=== PATIENT | male | born 1960 | race Caucasian/White ===

== ENCOUNTER 2017-09-07 11:33 | Inpatient (IN) | payer SELFPAY ==
[~2017-09-07] VITALS: Ht 167.6 cm; Wt 66.5 kg
[2017-09-07] VITALS (20 sets, daily range): BP systolic 81–110; BP diastolic 41–69
[~2017-09-07 11:33] MED LIST: ACET-1748 PO; ALB17R; AZI250 PO; AZIT500T47 PO; HUM7030I SC; HUM7030I SQ; HUM75/25I SC; HUMALOG SC; IBUP800T37 PO; INSU100C10 SQ; INSU100C12 SQ; INSU100C14 SQ; INSU100I36 SQ; LANI; LANI SQ; LANI SUBQ; LOR5/325 PO; METF-409 PO; OXYC-869 PO; PAN40 PO; PER PO; Pantoprazole Sod PO; RAMI10CA72 PO; ROS10 PO; ZOLP12.545 PO
[2017-09-07] MEDS ORDERED: LANI SUBQ (11:40)
--- NOTE | 2017-09-07 11:44 | ER Report ---
History and Physical Time Seen By MD: 11:44 Hx. of Stated Complaint: PT C/O COUGH AND SOB. SICK FOR TWO DAYS. HPI/ROS CHIEF COMPLAINT: Cough, shortness of breath, vomiting HISTORY OF PRESENT ILLNESS: 56-year-old male patient presents to the emergency room with complaint of cough, shortness of breath and vomiting. Patient states that this is been going on since yesterday afternoon. He states that since this started is not been able to eat or drink as any time that he tried to drink he vomits. He states that he's not had any fevers but is concerned that he may have the flu. Patient states he has a cough that is very persistent. He states he does have some shortness of breath. He has not taken any medication for this. He denies having any fevers or chills. REVIEW OF SYSTEMS: Respiratory: As noted above Cardiovascular: No chest pain, no palpitations. Gastrointestinal: As noted above Musculoskeletal: No back pain. Allergies: Coded Allergies: No Known Drug Allergies (Verified , 09/07/17) Home Meds Reported Medications Insulin Glargine (LANTUS) 100 Unit/Ml Soln, 20 UNIT SUBQ QAM, ML 09/07/17 Discontinued Reported Medications Insulin Aspart (NOVOLOG) 100 Unit/1 Ml Cartridge, 100 UNIT SQ SS 04/28/16 Discontinued Scripts Insulin Glargine (LANTUS) 100 Unit/Ml Soln, 15 UNIT SUBQ BID, #1 BOX Prov:HENRY BURNETTE MD 07/28/15 Past Medical/Surgical History Patient has a past medical history of migraines, left shoulder fracture, type 1 diabetes. Patient has a surgical history of inguinal hernia repair, appendectomy. Reviewed Nurses Notes: Yes Hx Smoking: Yes Smoking Status: Light Tobacco Smoker Hx Substance Use Disorder: No Hx Alcohol Use: Yes Constitutional Vital Sign - Last 24 Hours 09/07/17 09/07/17 09/07/17 11:37 11:52 12:01 Temp 97.9 Pulse 102 104 104 Resp 20 26 25 B/P (MAP) 95/65 Pulse Ox 99 O2 Delivery Room Air Intake and Output 09/07/17 09/07/17 09/08/17 15:00 23:00 07:00 Intake Total 1000 ml Balance 1000 ml Physical Exam General Appearance: The patient is alert, has no immediate need for airway protection and no current signs of toxicity. ENT: Tympanic membranes are pearly-michele, auditory canals are patent, mucous membranes are moist. Respiratory: Chest is non tender, lungs are clear to auscultation. Cardiac: regular rate and rhythm Gastrointestinal: Abdomen is soft and non tender, no masses, bowel sounds normal. Musculoskeletal: Neck: Neck is supple and non tender. Extremities have full range of motion and are non tender. Skin: No rashes or lesions. DIFFERENTIAL DIAGNOSIS: After history and physical exam differential diagnosis was considered for influenza, DKA, pneumonia, upper respiratory infection, gastroenteritis. Medical Decision Making Data Points Result Diagram: 09/07/17 1210 09/07/17 1412 Laboratory Hematology Test 09/07/17 11:57 09/07/17 12:10 09/07/17 13:23 09/07/17 13:38 Influenza Virus Type A (PCR) Negative (NEGATIVE) Influenza Virus Type B (PCR) Negative (NEGATIVE) Red Blood Count 4.10 M/uL (4.00-5.60) Mean Corpuscular Volume 106.4 fL (80.0-96.0) Mean Corpuscular Hemoglobin 32.6 pg (26.0-33.0) Mean Corpuscular Hemoglobin Concent 30.7 g/dL (32.0-36.0) Red Cell Distribution Width 15.7 % (11.5-14.5) Mean Platelet Volume 7.8 fL (7.2-11.1) Neutrophils (%) (Auto) 88.5 % (39.4-72.5) Lymphocytes (%) (Auto) 4.6 % (17.6-49.6) Monocytes (%) (Auto) 5.9 % (4.1-12.4) Eosinophils (%) (Auto) 0.0 % (0.4-6.7) Basophils (%) (Auto) 1.0 % (0.3-1.4) Nucleated RBC Relative Count (auto) 0.0 /100WBC Neutrophils # (Auto) 20.0 K/uL (2.0-7.4) Lymphocytes # (Auto) 1.1 K/uL (1.3-3.6) Monocytes # (Auto) 1.3 K/uL (0.3-1.0) Eosinophils # (Auto) 0.0 K/uL (0.0-0.5) Basophils # (Auto) 0.2 K/uL (0.0-0.1) Nucleated RBC Absolute Count (auto) 0.00 K/uL Sodium Level 135 mmol/L (137-145) Potassium Level 5.7 mmol/L (3.5-5.0) Chloride Level 92 mmol/L (98-107) Carbon Dioxide Level < 5 mmol/L (22-30) Blood Urea Nitrogen 39 mg/dl (9-21) Creatinine 1.70 mg/dl (0.66-1.25) Glomerular Filtration Rate Calc 41.8 Osmolality 355 mOSM/K (275-295) Calcium Level 8.8 mg/dl (8.4-10.2) Total Bilirubin 0.7 mg/dl (0.2-1.3) Aspartate Amino Transf (AST/SGOT) 23 U/L (0-35) Alanine Aminotransferase (ALT/SGPT) 34 U/L (0-56) Alkaline Phosphatase 117 U/L (0-126) Troponin I 0.017 ng/ml B-Type Natriuretic Peptide 461 pg/ml (0-100) Total Protein 7.2 gm/dl (6.3-8.2) Albumin 4.6 g/dl (3.5-5.0) Acetone, Qualitative Large Urine Color Straw Urine Clarity Clear Urine pH 5.0 pH (4.8-9.5) Urine Specific [place] 1.020 Urine Protein Negative mg/dL (NEGATIVE) Urine Glucose (UA) 500 mg/dL (NEGATIVE) Urine Ketones 80 mg/dL (NEGATIVE) Urine Blood Moderate (NEGATIVE) Urine Nitrite Negative (NEGATIVE) Urine Bilirubin Negative (NEGATIVE) Urine Urobilinogen Negative mg/dL (0.2-1.9) Urine Leukocyte Esterase Negative (NEGATIVE) Urine RBC None /HPF (0-2/HPF) Urine WBC <1 /HPF (0-5/HPF) Urine Squamous Epithelial Cells Few /LPF (</=FEW) Urine Bacteria Negative /HPF (NONE-FEW) Urine Hyaline Casts Few /LPF (NONE-FEW) Urine Mucus None /HPF (NONE-FEW) Whole Blood Glucose > 600 mg/DL (75-110) Chemistry Test 09/07/17 11:57 09/07/17 12:10 09/07/17 13:23 09/07/17 13:38 Influenza Virus Type A (PCR) Negative (NEGATIVE) Influenza Virus Type B (PCR) Negative (NEGATIVE) White Blood Count 22.7 k/uL (4.5-11.0) Red Blood Count 4.10 M/uL (4.00-5.60) Hemoglobin 13.4 g/dL (14.0-18.0) Hematocrit 43.7 % (42.0-52.0) Mean Corpuscular Volume 106.4 fL (80.0-96.0) Mean Corpuscular Hemoglobin 32.6 pg (26.0-33.0) Mean Corpuscular Hemoglobin Concent 30.7 g/dL (32.0-36.0) Red Cell Distribution Width 15.7 % (11.5-14.5) Platelet Count 265 K/uL (150-450) Mean Platelet Volume 7.8 fL (7.2-11.1) Neutrophils (%) (Auto) 88.5 % (39.4-72.5) Lymphocytes (%) (Auto) 4.6 % (17.6-49.6) Monocytes (%) (Auto) 5.9 % (4.1-12.4) Eosinophils (%) (Auto) 0.0 % (0.4-6.7) Basophils (%) (Auto) 1.0 % (0.3-1.4) Nucleated RBC Relative Count (auto) 0.0 /100WBC Neutrophils # (Auto) 20.0 K/uL (2.0-7.4) Lymphocytes # (Auto) 1.1 K/uL (1.3-3.6) Monocytes # (Auto) 1.3 K/uL (0.3-1.0) Eosinophils # (Auto) 0.0 K/uL (0.0-0.5) Basophils # (Auto) 0.2 K/uL (0.0-0.1) Nucleated RBC Absolute Count (auto) 0.00 K/uL Glomerular Filtration Rate Calc 41.8 Osmolality 355 mOSM/K (275-295) Calcium Level 8.8 mg/dl (8.4-10.2) Total Bilirubin 0.7 mg/dl (0.2-1.3) Aspartate Amino Transf (AST/SGOT) 23 U/L (0-35) Alanine Aminotransferase (ALT/SGPT) 34 U/L (0-56) Alkaline Phosphatase 117 U/L (0-126) Troponin I 0.017 ng/ml B-Type Natriuretic Peptide 461 pg/ml (0-100) Total Protein 7.2 gm/dl (6.3-8.2) Albumin 4.6 g/dl (3.5-5.0) Acetone, Qualitative Large Urine Color Straw Urine Clarity Clear Urine pH 5.0 pH (4.8-9.5) Urine Specific [place] 1.020 Urine Protein Negative mg/dL (NEGATIVE) Urine Glucose (UA) 500 mg/dL (NEGATIVE) Urine Ketones 80 mg/dL (NEGATIVE) Urine Blood Moderate (NEGATIVE) Urine Nitrite Negative (NEGATIVE) Urine Bilirubin Negative (NEGATIVE) Urine Urobilinogen Negative mg/dL (0.2-1.9) Urine Leukocyte Esterase Negative (NEGATIVE) Urine RBC None /HPF (0-2/HPF) Urine WBC <1 /HPF (0-5/HPF) Urine Squamous Epithelial Cells Few /LPF (</=FEW) Urine Bacteria Negative /HPF (NONE-FEW) Urine Hyaline Casts Few /LPF (NONE-FEW) Urine Mucus None /HPF (NONE-FEW) Whole Blood Glucose > 600 mg/DL (75-110) Toxicology Test 09/07/17 12:10 Acetone, Qualitative Large Urinalysis Test 09/07/17 13:23 Urine Color Straw Urine Clarity Clear Urine pH 5.0 pH (4.8-9.5) Urine Specific [place] 1.020 Urine Protein Negative mg/dL (NEGATIVE) Urine Glucose (UA) 500 mg/dL (NEGATIVE) Urine Ketones 80 mg/dL (NEGATIVE) Urine Blood Moderate (NEGATIVE) Urine Nitrite Negative (NEGATIVE) Urine Bilirubin Negative (NEGATIVE) Urine Urobilinogen Negative mg/dL (0.2-1.9) Urine Leukocyte Esterase Negative (NEGATIVE) Urine RBC None /HPF (0-2/HPF) Urine WBC <1 /HPF (0-5/HPF) Urine Squamous Epithelial Cells Few /LPF (</=FEW) Urine Bacteria Negative /HPF (NONE-FEW) Urine Hyaline Casts Few /LPF (NONE-FEW) Urine Mucus None /HPF (NONE-FEW) EKG/Imaging Imaging Examination: CHEST PA AND LAT Comparison: None. History: Respiratory distress for 2 days. Findings: Cardiac and hilar contour size is within normal limits. No consolidation, nodule, or peribronchial inflammation. No pneumothorax, edema, or effusion. No acute osseous abnormality. IMPRESSION: No evidence of acute cardiopulmonary disease. Report Dictated By: Mane Garcia MD at 09/07/2017 1:08 PM Report E-Signed By: Mane Garcia MD at 09/07/2017 1:09 PM ED Course/Re-evaluation ED Course Patient was admitted to in exam room, history and physical were obtained. Differential diagnoses were considered. On examination patient is tachypneic, lungs are clear, heart rate is elevated. A CBC, CMP, influenza screen, chest x- ray were done. After I had seen that the patient had a history of type 1 diabetes and also more elevated acetone ordered. Patient had a blood sugar of 600, his white count was 22,000 with a left shift, potassium was 5.7. I did get his acetone level back which was large. Chest x-ray was normal and influenza screen was negative. Patient received a liter of normal saline, left side his blood sugar patient also received 10 units of regular insulin IV. We are checking his blood sugar that did bring it down to 500. A ABG was done at that time which showed he had a pH of 7.04. I discussed the case with Dr. Henry Burnette, hospitalist, who agreed to accept the patient for admission. Patient was admitted to the ICU. I discussed the findings and plan with patient who verbalized understanding and agreement with plan. Decision to Disposition Date: Sep 07, 2017 Decision to Disposition Time: 13:54 Depart Departure Latest Vital Signs Vital Signs Date Time Temp Pulse Resp B/P (MAP) Pulse Ox O2 Delivery O2 Flow Rate FiO2 09/07/17 12:01 104 25 09/07/17 11:37 97.9 95/65 99 Room Air Impression: Primary Impression: Diabetic ketoacidosis Condition: Condition Unchanged Referrals: ASTRID MEZA PA-C (PCP) Problem Qualifiers Primary Impression: Diabetic ketoacidosis Diabetes mellitus type: type 1 Diabetes mellitus complication detail: without coma Qualified Codes: E10.10 - Type 1 diabetes mellitus with ketoacidosis without coma ELVIRA RAM Sep 07, 2017 11:44
[2017-09-07] MEDS ORDERED: NS(*) 0.9% 1000 ML BAG 1,000 ML IV ONE ×2 (11:48→13:15)
[2017-09-07] MEDS ORDERED: ALBUTEROL/IPRATROPIUM 3 ML NEB NEB ONE (11:50)
[2017-09-07 12:23] LABS: PLATELET COUNT, AUTOMATED 265 K/uL (150-450)
[2017-09-07] MEDS ORDERED: INSU HUM REG 100 U/ML(ER ONLY) 10 ML VIAL IV ONE (12:55)
--- NOTE | 2017-09-07 13:14 | RADIOLOGY IMAGING REPORT ---
FACILITY: [facility] - [place] PATIENT NAME: Boy Carter : 1960 MR: [id number] V: [id number] EXAM DATE: ORDERING PHYSICIAN: ELVIRA RAM TECHNOLOGIST: Location: [facility] [place] Patient: Boy Carter : 1960 Visit/Account:[id number] Date of Sevice: 09/07/2017 Examination: CHEST PA AND LAT Comparison: None. History: Respiratory distress for 2 days. Findings: Cardiac and hilar contour size is within normal limits. No consolidation, nodule, or peribr onchial inflammation. No pneumothorax, edema, or effusion. No acute osseous abnormality. IMPRESSION: No evidence of acute cardiopulmonary disease. Report Dictated By: Mane Garcia MD at 09/07/2017 1:08 PM Report E-Signed By: Mane Garcia MD at 09/07/2017 1:09 PM [id number]
[2017-09-07] MEDS ORDERED: KCL/NS* 20 MEQ/1000 ML PREMIX 1,000 ML IV PRN (14:35)
[2017-09-07] MEDS ORDERED: DIAZEPAM 10 MG TAB PO PRN ×2 (14:45)
[2017-09-07] MEDS ORDERED: KCL 2 MEQ/ML 20 MEQ/10 ML VIAL 20 MEQ in NS(*) 0.9% 1000 ML BAG 1,000 ML IV SCH ×3 (14:50→16:00)
[2017-09-07] MEDS ORDERED: INSULIN HUM REG 100 UN/ML 3 ML 100 UNIT in NS(*) 0.9% 100 ML BAG 99 ML IV SCH (15:15)
[2017-09-07] MEDS: THIAMINE HCL 200 MG/2 ML INJ IVP SCH (15:34)
[2017-09-07] MEDS ORDERED: PANTOPRAZOLE SOD 40 MG IV VIAL IVP SCH (16:00)
[2017-09-07] MEDS ORDERED: FOLIC ACID 50 MG/10 ML 1ML INJ IV ONE (16:00)
--- NOTE | 2017-09-07 17:23 | History & Physical ---
History of Present Illness Chief Complaint Nausea, vomiting, breathing hard since last night. History of Present Illness The patient is a 56 year old male with PMH of type I DM who presents with nausea and vomiting starting last evening. He denies diarrhea. The patient states he was trying to drink water and Powerade but could not keep anything down. After he vomited several times, he noticed that he had some coffee ground appearing emesis. He denies BRB. He denies history of PUD. He denies fever or chills. He has had a nonproductive cough for the past few days. No dysuria. The patient has been hospitalized about once yearly over the past 9-10 years with DKA. The patient also has a history of alcohol use/abuse. He states he has not had a drink for about 3 days and is tremulous today. History Problems: (1) History of closed head injury Status: Resolved (2) Alcohol abuse, daily use Status: Chronic (3) History of depression Status: Chronic (4) Type 1 diabetes mellitus Status: Chronic Home Meds Reported Medications Insulin Glargine (LANTUS) 100 Unit/Ml Soln, 20 UNIT SUBQ BID, ML 09/07/17 Discontinued Reported Medications Insulin Aspart (NOVOLOG) 100 Unit/1 Ml Cartridge, 100 UNIT SQ SS 04/28/16 Discontinued Scripts Insulin Glargine (LANTUS) 100 Unit/Ml Soln, 15 UNIT SUBQ BID, #1 BOX Prov:HENRY PALACIOS MD 07/28/15 Allergies: Coded Allergies: No Known Drug Allergies (Verified , 09/07/17) Patient History: Blood clots MOTHER Cardiac pacemaker MOTHER FH: gastric ulcer MOTHER FH: heart attack FATHER MOTHER FH: hypertension FATHER FH: stroke MOTHER Other Social/Family Hx The patient is . Hx Smoking: Yes (chewing tobacco) Smoking Status: Light Tobacco Smoker Caffeine Intake: Coffee Caffeine/Cups Per Day: 5 Hx Alcohol Use: Yes Alcohol Used: Beer, Liquor Hx Substance Use Disorder: No History of IV Drug Use: No Review of Systems Constitutional: No Fever, No Chills Neurological: Weakness Eyes: No Vision Change ENT: No Hearing Loss Cardiovascular: No Chest Pain Respiratory: Cough, Other (Breathing heavily.) Gastrointestinal: Nausea, Vomiting, No Diarrhea Genitourinary: No Dysuria Psychiatric: Depression (Hx of depression.) Exam Vital Signs Vital Signs Date Time Temp Pulse Resp B/P (MAP) Pulse Ox O2 Delivery O2 Flow Rate FiO2 09/07/17 18:30 97 24 81/41 (54) 99 Room Air 09/07/17 17:52 98.6 General Appearance: Alert, Awake, Other ([place]ul respirations.) Neuro: No Gross deficits Eyes: PERRLA Neck: No Masses Cardiovascular: Other (Tachy, regular.) Respiratory: Clear to Auscultation GI: Abd Soft and Non-Tender Extremities: Warm, Perfused, Other (No edema.) Integumentary: Skin Intact without Lesion / Mass Psych: Appropriate Mood & Affect Medical Decision Making Data Points Result Diagram: 09/07/17 1210 09/07/17 1708 Item Value Date Time Blood Gas Puncture Site Right radial 07/28/15 1730 Blood Gas Patient Temperature Unknown DEGREES 07/28/15 1730 Arterial Blood pH 7.12 *L 07/28/15 1730 Arterial Blood Partial Pressure CO2 12 mmHg *L 07/28/15 1730 Arterial Blood Partial Pressure O2 91 mmHg H 07/28/15 1730 Arterial Blood HCO3 4 mmol/L *L 07/28/15 1730 Arterial Blood Oxygen Saturation 94 % 07/28/15 1730 Arterial Blood Base Excess -26.0 mmol/L 07/28/15 1730 Jeffery Test Acceptable 07/28/15 1730 Oxygen Liters/Minute Room air 07/28/15 1730 Lactic Acid Level 3.3 mmol/L H 07/28/15 1637 Calcium Level 9.8 mg/dl 07/28/15 1637 Total Bilirubin 1.2 mg/dl 07/28/15 1637 Aspartate Amino Transf (AST/SGOT) 43 U/L H 07/28/15 1637 Alanine Aminotransferase (ALT/SGPT) 43 U/L 07/28/15 1637 Alkaline Phosphatase 123 U/L 07/28/15 1637 Total Protein 8.8 gm/dl H 07/28/15 1637 Albumin 5.5 g/dl H 07/28/15 1637 Lipase 63 U/L 07/28/15 1637 Acetone, Qualitative Moderate 07/28/15 1637 Random Glucose 659 mg/dl *H 09/07/17 1210 Sodium Level 135 mmol/L L 09/07/17 1210 Potassium Level 5.7 mmol/L H 09/07/17 1210 Chloride Level 92 mmol/L L 09/07/17 1210 Carbon Dioxide Level < 5 mmol/L *L 09/07/17 1210 Blood Urea Nitrogen 39 mg/dl H 09/07/17 1210 Creatinine 1.70 mg/dl H 09/07/17 1210 Glomerular Filtration Rate Calc 41.8 09/07/17 1210 Total Bilirubin 0.7 mg/dl 09/07/17 1210 Aspartate Amino Transf (AST/SGOT) 23 U/L 09/07/17 1210 Alanine Aminotransferase (ALT/SGPT) 34 U/L 09/07/17 1210 Alkaline Phosphatase 117 U/L 09/07/17 1210 Troponin I 0.017 ng/ml 09/07/17 1210 B-Type Natriuretic Peptide 461 pg/ml H 09/07/17 1210 Total Protein 7.2 gm/dl 09/07/17 1210 Albumin 4.6 g/dl 09/07/17 1210 Blood Gas Puncture Site Right radial 09/07/17 1425 Blood Gas Patient Temperature 97.8 DEGREES 09/07/17 1425 Arterial Blood pH 7.09 *L 09/07/17 1425 Arterial Blood Partial Pressure CO2 < 25 mmHg L 09/07/17 1425 Arterial Blood Partial Pressure O2 88 mmHg H 09/07/17 1425 Arterial Blood HCO3 4 mmol/L *L 09/07/17 1425 Arterial Blood Oxygen Saturation 93 % 09/07/17 1425 Arterial Blood Base Excess -26.0 mmol/L 09/07/17 1425 Jeffery Test Acceptable 09/07/17 1425 Oxygen Liters/Minute Roomair 09/07/17 1425 Acetone, Qualitative Large 09/07/17 1210 Urine Color Straw 09/07/17 1323 Urine Clarity Clear 09/07/17 1323 Urine pH 5.0 pH 09/07/17 1323 Urine Specific [place] 1.020 09/07/17 1323 Urine Protein Negative mg/dL 09/07/17 1323 Urine Glucose (UA) 500 mg/dL 09/07/17 1323 Urine Ketones 80 mg/dL H 09/07/17 1323 Urine Blood Moderate 09/07/17 1323 Urine Nitrite Negative 09/07/17 1323 Urine Bilirubin Negative 09/07/17 1323 Urine Urobilinogen Negative mg/dL 09/07/17 1323 Urine Leukocyte Esterase Negative 09/07/17 1323 Urine RBC None /HPF 09/07/17 1323 Urine WBC <1 /HPF 09/07/17 1323 Urine Squamous Epithelial Cells Few /LPF 09/07/17 1323 Urine Bacteria Negative /HPF 09/07/17 1323 Urine Hyaline Casts Few /LPF 09/07/17 1323 Urine Mucus None /HPF 09/07/17 1323 Influenza Virus Type A (PCR) Negative 09/07/17 1157 Influenza Virus Type B (PCR) Negative 09/07/17 1157 EKG / Imaging Monitor Interpretation: Sinus Tachycardia Imaging FACILITY: [facility] - [place] PATIENT NAME: Boy Carter : 1960 MR: [id number] V: [id number] EXAM DATE: ORDERING PHYSICIAN: ELVIRA RAM TECHNOLOGIST: Location: [facility] - [place] Patient: Boy Carter : 1960 Visit/Account:[id number] Date of Sevice: 09/07/2017 Examination: CHEST PA AND LAT Comparison: None. History: Respiratory distress for 2 days. Findings: Cardiac and hilar contour size is within normal limits. No consolidation, nodule, or peribronchial inflammation. No pneumothorax, edema, or effusion. No acute osseous abnormality. IMPRESSION: No evidence of acute cardiopulmonary disease. Report Dictated By: Mane Garcia MD at 09/07/2017 1:08 PM Report E-Signed By: Mane Garcia MD at 09/07/2017 1:09 PM [id number] Pre-Admit Course ED Medications NS, Duoneb, Regular insulin. Medical Record Review: Yes Assessment and Plan Problems: (1) Diabetic ketoacidosis Onset Date: ~ 01/2014 Status: Acute Assessment & Plan: Will admit to ICU and hydrate aggressively with NS with 20meq KCl. Will place on insulin gtt at 0.1u/kg/hr. Monitor hourly glucoses. When glucose falls below 250, switch fluids to D51/2NS with 20meq of KCl at 200cc/hr. Monitor BMPs q 6 hours. Continue fluids and insulin gtt until acidosis improves significantly. (2) Type 1 diabetes mellitus Status: Chronic Assessment & Plan: On Lantus 20u bid at home. Will treat as above and switch back to home meds when his DKA resolves. (3) Dehydration Status: Acute Assessment & Plan: Aggressively hydrate as above. (4) Acute kidney failure Status: Acute Assessment & Plan: Due to above. Hydrate and recheck labs. BMP ordered q6hrs. (5) Alcohol use Status: Chronic Assessment & Plan: Will place on CIWA protocol. Time Spent on Plan of Care: < 30 min Copies to: EDDIE MATHEWS MD Venous Thromboembolism VTE Risk Physician Assess for VTE Risk: Yes Patient's VTE Risk: Low VTE Diagnostic Test 2 Days Prior to Admit: No Antithrombotics Is Pt On Any Antithrombotics?: Yes Exam Sepsis Risk: Severe Sepsis Risk Problem Qualifiers (1) Diabetic ketoacidosis: Diabetes mellitus type: type 1 Diabetes mellitus complication detail: without coma Qualified Codes: E10.10 - Type 1 diabetes mellitus with ketoacidosis without coma HENRY PALACIOS MD Sep 07, 2017 17:23
[2017-09-07] MEDS: KCL/D1/2NS 20 MEQ 1000 ML 1,000 ML IV PRN (19:57)
[2017-09-08] VITALS (25 sets, daily range): BP systolic 86–117; BP diastolic 46–81; Ht 167.6 cm; Wt 66.5 kg
[2017-09-08] MEDS: KCL/D1/2NS 20 MEQ 1000 ML 1,000 ML IV PRN ×2 (01:02→05:51)
[2017-09-08] MEDS ORDERED: ALBUTEROL/IPRATROPIUM 3 ML NEB NEB SCH (06:00)
[2017-09-08] MEDS ORDERED: ENOXAPARIN 30 MG/0.3 ML SYR SC SCH (09:00)
[2017-09-08] MEDS ORDERED: FOLIC ACID 50 MG/10 ML 1ML INJ IV SCH (09:00)
[2017-09-08] MEDS ORDERED: INSULIN GLARGINE 100 U/ML 3 ML PEN SUBQ SCH (09:30)
[2017-09-08] MEDS: THIAMINE HCL 200 MG/2 ML INJ IVP SCH (09:33)
[2017-09-08] MEDS ORDERED: INSULIN HUM REG 100 UN/ML 3 ML 100 UNIT in NS(*) 0.9% 100 ML BAG 99 ML IV SCH (10:00)
--- NOTE | 2017-09-08 10:49 | Hospitalist Progress Note ---
Subjective Progress Notes Subjective This patient was admitted for DKA. He had no acute events overnight. Patient Complains of: Cardiovascular: No: Chest Pain Respiratory: No: Shortness of Breath Physical Exam Vital Signs Date Time Temp Pulse Resp B/P (MAP) Pulse Ox O2 Delivery O2 Flow Rate FiO2 09/08/17 10:05 78 09/08/17 10:00 21 109/69 (82) 93 09/08/17 08:00 98.6 Room Air Neuro: No Gross deficits Eyes: PERRLA Cardiovascular: Regular Rate and Rhythm Respiratory: Clear to Auscultation Extremities: No Edema Integumentary: No Cyanosis Result Diagram: 09/07/17 1210 09/08/17 0552 Monitor Interpretation: Sinus Tachycardia Assessment and Plan Problems: (1) Diabetic ketoacidosis Onset Date: ~ 01/2014 Status: Acute Assessment & Plan: He did present with hyperglycemia and acidosis. He was treated with IV fluids and an IV insulin infusion. He was converted back to SQ insulin overnight. His sugars are improved this morning and his acidosis is resolved. We will advance his diet and plan for discharge if he remains stable. (2) Type 1 diabetes mellitus Status: Chronic Assessment & Plan: His is on Lantus chronically. (3) Dehydration Status: Acute Assessment & Plan: Resolved with IV fluids. (4) Acute kidney failure Status: Acute Assessment & Plan: Resolved with IV fluids. (5) Alcohol use Status: Chronic Assessment & Plan: He has been on CIWA protocol, but he has not required dosing. Exam Sepsis Risk: No Definite Risk Problem Qualifiers (1) Diabetic ketoacidosis: Diabetes mellitus type: type 1 Diabetes mellitus complication detail: without coma Qualified Codes: E10.10 - Type 1 diabetes mellitus with ketoacidosis without coma ELIZABETH GTZ DO Sep 08, 2017 10:49
--- NOTE | 2017-09-08 15:26 | Hospitalist Depart ---
Discharge Summary Reason for Hosp/Final Diag: (1) Diabetic ketoacidosis Onset Date: ~ 01/2014 Status: Acute Hospital Course & Plan: He did present with hyperglycemia and acidosis. He was treated with IV fluids and an IV insulin infusion. He was converted back to SQ insulin overnight. His sugars have since been stable. (2) Type 1 diabetes mellitus Status: Chronic Hospital Course & Plan: His is on Lantus chronically. (3) Dehydration Status: Acute Hospital Course & Plan: Resolved with IV fluids. (4) Acute kidney failure Status: Acute Hospital Course & Plan: Resolved with IV fluids. (5) Alcohol use Status: Chronic Hospital Course & Plan: He has been on CIWA protocol, but he has not required dosing. Departure Latest Vital Signs Laboratory Tests Test 09/07/17 15:38 09/07/17 16:52 09/07/17 17:08 09/07/17 17:51 Whole Blood Glucose 448 mg/DL 317 mg/DL 313 mg/DL Sodium Level 138 mmol/L Potassium Level 4.5 mmol/L Chloride Level 103 mmol/L Carbon Dioxide Level 8 mmol/L Blood Urea Nitrogen 40 mg/dl Creatinine 1.30 mg/dl Glomerular Filtration Rate Calc 56.9 Random Glucose 285 mg/dl Calcium Level 8.1 mg/dl Test 09/07/17 18:53 09/07/17 19:54 09/07/17 20:51 09/07/17 22:03 Whole Blood Glucose 214 mg/DL 156 mg/DL 151 mg/DL 171 mg/DL Test 09/07/17 23:03 09/07/17 23:52 09/08/17 01:01 09/08/17 03:04 Sodium Level 136 mmol/L Potassium Level 5.1 mmol/L Chloride Level 106 mmol/L Carbon Dioxide Level 19 mmol/L Blood Urea Nitrogen 36 mg/dl Creatinine 1.00 mg/dl Glomerular Filtration Rate Calc > 60.0 Random Glucose 186 mg/dl Calcium Level 8.2 mg/dl Whole Blood Glucose 190 mg/DL 203 mg/DL 207 mg/DL Test 09/08/17 04:12 09/08/17 05:48 09/08/17 05:52 09/08/17 07:03 Whole Blood Glucose 194 mg/DL 164 mg/DL 216 mg/DL Sodium Level 135 mmol/L Potassium Level 4.2 mmol/L Chloride Level 106 mmol/L Carbon Dioxide Level 21 mmol/L Blood Urea Nitrogen 28 mg/dl Creatinine 0.80 mg/dl Glomerular Filtration Rate Calc > 60.0 Random Glucose 171 mg/dl Hemoglobin A1c 9.8 % Calcium Level 8.5 mg/dl Test 09/08/17 08:37 09/08/17 11:30 Whole Blood Glucose 184 mg/DL 180 mg/DL Current Medications Medications (Trade) Dose Ordered Sig/Franck Route PRN Reason Start Time Stop Time Status Last Admin Dose Admin Sodium Chloride 1,000 ml @ 0 mls/hr Q0M ONCE IV 09/07/17 11:48 09/07/17 11:50 DC 09/07/17 12:10 Albuterol/ Ipratropium (Duoneb Soln(*) 3 ml Neb (Or Equiv)) 3 ml ONCE ONCE NEB 09/07/17 11:50 09/07/17 11:51 DC 09/07/17 11:59 Insulin Human Regular (HumuLIN-R(*) 100 UN/ML 10 ML VIAL (ER ONLY)) 10 unit ONCE ONCE IV 09/07/17 12:55 09/07/17 12:56 DC 09/07/17 13:05 Sodium Chloride 1,000 ml @ 0 mls/hr Q0M ONCE IV 09/07/17 13:15 09/07/17 13:16 DC 09/07/17 13:15 Potassium Chloride/Sodium Chloride 1,000 ml @ 250 mls/hr Q4H PRN IV prn 09/07/17 14:35 10/07/17 14:34 UNV Insulin Human Regular 100 unit/ Sodium Chloride 100 ml @ 6.66 mls/hr Q15H1M IV 09/07/17 15:15 09/07/17 15:15 DC Diazepam (Valium(*) 10 Mg Tab (Or Equiv)) 10 mg Q1H PRN PO FOLLOW CIWA PROTOCOL 09/07/17 14:45 09/21/17 14:44 Diazepam (Valium(*) 10 Mg Tab (Or Equiv)) 20 mg Q1H PRN PO FOLLOW CIWA PROTOCOL 09/07/17 14:45 09/21/17 14:44 Thiamine HCl (Thiamine HCl(*) 200 Mg/2 ml Inj) 100 mg QDAY IVP 09/07/17 14:45 09/10/17 14:44 09/08/17 09:33 Folic Acid (Folic Acid (*) 50 Mg/10 ml 1ml Inj) 1 mg ONCE ONCE IV 09/07/17 16:00 09/07/17 16:01 DC 09/07/17 15:34 Potassium Chloride 20 meq/ Sodium Chloride 1,020 ml @ 250 mls/hr Q4H5M IV 09/07/17 14:50 09/07/17 14:56 DC Potassium Chloride 20 meq/ Sodium Chloride 1,010 ml @ 250 mls/hr Q4H5M IV 09/07/17 15:00 09/07/17 15:00 DC Potassium Chloride 20 meq/ Sodium Chloride 1,010 ml @ 250 mls/hr Q4H3M IV 09/07/17 16:00 09/07/17 20:28 DC 09/07/17 15:11 Insulin Human Regular 100 unit/ Sodium Chloride 100 ml @ 6.66 mls/hr Q15H1M IV 09/07/17 15:15 09/07/17 17:29 DC 09/07/17 15:12 Pantoprazole Sodium (Protonix 40 Mg Iv Vial (*) (Or Equiv)) 40 mg Q24H@1600 IVP 09/07/17 16:00 10/07/17 15:59 09/07/17 15:34 Insulin Human Regular 100 unit/ Sodium Chloride 100 ml @ 5 mls/hr Q20H IV 09/08/17 10:00 09/08/17 10:00 DC Folic Acid (Folic Acid (*) 50 Mg/10 ml 1ml Inj) 1 mg DAILY IV 09/08/17 09:00 10/08/17 08:59 09/08/17 09:32 Potassium Chloride/Dextrose/ Sod Cl 1,000 ml @ 200 mls/hr Q5H3M PRN IV dka 09/07/17 19:00 09/08/17 07:46 DC 09/08/17 05:51 Enoxaparin Sodium (Lovenox 30 Mg/ 0.3 ml Syr (Or Equiv)) 30 mg QDAY SC 09/08/17 09:00 10/08/17 08:59 09/08/17 09:32 Albuterol/ Ipratropium (Duoneb Soln(*) 3 ml Neb (Or Equiv)) 3 ml TIDR NEB 09/08/17 06:00 09/08/17 11:14 DC 09/08/17 05:24 Insulin Glargine (Lantus 100 Unit/ ml Pen) 20 unit BID SUBQ 09/08/17 09:30 10/08/17 09:29 09/08/17 09:37 Weight (Pounds): 146 Weight (Ounces): 10.0 Result Diagram: 09/07/17 1210 09/08/17 0552 Condition: Improved Discharge: Home, Self Care Discharge Instructions Home Meds Reported Medications Insulin Glargine (LANTUS) 100 Unit/Ml Soln, 20 UNIT SUBQ BID, ML 09/07/17 Discontinued Reported Medications Insulin Aspart (NOVOLOG) 100 Unit/1 Ml Cartridge, 100 UNIT SQ SS 04/28/16 Discontinued Scripts Insulin Glargine (LANTUS) 100 Unit/Ml Soln, 15 UNIT SUBQ BID, #1 BOX Prov:HENRY PALACIOS MD 07/28/15 Diet: Diabetic Activity: As Tolerated Copies to: BRAD MACK APRN [employer] Venous Thromboembolism Antithrombotics Is Pt On Any Antithrombotics?: Yes Problem Qualifiers (1) Diabetic ketoacidosis: Diabetes mellitus type: type 1 Diabetes mellitus complication detail: without coma Qualified Codes: E10.10 - Type 1 diabetes mellitus with ketoacidosis without coma ELIZABETH GTZ DO Sep 08, 2017 15:26
== END 2017-09-08 16:10 | disposition home or self-care (01) | DRG 638 ==
LOC: ER 11:47 → ICU 13:48
PROVIDERS: ADMIT Internal Medicine; ATTEND Internal Medicine
DX: E10.10 Type 1 diabetes mellitus with ketoacidosis without coma (principal); N17.9 Acute kidney failure, unspecified; E86.0 Dehydration; F10.10 Alcohol abuse, uncomplicated; F32.9 Major depressive disorder, single episode, unspecified; F17.220 Nicotine dependence, chewing tobacco, uncomplicated; Z79.4 Long term (current) use of insulin
CPT/HCPCS: 36415; 36416; 36600; 71046; 81001; 82009; 82040; 82247; 82310; 82374; 82435; 82565; 82803; 82947; 82948; 83036; 83735; 83880; 83930; 84075; 84100; 84132; 84155; 84295; 84450; 84460; 84484; 84520; 85025; 87502; 94640; 96361; 96374; 99285; C9113; J1650; J1815; J3411; J3480; J7030; J7050

== ENCOUNTER 2017-09-14 11:23 | Inpatient (IN) | payer SELFPAY ==
[2017-09-08 09:03] VITALS: Ht 167.6 cm; Wt 75.3 kg
[2017-09-14] VITALS (28 sets, daily range): BP systolic 78–114; BP diastolic 46–67
[~2017-09-14] VITALS: Ht 167.6 cm; Wt 75.3 kg
[~2017-09-14 11:23] MED LIST changes: -INSU100I30 SUBQ; -INSU100V24 SQ; -MULT400T5 PO; -POTA-23 PO; -POTA-28 PO; -TOLN30CR TP; -VITA-175 PO
[2017-09-14] MEDS ORDERED: LORazepam 2 MG/ML VIAL IVP ONE ×2 (11:30→11:50)
--- NOTE | 2017-09-14 11:38 | ER Report ---
History and Physical Time Seen By MD: 11:23 (ANTONIO ERICKSON) HPI/ROS CHIEF COMPLAINT: Altered LOC HISTORY OF PRESENT ILLNESS: This is a 56-year-old male who comes into the emergency department via EMS for altered LOC. According to EMS the family called EMS for patient be transported to emergency department as he had an altered LOC. Patient was sitting in the middle of the living room with his back against a table and wasn't really responding. EMS arrived and checked his blood sugar was up around 160. Patient was also just discharged from the hospital for alcohol detox as well as DKA. En route EMS states that the patient was somewhat combative and not answering questions, and not acting appropriate. In the exam room I am able to elicit a response with a sternal rub patient's eyes are now open he is trying to get off the end of the bed but unwilling to talk or tell me if he is having any pain. REVIEW OF SYSTEMS: Constitutional: Unable to obtain. Eyes: Unable to obtain. ENT: Unable to obtain. Cardiovascular: Unable to obtain. Respiratory: Able to obtain. Gastrointestinal: Unable to obtain. Genitourinary: Unable to obtain. Musculoskeletal: Unable to obtain. Skin: Unable to obtain. Neurological: Unable to obtain. (ANTONIO ERICKSON) Allergies: Coded Allergies: No Known Drug Allergies (Verified , 09/07/17) Home Meds Reported Medications Insulin Glargine (LANTUS) 100 Unit/Ml Soln, 20 UNIT SUBQ BID, ML 09/07/17 Discontinued Reported Medications Insulin Aspart (NOVOLOG) 100 Unit/1 Ml Cartridge, 100 UNIT SQ SS 04/28/16 Discontinued Scripts Insulin Glargine (LANTUS) 100 Unit/Ml Soln, 15 UNIT SUBQ BID, #1 BOX Prov:HENRY PALACIOS MD 07/28/15 Past Medical/Surgical History has a past medical and surgical history of migraines, left shoulder fracture, wears glasses, type I diabetic, inguinal hernia repair, alcohol abuse. (ANTONIO ERICKSON) Reviewed Nurses Notes: Yes (ANTONIO ERICKSON) Hx Smoking: Yes (chewing tobacco) Smoking Status: Light Tobacco Smoker Hx Substance Use Disorder: No Hx Alcohol Use: Yes (ANTONIO ERICKSONBC) Constitutional Vital Sign - Last 24 Hours 09/14/17 09/14/17 09/14/17 09/14/17 11:26 11:27 11:28 11:30 Temp 101.2 Pulse 120 109 Resp 22 B/P (MAP) 183/96 141/90 (107) 183/96 (125) Pulse Ox 93 94 O2 Delivery Room Air 09/14/17 09/14/17 09/14/17 09/14/17 11:38 11:43 11:45 11:48 Pulse 92 100 87 Resp 11 B/P (MAP) 135/80 (98) Pulse Ox 94 96 100 09/14/17 09/14/17 09/14/17 09/14/17 11:53 11:58 12:00 12:03 Pulse 89 97 93 B/P (MAP) 138/108 (118) Pulse Ox 100 100 99 09/14/17 09/14/17 09/14/17 09/14/17 12:08 12:16 12:18 12:20 Pulse 92 90 Resp 15 B/P (MAP) 106/77 (87) 134/72 (92) Pulse Ox 98 99 09/14/17 09/14/17 09/14/17 09/14/17 12:23 12:28 12:30 12:33 Pulse 97 96 106 Resp 13 115 B/P (MAP) 165/86 (112) Pulse Ox 100 100 99 09/14/17 09/14/17 09/14/17 09/14/17 12:38 12:40 12:41 13:17 Pulse 96 99 Resp 73 101 B/P (MAP) 125/84 (98) Pulse Ox 93 100 FiO2 30.0 (LIZABETH COSME MD) Physical Exam General Appearance: The patient will open eyes to sternal rub and withdrawal. No immediate need for airway protection and no signs of toxicity, feels warm to touch. Eyes: Pupils equal, round and reactive, no pallor or injection. Patient is not following commands unable to fully assess EOMs. ENT, Mouth: Mucous membranes are dry. No blood or debris noted in the mouth. Respiratory: There are no retractions, lungs are clear to auscultation. No abnormal chest rise and fall, no bruising. Cardiovascular: Regular rate and rhythm, no murmurs, clicks or rubs. Gastrointestinal: Abdomen is soft and non tender, no masses, bowel sounds normal. Genitourinary: Incontinent of urine. Neurological: Unable to fully assess neuro status. However patient is moving all extremities, trying to scoot off the end of the gurney. Skin: Very warm and dry, no obvious rashes. Musculoskeletal: Neck is supple non tender. No tracheal deviation or deformities. Extremities are nontender, nonswollen and have full range of motion. DIFFERENTIAL DIAGNOSIS: After history and physical exam differential diagnosis was considered for altered mental status including but not limited to hypoglycemia, infectious process, electrolyte abnormality, head injury and intoxicants. (ANTONIO ERICKSON [facility]-) Medical Decision Making Data Points Result Diagram: 09/14/17 1118 09/14/17 1118 Laboratory Hematology Test 09/14/17 00:00 09/14/17 11:18 09/14/17 12:02 09/14/17 12:13 Influenza Virus Type A (PCR) Negative (NEGATIVE) Influenza Virus Type B (PCR) Negative (NEGATIVE) Red Blood Count 4.03 M/uL (4.00-5.60) Mean Corpuscular Volume 94.9 fL (80.0-96.0) Mean Corpuscular Hemoglobin 32.5 pg (26.0-33.0) Mean Corpuscular Hemoglobin Concent 34.2 g/dL (32.0-36.0) Red Cell Distribution Width 13.4 % (11.5-14.5) Mean Platelet Volume 7.8 fL (7.2-11.1) Neutrophils (%) (Auto) 87.0 % (39.4-72.5) Lymphocytes (%) (Auto) 5.9 % (17.6-49.6) Monocytes (%) (Auto) 6.7 % (4.1-12.4) Eosinophils (%) (Auto) 0.0 % (0.4-6.7) Basophils (%) (Auto) 0.4 % (0.3-1.4) Nucleated RBC Relative Count (auto) 0.0 /100WBC Neutrophils # (Auto) 10.4 K/uL (2.0-7.4) Lymphocytes # (Auto) 0.7 K/uL (1.3-3.6) Monocytes # (Auto) 0.8 K/uL (0.3-1.0) Eosinophils # (Auto) 0.0 K/uL (0.0-0.5) Basophils # (Auto) 0.1 K/uL (0.0-0.1) Nucleated RBC Absolute Count (auto) 0.00 K/uL Peripheral Blood Smear No Y/N Sodium Level 135 mmol/L (137-145) Potassium Level 3.6 mmol/L (3.5-5.0) Chloride Level 98 mmol/L (98-107) Carbon Dioxide Level 27 mmol/L (22-30) Blood Urea Nitrogen 8 mg/dl (9-21) Creatinine 0.60 mg/dl (0.66-1.25) Glomerular Filtration Rate Calc > 60.0 Random Glucose 166 mg/dl (75-110) Lactate 2.7 mmol/L (0.7-2.1) Calcium Level 9.0 mg/dl (8.4-10.2) Magnesium Level 1.8 mg/dl (1.7-2.2) Total Bilirubin 0.6 mg/dl (0.2-1.3) Aspartate Amino Transf (AST/SGOT) 23 U/L (0-35) Alanine Aminotransferase (ALT/SGPT) 31 U/L (0-56) Alkaline Phosphatase 110 U/L (0-126) Total Creatine Kinase 143 U/L (55-170) Troponin I < 0.012 ng/ml Total Protein 6.0 gm/dl (6.3-8.2) Albumin 3.3 g/dl (3.5-5.0) Lipase 47 U/L (23-300) Salicylates Level < 10 mg/L Salicylate Last Dose Date unk Acetaminophen Level < 10 ug/ml Serum Alcohol < 10 mg/dl Acetone, Qualitative Negative Urine Color Yellow Urine Clarity Slightly-cloudy Urine pH 5.0 pH (4.8-9.5) Urine Specific [place] 1.027 Urine Protein Negative mg/dL (NEGATIVE) Urine Glucose (UA) 500 mg/dL (NEGATIVE) Urine Ketones Negative mg/dL (NEGATIVE) Urine Blood Negative (NEGATIVE) Urine Nitrite Negative (NEGATIVE) Urine Bilirubin Negative (NEGATIVE) Urine Urobilinogen Negative mg/dL (0.2-1.9) Urine Leukocyte Esterase Negative (NEGATIVE) Urine RBC <1 /HPF (0-2/HPF) Urine WBC 2 /HPF (0-5/HPF) Urine Squamous Epithelial Cells None /LPF (NONE-FEW) Urine Bacteria Negative /HPF (NONE-FEW) Urine Mucus Few /HPF (NONE-FEW) Urine Opiates Screen Negative Urine Barbiturates Screen Negative Ur Tricyclic Antidepressants Screen Negative Urine Phencyclidine Screen Negative Urine Amphetamines Screen Negative Urine Benzodiazepines Screen Negative Urine Cocaine Screen Negative Urine Cannabinoids Screen Positive Ammonia < 9 UMOL/L (9-33) Test 09/14/17 13:20 09/14/17 13:57 09/14/17 13:59 Blood Gas Puncture Site Right brachial Blood Gas Patient Temperature 37.2 DEGREES Arterial Blood pH 7.35 (7.35-7.45) Arterial Blood Partial Pressure CO2 43 mmHg (32-37) Arterial Blood Partial Pressure O2 80 mmHg (60-80) Arterial Blood HCO3 24 mmol/L (20-26) Arterial Blood Oxygen Saturation 95 % (92-100) Arterial Blood Base Excess -2.0 mmol/L Jeffery Test Nt avail Carboxyhemoglobin 3.1 % (< 5.0) Oxygen Liters/Minute Vent CSF Glucose 68 mg/dl CSF Total Protein 25 mg/dl (15-50) Chemistry Test 09/14/17 00:00 09/14/17 11:18 09/14/17 12:02 09/14/17 12:13 Influenza Virus Type A (PCR) Negative (NEGATIVE) Influenza Virus Type B (PCR) Negative (NEGATIVE) White Blood Count 12.0 k/uL (4.5-11.0) Red Blood Count 4.03 M/uL (4.00-5.60) Hemoglobin 13.1 g/dL (14.0-18.0) Hematocrit 38.3 % (42.0-52.0) Mean Corpuscular Volume 94.9 fL (80.0-96.0) Mean Corpuscular Hemoglobin 32.5 pg (26.0-33.0) Mean Corpuscular Hemoglobin Concent 34.2 g/dL (32.0-36.0) Red Cell Distribution Width 13.4 % (11.5-14.5) Platelet Count 326 K/uL (150-450) Mean Platelet Volume 7.8 fL (7.2-11.1) Neutrophils (%) (Auto) 87.0 % (39.4-72.5) Lymphocytes (%) (Auto) 5.9 % (17.6-49.6) Monocytes (%) (Auto) 6.7 % (4.1-12.4) Eosinophils (%) (Auto) 0.0 % (0.4-6.7) Basophils (%) (Auto) 0.4 % (0.3-1.4) Nucleated RBC Relative Count (auto) 0.0 /100WBC Neutrophils # (Auto) 10.4 K/uL (2.0-7.4) Lymphocytes # (Auto) 0.7 K/uL (1.3-3.6) Monocytes # (Auto) 0.8 K/uL (0.3-1.0) Eosinophils # (Auto) 0.0 K/uL (0.0-0.5) Basophils # (Auto) 0.1 K/uL (0.0-0.1) Nucleated RBC Absolute Count (auto) 0.00 K/uL Peripheral Blood Smear No Y/N Glomerular Filtration Rate Calc > 60.0 Lactate 2.7 mmol/L (0.7-2.1) Calcium Level 9.0 mg/dl (8.4-10.2) Magnesium Level 1.8 mg/dl (1.7-2.2) Total Bilirubin 0.6 mg/dl (0.2-1.3) Aspartate Amino Transf (AST/SGOT) 23 U/L (0-35) Alanine Aminotransferase (ALT/SGPT) 31 U/L (0-56) Alkaline Phosphatase 110 U/L (0-126) Total Creatine Kinase 143 U/L (55-170) Troponin I < 0.012 ng/ml Total Protein 6.0 gm/dl (6.3-8.2) Albumin 3.3 g/dl (3.5-5.0) Lipase 47 U/L (23-300) Salicylates Level < 10 mg/L Salicylate Last Dose Date unk Acetaminophen Level < 10 ug/ml Serum Alcohol < 10 mg/dl Acetone, Qualitative Negative Urine Color Yellow Urine Clarity Slightly-cloudy Urine pH 5.0 pH (4.8-9.5) Urine Specific [place] 1.027 Urine Protein Negative mg/dL (NEGATIVE) Urine Glucose (UA) 500 mg/dL (NEGATIVE) Urine Ketones Negative mg/dL (NEGATIVE) Urine Blood Negative (NEGATIVE) Urine Nitrite Negative (NEGATIVE) Urine Bilirubin Negative (NEGATIVE) Urine Urobilinogen Negative mg/dL (0.2-1.9) Urine Leukocyte Esterase Negative (NEGATIVE) Urine RBC <1 /HPF (0-2/HPF) Urine WBC 2 /HPF (0-5/HPF) Urine Squamous Epithelial Cells None /LPF (NONE-FEW) Urine Bacteria Negative /HPF (NONE-FEW) Urine Mucus Few /HPF (NONE-FEW) Urine Opiates Screen Negative Urine Barbiturates Screen Negative Ur Tricyclic Antidepressants Screen Negative Urine Phencyclidine Screen Negative Urine Amphetamines Screen Negative Urine Benzodiazepines Screen Negative Urine Cocaine Screen Negative Urine Cannabinoids Screen Positive Ammonia < 9 UMOL/L (9-33) Test 09/14/17 13:20 09/14/17 13:57 09/14/17 13:59 Blood Gas Puncture Site Right brachial Blood Gas Patient Temperature 37.2 DEGREES Arterial Blood pH 7.35 (7.35-7.45) Arterial Blood Partial Pressure CO2 43 mmHg (32-37) Arterial Blood Partial Pressure O2 80 mmHg (60-80) Arterial Blood HCO3 24 mmol/L (20-26) Arterial Blood Oxygen Saturation 95 % (92-100) Arterial Blood Base Excess -2.0 mmol/L Jeffery Test Nt avail Carboxyhemoglobin 3.1 % (< 5.0) Oxygen Liters/Minute Vent CSF Glucose 68 mg/dl CSF Total Protein 25 mg/dl (15-50) Toxicology Test 09/14/17 11:18 09/14/17 12:02 Salicylates Level < 10 mg/L Salicylate Last Dose Date unk Acetaminophen Level < 10 ug/ml Serum Alcohol < 10 mg/dl Acetone, Qualitative Negative Urine Opiates Screen Negative Urine Barbiturates Screen Negative Ur Tricyclic Antidepressants Screen Negative Urine Phencyclidine Screen Negative Urine Amphetamines Screen Negative Urine Benzodiazepines Screen Negative Urine Cocaine Screen Negative Urine Cannabinoids Screen Positive Urinalysis Test 09/14/17 12:02 Urine Color Yellow Urine Clarity Slightly-cloudy Urine pH 5.0 pH (4.8-9.5) Urine Specific [place] 1.027 Urine Protein Negative mg/dL (NEGATIVE) Urine Glucose (UA) 500 mg/dL (NEGATIVE) Urine Ketones Negative mg/dL (NEGATIVE) Urine Blood Negative (NEGATIVE) Urine Nitrite Negative (NEGATIVE) Urine Bilirubin Negative (NEGATIVE) Urine Urobilinogen Negative mg/dL (0.2-1.9) Urine Leukocyte Esterase Negative (NEGATIVE) Urine RBC <1 /HPF (0-2/HPF) Urine WBC 2 /HPF (0-5/HPF) Urine Squamous Epithelial Cells None /LPF (NONE-FEW) Urine Bacteria Negative /HPF (NONE-FEW) Urine Mucus Few /HPF (NONE-FEW) (LIZABETH COSME MD) Microbiology Microbiology Date/Time Source Procedure Growth Status 09/14/17 13:59 Cerebrospinal Fluid Gram Stain - Final Resulted 09/14/17 13:59 Cerebrospinal Fluid CSF Culture Pending Resulted (LIZABETH COSME MD) EKG/Imaging EKG Interpretation 12 lead EKG: Time of EKG 1129. Rhythm: Sinus rhythm, ventricular rate 93 bpm. [place]: normal QRS: normal ST segments: No ST depression or elevation noted. Significant amount of artifacts but no obvious signs of ischemia. No previous EKG to compare to. Imaging Location: [facility] - [place] Patient: Boy Carter : 1960 Visit/Account:[id number] Date of Sevice: 09/14/2017 EXAMINATION: CT Head without intravenous contrast HISTORY: Altered level of consciousness. TECHNIQUE: Axial images were obtained from the skull base to the vertex without intravenous contrast. Sagittal and coronal reformatted images are also submitted. One of the following dose optimization techniques was utilized in the performance of this exam: Automated exposure control; adjustment of the mA and/ or kV according to the patient's size; or use of an iterative reconstruction technique. Specific details can be referenced in the facility's radiology CT exam operational policy. COMPARISON: Noncontrast head CT dated 04/28/2016. FINDINGS: Brain volume: Mild generalized volume loss. Ventricles: Negative. Acute ischemic changes: None. Hemorrhage: None. Masses / edema: None. Chiu-white: Negative. White matter: Negative. Vessels: Negative. Extra-axial: Negative. Calvarium / skull base: Negative. Visualized sinuses / orbits: Moderate mucosal thickening and fluid in the paranasal sinuses, nonspecific in the setting of intubation. Leftward nasal septal deviation. IMPRESSION: No acute intracranial abnormality. Report Dictated By: Antonio Willis MD at 09/14/2017 1:29 PM Report E-Signed By: Antonio Willis MD at 09/14/2017 1:33 PM WSN:[id number] Location: [facility] [place] Patient: Boy Carter : 1960 Visit/Account:[id number] Date of Sevice: 09/14/2017 CHEST SINGLE AP Indication: Altered level of consciousness.. Comparison: 09/07/2017. Findings: Endotracheal tube is in place in good position. Cardiomediastinal silhouette and pulmonary vessels within normal limits. There is no focal infiltrate or lobar consolidation. No pneumothorax or pleural effusion. No nodule. Upper abdomen is unremarkable. No acute bony abnormality. IMPRESSION: 1. Endotracheal tubes in place in good position. No pneumothorax. No focal infiltrate. Report Dictated By: Chidi Sorto at 09/14/2017 1:32 PM Report E-Signed By: Chidi Sorto at 09/14/2017 1:33 PM WSN:[id number] Location: [facility] [place] Patient: Boy Carter : 1960 Visit/Account:[id number] Date of Sevice: 09/14/2017 FOOT 3 VIEW LEFT Indication: Left foot discoloration. Comparison: None Available Findings: 3 views of left foot. Demineralized bones. No evidence of acute fracture, dislocation, or radiopaque foreign body. No soft tissue swelling or osseous erosion. Normal alignment. No significant degenerative changes. IMPRESSION: 1. Demineralized bones. 2. Otherwise negative left foot radiographs. Report Dictated By: Antonio Willis MD at 09/14/2017 1:33 PM Report E-Signed By: Antonio Willis MD at 09/14/2017 1:36 PM (ANTONIO ERICKSON [employer]UCER-BC) ED Course/Re-evaluation Clinical Indication for ER IV: Hydration, IV Access ED Course Patient was admitted to room via EMS. Differential diagnoses were considered. She had physical were obtained to the best of my ability. Patient arrives appearing somnolent but did respond to painful stimuli with sternal rub. Patient did sit up opening eyes and did try to scoot out of the gurney. CBC, CMP , lipase, amylase, troponin, ammonia and CPK were obtained. Patient still not responding appropriately becoming more somnolent. Patient's temperature by Hill catheter is 30 8.5C. Patient feels hot to touch. Given the fact that the patient has been not responding appropriately with a negative alcohol and unremarkable labs with the exception of a mild elevation in his white count of 12.0. We elected to go ahead and intubate the patient to protect his airway and get him over to CT as quickly as possible. 7.5 ET tube passed with + colometric CO2, 23 at the teeth, See Dr. Pederson's note for intubation. Upon intubation the tidal volume was set at 500, FiO2 is 100%, respirations 16, PEEP 5. Patient was given a total of 200mg ketamine, 100mg succinylcholine, 40mg IVP rocuronium x2. 30mg rocuronium x1, started on a propofol drip as well as a rocuronium drip at 10mcg/kg/min. patient's urine was negative. His urine tox screen only showing marijuana. Patient's vital signs and pressures have maintained. Patient's temperatures come down now he is a 36.9C. Banana bag x1. 1 L normal saline bolus. Patient's chest x-ray showing good placement of the ET tube however we did advance it by 2 separate liters. An LP was performed which was atraumatic specimens were collected and sent to lab, no acute findings in the CSF. Patient was given 2 g Rocephin IV, 1.25 g of vancomycin IV. There was also a possible source of infection and the patient's left foot the x-ray didn' t show any obvious infectious process. Negative head CT. The patient was admitted to Dr. Grace for altered level of consciousness and fever of unknown origin, the patient was transferred to the ICU. Dr. Rice and I did speak with the patient's [id number] she did tell us that the patient had been using his outdoor heater inside his house and she was concerned that maybe he had some carbon monoxide poisoning. 09/14/2017 2:17:[address] Grace regarding the patient's case is going to come down and evaluate patient for possible admission. 09/14/2017 2:18:05 pm Procedure: Lumbar puncture. Indication: Altered LOC and fever Patient unable to consent, did discuss with family, they are aware of the risks including infection, bleeding, and neurologic damage, a lumbar puncture was performed after the patient was prepped and draped in the usual fashion. The back was anesthetized with 1% lidocaine. Approximately 4 cc of clear fluid was obtained. Opening pressure was not obtained. There were no complications. The procedure was performed by myself, with Skyla Solis. 09/14/2017 3:08:[address] Jackson has accepted the patient into his services and will be admitted to the ICU for altered LOC and fever of unknown origin. Decision to Disposition Date: Sep 14, 2017 Decision to Disposition Time: 15:00 (ANTONIO ERICKSON [employer]UCER-BC) ED Course 09/14/2017 11:55:17 am Patient with altered mental status fever of 101.2 blood sugar of 166 and negative alcohol screen. CT scan of the head is pending. Concern at this time is possible infectious cause for altered mental status including sepsis, meningitis. Plan will be a CT followed by lumbar puncture will start the patient on empiric antibiotics. Patient will require admission 09/14/2017 12:30:31 pm Procedure: Rapid sequence intubation. Indication for the procedure was airway protection. The patient was preoxygenated with 100% oxygen by face mask. The patient was given the following IV medications: 100mg ketaminefentanyl, lidocaine, 100mg succinylcholine . The patient was orally endotracheally intubated under direct visualization with a 7.5 ETT. Tracheal intubation was confirmed with misting on the tube; breath sounds were auscultated equally bilaterally; appropriate color change with [place] CO2 detector. Chest X-ray shows ETT in good position. The procedure was performed by myself. 09/14/2017 2:55:56 pm lumbar puncture was performed by Antonio Awad under my direct supervision. Please see procedure note. (LIZABETH COSME MD) Depart Departure Latest Vital Signs Vital Signs Date Time Temp Pulse Resp B/P (MAP) Pulse Ox O2 Delivery O2 Flow Rate FiO2 09/14/17 13:17 30.0 09/14/17 12:41 99 101 100 09/14/17 12:40 125/84 (98) 09/14/17 11:26 101.2 Room Air (LIZABETH COSME MD) Impression: Primary Impression: Altered mental status Additional Impression: Fever Condition: Critical Disposition: Admitted from ER Referrals: EDDIE MATHEWS MD (PCP) Problem Qualifiers Primary Impression: Altered mental status Altered mental status type: unspecified Qualified Codes: R41.82 - Altered mental status, unspecified Additional Impression: Fever Fever type: unspecified Qualified Codes: R50.9 - Fever, unspecified ANTONIO ERICKSON M[employer]ODUCER- Sep 14, 2017 11:38 LIZABETH COSME MD Sep 14, 2017 11:56
[2017-09-14] MEDS ORDERED: THIAMINE HCL(*) 200 MG/2 ML IN 100 MG, FOLIC ACID(*) 50 MG/10 ML INJ 1 MG, MULTIVITAMIN... IV ONE (11:40)
[2017-09-14 11:42] LABS: PLATELET COUNT, AUTOMATED 326 K/uL (150-450)
[2017-09-14] MEDS ORDERED: NS(*) 0.9% 1000 ML BAG 1,000 ML IV ONE (11:55)
[2017-09-14] MEDS ORDERED: cefTRIAXone 2 GM VIAL IVP ONE ×2 (12:00→13:20)
[2017-09-14] MEDS ORDERED: ALBUTEROL/IPRATROPIUM 3 ML NEB NEB ONE (12:05)
[2017-09-14] MEDS ORDERED: KETAMINE HCL 500 MG/5 ML VIAL IVP ONE (12:10)
[2017-09-14] MEDS ORDERED: SUCCINYLCHOL CHL 200MG/10ML VL IVP ONE (12:10)
[2017-09-14] MEDS ORDERED: ROCURONIUM BR(*)10 MG/ML 10 ML 500 MG in NS(*) 0.9% 500 ML BAG 450 ML IVPB ONE (12:30)
[2017-09-14] MEDS ORDERED: PROPOFOL(*)1000 MG/100 ML VIAL 100 ML IV PRN (12:30)
[2017-09-14] MEDS ORDERED: NS(*) 0.9% 100 ML BAG 100 ML ONE (12:32)
[2017-09-14] MEDS ORDERED: ROCURONIUM BROM 10 MG/ML 10 ML ONE (12:35)
[2017-09-14] MEDS: PROPOFOL(*)1000 MG/100 ML VIAL 100 ML IV PRN ×2 (12:37→19:02)
[2017-09-14] MEDS ORDERED: ROCURONIUM BROM 10 MG/ML 5 ML IVP ONE (12:40)
[2017-09-14] MEDS ORDERED: VANCOMYCIN(*) 1 GM VIAL 1 GM, VANCOMYCIN (*) 0.5 GM VIAL 0.25 GM in NS(*) 0.9% 250 ML B... IVPB ONE (13:20)
--- NOTE | 2017-09-14 13:36 | RADIOLOGY IMAGING REPORT ---
FACILITY: [facility] PATIENT NAME: Boy Carter : 1960 MR: [id number] V: [id number] EXAM DATE: ORDERING PHYSICIAN: ANTONIO ERICKSON TECHNOLOGIST: Location: [facility] - [place] Patient: Boy Carter : 1960 Visit/Account:[id number] Date of Sevice: 09/14/2017 EXAMINATION: CT Head without intravenous contrast HISTORY: Altered level of consciousness. TECHNIQUE: Axial images were obtained from the skull base to the vertex without intravenous contrast . Sagittal and coronal reformatted images are also submitted. One of the following dose optimization techniques was utilized in the performance of this exam: Autom ated exposure control; adjustment of the mA and/or kV according to the patient's size; or use of an i terative reconstruction technique. Specific details can be referenced in the facility's radiology C T exam operational policy. COMPARISON: Noncontrast head CT dated 04/28/2016. FINDINGS: Brain volume: Mild generalized volume loss. Ventricles: Negative. Acute ischemic changes: None. Hemorrhage: None. Masses / edema: None. Chiu-white: Negative. White matter: Negative. Vessels: Negative. Extra-axial: Negative. Calvarium / skull base: Negative. Visualized sinuses / orbits: Moderate mucosal thickening and fluid in the paranasal sinuses, nonspec ific in the setting of intubation. Leftward nasal septal deviation. IMPRESSION: No acute intracranial abnormality. Report Dictated By: Antonio Willis MD at 09/14/2017 1:29 PM Report E-Signed By: Antonio Willis MD at 09/14/2017 1:33 PM WSN:[id number]
--- NOTE | 2017-09-14 13:37 | RADIOLOGY IMAGING REPORT ---
FACILITY: [facility] - [place] PATIENT NAME: Boy Carter : 1960 MR: [id number] V: [id number] EXAM DATE: ORDERING PHYSICIAN: PRASANNA ERICKSON TECHNOLOGIST: Location: [facility] - [place] Patient: Boy Carter : 1960 Visit/Account:[id number] Date of Sevice: 09/14/2017 CHEST SINGLE AP Indication: Altered level of consciousness.. Comparison: 09/07/2017. Findings: Endotracheal tube is in place in good position. Cardiomediastinal silhouette and pulmonary vessels wi thin normal limits. There is no focal infiltrate or lobar consolidation. No pneumothorax or pleural effusion. No nodule. Upper abdomen is unremarkable. No acute bony abnormality. IMPRESSION: 1. Endotracheal tubes in place in good position. No pneumothorax. No focal infiltrate. Report Dictated By: Chidi Sorto at 09/14/2017 1:32 PM Report E-Signed By: Chidi Sorto at 09/14/2017 1:33 PM WSN:[id number]
--- NOTE | 2017-09-14 13:39 | RADIOLOGY IMAGING REPORT ---
FACILITY: [facility] - [place] PATIENT NAME: Boy Carter : 1960 MR: [id number] V: [id number] EXAM DATE: ORDERING PHYSICIAN: LIZABETH COSME TECHNOLOGIST: Location: [facility] - [place] Patient: Boy Carter : 1960 Visit/Account:[id number] Date of Sevice: 09/14/2017 FOOT 3 VIEW LEFT Indication: Left foot discoloration. Comparison: None Available Findings: 3 views of left foot. Demineralized bones. No evidence of acute fracture, dislocation, or radiopaque foreign body. No soft tissue swelling or os seous erosion. Normal alignment. No significant degenerative changes. IMPRESSION: 1. Demineralized bones. 2. Otherwise negative left foot radiographs. Report Dictated By: Antonio Willis MD at 09/14/2017 1:33 PM Report E-Signed By: Antonio Willis MD at 09/14/2017 1:36 PM WSN:[id number]
--- NOTE | 2017-09-14 15:40 | EKG ---
FACILITY: [facility] - [place] PATIENT NAME: ALLY NOONAN : [id number] MR: [id number] V: [id number] EXAM DATE: ORDERING PHYSICIAN: PRASANNA ERICKSON TECHNOLOGIST: Test Reason : Blood Pressure : / mmHG Vent. Rate : 093 BPM Atrial Rate : 093 BPM P-R Int : 142 ms QRS Dur : 080 ms QT Int : 340 ms P-R-T Axes : 044 069 055 degrees QTc Int : 423 ms Poor data quality, interpretation may be adversely affected Sinus rhythm Diffuse T flattening No previous to compare Confirmed by RACHEL HERRERA ([id number]) on 09/14/2017 3:52:23 PM Referred By: Confirmed By:RACHEL HERRERA
[2017-09-14] MEDS ORDERED: INSULIN HUM LISPRO 100 UN/ML 3 ML VIAL SUBQ PRN (15:45)
--- NOTE | 2017-09-14 16:23 | History & Physical ---
History of Present Illness History of Present Illness 56yo male with a h/o T1DM and alcohol abuse who was brought to the ER for altered mental status. He was discharged from the hospital for DKA 6 days ago. He has done fairly well and reportedly hasn't been drinking alcohol, per the family. The family saw him last night at 7:30pm and he was doing well. They called this morning at 9:00am and he didn't answer. They finally went to his house and found him sitting on the floor up against a space heater (that wasn't on). He had the same clothes from the night before (which is not normal for him ) and the room had the appearance as if furniture was moved or he had fallen. The patient had his eyes closed, but was moving his arms. His head was down. EMS was called. In the ER, the patient had a GCS<8, so was intubated. He was given ceftriaxone 2g, vancomycin 1.25g, 1.25 liters of NS and .75 liters of a banana bag. History Problems: (1) Type 1 diabetes mellitus Status: Chronic (2) History of depression Status: Chronic (3) Alcohol abuse, daily use Status: Chronic (4) History of vasectomy Status: Resolved (5) Hx of hernia repair Status: Resolved (6) History of closed head injury Status: Resolved Home Meds Reported Medications Insulin Glargine (LANTUS) 100 Unit/Ml Soln, 20 UNIT SUBQ BID, ML 09/07/17 Discontinued Reported Medications Insulin Aspart (NOVOLOG) 100 Unit/1 Ml Cartridge, 100 UNIT SQ SS 04/28/16 Discontinued Scripts Insulin Glargine (LANTUS) 100 Unit/Ml Soln, 15 UNIT SUBQ BID, #1 BOX Prov:HENRY PALACIOS MD 07/28/15 Allergies: Coded Allergies: No Known Drug Allergies (Verified , 09/07/17) Patient History: Blood clots MOTHER Cardiac pacemaker MOTHER FH: gastric ulcer MOTHER FH: heart attack FATHER MOTHER FH: hypertension FATHER FH: stroke MOTHER Other Social/Family Hx Lives alone. . Chews tobacco and is a light smoker. Hx Smoking: Yes (chewing tobacco) Smoking Status: Light Tobacco Smoker Caffeine Intake: Coffee Caffeine/Cups Per Day: 5 Hx Alcohol Use: Yes Hx Substance Use Disorder: No Review of Systems Other Could not obtain because of the AMS Exam Vital Signs Vital Signs Date Time Temp Pulse Resp B/P (MAP) Pulse Ox O2 Delivery O2 Flow Rate FiO2 09/14/17 15:57 25.0 09/14/17 14:44 136/76 (96) 09/14/17 14:31 102 100 09/14/17 12:46 12 09/14/17 11:26 101.2 Room Air General Appearance: Other (Sedated and intubated, face is erythematous except around eyes and scalp, neck has erythema but follows the line of the color of a shirt) Neuro: Other (WEN. Not following commands) Eyes: Other (Pupils 2mm, equal, not reactive) ENT: Moist Mucous Membranes Cardiovascular: Regular Rate and Rhythm Respiratory: Clear to Auscultation GI: Abd Soft and Non-Tender Extremities: No Edema Integumentary: No Jaundice, No Cyanosis Medical Decision Making Data Points Result Diagram: 09/14/17 1118 09/14/17 1118 Item Value Date Time White Blood Count 12.0 k/uL H 09/14/17 1118 Neutrophils (%) (Auto) 87.0 % H 09/14/17 1118 Arterial Blood pH 7.35 09/14/17 1320 Arterial Blood Partial Pressure CO2 43 mmHg H 09/14/17 1320 Arterial Blood Partial Pressure O2 80 mmHg 09/14/17 1320 Arterial Blood HCO3 24 mmol/L 09/14/17 1320 Arterial Blood Oxygen Saturation 95 % 09/14/17 1320 Ammonia < 9 UMOL/L L 09/14/17 1213 Magnesium Level 1.8 mg/dl 09/14/17 1118 Total Bilirubin 0.6 mg/dl 09/14/17 1118 Aspartate Amino Transf (AST/SGOT) 23 U/L 09/14/17 1118 Alanine Aminotransferase (ALT/SGPT) 31 U/L 09/14/17 1118 Alkaline Phosphatase 110 U/L 09/14/17 1118 Total Creatine Kinase 143 U/L 09/14/17 1118 Troponin I < 0.012 ng/ml 09/14/17 1118 Lactate 2.7 mmol/L H 09/14/17 1118 Random Glucose 166 mg/dl H 09/14/17 1118 Urine RBC <1 /HPF 09/14/17 1202 Urine WBC 2 /HPF 09/14/17 1202 Urine Leukocyte Esterase Negative 09/14/17 1202 Urine Urobilinogen Negative mg/dL 09/14/17 1202 Urine Bilirubin Negative 09/14/17 1202 Urine Nitrite Negative 09/14/17 1202 Urine Squamous Epithelial Cells None /LPF 09/14/17 1202 Urine Bacteria Negative /HPF 09/14/17 1202 Urine Glucose (UA) 500 mg/dL 09/14/17 1202 Urine Specific [place] 1.027 09/14/17 1202 Haemophilus influenzae B Antigen Negative 09/14/17 1357 Neisseria meningitidis A/Y Antigen Negative 09/14/17 1357 Neisseria meningitidis C/W135 Ag Negative 09/14/17 1357 N. meningitidis B/E.coli K1 Ag Negative 09/14/17 1357 Group B Streptococcus Antigen Negative 09/14/17 1357 Streptococcus pneumoniae Antigen Negative 09/14/17 1357 Influenza Virus Type B (PCR) Negative 09/14/17 0000 Influenza Virus Type A (PCR) Negative 09/14/17 0000 CSF WBC 1 /mm3 09/14/17 1359 CSF RBC 0 /mm3 09/14/17 1359 CSF Glucose 68 mg/dl 09/14/17 1359 CSF Total Protein 25 mg/dl 09/14/17 1359 EKG / Imaging EKG Interpretation Vent. Rate : 075 BPM Atrial Rate : 075 BPM P-R Int : 186 ms QRS Dur : 136 ms QT Int : 428 ms P-R-T Axes : 070 -86 068 degrees QTc Int : 477 ms Ventricular pacemaker Abnormal ECG When compared with ECG of 10-SEP-2017 16:01, No significant change was found Confirmed by ANA MARIA PALACIOS ([id number]) on 09/11/2017 6:18:02 AM Imaging Foot Xray - 1. Demineralized bones. 2. Otherwise negative left foot radiographs. CXR - 1. Endotracheal tubes in place in good position. No pneumothorax. No focal infiltrate. Head CT - No acute intracranial abnormality. Assessment and Plan Problems: (1) Altered mental status Status: Acute Assessment & Plan: He presented with a GCS of <8. He was last seen last night at about 7:30pm. He was still wearing clothes from the night before. He was febrile in the ER to 101.2 and was intubated for airway protection. Workup so far has been negative, but a mildly elevated lactate and WBC. He has received a dose of Ceftriaxone and Vancomycin (not a loading dose). CSF analysis and antigen study are not c/w a bacterial meningitis. Will switch to Primaxin and Vancomycin (will give an extra 500mg and then 1.25g q12h starting 12 hours after extra dose) to empirically cover sepsis. Will give acyclovir IV and check an HSV by PCR of the CSF. Recheck lactate. Serum Osm pending. Lovenox for DVT prophylaxis and Protonix for stress ulcer prophylaxis. Continue ventilator support for AMS. Propofol for sedation. Wean sedation in the morning. (2) Type 1 diabetes mellitus Status: Chronic Assessment & Plan: Continue Lantus, but half the dose. SSI to cover q4 hours glucose. (3) Alcohol abuse, daily use Status: Chronic Assessment & Plan: Reportedly has not drunk since his last admission. Will follow for signs of withdrawal. Venous Thromboembolism Antithrombotics Is Pt On Any Antithrombotics?: No Exam Sepsis Risk: No Definite Risk RACHEL HERRERA MD Sep 14, 2017 16:23
[2017-09-14] MEDS: NS(*) 0.9% 1000 ML BAG 1,000 ML IV PRN ×2 (16:27→17:23)
[2017-09-14] MEDS ORDERED: DEXTROSE 50% 50 ML SYR IVP ONE ×4 (16:40→20:50)
[2017-09-14] MEDS: ACYCLOVIR IVPB SCH (17:20)
[2017-09-14] MEDS: NS 0.9% IVPB SCH (17:20)
[2017-09-14] MEDS ORDERED: VANCOMYCIN (*) 0.5 GM VIAL 0.5 GM in NS(*) 0.9% 100 ML BAG 100 ML IVPB ONE (18:00)
[2017-09-14] MEDS: D5NS(*) 1000 ML BAG 1,000 ML IV PRN (19:22)
[2017-09-14] MEDS: IMIPENEM/CILASTA(*) 500MG VIAL 500 MG in NS(*) 0.9% 100 ML BAG 100 ML IVPB SCH (19:23)
[2017-09-14] MEDS ORDERED: IV BOLUS 500 ML IVSOL IV ONE (20:25)
[2017-09-14] MEDS: ORAL SUCTION/CHLORHX/SWAB KIT MT SCH (20:37)
[2017-09-14] MEDS ORDERED: INSULIN GLARGINE 100 U/ML 3 ML PEN SUBQ SCH (21:00)
--- NOTE | 2017-09-14 23:12 | Procedure Note ---
Central Line Procedure Note Consent Signed: Yes Central Line Lumen: Triple Central Line Procedure: Chlorhexidine Prep, Sterile Drapes Applied, Sterile Dressing Applied Central Line Position: R Internal Jugular Anesthesia Used: 1% Lidocaine CC's of Anesthesia: 3 Complications: None Central Line Post Position: Sutured, Confirmed Blood Return, Position Confirmed w/CXR Comment The right IJ was identified with the portable US before the procedure by anatomical location and compressibility. The US was used during the procedure for needle guidance. The vein was cannulated with one stick. The Seldinger technique was used to place the triple lumen catheter. RACHEL HERRERA MD Sep 14, 2017 23:12
[2017-09-15] VITALS (66 sets, daily range): BP systolic 85–144; BP diastolic 50–96
--- NOTE | 2017-09-15 00:09 | RADIOLOGY IMAGING REPORT ---
FACILITY: [facility] - [place] PATIENT NAME: Boy Carter : 1960 MR: [id number] V: [id number] EXAM DATE: ORDERING PHYSICIAN: RACHEL HERRERA TECHNOLOGIST: Location: [facility] Patient: Boy Carter : 1960 Visit/Account:[id number] Date of Sevice: 09/14/2017 CHEST SINGLE AP 09/14/2017 22:54 hours. HISTORY: Central line placement. COMPARISON: 09/14/2017 at 12:14 PM and studies dating to 11/20/2006. TECHNIQUE: Portable AP view of the chest. FINDINGS: Tubes/lines/hardware: Endotracheal tube terminates 7 cm above the deanne. Right IJ catheter terminate s at the mid superior vena cava. There are external chest leads. Pulmonary: Lungs are clear. There is no pneumothorax or pleural effusion. Cardiomediastinal: Cardiac and mediastinal silhouettes are within normal limits. Bones/soft tissues: No acute osseous abnormality. The visible abdomen is normal. IMPRESSION: 1. Tubes and lines as above. No pneumothorax. 2. No acute cardiopulmonary process. Report Dictated By: Evelia Mora at 09/15/2017 12:03 AM Report E-Signed By: Evelia Mora at 09/15/2017 12:05 AM WSN:[id number]
[2017-09-15] MEDS: ACYCLOVIR IVPB SCH ×3 (01:15→17:22)
[2017-09-15] MEDS: NS 0.9% IVPB SCH ×3 (01:15→17:22)
[2017-09-15] MEDS: PROPOFOL(*)1000 MG/100 ML VIAL 100 ML IV PRN ×2 (01:17→05:59)
[2017-09-15] MEDS: IMIPENEM/CILASTA(*) 500MG VIAL 500 MG in NS(*) 0.9% 100 ML BAG 100 ML IVPB SCH ×4 (03:25→20:35)
[2017-09-15] MEDS: D5NS(*) 1000 ML BAG 1,000 ML IV PRN (03:28)
[2017-09-15 05:17] LABS: PLATELET COUNT, AUTOMATED 210 K/uL (150-450)
[2017-09-15 05:23] LABS: INR 1.06
[2017-09-15] MEDS: VANCOMYCIN(*) 1 GM VIAL 1 GM, VANCOMYCIN (*) 0.5 GM VIAL 0.25 GM in NS(*) 0.9% 250 ML B... IVPB SCH ×2 (05:26→19:02)
--- NOTE | 2017-09-15 06:26 | RADIOLOGY IMAGING REPORT ---
FACILITY: [facility] - [place] PATIENT NAME: Boy Carter : 1960 MR: [id number] V: [id number] EXAM DATE: ORDERING PHYSICIAN: RACHEL HERRERA TECHNOLOGIST: Location: [facility] Patient: Boy Carter : 1960 Visit/Account:[id number] Date of Sevice: 09/15/2017 Portable chest: Indication: Respiratory insufficiency. Technique: A single frontal film was obtained. Comparison: 09/14/2017 Lines and tubes: Remain in satisfactory position. Skeletal and soft tissue structures: Intact and unchanged. Heart and mediastinum: Stable. Lung green: No focal opacities or consolidation. Pleural spaces: No evidence of pneumothorax or significant effusion. Impression: No acute interval change. Report Dictated By: Adam Ford MD at 09/15/2017 6:21 AM Report E-Signed By: Adam Ford MD at 09/15/2017 6:23 AM WSN:[id number]
[2017-09-15] MEDS ORDERED: INSULIN HUM LISPRO 100 UN/ML 3 ML VIAL SUBQ PRN (07:45)
[2017-09-15] MEDS ORDERED: KCL (*) 20 MEQ/100 ML PREMIX 100 ML IV ONE ×2 (07:45→11:00)
--- NOTE | 2017-09-15 07:59 | Hospitalist Progress Note ---
Subjective Progress Notes Subjective Sedated on ventilator. No significant fever. Glucoses were moderately low, but somewhat resistant to D50. Now on D5 infusion. Physical Exam Vital Signs Date Time Temp Pulse Resp B/P (MAP) Pulse Ox O2 Delivery O2 Flow Rate FiO2 09/15/17 07:21 71 14 09/15/17 07:21 93 Mechanical Ventilator 25.0 09/15/17 06:15 109/64 (79) 09/15/17 06:00 97.6 General Appearance: Other (sedated on ventilator) Neuro: Other (he withdraws to tickling feet) Cardiovascular: Regular Rate and Rhythm Respiratory: Clear to Auscultation GI: Other (soft/BS present) Extremities: Warm, Perfused Integumentary: Other (one small "ringworm" appearing lesion right forearm) Result Diagram: 09/15/17 0500 09/15/17 0500 Item Value Date Time Albumin 1.9 g/dl L 09/15/17 0500 Total Protein 4.0 gm/dl L 09/15/17 0500 Alkaline Phosphatase 70 U/L 09/15/17 0500 Alanine Aminotransferase (ALT/SGPT) 30 U/L 09/15/17 0500 Aspartate Amino Transf (AST/SGOT) 15 U/L 09/15/17 0500 Total Bilirubin 0.2 mg/dl 09/15/17 0500 Calcium Level 7.4 mg/dl L 09/15/17 0500 Whole Blood Glucose 176 mg/DL H 09/15/17 0324 Whole Blood Glucose 158 mg/DL H 09/15/17 0111 Whole Blood Glucose 124 mg/DL H 09/14/17 2317 Whole Blood Glucose 127 mg/DL H 09/14/17 2209 Whole Blood Glucose 63 mg/DL L 09/14/17 2057 Whole Blood Glucose 71 mg/DL L 09/14/17 2007 Whole Blood Glucose 67 mg/DL L 09/14/17 1856 Lactate 2.2 mmol/L H 09/14/17 1905 Lactate 1.2 mmol/L 09/14/17 2132 Whole Blood Glucose 68 mg/DL L 09/14/17 1749 Osmolality 284 mOSM/K 09/14/17 1610 Lactate 2.2 mmol/L H 09/14/17 1600 Ammonia < 9 UMOL/L L 09/14/17 1213 Magnesium Level 1.8 mg/dl 09/14/17 1118 Total Creatine Kinase 143 U/L 09/14/17 1118 Assessment and Plan Problems: (1) Altered mental status Status: Acute Assessment & Plan: He presented with a GCS of <8. He was last seen the previous night before admission at about 7:30pm. He was still wearing clothes from the night before. He was febrile in the ER to 101.2F and was intubated for airway protection. Workup so far has been negative, but a mildly elevated lactate and WBC (now normalized). CSF analysis and antigen study are negative a bacterial meningitis. He is currently on Primaxin and Vancomycin to empirically cover for the possibility of sepsis. He is also on acyclovir IV - HSV by PCR of the CSF is still pending. Serum osmolality is in normal range. He did have some relatively resistant hypoglycemia through the night. I would suspect he may have had some prolonged hypoglycemia as the etiology for his acute mental status changes. Currently on ventilator support with propofol for sedation. Will wean sedation this morning and try to extubate later today. (2) Type 1 diabetes mellitus Status: Chronic Assessment & Plan: I suspect fairly significant hypoglycemia may have been the cause for his acute mental status changes. Will hold Lantus. Continue IV D5W. Check glucoses every 2 hours. Will use only SSI to cover for now. Will need to find his daily requirement once the acute episode has resolved. (3) Alcohol abuse, daily use Status: Chronic Assessment & Plan: Reportedly has not had any alcohol since his last admission (one week ago). Will follow closely. Exam Sepsis Risk: No Definite Risk Problem Qualifiers (1) Altered mental status: Altered mental status type: unspecified Qualified Codes: R41.82 - Altered mental status, unspecified ANA MARIA PALACIOS MD Sep 15, 2017 07:59
[2017-09-15] MEDS ORDERED: NS(*) 0.9% 500 ML BAG 500 ML IV PRN (08:00)
[2017-09-15] MEDS: ORAL SUCTION/CHLORHX/SWAB KIT MT SCH (09:00)
[2017-09-15] MEDS: PANTOPRAZOLE SOD 40 MG IV VIAL IVP SCH (09:30)
[2017-09-15] MEDS: ENOXAPARIN 40 MG/0.4ML SYR SC SCH (09:33)
--- NOTE | 2017-09-15 11:06 | Antimicrobial Stewardship ---
Antimicrobial Stewardship MD Service: Hospitalist Indications: Other Antimicrobial Used 09/14/17- Started on broad spectrum anti-microbials - Vancomycin, Primaxin, and Acyclovir Duration of Therapy: No source of infection, broad spectrum until cultures return Start Date: Sep 14, 2017 Height (Calculated Centimeters: 167.196292 Weight (Calculated Kilograms): 74.446 Creatinine Cl 09/14/17: CrCl ~92 ml/min Culture Results: Yes (LP gram stain (-) culture pending, Blood Cx, Urine Cx pending, UA - unremarkable, Influenza (-)) Comments Continue treatment with broad spectrum anti-microbials until infection is ruled out/cultures resulted. Acyclovir 700 mg IV Q8H Primaxin 500mg IV Q6H Vancomycin 1.25g IV Q12H -- trough 09/16 @0500 Recommend de-escalation if no source of infection identified and patient rapidly improves. Lupe Reyes, PharmD, BCOP LUPE REYES Sep 15, 2017 11:06
--- NOTE | 2017-09-15 11:53 | Medical Nutrition Therapy ---
Nutrition Anthropometrics Height (Inches): 66.00 Height (Calculated Centimeters: 167.596567 Weight (Pounds): 164 Weight (Calculated Kilograms): 74.446 BMI Calculated: 23.56 Stanton Nutrition Score: Probably Inadequate Stanton Nutrition Risk Score: 13 Dietary Referral Nutrition Risk Factors: Nutrition Risk Comment: PT IS DIABETIC Physical Findings Physical Appearance: Overweight BMI 25-29 Skin Appearance Skin Appearance: Edema Edema Location Modifier: Edema Location: Type of Edema: Degree of Edema: Gastrointestinal Symptoms GI Symtoms: Tube Present: Bowel Sounds: Recent Bowel Pattern: Stool Characteristics: Nutritional Diagnosis Nutritional Risk Acuity 3: Nausea, Alcohol abuse Past Medical History: HX of Alcohol abuse (4-5 beers/day), T1DM, Depression, chew Tobacco Nutritional Acuity: 2-Moderate Nutrition Diagnosis: Excessive Alcohol Intake Nutrition Etiology: Alcohol Addiction Nutrition Problem/Etiology/Sym: Excessive alcohol intake related to alcohol addiction as evidenced by pt and family report of alcohol abuse. Energy Requirement: 1432 (Miff.St.Joer AF:1.3) Protein Requirement: 53 (0.8g/kg) Fluid Requirement: 1860 (25mL/kg) Diet Type: NPO (Nothing by Mouth) Nutrition Monitoring & Eval RD Patient Assessment Time: [address] Assessment Type: RD Assessment Patient Nutrition Acuity: 1-High Follow Up Date: Sep 16, 2017 Nutritional Comment: 09/15) Pt. admitted for altered mental status, has been sedated and placed on a vent. Hx: T1DM, alcohol abuse, depression. Was discharged 09/08/2017 after being admitted for DKA. Labs: 09/15) Na 136, K+ 3.0, BUN 4, Cre 0.5, WBG 214, Random Glu 192, Ca 7.4, Alb 1.9. plans to wean sedation and remove vent in the morning. Will continue to monitor blood sugars, labs, weight DELILAH BANERJEE Sep 15, 2017 09:17
[2017-09-15] MEDS: CLOTRIMAZOLE 1% CR 30 GM TUBE TP SCH ×2 (13:26→20:36)
[2017-09-15] MEDS: INSULIN HUM LISPRO 100 UN/ML 3 ML VIAL SUBQ PRN ×2 (15:17→22:38)
[2017-09-16] VITALS (23 sets, daily range): BP systolic 113–152; BP diastolic 53–87
[2017-09-16] MEDS: NS 0.9% IVPB SCH ×3 (00:31→16:30)
[2017-09-16] MEDS: ACYCLOVIR IVPB SCH ×3 (00:31→16:30)
[2017-09-16] MEDS: D5NS(*) 1000 ML BAG 1,000 ML IV PRN ×2 (01:01→22:48)
[2017-09-16] MEDS: IMIPENEM/CILASTA(*) 500MG VIAL 500 MG in NS(*) 0.9% 100 ML BAG 100 ML IVPB SCH ×4 (02:44→20:02)
[2017-09-16] MEDS: INSULIN HUM LISPRO 100 UN/ML 3 ML VIAL SUBQ PRN ×3 (02:49→20:10)
[2017-09-16 05:11] LABS: PLATELET COUNT, AUTOMATED 268 K/uL (150-450)
[2017-09-16] MEDS: VANCOMYCIN(*) 1 GM VIAL 1 GM, VANCOMYCIN (*) 0.5 GM VIAL 0.25 GM in NS(*) 0.9% 250 ML B... IVPB SCH ×2 (06:00→17:40)
[2017-09-16] MEDS ORDERED: POTASSIUM CHL 10 MEQ TABCR PO ONE (08:05)
[2017-09-16] MEDS: CLOTRIMAZOLE 1% CR 30 GM TUBE TP SCH ×2 (08:36→20:11)
[2017-09-16] MEDS: PANTOPRAZOLE SOD 40 MG IV VIAL IVP SCH (08:36)
[2017-09-16] MEDS: ENOXAPARIN 40 MG/0.4ML SYR SC SCH (08:37)
[2017-09-16] MEDS ORDERED: INSULIN GLARGINE 100 U/ML 3 ML PEN SUBQ SCH (09:00)
[2017-09-16] MEDS ORDERED: INS GLAR 100 UN/ML (ER ONLY) 100 UNIT/ML SUBQ SCH (09:00)
--- NOTE | 2017-09-16 11:53 | Medical Nutrition Therapy ---
Nutrition Anthropometrics Height (Inches): 66.00 Height (Calculated Centimeters: 167.987276 Weight (Pounds): 163 Weight (Calculated Kilograms): 73.936 BMI Calculated: 23.56 Stanton Nutrition Score: Probably Inadequate Stanton Nutrition Risk Score: 13 Dietary Referral Nutrition Risk Factors: Nutrition Risk Comment: PT IS DIABETIC Physical Findings Physical Appearance: Overweight BMI 25-29 Skin Appearance Skin Appearance: Edema Edema Location Modifier: Both Edema Location: Foot Type of Edema: Degree of Edema: 1+ Gastrointestinal Symptoms GI Symtoms: Appetite Changes Tube Present: Bowel Sounds: Recent Bowel Pattern: Stool Characteristics: Nutritional Diagnosis Nutritional Risk Acuity 3: Nausea, Alcohol abuse Past Medical History: HX of Alcohol abuse (4-5 beers/day), T1DM, Depression, chew Tobacco Nutritional Acuity: 2-Moderate Nutrition Diagnosis: Excessive Alcohol Intake Nutrition Etiology: Alcohol Addiction Nutrition Problem/Etiology/Sym: Excessive alcohol intake related to alcohol addiction as evidenced by pt and family report of alcohol abuse. Energy Requirement: 1432 (Miff.St.Jo AF:1.3) Protein Requirement: 53 (0.8g/kg) Fluid Requirement: 1860 (25mL/kg) Diet Type: NPO (Nothing by Mouth) Nutrition Monitoring & Eval RD Patient Assessment Time: [address] Assessment Type: RD Assessment Patient Nutrition Acuity: 1-High Follow Up Date: Sep 17, 2017 Nutritional Comment: 09/15) Pt. admitted for altered mental status, has been sedated and placed on a vent. Hx: T1DM, alcohol abuse, depression. Was discharged 09/08/2017 after being admitted for DKA. Labs: 09/15) Na 136, K+ 3.0, BUN 4, Cre 0.5, WBG 214, Random Glu 192, Ca 7.4, Alb 1.9. plans to wean sedation and remove vent in the morning. Will continue to monitor blood sugars, labs, weight 09/16) Pt remains on vent. Rec nutrition support if not removed in 24 hours. Labs: 09/16) K 3.2, Chloride 109, Co2 20, BUN 6, Cre 0.6, Glu 230, Random Glu 150, Alb 2.0 Will reassess 09/17/2015 continue to monitor BS, weight, labs, vent status DELILAH BANERJEE Sep 16, 2017 11:20
--- NOTE | 2017-09-16 12:10 | Hospitalist Progress Note ---
Subjective Progress Notes Subjective Staff report that he is confused, but no problems o/n. Physical Exam Vital Signs Date Time Temp Pulse Resp B/P (MAP) Pulse Ox O2 Delivery O2 Flow Rate FiO2 09/16/17 10:53 73 09/16/17 10:50 95 Room Air 09/16/17 09:00 21 117/62 (80) 09/16/17 02:00 98.6 09/15/17 14:45 25.0 Intake and Output 09/17/17 07:00 Intake Total 364 ml Output Total 120 ml Balance 244 ml Intake Oral 0 ml IV Total 364 ml Output Urine Total 120 ml General Appearance: Alert, Awake, No Acute Distress Neuro: Other (confused to place and date. Not agitated. CN 2-12 intact. Equal manager local/dorsiflexion and platar flexion strength. Follows commands) Cardiovascular: Regular Rate and Rhythm Respiratory: Clear to Auscultation Result Diagram: 09/16/17 0450 09/16/17 0450 Assessment and Plan Problems: (1) Altered mental status Status: Acute Assessment & Plan: He presented with a GCS of <8. He was last seen the previous night before admission at about 7:30pm. He was still wearing clothes from the night before. He was febrile in the ER to 101.2F and was intubated for airway protection. He was extubated on 09/15. Workup so far has been negative, but a mildly elevated lactate and WBC (now normalized). CSF analysis and antigen study are negative a bacterial meningitis. He is currently on Primaxin and Vancomycin to empirically cover for the possibility of sepsis. He is also on acyclovir IV - HSV by PCR of the CSF is still pending. Blood cultures without growth. Serum osmolality is in normal range. He is alert and awake, but doesn't know where he is or the date. He did have some relatively resistant hypoglycemia after admission to the ICU, so likely he had a hypoglycemia at home contributing to the confusion or was the sole cause. MRI of the brain today. (2) Type 1 diabetes mellitus Status: Chronic Assessment & Plan: Likely, fairly significant hypoglycemia may have been the cause for his acute mental status changes. He was given 2 amps of D50 and was started on a D5NS drip after getting to the ICU. Lantus was held but now glucose increasing. Will restart Lantus at 10 units a day and follow with SSI. (3) Alcohol abuse, daily use Status: Chronic Assessment & Plan: Reportedly has not had any alcohol since his last admission (one week ago). Will follow closely. Exam Sepsis Risk: No Definite Risk Problem Qualifiers (1) Altered mental status: Altered mental status type: unspecified Qualified Codes: R41.82 - Altered mental status, unspecified RACHEL HERRERA MD Sep 16, 2017 12:10
--- NOTE | 2017-09-16 12:39 | RADIOLOGY IMAGING REPORT ---
FACILITY: [facility] PATIENT NAME: Boy Carter : 1960 MR: [id number] V: [id number] EXAM DATE: ORDERING PHYSICIAN: RACHEL HERRERA TECHNOLOGIST: [facility] Patient: Boy Carter : 1960 Visit/Account:[id number] Date of Sevice: 09/16/2017 BRAIN W/O CONTRAST Comparisons: Head CT scan without contrast dated September 14, 2017 Additional pertinent history: Altered mental status TECHNIQUE: Multiplanar, multisequence brain MRI was performed without gadolinium contrast. FINDINGS: Sagittal midline structures and craniocervical junction: Negative. Midline shift: None. Ventricles: Negative. Brain parenchyma: Diffusion weighted imaging: Negative. Gradient sequence: Negative. T2 weighted FLAIR images: Negative. Extra-axial spaces: Mild cerebral atrophy. Dural venous sinuses and major arterial flow voids: Negative. Mastoid air cells and paranasal sinuses: Severe lobular mucosal thickening involving both maxillary s inuses as well as the ethmoid air cells and frontal sinuses. Patchy increased T2 signal involving th e mastoid air cells bilaterally. Surrounding soft tissues and orbits: Negative. Impression: 1. Mild age-related changes as described above. 2. No evidence of acute intracranial pathology. 3. Underlying paranasal sinus disease and mastoid air cell disease. Report Dictated By: Mio Carrera MD at 09/16/2017 12:31 PM Report E-Signed By: Mio Carrera MD at 09/16/2017 12:35 PM WSN:[id number]
[2017-09-17] VITALS (16 sets, daily range): BP systolic 117–152; BP diastolic 65–99
[2017-09-17] MEDS: INSULIN HUM LISPRO 100 UN/ML 3 ML VIAL SUBQ PRN ×4 (00:16→21:04)
[2017-09-17] MEDS: NS 0.9% IVPB SCH (00:16)
[2017-09-17] MEDS: ACYCLOVIR IVPB SCH (00:16)
[2017-09-17] MEDS: IMIPENEM/CILASTA(*) 500MG VIAL 500 MG in NS(*) 0.9% 100 ML BAG 100 ML IVPB SCH (01:23)
[2017-09-17 05:22] LABS: PLATELET COUNT, AUTOMATED 303 K/uL (150-450)
--- NOTE | 2017-09-17 05:43 | RADIOLOGY IMAGING REPORT ---
FACILITY: [facility] [place] PATIENT NAME: Boy Carter : 1960 MR: [id number] V: [id number] EXAM DATE: ORDERING PHYSICIAN: RACHEL HERRERA TECHNOLOGIST: Location: [facility] Patient: Boy Carter : 1960 Visit/Account:[id number] Date of Sevice: 09/17/2017 CHEST SINGLE AP 09/17/2017 07:00 hours. HISTORY: Possible aspiration. COMPARISON: 09/15/2017 and studies dating to 11/20/2006. TECHNIQUE: Portable AP view of the chest. FINDINGS: Tubes/lines/hardware: Patient has been extubated. Right IJ catheter terminates at the mid superior ve na cava. There are external chest leads. Pulmonary: Lungs are clear. There is no pneumothorax or pleural effusion. Cardiomediastinal: Cardiac and mediastinal silhouettes are within normal limits. Bones/soft tissues: No acute osseous abnormality. The visible abdomen is normal. IMPRESSION: 1. No acute cardiopulmonary process. 2. Patient has been extubated. Report Dictated By: Evelia Mora at 09/17/2017 5:38 AM Report E-Signed By: Evelia Mora at 09/17/2017 5:40 AM WSN:[id number]
[2017-09-17] MEDS: VANCOMYCIN(*) 1 GM VIAL 1 GM, VANCOMYCIN (*) 0.5 GM VIAL 0.25 GM in NS(*) 0.9% 250 ML B... IVPB SCH (05:45)
[2017-09-17] MEDS: KCL (*) 20 MEQ/100 ML PREMIX 100 ML IV SCH ×2 (08:34→11:15)
[2017-09-17] MEDS: ENOXAPARIN 40 MG/0.4ML SYR SC SCH (08:35)
[2017-09-17] MEDS: CLOTRIMAZOLE 1% CR 30 GM TUBE TP SCH ×2 (08:35→21:02)
[2017-09-17] MEDS: PANTOPRAZOLE SOD 40 MG IV VIAL IVP SCH (08:35)
[2017-09-17] MEDS: NS(*) 0.9% 1000 ML BAG 1,000 ML IV PRN (11:07)
[2017-09-17] MEDS: INSULIN GLARGINE 100 U/ML 3 ML PEN SUBQ SCH (12:21)
--- NOTE | 2017-09-17 12:22 | Hospitalist Progress Note ---
Subjective Progress Notes Subjective This patient was admitted for altered mental status. He had no acute events overnight. Patient Complains of: Neurological: Confusion Cardiovascular: No: Chest Pain Respiratory: No: Shortness of Breath Physical Exam Vital Signs Date Time Temp Pulse Resp B/P (MAP) Pulse Ox O2 Delivery O2 Flow Rate FiO2 09/17/17 11:12 81 09/17/17 11:00 99.0 10 117/99 (105) 96 Room Air 09/17/17 08:00 1.0 09/15/17 14:45 25.0 Intake and Output 09/18/17 07:00 Intake Total 371 ml Output Total 360 ml Balance 11 ml IV Total 371 ml Output Urine Total 360 ml Neuro: No Gross deficits Eyes: PERRLA Cardiovascular: Regular Rate and Rhythm Respiratory: Clear to Auscultation Extremities: No Edema Integumentary: No Cyanosis Result Diagram: 09/17/17 0505 09/17/17 0505 Item Value Date Time Herpes Simplex Virus DNA (PCR) Not detected 09/14/17 1357 Item Value Date Time Haemophilus influenzae B Antigen Negative 09/14/17 1357 Neisseria meningitidis A/Y Antigen Negative 09/14/17 1357 Neisseria meningitidis C/W135 Ag Negative 09/14/17 1357 N. meningitidis B/E.coli K1 Ag Negative 09/14/17 1357 Group B Streptococcus Antigen Negative 09/14/17 1357 Streptococcus pneumoniae Antigen Negative 09/14/17 1357 Item Value Date Time Gram Stain - Final Complete 09/14/17 1359 Cerebrospinal Fluid Blood Culture - Preliminary Resulted 09/14/17 1229 Blood NO GROWTH AFTER 3 DAYS, REINCUBATED Blood Culture - Preliminary Resulted 09/14/17 1213 Blood NO GROWTH AFTER 3 DAYS, REINCUBATED Urine Culture - Final Complete 09/14/17 1202 Hill Catheter Urine NO GROWTH AFTER 2 DAYS Imaging Chest x-ray reviewed. Assessment and Plan Problems: (1) Altered mental status Status: Acute Assessment & Plan: He presented to the emergency room with altered mental status and was intubated for airway protection. A CT scan of the head and MRI of the brain were both negative for acute pathology. It is now believed that his altered mentation was secondary to hypoglycemia. His mentation is improving , but he still appears slightly confused. (2) Acute respiratory failure Assessment & Plan: He was intubated in the emergency department. He did have a severe respiratory acidosis, but this improved on mechanical ventilation. He was successfully extubated on 09/15/17. He is now maintaining on room air. (3) Sepsis Assessment & Plan: He did present with a fever and elevated WBC. He has undergone a lumbar puncture and means cultures. To this point all of his testing has been negative. We did have him on empiric treatment with Primaxin, vancomycin, and acyclovir. These have been stopped today. (4) UTI (urinary tract infection) Assessment & Plan: A urinalysis from today has shown large blood and WBC. We have added a culture to this. We will place him on ceftriaxone until the results are available. (5) Type 1 diabetes mellitus Status: Chronic Assessment & Plan: He is on chronic treatment with Lantus. We are currently treating him with sliding scale level #1 and his Lantus was on hold secondary to hypoglycemia. The Lantus has been restarted. (6) Alcohol abuse, daily use Status: Chronic Assessment & Plan: He does have a history of alcoholism, but denies drinking since his last admission. We have started him on thiamine. He has not required treatment per CIWA. Exam Sepsis Risk: No Definite Risk Problem Qualifiers (1) Altered mental status: Altered mental status type: unspecified Qualified Codes: R41.82 - Altered mental status, unspecified ELIZABETH GTZ DO Sep 17, 2017 12:22
[2017-09-17] MEDS: cefTRIAXone 2 GM VIAL IVP SCH (12:32)
[2017-09-17] MEDS: THIAMINE HCL 100 MG TAB PO SCH (12:42)
--- NOTE | 2017-09-17 13:07 | SWALLOW EVALUATION ---
SPEECH THERAPY ASSESSMENT Physician: Ehsan Grace MD Clinician: Rachel Jacobo MS, [facility] MANAGER, DARIANA Guerra Type of Assessment: Dysphagia Evaluation Patient: Boy Carter : 1960, 56yrs Evaluation Date: 09-17-2017 BACKGROUND The patient is a 56 year old male who was admitted to the emergency department on 09-14-2017 for an altered level of consciousness. The patient was previously seen at [facility] for alcohol detox and was discharged 6 days prior. His medical hx is consistent with diabetic ketoacidosis, type I diabetes mellitus acute kidney failure, alcohol abuse, and depression. The patient reported that he is from [place] and that one of his two children and his brother live here in town. A ST evaluation was ordered to assess the pts swallow function after extubation on 09-15-2017. The nursing staff also reported coughing episodes with liquids. PREVIOUS LEVEL OF FUNCTION: Primary Medical Diagnosis: Pneumonia Prior Hospitalization: See chart for details. Prior Level of Function: See chart for details. Medical Complications/Past Medical History: See chart for details Pain Scale (0-10): Pt reported pain with swallow but did not report a scale number. LOC / Participation: alert and cooperative Follows instructions: yes Orientation: oriented to person, place, and time (month and year). The pt did not remember what day it was or how long he has been in the hospital. He explained that he was currently hospitalized d/t low blood sugar. Functional Communication Deficits impact swallow function/safety, or response to therapy: Yes VOICE Vocal Deficits: No DYSPHAGIA Dysphagia Risk Evaluation Protocol DREP: Water Swallow Test: Pass Puree Swallow Test: Pass, Solids Swallow Test: Pass. Tolerated solids that were wet. The pt reported that he has dry mouth. Dyshpagia Severity Rating Scale: Level 2: Mild dysphagiaoropharyngeal dysphagia present, which can be managed by specific swallow suggestions. Slight modification in consistency of diet may be indicated. LEISA NOMS Swallow Scale Score Based on DREP Results: Level 5: Swallowing is safe with minimal diet restriction and/or occasionally requires minimal cueing to use compensatory strategies. The individual may occasionally self-cue. All nutrition and hydration needs are met by mouth at mealtime. Sialorrhea: No Xerostomia: Yes Supplemental Oxygen Use: No Oxygen Saturation: 90-95%. Remains Stable w/ 5,10, 15ml thin liquids. Remains stable with puree and regular food trials Respiratory Rate: Remains stable throughout food/liquid trials. COPD Dx: No Oral Structure and Function: Mild lingual weakness and slowed function. May impair swallow ability. Pain with Swallow: Yes Oral Stage Oral Stage Dysphagia: Mild. Mild lingual weakness and slowed function. May impair swallow ability. Self Feeds: Yes Compensatory Maneuvers Used: None Assistance Required: None Comment: Trace amounts of residue on the tongue post swallow. Pharyngeal Stage Pharyngeal Stage Dysphagia: S/s of penetration and/or aspiration noted in 2/11 trials of water (5,10,15, 30ml) and trials of dry solid food. Compensatory Maneuvers Used: None Assistance Required: None Indication of acute aspiration witnessed or reported by patient, family or staff : Yes, staff also reported coughing episodes with liquids. Aspiration Risk: Increased secondary to slowed lingual function and mild weakness, reports pain with swallow likely related to recent intubation. Esophageal Stage Esophageal Stage Dysphagia Indicated: No. Compensatory Maneuvers Used: None Assistance Required: None Comment: Pt has no hx of GERD and no s/s were noted or reported by pt. ST ASSESSMENT SUMMARY DYSPHAGIA Pt passed swallow assessment for regular foods if moist. Pt passed trial for nectar liquids. Indication of mild pharyngeal dysphagia with thin liquids and regular consistency/dry foods Recommend wet Dysphagia 3 diet and H2O only (regular/thin) Dysphagia Severity Rating Scale: Level 2: Mild dysphagiaoropharyngeal dysphagia present, which can be managed by specific swallow suggestions. Slight modification in consistency of diet may be indicated. Aspiration Risk: Elevated Speech Therapy Need ST will continue to assess for diet upgrade. RECOMMENDATIONS 1. Diet Modification: Food: Dysphagia 3, moistened. Liquids: , H2O only ( regular/thin). Will reassess in approx. 48 hours. 2. Compensatory Techniques: oral hygiene before and after meals. Encourage small bites/sips 3 Pills: with puree PLAN OF CARE Short Term Goals 1. Patient will trial thin liquids during therapeutic setting without signs of aspiration 100% trials 2. The patient will consume regular foods with no s/s aspiration. Offline Cutter Goals 1. The patient will consume regular food and liquid diet without s/s of dysphagia. Patient Goals: Return to prior level of independence with [facility] Prognosis: Good. No history of chronic dysphagia Thank you for this referral. Rachel Jacobo M.S., [facility] MANAGER Speech Therapist GENARO
--- NOTE | 2017-09-17 13:07 | Medical Nutrition Therapy ---
Nutrition Anthropometrics Height (Inches): 66.00 Height (Calculated Centimeters: 167.662204 Weight (Pounds): 173 Weight (Calculated Kilograms): 78.698 BMI Calculated: 23.56 Stanton Nutrition Score: Probably Inadequate Stanton Nutrition Risk Score: 15 Dietary Referral Nutrition Risk Factors: Nutrition Risk Comment: PT IS DIABETIC Physical Findings Physical Appearance: Overweight BMI 25-29 Skin Appearance Skin Appearance: Edema Edema Location Modifier: Both Edema Location: Foot Type of Edema: Degree of Edema: 1+ Gastrointestinal Symptoms GI Symtoms: Appetite Changes Tube Present: Bowel Sounds: Recent Bowel Pattern: Stool Characteristics: Nutritional Diagnosis Nutritional Risk Acuity 2: Dysphagia Nutritional Risk Acuity 3: Nausea, Alcohol abuse Past Medical History: HX of Alcohol abuse (4-5 beers/day), T1DM, Depression, chew Tobacco Nutritional Acuity: 2-Moderate Nutrition Diagnosis: Excessive Alcohol Intake Nutrition Etiology: Alcohol Addiction Nutrition Problem/Etiology/Sym: Excessive alcohol intake related to alcohol addiction as evidenced by pt and family report of alcohol abuse. Energy Requirement: 1432 (Miff.St.Joer AF:1.3) Protein Requirement: 53 (0.8g/kg) Fluid Requirement: 1860 (25mL/kg) Diet Type: Diabetic, Dysphagia Stage 3 (Wet dysphagia) Diet Comment To RSA: Pt should receive diabetic, wet dysphagia 3 diet with water only. Nutrition Monitoring & Eval Nutrition Goals: Eat 50-100% Meal RD Patient Assessment Time: [address] Assessment Type: RD Re-Assessment Patient Nutrition Acuity: 2-Moderate Follow Up Date: Sep 18, 2017 Nutritional Comment: 09/15) Pt. admitted for altered mental status, has been sedated and placed on a vent. Hx: T1DM, alcohol abuse, depression. Was discharged 09/08/2017 after being admitted for DKA. Labs: 09/15) Na 136, K+ 3.0, BUN 4, Cre 0.5, WBG 214, Random Glu 192, Ca 7.4, Alb 1.9. MD plans to wean sedation and remove vent in the morning. Will continue to monitor blood sugars, labs, weight 09/16) Pt remains on vent. Rec nutrition support if not removed in 24 hours. Labs: 09/16) K 3.2, Chloride 109, Co2 20, BUN 6, Cre 0.6, Glu 230, Random Glu 150, Alb 2.0 Will reassess 09/17/2015 continue to monitor BS, weight, labs, vent status 09/17) Pt was extubated 09/16/2017. Diet will be changed to wet dysphagia 3 with water only per SPECIAL EDUCATION PROFESSIONAL report. Labs: 09/17) K 3.2, BUN 5, Cre 0.5, Glu 121, Alb 2.0. Pt. should receive Dysphagia 3, Diabetic Diet. Will continue to monitor labs weight, po intake DELILAH BANERJEE Sep 17, 2017 10:21
[2017-09-18 03:09] VITALS: BP 132/81
[2017-09-18 07:10] LABS: PLATELET COUNT, AUTOMATED 313 K/uL (150-450)
[2017-09-18 07:16] VITALS: BP 144/71
[2017-09-18] MEDS: NS(*) 0.9% 1000 ML BAG 1,000 ML IV PRN (07:20)
[2017-09-18] MEDS: THIAMINE HCL 100 MG TAB PO SCH (08:18)
[2017-09-18] MEDS: PANTOPRAZOLE SOD 40 MG IV VIAL IVP SCH (08:18)
[2017-09-18] MEDS: CLOTRIMAZOLE 1% CR 30 GM TUBE TP SCH ×2 (08:18→20:49)
[2017-09-18] MEDS: ENOXAPARIN 40 MG/0.4ML SYR SC SCH (08:18)
[2017-09-18] MEDS: INSULIN GLARGINE 100 U/ML 3 ML PEN SUBQ SCH (08:18)
[2017-09-18] MEDS ORDERED: fentaNYL 25 MCG TDSY TOP SCH (09:00)
[2017-09-18] MEDS: POTASSIUM CHL 10 MEQ TABCR PO SCH ×2 (09:56→17:07)
[2017-09-18 11:12] VITALS: BP 150/85
--- NOTE | 2017-09-18 11:14 | Hospitalist Progress Note ---
Subjective Progress Notes Subjective Patient has no complaints today. Eating, drinking and voiding without difficulty. Patient Complains of: Cardiovascular: No: Chest Pain Respiratory: No: Shortness of Breath Physical Exam Vital Signs Date Time Temp Pulse Resp B/P (MAP) Pulse Ox O2 Delivery O2 Flow Rate FiO2 09/18/17 07:16 98.4 65 16 144/71 (95) 94 Room Air 09/17/17 08:00 1.0 09/15/17 14:45 25.0 Intake and Output 09/19/17 07:00 Intake Total 415 ml Balance 415 ml Intake Oral 320 ml IV Total 95 ml General Appearance: Alert, Awake, No Acute Distress, Afebrile Cardiovascular: Regular Rate and Rhythm Respiratory: No Respiratory Distress, Clear to Auscultation GI: Soft and Non-Tender Psych: Alert & Oriented X3, Appropriate Mood & Affect Result Diagram: 09/18/1736 09/18/17635 Assessment and Plan Problems: (1) Altered mental status Status: Acute Assessment & Plan: He presented to the emergency room with altered mental status and was intubated for airway protection. A CT scan of the head and MRI of the brain were both negative for acute pathology. It is now believed that his altered mentation was secondary to hypoglycemia. His mentation is improving , and is near his baseline. (2) Acute respiratory failure Assessment & Plan: He was intubated in the emergency department. He did have a severe respiratory acidosis, but this improved on mechanical ventilation. He was successfully extubated on 09/15/17. He is now maintaining on room air. (3) Sepsis Assessment & Plan: He did present with a fever and elevated WBC. He has undergone a lumbar puncture and means cultures. To this point all of his testing has been negative. We did have him on empiric treatment with Primaxin, vancomycin, and acyclovir. These have been stopped yesterday. (4) UTI (urinary tract infection) Assessment & Plan: A urinalysis shows possible catheter associated UTI. He was placed on ceftriaxone until the culture results are available. (5) Type 1 diabetes mellitus Status: Chronic Assessment & Plan: He is on chronic treatment with Lantus. We are currently treating him with sliding scale level #1 and his Lantus was on hold secondary to hypoglycemia. The Lantus was restarted at a lower dose of 10 units daily. (6) Alcohol abuse, daily use Status: Chronic Assessment & Plan: He does have a history of alcoholism, but denies drinking since his last admission. We have started him on thiamine. He has not required treatment per CIWA. Exam Sepsis Risk: No Definite Risk Problem Qualifiers (1) Altered mental status: Altered mental status type: unspecified Qualified Codes: R41.82 - Altered mental status, unspecified ANA MARIA PALACIOS MD Sep 18, 2017 11:14
[2017-09-18] MEDS: INSULIN HUM LISPRO 100 UN/ML 3 ML VIAL SUBQ PRN ×3 (12:00→20:53)
[2017-09-18] MEDS: cefTRIAXone 2 GM VIAL IVP SCH (13:31)
--- NOTE | 2017-09-18 14:04 | Medical Nutrition Therapy ---
Nutrition Anthropometrics Height (Inches): 66.00 Height (Calculated Centimeters: 167.268974 Weight (Pounds): 176 Weight (Calculated Kilograms): 79.832 BMI Calculated: 23.56 Stanton Nutrition Score: Adequate Stanton Nutrition Risk Score: 17 Dietary Referral Nutrition Risk Factors: Nutrition Risk Comment: PT IS DIABETIC Physical Findings Physical Appearance: Overweight BMI 25-29 Skin Appearance Skin Appearance: Edema Edema Location Modifier: Both Edema Location: Foot Type of Edema: Degree of Edema: 1+ Gastrointestinal Symptoms GI Symtoms: Appetite Changes Tube Present: Bowel Sounds: Recent Bowel Pattern: Stool Characteristics: Nutritional Diagnosis Nutritional Risk Acuity 2: Dysphagia Nutritional Risk Acuity 3: Alcohol abuse Nutritional Risk Acuity 4: Good Appetite, Stable Weight Past Medical History: HX of Alcohol abuse (4-5 beers/day), T1DM, Depression, chew Tobacco Nutritional Acuity: 2-Moderate Nutrition Diagnosis: Excessive Alcohol Intake Nutrition Etiology: Alcohol Addiction Nutrition Problem/Etiology/Sym: Excessive alcohol intake related to alcohol addiction as evidenced by pt and family report of alcohol abuse. Energy Requirement: 1432 (Miff.St.Joer AF:1.3) Protein Requirement: 53 (0.8g/kg) Fluid Requirement: 1860 (25mL/kg) Diet Type: Diabetic, Dysphagia Stage 3 (Wet dysphagia) Diet Comment To RSA: Pt should receive diabetic, wet dysphagia 3 diet with water only. Nutrition Monitoring & Eval Nutrition Goals: Eat 50-100% Meal RD Patient Assessment Time: [address] Assessment Type: RD Re-Assessment Patient Nutrition Acuity: 2-Moderate Follow Up Date: Sep 19, 2017 Nutritional Comment: 09/15) Pt. admitted for altered mental status, has been sedated and placed on a vent. Hx: T1DM, alcohol abuse, depression. Was discharged 09/08/2017 after being admitted for DKA. Labs: 09/15) Na 136, K+ 3.0, BUN 4, Cre 0.5, WBG 214, Random Glu 192, Ca 7.4, Alb 1.9. MD plans to wean sedation and remove vent in the morning. Will continue to monitor blood sugars, labs, weight 09/16) Pt remains on vent. Rec nutrition support if not removed in 24 hours. Labs: 09/16) K 3.2, Chloride 109, Co2 20, BUN 6, Cre 0.6, Glu 230, Random Glu 150, Alb 2.0 Will reassess 09/17/2015 continue to monitor BS, weight, labs, vent status 09/17) Pt was extubated 09/16/2017. Diet will be changed to wet dysphagia 3 with water only per HOUSE DESIGNER report. Labs: 09/17) K 3.2, BUN 5, Cre 0.5, Glu 121, Alb 2.0. Pt. should receive Dysphagia 3, Diabetic Diet. Will continue to monitor labs weight, po intake 09/18) Pt has moved from ICU to med floor. Weight has remained stable. Labs: 09/18) Na 135, BUn 5, Cre 0.6. BS 96, 95. Po intake is 83% x 3 meals. Will continue to monitor labs, po intake, weight. DELILAH BANERJEE Sep 18, 2017 11:36
[2017-09-18 15:16] VITALS: BP 131/74
[2017-09-18 20:45] VITALS: BP 132/81
[2017-09-19 05:45] VITALS: BP 141/81
[2017-09-19 06:06] LABS: PLATELET COUNT, AUTOMATED 300 K/uL (150-450)
[2017-09-19] MEDS ORDERED: INSU100I30 SUBQ (07:34)
--- NOTE | 2017-09-19 07:52 | Hospitalist Depart ---
Discharge Summary Reason for Hosp/Final Diag: (1) Altered mental status Status: Acute Hospital Course & Plan: He presented to the emergency room with altered mental status and was intubated for airway protection. CT scan of the head and MRI of the brain were both negative for acute pathology. It is now believed that his altered mentation was secondary to hypoglycemia. His mentation is improved and is now at his baseline. (2) Type 1 diabetes mellitus Status: Chronic Hospital Course & Plan: He had been on chronic treatment with Lantus 20 units BID, but appears to have had rather severe hypoglycemia with the resultant mental status changes. The Lantus was initially held and then restarted at a lower dose of 10 units daily. His glucoses were adequately controlled on the lower dose. He will follow up closely with the [facility]. (3) Acute respiratory failure Hospital Course & Plan: He was intubated in the emergency department. He did have a severe respiratory acidosis, but this improved on mechanical ventilation. He was successfully extubated on 09/15/17. He is now doing well with no respiratory problems or complaints. His room air oxygen saturations are in normal range. (4) Sepsis Hospital Course & Plan: He did present with a fever and elevated WBC. He had extensive evaluation including a lumbar puncture and means-cultures. All of his testing has been negative and it is felt he did not have acute infectious process, but rather severe hypoglycemia. We did have him on empiric treatment with Primaxin, vancomycin, and acyclovir. These have all been stopped. He has not had any recurrent problems. (5) UTI (urinary tract infection) Hospital Course & Plan: A urinalysis showed possible catheter associated UTI. He was placed on ceftriaxone empirically. He did have a repeat UA after the Hill cath was removed and his urine was essentially clear. The antibiotics were discontinued. (6) Alcohol abuse, daily use Status: Chronic Hospital Course & Plan: He does have a history of alcoholism, but denies drinking since his last admission. He has not required treatment per [facility]. Departure Weight (Pounds): 166 Weight (Ounces): 8.0 Result Diagram: 09/19/17 0539 09/19/17 0539 Item Value Date Time White Blood Count 12.0 k/uL H 09/14/17 1118 Hemoglobin 13.1 g/dL L 09/14/17 1118 Hematocrit 38.3 % L 09/14/17 1118 Platelet Count 326 K/uL 09/14/17 1118 Lipase 47 U/L 09/14/17 1118 Albumin 3.3 g/dl L 09/14/17 1118 Total Protein 6.0 gm/dl L 09/14/17 1118 Troponin I < 0.012 ng/ml 09/14/17 1118 Alkaline Phosphatase 110 U/L 09/14/17 1118 Alanine Aminotransferase (ALT/SGPT) 31 U/L 09/14/17 1118 Aspartate Amino Transf (AST/SGOT) 23 U/L 09/14/17 1118 Total Bilirubin 0.6 mg/dl 09/14/17 1118 Calcium Level 9.0 mg/dl 09/14/17 1118 Lactate 2.7 mmol/L H 09/14/17 1118 Random Glucose 166 mg/dl H 09/14/17 1118 Glomerular Filtration Rate Calc > 60.0 09/14/17 1118 Creatinine 0.60 mg/dl L 09/14/17 1118 Blood Urea Nitrogen 8 mg/dl L 09/14/17 1118 Carbon Dioxide Level 27 mmol/L 09/14/17 1118 Chloride Level 98 mmol/L 09/14/17 1118 Potassium Level 3.6 mmol/L 09/14/17 1118 Sodium Level 135 mmol/L L 09/14/17 1118 Magnesium Level 1.8 mg/dl 09/14/17 1118 Total Creatine Kinase 143 U/L 09/14/17 1118 Thyroid Stimulating Hormone (TSH) 0.87 uIU/ml 09/14/17 1118 Lactate 2.2 mmol/L H 09/14/17 1600 Osmolality 284 mOSM/K 09/14/17 1610 Whole Blood Glucose 73 mg/DL L 09/14/17 1639 Whole Blood Glucose 68 mg/DL L 09/14/17 1749 Whole Blood Glucose 67 mg/DL L 09/14/17 1856 Lactate 2.2 mmol/L H 09/14/17 1905 Whole Blood Glucose 71 mg/DL L 09/14/172006 Whole Blood Glucose 63 mg/DL L 09/14/17 205 Lactate 1.2 mmol/L 09/14/17 2132 Whole Blood Glucose 127 mg/DL H 09/14/17 2209 Whole Blood Glucose 124 mg/DL H 09/14/17 2317 Sodium Level 136 mmol/L L 09/15/17 0500 Potassium Level 3.0 mmol/L L 09/15/17 0500 Chloride Level 109 mmol/L H 09/15/17 0500 Carbon Dioxide Level 21 mmol/L L 09/15/17 0500 Blood Urea Nitrogen 4 mg/dl L 09/15/17 0500 Creatinine 0.50 mg/dl L 09/15/17 0500 Glomerular Filtration Rate Calc > 60.0 09/15/17 0500 Random Glucose 192 mg/dl H 09/15/17 0500 Calcium Level 7.4 mg/dl L 09/15/17 0500 Total Bilirubin 0.2 mg/dl 09/15/17 0500 Aspartate Amino Transf (AST/SGOT) 15 U/L 09/15/17 0500 Alanine Aminotransferase (ALT/SGPT) 30 U/L 09/15/17 0500 Alkaline Phosphatase 70 U/L 09/15/17 0500 Total Protein 4.0 gm/dl L 09/15/17 0500 Albumin 1.9 g/dl L 09/15/17 0500 Albumin 2.0 g/dl L 09/17/17 0505 Total Protein 4.1 gm/dl L 09/17/17 0505 Alkaline Phosphatase 74 U/L 09/17/17 0505 Alanine Aminotransferase (ALT/SGPT) 26 U/L 09/17/17 0505 Aspartate Amino Transf (AST/SGOT) 12 U/L 09/17/17 0505 Total Bilirubin 0.3 mg/dl 09/17/17 0505 Calcium Level 7.7 mg/dl L 09/17/17 0505 Random Glucose 121 mg/dl H 09/17/17 0505 Glomerular Filtration Rate Calc > 60.0 09/17/17 0505 Creatinine 0.50 mg/dl L 09/17/17 0505 Blood Urea Nitrogen 5 mg/dl L 09/17/17 0505 Carbon Dioxide Level 21 mmol/L L 09/17/17 0505 Chloride Level 108 mmol/L H 09/17/17 0505 Potassium Level 3.2 mmol/L L 09/17/17 0505 Sodium Level 138 mmol/L 09/17/17 0505 Prothrombin Time 13.9 seconds 09/15/17 0500 Prothromb Time International Ratio 1.06 09/15/17 0500 Urine Bacteria Negative /HPF 09/14/17 1202 Urine Mucus Few /HPF 09/14/17 1202 Urine Squamous Epithelial Cells None /LPF 09/14/17 1202 Urine WBC 2 /HPF 09/14/17 1202 Urine RBC <1 /HPF 09/14/17 1202 Urine Leukocyte Esterase Negative 09/14/17 1202 Urine Urobilinogen Negative mg/dL 09/14/17 1202 Urine Bilirubin Negative 09/14/17 1202 Urine Nitrite Negative 09/14/17 1202 Urine Blood Negative 09/14/17 1202 Urine Ketones Negative mg/dL 09/14/17 1202 Urine Glucose (UA) 500 mg/dL 09/14/17 1202 Urine Protein Negative mg/dL 09/14/17 1202 Urine Specific Adams 1.027 09/14/17 1202 Urine pH 5.0 pH 09/14/17 1202 Urine Clarity Slightly-cloudy 09/14/17 1202 Urine Color Yellow 09/14/17 1202 Urine Color Yellow 09/17/17 1045 Urine Clarity Cloudy 09/17/17 1045 Urine pH 5.0 pH 09/17/17 1045 Urine Specific Adams 1.013 09/17/17 1045 Urine Protein 100 mg/dL 09/17/17 1045 Urine Glucose (UA) 500 mg/dL 09/17/17 1045 Urine Ketones 20 mg/dL H 09/17/17 1045 Urine Blood Large 09/17/17 1045 Urine Nitrite Negative 09/17/17 1045 Urine Bilirubin Negative 09/17/17 1045 Urine Urobilinogen Negative mg/dL 09/17/17 1045 Urine Leukocyte Esterase Trace H 09/17/17 1045 Urine RBC 955 /HPF 09/17/17 1045 Urine WBC 57 /HPF 09/17/17 1045 Urine Squamous Epithelial Cells None /LPF 09/17/17 1045 Urine Transitional Epithelial Cells Few /LPF 09/17/17 1045 Urine Bacteria Few /HPF 09/17/17 1045 Urine Hyaline Casts Many /LPF H 09/17/17 1045 Urine Mucus Few /HPF 09/17/17 1045 Urine Mucus Few /HPF 09/19/17 0000 Urine Bacteria Negative /HPF 09/19/17 0000 Urine Squamous Epithelial Cells Few /LPF 09/19/17 0000 Urine WBC 2 /HPF 09/19/17 0000 Urine RBC 15 /HPF 09/19/17 0000 Urine Leukocyte Esterase Negative 09/19/17 0000 Urine Urobilinogen Negative mg/dL 09/19/17 0000 Urine Bilirubin Negative 09/19/17 0000 Urine Nitrite Negative 09/19/17 0000 Urine Blood Moderate 09/19/17 0000 Urine Ketones Negative mg/dL 09/19/17 0000 Urine Glucose (UA) 150 mg/dL H 09/19/17 0000 Urine Protein Negative mg/dL 09/19/17 0000 Urine Specific Adams 1.014 09/19/17 0000 Urine pH 5.0 pH 09/19/17 0000 Urine Clarity Clear 09/19/17 0000 Urine Color Yellow 09/19/17 0000 CSF Appearance Clear 09/14/17 1359 CSF Color Colorless 09/14/17 1359 CSF WBC 1 /mm3 09/14/17 1359 CSF RBC 0 /mm3 09/14/17 1359 CSF Glucose 68 mg/dl 09/14/17 1359 CSF Total Protein 25 mg/dl 09/14/17 1359 CSF Cryptococcus Antigen Negative 09/14/17 1357 Herpes Simplex Virus DNA (PCR) Not detected 09/14/17 1357 Haemophilus influenzae B Antigen Negative 09/14/17 1357 Neisseria meningitidis A/Y Antigen Negative 09/14/17 1357 Neisseria meningitidis C/W135 Ag Negative 09/14/17 1357 N. meningitidis B/E.coli K1 Ag Negative 09/14/17 1357 Group B Streptococcus Antigen Negative 09/14/17 1357 Streptococcus pneumoniae Antigen Negative 09/14/17 1357 Influenza Virus Type B (PCR) Negative 09/14/17 0000 Influenza Virus Type A (PCR) Negative 09/14/17 0000 Acetone, Qualitative Negative 09/14/17 1118 Urine Cannabinoids Screen Positive 09/14/17 1202 Urine Cocaine Screen Negative 09/14/17 1202 Urine Benzodiazepines Screen Negative 09/14/17 1202 Urine Amphetamines Screen Negative 09/14/17 1202 Urine Phencyclidine Screen Negative 09/14/17 1202 Ur Tricyclic Antidepressants Screen Negative 09/14/17 1202 Urine Barbiturates Screen Negative 09/14/17 1202 Urine Opiates Screen Negative 09/14/17 1202 Acetaminophen Level < 10 ug/ml 09/14/17 1118 Salicylates Level < 10 mg/L 09/14/17 1118 [facility] *LIVE* [address] [place], [place] [address] PHANI GRAF M.D., DIRECTOR OF LABORATORY SERVICES WES CHING M.D., PATHOLOGIST RUN DATE: 09/16/17 Specimen Inquiry Report PAGE 1 RUN TIME: 1041 PATIENT: ALLY NOONAN ACCT: [id number] LOC: ICU U : [id number] AGE/SX: 56/M ROOM: [facility] REG : 09/14/[address]: RACHEL HERRERA MD : 1960 BED: 260 DIS : STATUS: ADM IN TLOC: SPEC #: [id number] JOSÉ MIGUEL: 09/14/17 STATUS: COMP REQ #: [id number] RECD: 09/14/17 [facility] DR: ANTONIO ERICKSON [facility] SOURCE: FOLEYCATH ENTR: 09/14/17-[address]: EDDIE MATHEWS MD [facility]: ORDERED: CULT URINE Procedure Result Verified URINE CULTURE Final 09/16/17-1041 NO GROWTH AFTER 2 DAYS [facility]* [address] [place] [address] PHANI GRAF M.D., DIRECTOR OF LABORATORY SERVICES WES CHING M.D., PATHOLOGIST RUN DATE: 09/18/17 Specimen Inquiry Report PAGE 1 RUN TIME: 1000 PATIENT: ALLY NOONAN ACCT: [id number] LOC: MED U : [id number] AGE/SX: 56/M ROOM: 2268 REG : 09/14/[address]: RACHEL HERRERA MD : 1960 BED: 268 DIS : STATUS: ADM IN TLOC: SPEC #: [id number] JOSÉ MIGUEL: 09/14/17 STATUS: RES REQ #: [id number] RECD: 09/14/17 [facility] DR: ANTONIO ERICKSON [facility] SOURCE: BLOOD ENTR: 09/14/17-[address]: EDDIE MATHEWS MD [facility]: ORDERED: CULT BLOOD Procedure Result Verified BLOOD CULTURE Preliminary 09/18/17-1000 NO GROWTH AFTER 4 DAYS, REINCUBATED Lula [facility] *LIVE* [address] [facility] [place] [place] [address] PHANI GRAF M.D., DIRECTOR OF LABORATORY SERVICES WES CHING M.D., PATHOLOGIST RUN DATE: 09/18/17 Specimen Inquiry Report PAGE 1 RUN TIME: 1000 PATIENT: ALLY NOONAN ACCT: [id number] LOC: MED U : [id number] AGE/SX: 56/M ROOM: 2268 REG : 09/14/[address]: RACHEL HERRERA MD : 1960 BED: 268 DIS : STATUS: ADM IN TLOC: SPEC #: [id number] JOSÉ MIGUEL: 09/14/17-9 STATUS: RES REQ #: [id number] RECD: 09/14/17-[address]: ANTONIO ERICKSON [facility] SOURCE: BLOOD ENTR: 09/14/17-[address]: EDDIE MATHEWS MD [facility]: ORDERED: CULT BLOOD Procedure Result Verified BLOOD CULTURE Preliminary 09/18/17-1000 NO GROWTH AFTER 4 DAYS, [facility]* [address] [place] [address] PHANI GRAF M.D., DIRECTOR OF LABORATORY SERVICES WES CHING M.D., PATHOLOGIST RUN DATE: 09/17/17 Specimen Inquiry Report PAGE 1 RUN TIME: 1143 PATIENT: ALLY NOONAN ACCT: [id number] LOC: ICU U : [id number] AGE/SX: 56/M ROOM: 2260 REG : 09/14/[address]: RACHEL HERRERA MD : 1960 BED: 260 DIS : STATUS: ADM IN TLOC: SPEC #: [id number] JOSÉ MIGUEL: 09/14/17-1350 STATUS: COMP REQ #: [id number] RECD: 09/14/17-[address]: LIZABETH COSME MD SOURCE: CSF ENTR: 09/14/17-[address]: EDDIE MATHEWS MD [facility]: ANTONIO ERICKSON CASE MANAGEMENT COORDINATOR-BC ORDERED: CULT CSF & GS Procedure Result Verified GRAM STAIN Final 09/14/17-1442 NO ORGANISMS SEEN CSF CULTURE Final 09/17/17-1143 No growth after 3 days [facility]* [address] [place] [address] PHANI GRAF M.D., DIRECTOR OF LABORATORY SERVICES WES CHING M.D., PATHOLOGIST RUN DATE: 09/18/17 Specimen Inquiry Report PAGE 1 RUN TIME: 1503 PATIENT: ALLY NOONAN ACCT: [id number] LOC: [facility] U : [id number] AGE/SX: 56/M ROOM: 2268 REG : 09/14/[address]: RACHEL HERRERA MD : 1960 BED: 268 DIS : STATUS: ADM IN TLOC: SPEC #: [id number] JOSÉ MIGUEL: 09/17/17 STATUS: RES REQ #: [id number] RECD: 09/17/17-[address]: ELIZABETH GTZ DO SOURCE: FOLEYCAT ENTR: 09/17/17-1215 [facility] DR: EDDIE MATHEWS MD SPDESC: RACHEL HERRERA MD ORDERED: CULT URINE COMMENTS: Comments: do on urine from this AM Procedure Result Verified URINE CULTURE Preliminary 09/18/17-1503 Organism 1 GRAM POSITIVE COCCI <10,000 COL/ML ID AND SENSITIVITY TO FOLLOW Imaging PATIENT NAME: Ally Noonan : 1960 MR: [id number] V: [id number] EXAM DATE: ORDERING PHYSICIAN: ANTONIO ERICKSON TECHNOLOGIST: Location: [facility] Patient: Ally Noonan : 1960 Visit/Account:[id number] Date of Sevice: 09/14/2017 EXAMINATION: CT Head without intravenous contrast HISTORY: Altered level of consciousness. TECHNIQUE: Axial images were obtained from the skull base to the vertex without intravenous contrast. Sagittal and coronal reformatted images are also submitted. One of the following dose optimization techniques was utilized in the performance of this exam: Automated exposure control; adjustment of the mA and/ or kV according to the patient's size; or use of an iterative reconstruction technique. Specific details can be referenced in the facility's radiology CT exam operational policy. COMPARISON: Noncontrast head CT dated 04/28/2016. FINDINGS: Brain volume: Mild generalized volume loss. Ventricles: Negative. Acute ischemic changes: None. Hemorrhage: None. Masses / edema: None. Chiu-white: Negative. White matter: Negative. Vessels: Negative. Extra-axial: Negative. Calvarium / skull base: Negative. Visualized sinuses / orbits: Moderate mucosal thickening and fluid in the paranasal sinuses, nonspecific in the setting of intubation. Leftward nasal septal deviation. IMPRESSION: No acute intracranial abnormality. Report Dictated By: Antonio Willis MD at 09/14/2017 1:29 PM Report E-Signed By: Antonio Willis MD at 09/14/2017 1:33 PM WSN:[id number] PATIENT NAME: Ally Noonan : 1960 MR: [id number] V: [id number] EXAM DATE: ORDERING PHYSICIAN: ANTONIO ERICKSON TECHNOLOGIST: Location: [facility] Patient: Ally Noonan : 1960 Visit/Account:[id number] Date of Sevice: 09/14/2017 CHEST SINGLE AP Indication: Altered level of consciousness.. Comparison: 09/07/2017. Findings: Endotracheal tube is in place in good position. Cardiomediastinal silhouette and pulmonary vessels within normal limits. There is no focal infiltrate or lobar consolidation. No pneumothorax or pleural effusion. No nodule. Upper abdomen is unremarkable. No acute bony abnormality. IMPRESSION: 1. Endotracheal tubes in place in good position. No pneumothorax. No focal infiltrate. Report Dictated By: Chidi Sorto at 09/14/2017 1:32 PM Report E-Signed By: Chidi Sorto at 09/14/2017 1:33 PM WSN:[id number] PATIENT NAME: Ally Noonan : 1960 MR: [id number] V: [id number] EXAM DATE: [id number] ORDERING PHYSICIAN: LIZABETH COSME TECHNOLOGIST: Location: [facility] Patient: Ally Noonan : 1960 Visit/Account:[id number] Date of Sevice: 09/14/2017 FOOT 3 VIEW LEFT Indication: Left foot discoloration. Comparison: None Available Findings: 3 views of left foot. Demineralized bones. No evidence of acute fracture, dislocation, or radiopaque foreign body. No soft tissue swelling or osseous erosion. Normal alignment. No significant degenerative changes. IMPRESSION: 1. Demineralized bones. 2. Otherwise negative left foot radiographs. Report Dictated By: Antonio Willis MD at 09/14/2017 1:33 PM Report E-Signed By: Antonio Willis MD at 09/14/2017 1:36 PM WSN:[id number] PATIENT NAME: Ally Noonan : 1960 MR: [id number] V: [id number] EXAM DATE: [id number] ORDERING PHYSICIAN: RACHEL HERRERA TECHNOLOGIST: Location: [facility] Patient: Ally Noonan : 1960 Visit/Account:[id number] Date of Sevice: 09/16/2017 BRAIN W/O CONTRAST Comparisons: Head CT scan without contrast dated September 14, 2017 Additional pertinent history: Altered mental status TECHNIQUE: Multiplanar, multisequence brain MRI was performed without gadolinium contrast. FINDINGS: Sagittal midline structures and craniocervical junction: Negative. Midline shift: None. Ventricles: Negative. Brain parenchyma: Diffusion weighted imaging: Negative. Gradient sequence: Negative. T2 weighted FLAIR images: Negative. Extra-axial spaces: Mild cerebral atrophy. Dural venous sinuses and major arterial flow voids: Negative. Mastoid air cells and paranasal sinuses: Severe lobular mucosal thickening involving both maxillary sinuses as well as the ethmoid air cells and frontal sinuses. Patchy increased T2 signal involving the mastoid air cells bilaterally. Surrounding soft tissues and orbits: Negative. Impression: 1. Mild age-related changes as described above. 2. No evidence of acute intracranial pathology. 3. Underlying paranasal sinus disease and mastoid air cell disease. Report Dictated By: Mio Carrera MD at 09/16/2017 12:31 PM Report E-Signed By: Mio Carrera MD at 09/16/2017 12:35 PM WSN:[id number] PATIENT NAME: Ally Noonan : 1960 MR: [id number] V: [id number] EXAM DATE: ORDERING PHYSICIAN: RACHEL HERRERA TECHNOLOGIST: Location: [facility] Patient: Ally Noonan : 1960 Visit/Account:[id number] Date of Sevice: 09/17/2017 CHEST SINGLE AP 09/17/2017 07:00 hours. HISTORY: Possible aspiration. COMPARISON: 09/15/2017 and studies dating to 11/20/2006. TECHNIQUE: Portable AP view of the chest. FINDINGS: Tubes/lines/hardware: Patient has been extubated. Right IJ catheter terminates at the mid superior vena cava. There are external chest leads. Pulmonary: Lungs are clear. There is no pneumothorax or pleural effusion. Cardiomediastinal: Cardiac and mediastinal silhouettes are within normal limits. Bones/soft tissues: No acute osseous abnormality. The visible abdomen is normal. IMPRESSION: 1. No acute cardiopulmonary process. 2. Patient has been extubated. Report Dictated By: Evelia Mora at 09/17/2017 5:38 AM Report E-Signed By: Evelia Mora at 09/17/2017 5:40 AM WSN:[id number] EKG PATIENT NAME: ALLY NOONAN : [id number] MR: [id number] V: [id number] EXAM DATE: ORDERING PHYSICIAN: ANTONIO ERICKSON TECHNOLOGIST: Test Reason : Blood Pressure : / mmHG Vent. Rate : 093 BPM Atrial Rate : 093 BPM P-R Int : 142 ms QRS Dur : 080 ms QT Int : 340 ms P-R-T Axes : 044 069 055 degrees QTc Int : 423 ms Poor data quality, interpretation may be adversely affected Sinus rhythm Diffuse T flattening No previous to compare Confirmed by RACHEL HERRERA ([id number]) on 09/14/2017 3:52:23 PM Referred By: Confirmed By:RACHEL HERRERA Condition: Improved Discharge: Home (Transitional Care Nursing will follow at home) Follow-Up Labs: Finger Sticks (four times a day (AC and HS)) Time Spent: > 30 min Discharge Instructions Home Meds Active Scripts Vitamin B Complex (B COMPLEX) 1 Each Tablet, 1 EACH PO DAILY, #30 TAB Prov:ANA MARIA PALACIOS MD 09/19/17 Potassium Chloride (KLOR-CON 10) 10 Meq Tablet.er, 10 MEQ PO BIDBS, #20 TAB 0 Refills Prov:ANA MARIA PALACIOS MD 09/19/17 Insulin Glargine,Hum.rec.anlog (LANTUS SOLOSTAR) 100 Unit/1 Ml Insuln.pen, 10 UNIT SUBQ QDAY, #1 VIAL 1 Refill Prov:ANA MARIA PALACIOS MD 09/19/17 Discontinued Reported Medications Insulin Glargine (LANTUS) 100 Unit/Ml Soln, 20 UNIT SUBQ BID, ML 09/07/17 Follow up Referrals: [facility] Diet: Diabetic Activity: As Tolerated, No Exertion Special Instructions: Follow up at [facility] in next 5-10 days. Return to ER if any problems. Transitional Care Nurse will follow patient at home. Copies to: [facility] Venous Thromboembolism Antithrombotics Is Pt On Any Antithrombotics?: No Problem Qualifiers (1) Altered mental status: Altered mental status type: unspecified Qualified Codes: R41.82 - Altered mental status, unspecified ANA MARIA PALACIOS MD Sep 19, 2017 07:52
[2017-09-19] MEDS ORDERED: VITA-175 PO (07:53)
[2017-09-19] MEDS ORDERED: POTA-23 PO (07:53)
[2017-09-19 07:54] VITALS: BP 154/88
[2017-09-19] MEDS: POTASSIUM CHL 10 MEQ TABCR PO SCH (08:53)
[2017-09-19] MEDS: THIAMINE HCL 100 MG TAB PO SCH (08:53)
[2017-09-19] MEDS: CLOTRIMAZOLE 1% CR 30 GM TUBE TP SCH (08:54)
[2017-09-19] MEDS: INSULIN GLARGINE 100 U/ML 3 ML PEN SUBQ SCH (08:54)
[2017-09-19] MEDS: ENOXAPARIN 40 MG/0.4ML SYR SC SCH (08:54)
== END 2017-09-19 09:25 | disposition home or self-care (01) | DRG 637 ==
LOC: ER 11:32 → ICU 14:33 → MED 09-17 13:20
PROVIDERS: ADMIT Internal Medicine; ATTEND Internal Medicine
PROC: 5A1935Z Respiratory Ventilation, Less than 24 Consecutive Hours (ICD-10-PCS; principal; 2017-09-14)
PROC: 0BH17EZ Insertion of Endotracheal Airway into Trachea, Via Natural or Artificial Opening (ICD-10-PCS; 2017-09-14)
PROC: 009U3ZX Drainage of Spinal Canal, Percutaneous Approach, Diagnostic (ICD-10-PCS; 2017-09-14)
PROC: 02HV33Z Insertion of Infusion Device into Superior Vena Cava, Percutaneous Approach (ICD-10-PCS; 2017-09-14)
DX: E10.649 Type 1 diabetes mellitus with hypoglycemia without coma (principal); J96.00 Acute respiratory failure, unspecified whether with hypoxia or hypercapnia; T83.511A Infection and inflammatory reaction due to indwelling urethral catheter, initial encounter; F10.20 Alcohol dependence, uncomplicated; Y90.0 Blood alcohol level of less than 20 mg/100 ml; F17.210 Nicotine dependence, cigarettes, uncomplicated; F17.220 Nicotine dependence, chewing tobacco, uncomplicated; R40.2432 Glasgow coma scale score 3-8, at arrival to emergency department; F32.9 Major depressive disorder, single episode, unspecified; Z79.4 Long term (current) use of insulin
CPT/HCPCS: 36415; 36416; 36600; 70450; 70551; 71045; 80202; 80305; 80320; 80329; 81001; 82009; 82040; 82140; 82247; 82310; 82374; 82375; 82435; 82550; 82565; 82803; 82945; 82947; 82948; 83605; 83690; 83735; 83930; 84075; 84132; 84155; 84157; 84295; 84443; 84450; 84460; 84484; 84520; 85025; 85610; 87040; 87070; 87077; 87088; 87186; 87205; 87327; 87502; 87529; 87899; 89050; 93005; 94002; 94003; 94770; 96374; 96375; 97161; 97165; 99285; C1758; C9113; J0133; J0696; J0743; J1650; J1815; J2060; J2704; J3370; J3411; J3480; J7030; J7040; J7042; J7050

== ENCOUNTER → 2017-09-14 | Outpatient (CLI) | payer SELFPAY ==
[2017-09-08 09:03] VITALS: BMI 23.6
[~2017-09-14] MED LIST changes: +INSU100I30 SUBQ; +INSU100V24 SQ; +MULT400T5 PO; +POTA-23 PO; +POTA-28 PO; +TOLN30CR TP; +VITA-175 PO
== END ==
LOC: AMB 10:56
PROVIDERS: ATTEND Nurse Practitioner
DX: R41.82 Altered mental status, unspecified (principal)
CPT/HCPCS: A0425; A0427

== ENCOUNTER 2017-09-19 08:27 | Outpatient (RCR) | payer SELFPAY ==
[2017-09-08 09:03] VITALS: BMI 23.6
[~2017-09-19 08:27] MED LIST changes: +INSU100I30 SUBQ; +POTA-23 PO; +VITA-175 PO
--- NOTE | 2017-09-20 12:40 | Transitional Care Management ---
Assessment Visit Type: Telephone Visit (09/20 Boy) Cardiac: WNL Cardiac Comment: 09/20 Denies any CP Respiratory: WNL Respiratory Comment: 09/20 Denies any resp problems GI: Nutrition: WNL GI Comment: 09/20 states he is eating a diabetic diet and has taken BS which is 191 this AM. Only used 10 units of insulin this SM Constipation?: No Musculoskeletal, Exercise: WNL Except Musculoskeletal, Excercise Com: 09/20 "A little weak" Resting. Enc him to move around and get a little activity to avoid pneu and clots. Mobility/Falls: WNL Integumentary: WNL Except Integumentary Comment: 09/20 a few bruises where IV sites were. Enc him to check the site where he had a central line-monitor for redness, tenderness or any drainage. Feeling of Well Being: WNL Feeling of Well Being Comment: 09/20 staying with [id number] and doing OK" Scheduled Follow-Up with [facility]: Yes (09/20 [facility] on Friday.) TCM Discharge Criteria Medication Knowledge: 09/20 went over medications and the decrease in insulin Red/Yellow Flags: 09/20 went over hypo/hyperglycemia and shat he needs to do if either happens. We also discussed diet and his drinking. Enc him not to drink anymore Transitional Care Comment: 09/18 visited wi Boy gave him some information. He has no outside interests except watches TV and gets bored. Encouragd him to get a hobby of some sort like puzzels, suduko etc I had finances bring him a form to fill out for assistance. SS visited with him about getting form so they could help him get medicaide and explained they could help him here or at [facility] complete and send in. He snswers yes to questions and explainations but doesn't really seem to be attentive to instructions. I asked the attending nurse to give /go over info with mother so she can help him 09/20 states "I'm doing OK. Staying with [id number] and she has cooked diabetic diet." I asked him if he could have her help him fill out the forms for Medicaide, Hospital assistance and the Advanced directive. He said he would. Will FY at [facility] Friday at 1430. Copies to: [facility] Sep 20, 2017 12:40
--- NOTE | 2017-09-29 14:51 | Transitional Care Management ---
Assessment Visit Type: Telephone Visit (09/29 TT Sudep-buvjkh-wk-Law. States he has come home from [facility] where he was in the [facility]ital[facility] with elevated BS. He remained in the 300-400 there.) Cardiac: WNL Cardiac Comment: 09/20 Denies any CP Respiratory: WNL Respiratory Comment: 09/20 Denies any resp problems GI: Nutrition: WN GI Comment: 09/20 states he is eating a diabetic diet and has taken BS which is 191 this AM. Only used 10 units of insulin this AM 09/29 Is eating poorly but Bridget has been helping him with his BS and trying very hard to help him eat appropriate foods. States he has NOT been drinking. Constipation?: No Musculoskeletal, Exercise: WNL Except Musculoskeletal, Excercise Com: 09/20 "A little weak" Resting. Enc him to move around and get a little activity to avoid pneu and clots. Mobility/Falls: WNL Integumentary: WNL Except Integumentary Comment: 09/20 a few bruises where IV sites were. Enc him to check the site where he had a central line-monitor for redness, tenderness or any drainage. Feeling of Well Being: WNL Feeling of Well Being Comment: 09/20 staying with [id number] and doing OK" Socialization Comment: 09/29 staying with [id number] as Mother is not well at this time. Scheduled Follow-Up with Avin[facility]: Yes (09/20 [facility] on Friday.09/29 has an appt at the [facility] 09/30) TCM Discharge Criteria Medication Knowledge: 09/20 went over medications and the decrease in /05 went over his medications. Bridget stated they made some adjustments to insulin at [facility] to 12 Units Lantus q AM and Humalog [facility] for the other BS.BS have been around 300-425. Red/Yellow Flags: 09/20 went over hypo/hyperglycemia and shat he needs to do if either happens. We also discussed diet and his drinking. Enc him not to drink anymore Transitional Care Comment: 09/18 visited wi Boy gave him some information. He has no outside interests except watches TV and gets bored. Encouragd him to get a hobby of some sort like puzzels, suduko etc I had finances bring him a form to fill out for assistance. SS visited with him about getting form so they could help him get medicaide and explained they could help him here or at [facility] complete and send in. He snswers yes to questions and explainations but doesn't really seem to be attentive to instructions. I asked the attending nurse to give /go over info with mother so she can help him 09/20 states "I'm doing OK. Staying with [id number] and she has cooked diabetic diet." I asked him if he could have her help him fill out the forms for Medicaide, Hospital assistance and the Advanced directive. He said he would. Will FY at [facility] Friday at 1430. 24/12 Boy fell this AM in the bathroom but had gotten up by the time she (Bridget had gotten in there to help him. Bridget states that she knows he has not been drinking. He does and has been eating very poorly. states "i'M NOT VERY HUNGERY" eNC HER TO HAVE HIM GET SOME ACTIVITY TO PREVENT PNEU. aLSO TO EAT HIS MEALS. aSKED TO HAVE HER TAKE THE PAPERWORK TO THE [facility] TOMORROW SO THEY sw CAN HELP HIM FILL OUT THE FORMS. LA[place] BENNETT Sep 29, 2017 14:51
[2017-10-01] MEDS ORDERED: INSU100V24 SQ ×2 (14:20→14:24)
[2017-10-01] MEDS ORDERED: TOLN30CR TP (14:29)
[2017-10-01] MEDS ORDERED: LANI SUBQ (14:32)
[2017-10-01] MEDS ORDERED: MULT400T5 PO (14:37)
[2017-10-01] MEDS ORDERED: POTA-28 PO (14:38)
--- NOTE | 2017-10-01 15:30 | Transitional Care Management ---
Assessment Cardiac: WNL Cardiac Comment: 09/20 Denies any CP Respiratory: WNL Respiratory Comment: 09/20 Denies any resp problems GI: Nutrition: WN GI Comment: 09/20 states he is eating a diabetic diet and has taken BS which is 191 this AM. Only used 10 units of insulin this AM 09/29 Is eating poorly but Bridget has been helping him with his BS and trying very hard to help him eat appropriate foods. States he has NOT been drinking. Constipation?: No Musculoskeletal, Exercise: WNL Except Musculoskeletal, Excercise Com: 09/20 "A little weak" Resting. Enc him to move around and get a little activity to avoid pneu and clots. Mobility/Falls: WNL Integumentary: WNL Except Integumentary Comment: 09/20 a few bruises where IV sites were. Enc him to check the site where he had a central line-monitor for redness, tenderness or any drainage. Feeling of Well Being: WN Feeling of Well Being Comment: 09/20 staying with movspj-so-zfd and doing OK" Socialization Comment: 09/29 staying with cqlweu-[id number]-rvl as Mother is not well at this time. Scheduled Follow-Up with [facility]: Yes (09/20 [facility] on Friday.09/29 has an appt at the [facility] 09/30) TCM Discharge Criteria Medication Knowledge: 09/20 went over medications and the decrease in [id number] went over his medications. Bridget stated they made some adjustments to insulin at [facility] to 12 Units Lantus q AM and Humalog SSIC for the other BS.BS have been around 300-425. Red/Yellow Flags: 09/20 went over hypo/hyperglycemia and shat he needs to do if either happens. We also discussed diet and his drinking. Enc him not to drink anymore Transitional Care Comment: 09/18 visited wi Boy gave him some information. He has no outside interests except watches TV and gets bored. Encouragd him to get a hobby of some sort like puzzels, suduko etc I had finances bring him a form to fill out for assistance. SS visited with him about getting form so they could help him get medicaide and explained they could help him here or at [facility] complete and send in. He snswers yes to questions and explainations but doesn't really seem to be attentive to instructions. I asked the attending nurse to give /go over info with mother so she can help him 09/20 states "I'm doing OK. Staying with [id number]-[id number] and she has cooked diabetic diet." I asked him if he could have her help him fill out the forms for Medicaide, Hospital assistance and the Advanced directive. He said he would. Will FY at [facility] Friday at 1430. 24/12 Boy fell this AM in the bathroom but had gotten up by the time she (Bridget had gotten in there to help him. Bridget states that she knows he has not been drinking. He does and has been eating very poorly. states "i'M NOT VERY HUNGERY" eNC HER TO HAVE HIM GET SOME ACTIVITY TO PREVENT PNEU. aLSO TO EAT HIS MEALS. aSKED TO HAVE HER TAKE THE PAPERWORK TO THE [facility] TOMORROW SO THEY sw CAN HELP HIM FILL OUT THE FORMS. 10/01 He is in the ICU in DKA. I spoke with Bridget, he is very drowsy, and provided materials on DKA, Lantus and Regular insulin. He will start going to the [facility] once he discharges. DANIEL NARANJO Oct 01, 2017 15:29
[2017-10-04] MEDS ORDERED: INSU100V24 SUBQ (11:30)
--- NOTE | 2017-10-06 12:04 | Transitional Care Management ---
Assessment Visit Type: Telephone Visit Spoke with: Bridget Cardiac: WNL Cardiac Comment: 09/20 Denies any CP Respiratory: WNL Respiratory Comment: 09/20 Denies any resp problems GI: Nutrition: WNL GI Comment: 09/20 states he is eating a diabetic diet and has taken BS which is 191 this AM. Only used 10 units of insulin this AM 09/29 Is eating poorly but Bridget has been helping him with his BS and trying very hard to help him eat appropriate foods. States he has NOT been drinking. 10/06 BS 188, 442 and 538 in ams. states he had ice cream sundae last pm. Bridget gave him his lantus and ssi this am; hes not nauseated but is thirsty and is drinking an ensure . review keeping log of bs and ssi 4 x a day. she knows carbs and is limiting them Constipation?: No Musculoskeletal, Exercise: WNL Except Musculoskeletal, Excercise Com: 09/20 "A little weak" Resting. Enc him to move around and get a little activity to avoid pneu and clots. 10/06 reports he only walks to bathroom and kitchen from chair. enc more act like walking to his mothers house next door or taking out trash etc. to help keep bs lower, keep strength and improve feeling of well being Mobility/Falls: WNL Integumentary: WNL Except Integumentary Comment: 09/20 a few bruises where IV sites were. Enc him to check the site where he had a central line-monitor for redness, tenderness or any drainage. Feeling of Well Being: WNL Feeling of Well Being Comment: 09/20 staying with aerscv-vc-gpk and doing OK" 10/06 discuss with s-i-l that he can be confused when bs is too hi or low and unable to give any or right amt of insulin. she states she realizes this and thinks that is what happened with prior admission. she is giving his insulin qid, ensuring bs are done and he is eating something routinely Socialization Comment: 09/29 staying with ntyvzb-pf-hvh as Mother is not well at this time. Scheduled Follow-Up with [facility]: Yes (10/06 to DTC 10/22, then to [facility]) Community Resources/HHC: 10/06 Bridget states apps for his disability were completed when he was in [place] hospital few weeks ago and they have not heard back yet. [employer] consulted to help obtain all needed resources. Plan to get PCP and see endrocrinologist when insurance is obtained TCM Discharge Criteria Medication Knowledge: 09/20 went over medications and the decrease in kcehow07/05 went over his medications. Bridget stated they made some adjustments to insulin at [facility] to 12 Units Lantus q AM and Humalog SSIC for the other BS.BS have been around 300-425. 10/06 states they had 2 SSI's. Verify correct SSI is 2-10 units. Using SSI qid Disease Management/Concern/Wha: 10/06 review s/s hyper and hypoglycemia, need for consistency with po intake and activity Red/Yellow Flags: 09/20 went over hypo/hyperglycemia and shat he needs to do if either happens. We also discussed diet and his drinking. Enc him not to drink anymore Transitional Care Comment: 09/18 visited wi Boy gave him some information. He has no outside interests except watches TV and gets bored. Encouragd him to get a hobby of some sort like puzzels, [employer] etc I had finances bring him a form to fill out for assistance. SS visited with him about getting form so they could help him get medicaide and explained they could help him here or at [facility] complete and send in. He snswers yes to questions and explainations but doesn't really seem to be attentive to instructions. I asked the attending nurse to give /go over info with mother so she can help him 09/20 states "I'm doing OK. Staying with [id number]-[id number]-oby and she has cooked diabetic diet." I asked him if he could have her help him fill out the forms for Medicaide, Hospital assistance and the Advanced directive. He said he would. Will FY at [facility] Friday at 1430. 24/12 Boy fell this AM in the bathroom but had gotten up by the time she (Bridget had gotten in there to help him. Bridget states that she knows he has not been drinking. He does and has been eating very poorly. states "i'M NOT VERY HUNGERY" eNC HER TO HAVE HIM GET SOME ACTIVITY TO PREVENT PNEU. aLSO TO EAT HIS MEALS. aSKED TO HAVE HER TAKE THE PAPERWORK TO THE [employer] TOMORROW SO THEY sw CAN HELP HIM FILL OUT THE FORMS. 10/01 He is in the ICU in DKA. I spoke with Bridget, he is very drowsy, and provided materials on DKA, Lantus and Regular insulin. He will start going to the [facility] once he discharges. 10/06 declines home visit. confident in diet management. reports qid BS and SSI use per dc orders. Review tx for hyper and hypoglycemia. Enc his participation in tx but to have Bridget supervise correct timing and dosing LISA RATLIFF Oct 06, 2017 12:04
--- NOTE | 2017-10-15 11:50 | Transitional Care Management ---
Assessment Visit Type: Telephone Visit Spoke with: Bridget Cardiac: WNL Cardiac Comment: 09/20 Denies any CP 10/15 dizzy this am with hi BS; has resolved now Respiratory: WNL Respiratory Comment: 09/20 Denies any resp problems GI: Nutrition: WNL GI Comment: 09/20 states he is eating a diabetic diet and has taken BS which is 191 this AM. Only used 10 units of insulin this AM 09/29 Is eating poorly but Bridget has been helping him with his BS and trying very hard to help him eat appropriate foods. States he has NOT been drinking. 10/06 BS 188, 442 and 538 in ams. states he had ice cream last pm. Bridget gave him his lantus and ssi this am; hes not nauseated but is thirsty and is drinking an ensure . review keeping log of bs and ssi 4 x a day. she knows carbs and is limiting them 10/15 Home yesterday. BS 165 at hs. BS 550 this am at 0800; took Lantus, SSI and repeat q 1 hour. At 11:00 is 240 and he got 4 more unit. Have got rid of old opened insulin vials. Using ones from hospital and Lantus just purchased. She states he does not get up at hs for snacks. His snacks and meals are all portion controlled by her Constipation?: No Musculoskeletal, Exercise: WNL Except Musculoskeletal, Excercise Com: 09/20 "A little weak" Resting. Enc him to move around and get a little activity to avoid pneu and clots. 10/06 reports he only walks to bathroom and kitchen from chair. enc more act like walking to his mothers house next door or taking out trash etc. to help keep bs lower, keep strength and improve feeling of well being Mobility/Falls: WNL Mobility Comment: 10/15 steady but, enc him to wait until Bridget is home to shower due to previous dizzyness. Enc to be more active to lower BS Integumentary: WNL Except Integumentary Comment: 09/20 a few bruises where IV sites were. Enc him to check the site where he had a central line-monitor for redness, tenderness or any drainage. Feeling of Well Being: WNL Feeling of Well Being Comment: 09/20 staying with [id number]-vo-[id number] and doing OK" 10/06 discuss with s-i-l that he can be confused when bs is too hi or low and unable to give any or right amt of insulin. she states she realizes this and thinks that is what happened with prior admission. she is giving his insulin qid, ensuring bs are done and he is eating something routinely Socialization Comment: 09/29 staying with [id number] as Mother is not well at this time. 10/15 Bridget denies any etoh since first admission at [facility] Scheduled Follow-Up with Anushka: Yes (10/15 to DTC 10/22, then to [facility]) Community Resources/HHC: 10/06 Bridget states apps for his disability were completed when he was in [place] hospital few weeks ago and they have not heard back yet. [employer] consulted to help obtain all needed resources. Plan to get PCP and see endrocrinologist when insurance is obtained 10/15 states [employer]API came to see him in hospital and contacted [employer] in [place]. They sent in some more paperwork to help expidite his luis armando for disability TCM Discharge Criteria Medication Knowledge: 09/20 went over medications and the decrease in [id number] went over his medications. Bridget stated they made some adjustments to insulin at [facility] to 12 Units Lantus q AM and Humalog SSIC for the other BS.BS have been around 300-425. 10/06 states they had 2 SSI's. Verify correct SSI is 2-10 units. Using SSI qid 10/15 verified BS numbers and SSI dosing. She states he does BS and gives the injection but she draws up the insulin for him. She observed he did not give entire Lantus dose this am and had him complete thedose. Enc her to continue to monitor all of his BS and insulin activity. Good to enc and maintain his independence but needs her supervision with each dose . Disease Management/Concern/Wha: 10/06 review s/s hyper and hypoglycemia, need for consistency with po intake and activity Red/Yellow Flags: 09/20 went over hypo/hyperglycemia and shat he needs to do if either happens. We also discussed diet and his drinking. Enc him not to drink anymore Transitional Care Comment: 09/18 visited wi Boy gave him some information. He has no outside interests except watches TV and gets bored. Encouragd him to get a hobby of some sort like puzzels, suduko etc I had finances bring him a form to fill out for assistance. SS visited with him about getting form so they could help him get medicaide and explained they could help him here or at [facility] complete and send in. He snswers yes to questions and explainations but doesn't really seem to be attentive to instructions. I asked the attending nurse to give /go over info with mother so she can help him 09/20 states "I'm doing OK. Staying with [id number] and she has cooked diabetic diet." I asked him if he could have her help him fill out the forms for Medicaide, Hospital assistance and the Advanced directive. He said he would. Will FY at [facility] Friday at 1430. 24/12 Boy fell this AM in the bathroom but had gotten up by the time she (Bridget had gotten in there to help him. Bridget states that she knows he has not been drinking. He does and has been eating very poorly. states "i'M NOT VERY HUNGERY" eNC HER TO HAVE HIM GET SOME ACTIVITY TO PREVENT PNEU. aLSO TO EAT HIS MEALS. aSKED TO HAVE HER TAKE THE PAPERWORK TO THE [facility] TOMORROW SO THEY sw CAN HELP HIM FILL OUT THE FORMS. 10/01 He is in the ICU in DKA. I spoke with Bridget, he is very drowsy, and provided materials on DKA, Lantus and Regular insulin. He will start going to the [facility] once he discharges. 10/06 declines home visit. confident in diet management. reports qid BS and SSI use per dc orders. Review tx for hyper and hypoglycemia. Enc his participation in tx but to have Bridget supervise correct timing and dosing. 10/15 She verbalizes correct dosing of SSI for hi BS today and even waited to feed him until the BS came down a little. She has nonexpired insulin; knows they in 28 days and is monitoring Bobs BS and admin of insulin but states she can do it if he gets shaky. Disability is pending approval. LISA RATLIFF Oct 15, 2017 11:49
--- NOTE | 2017-10-17 13:33 | Transitional Care Management ---
Assessment Cardiac: WNL Cardiac Comment: 09/20 Denies any CP 10/15 dizzy this am with hi BS; has resolved now Respiratory: WNL Respiratory Comment: 09/20 Denies any resp problems GI: Nutrition: WN GI Comment: 09/20 states he is eating a diabetic diet and has taken BS which is 191 this AM. Only used 10 units of insulin this AM 09/29 Is eating poorly but Bridget has been helping him with his BS and trying very hard to help him eat appropriate foods. States he has NOT been drinking. 10/06 BS 188, 442 and 538 in ams. states he had ice cream last pm. Bridget gave him his lantus and ssi this am; hes not nauseated but is thirsty and is drinking an ensure . review keeping log of bs and ssi 4 x a day. she knows carbs and is limiting them 10/15 Home yesterday. BS 165 at hs. BS 550 this am at 0800; took Lantus, SSI and repeat q 1 hour. At 11:00 is 240 and he got 4 more unit. Have got rid of old opened insulin vials. Using ones from hospital and Lantus just purchased. She states he does not get up at hs for snacks. His snacks and meals are all portion controlled by her 09/19 BS this AM was 440 covered w [employer]SI. he ate some breakfast. 1130 BS was 158 Had a peanut butter and avacodo sandwich for lunch. Constipation?: No Musculoskeletal, Exercise: WNL Except Musculoskeletal, Excercise Com: 09/20 "A little weak" Resting. Enc him to move around and get a little activity to avoid pneu and clots. 10/06 reports he only walks to bathroom and kitchen from chair. enc more act like walking to his mothers house next door or taking out trash etc. to help keep bs lower, keep strength and improve feeling of well being Mobility/Falls: WNL Mobility Comment: 10/15 steady but, enc him to wait until Bridget is home to shower due to previous dizzyness. Enc to be more active to lower BS 10/17 Bridget stated that Bharat did get up and showered this AM and has been amb around the home this AM Integumentary: WNL Except Integumentary Comment: 09/20 a few bruises where IV sites were. Enc him to check the site where he had a central line-monitor for redness, tenderness or any drainage. Feeling of Well Being: WNL Feeling of Well Being Comment: 09/20 staying with [id number] and doing OK" 10/06 discuss with s-i-l that he can be confused when bs is too hi or low and unable to give any or right amt of insulin. she states she realizes this and thinks that is what happened with prior admission. she is giving his insulin qid, ensuring bs are done and he is eating something routinely Socialization Comment: 09/29 staying with cizaxy-xz-ilc as Mother is not well at this time. 10/15 Bridget denies any etoh since first admission at [facility] Scheduled Follow-Up with Avinashi: Yes (10/15 to DTC 10/22, then to [facility]) Community Resources/HHC: 10/06 Bridget states apps for his disability were completed when he was in [place] hospital few weeks ago and they have not heard back yet. [employer] consulted to help obtain all needed resources. Plan to get PCP and see endrocrinologist when insurance is obtained 10/15 states [facility]API came to see him in hospital and contacted [employer] in [place]. They sent in some more paperwork to help expidite his luis armando for disability 10/17 Has an appt with DTC on 10/21 w Jose Jackson TCM Discharge Criteria Medication Knowledge: 09/20 went over medications and the decrease in [id number]/ went over his medications. Bridget stated they made some adjustments to insulin at [facility] to 12 Units Lantus q AM and Humalog SSIC for the other BS.BS have been around 300-425. 10/06 states they had 2 SSI's. Verify correct SSI is 2-10 units. Using SSI qid 10/15 verified BS numbers and SSI dosing. She states he does BS and gives the injection but she draws up the insulin for him. She observed he did not give entire Lantus dose this am and had him complete thedose. Enc her to continue to monitor all of his BS and insulin activity. Good to enc and maintain his independence but needs her supervision with each dose . Disease Management/Concern/Wha: 10/06 review s/s hyper and hypoglycemia, need for consistency with po intake and activity Red/Yellow Flags: 09/20 went over hypo/hyperglycemia and shat he needs to do if either happens. We also discussed diet and his drinking. Enc him not to drink anymore Transitional Care Comment: 09/18 visited wi Boy gave him some information. He has no outside interests except watches TV and gets bored. Encouragd him to get a hobby of some sort like puzzels, suduko etc I had finances bring him a form to fill out for assistance. SS visited with him about getting form so they could help him get medicaide and explained they could help him here or at [facility] complete and send in. He snswers yes to questions and explainations but doesn't really seem to be attentive to instructions. I asked the attending nurse to give /go over info with mother so she can help him 09/20 states "I'm doing OK. Staying with [id number] and she has cooked diabetic diet." I asked him if he could have her help him fill out the forms for Medicaide, Hospital assistance and the Advanced directive. He said he would. Will FY at [facility] Friday at 1430. 24/12 Boy fell this AM in the bathroom but had gotten up by the time she (Bridget had gotten in there to help him. Bridget states that she knows he has not been drinking. He does and has been eating very poorly. states "i'M NOT VERY HUNGERY" eNC HER TO HAVE HIM GET SOME ACTIVITY TO PREVENT PNEU. aLSO TO EAT HIS MEALS. aSKED TO HAVE HER TAKE THE PAPERWORK TO THE [facility] TOMORROW SO THEY sw CAN HELP HIM FILL OUT THE FORMS. 10/01 He is in the ICU in DKA. I spoke with Bridget, he is very drowsy, and provided materials on DKA, Lantus and Regular insulin. He will start going to the [facility] once he discharges. 10/06 declines home visit. confident in diet management. reports qid BS and SSI use per dc orders. Review tx for hyper and hypoglycemia. Enc his participation in tx but to have Bridget supervise correct timing and dosing. 10/15 She verbalizes correct dosing of SSI for hi BS today and even waited to feed him until the BS came down a little. She has nonexpired insulin; knows they in 28 days and is monitoring Bobs BS and admin of insulin but states she can do it if he gets shaky. Disability is pending approval. 10/17 Refused HV today but Bridget felt he was doing pretty well today. Has been up moving around and she trys very hard to keep him on Diabetic diet and exchanges. He doesn't usually want a HS snack Goes to bed pretty early. Has a appt at [facility] 10/21 Copies to: [facility] Oct 17, 2017 13:33
--- NOTE | 2017-10-27 12:32 | Transitional Care Management ---
Assessment Cardiac: WNL Cardiac Comment: 09/20 Denies any CP 10/15 dizzy this am with hi BS; has resolved now Respiratory: WNL Respiratory Comment: 09/20 Denies any resp problems GI: Nutrition: WN GI Comment: 09/20 states he is eating a diabetic diet and has taken BS which is 191 this AM. Only used 10 units of insulin this AM 09/29 Is eating poorly but Bridget has been helping him with his BS and trying very hard to help him eat appropriate foods. States he has NOT been drinking. 10/06 BS 188, 442 and 538 in ams. states he had ice cream last pm. Bridget gave him his lantus and ssi this am; hes not nauseated but is thirsty and is drinking an ensure . review keeping log of bs and ssi 4 x a day. she knows carbs and is limiting them 10/15 Home yesterday. BS 165 at hs. BS 550 this am at 0800; took Lantus, SSI and repeat q 1 hour. At 11:00 is 240 and he got 4 more unit. Have got rid of old opened insulin vials. Using ones from hospital and Lantus just purchased. She states he does not get up at hs for snacks. His snacks and meals are all portion controlled by her 09/19 BS this AM was 440 covered w SSI. he ate some breakfast. 1130 BS was 158 Had a peanut butter and avacodo sandwich for lunch. Constipation?: No Musculoskeletal, Exercise: WNL Except Musculoskeletal, Excercise Com: 09/20 "A little weak" Resting. Enc him to move around and get a little activity to avoid pneu and clots. 10/06 reports he only walks to bathroom and kitchen from chair. enc more act like walking to his mothers house next door or taking out trash etc. to help keep bs lower, keep strength and improve feeling of well being Mobility/Falls: WNL Mobility Comment: 10/15 steady but, enc him to wait until Bridget is home to shower due to previous dizzyness. Enc to be more active to lower BS 10/17 Bridget stated that Bharat did get up and showered this AM and has been amb around the home this AM Integumentary: WNL Except Integumentary Comment: 09/20 a few bruises where IV sites were. Enc him to check the site where he had a central line-monitor for redness, tenderness or any drainage. Feeling of Well Being: WNL Feeling of Well Being Comment: 09/20 staying with [id number]-kji and doing OK" 10/06 discuss with s-i-l that he can be confused when bs is too hi or low and unable to give any or right amt of insulin. she states she realizes this and thinks that is what happened with prior admission. she is giving his insulin qid, ensuring bs are done and he is eating something routinely Socialization Comment: 09/29 staying with [id number] as Mother is not well at this time. 10/15 Bridget denies any etoh since first admission at [facility] Scheduled Follow-Up with Avinashi: Yes (10/15 to [facility] 10/22, then to [facility]) Community Resources/HHC: 10/06 Bridget states apps for his disability were completed when he was in [place] hospital few weeks ago and they have not heard back yet. [employer] consulted to help obtain all needed resources. Plan to get PCP and see endrocrinologist when insurance is obtained 10/15 states [facility] came to see him in hospital and contacted [employer] in [place]. They sent in some more paperwork to help expidite his luis armando for disability 10/17 Has an appt with DTC on 10/21 w Jose Jackson TCM Discharge Criteria Medication Knowledge: 09/20 went over medications and the decrease in [id number]/ went over his medications. Bridget stated they made some adjustments to insulin at [facility] to 12 Units Lantus q AM and Humalog SSIC for the other BS.BS have been around 300-425. 10/06 states they had 2 SSI's. Verify correct SSI is 2-10 units. Using SSI qid 10/15 verified BS numbers and SSI dosing. She states he does BS and gives the injection but she draws up the insulin for him. She observed he did not give entire Lantus dose this am and had him complete thedose. Enc her to continue to monitor all of his BS and insulin activity. Good to enc and maintain his independence but needs her supervision with each dose . Disease Management/Concern/Wha: 10/06 review s/s hyper and hypoglycemia, need for consistency with po intake and activity Red/Yellow Flags: 09/20 went over hypo/hyperglycemia and shat he needs to do if either happens. We also discussed diet and his drinking. Enc him not to drink anymore Transitional Care Comment: 09/18 visited wi Boy gave him some information. He has no outside interests except watches TV and gets bored. Encouragd him to get a hobby of some sort like puzzels, suduko etc I had finances bring him a form to fill out for assistance. SS visited with him about getting form so they could help him get medicaide and explained they could help him here or at [facility] complete and send in. He snswers yes to questions and explainations but doesn't really seem to be attentive to instructions. I asked the attending nurse to give /go over info with mother so she can help him 09/20 states "I'm doing OK. Staying with [id number]-[id number] and she has cooked diabetic diet." I asked him if he could have her help him fill out the forms for Medicaide, Hospital assistance and the Advanced directive. He said he would. Will FY at [facility] Friday at 1430. 24/12 Boy fell this AM in the bathroom but had gotten up by the time she (Bridget had gotten in there to help him. Bridget states that she knows he has not been drinking. He does and has been eating very poorly. states "i'M NOT VERY HUNGERY" eNC HER TO HAVE HIM GET SOME ACTIVITY TO PREVENT PNEU. aLSO TO EAT HIS MEALS. aSKED TO HAVE HER TAKE THE PAPERWORK TO THE [facility] TOMORROW SO THEY sw CAN HELP HIM FILL OUT THE FORMS. 10/01 He is in the ICU in DKA. I spoke with Bridget, he is very drowsy, and provided materials on DKA, Lantus and Regular insulin. He will start going to the [facility] once he discharges. 10/06 declines home visit. confident in diet management. reports qid BS and SSI use per dc orders. Review tx for hyper and hypoglycemia. Enc his participation in tx but to have Bridget supervise correct timing and dosing. 10/15 She verbalizes correct dosing of SSI for hi BS today and even waited to feed him until the BS came down a little. She has nonexpired insulin; knows they in 28 days and is monitoring Bobs BS and admin of insulin but states she can do it if he gets shaky. Disability is pending approval. 10/17 Refused HV today but Bridget felt he was doing pretty well today. Has been up moving around and she trys very hard to keep him on Diabetic diet and exchanges. He doesn't usually want a HS snack Goes to bed pretty early. Has a appt at [facility] 10/21 10/24 unable to contact 10/27 Talked to Bridget- she stated that "Boy doing oretty good. Went to see Dr Jackson at the [facility] on and he increased Boy's Lantus insulin fro 16 U to 18 U and she that has helped his BS they have stayed around 150 to 300. He is eatibng better and has taken hisself to get a hair cut and over to his mothers. Has NOT been drinking." [place] Oct 27, 2017 12:32
--- NOTE | 2017-11-03 13:26 | Transitional Care Management ---
Assessment Cardiac: WNL Cardiac Comment: 09/20 Denies any CP 10/15 dizzy this am with hi BS; has resolved now Respiratory: WNL Respiratory Comment: 09/20 Denies any resp problems GI: Nutrition: WN GI Comment: 09/20 states he is eating a diabetic diet and has taken BS which is 191 this AM. Only used 10 units of insulin this AM 09/29 Is eating poorly but Bridget has been helping him with his BS and trying very hard to help him eat appropriate foods. States he has NOT been drinking. 10/06 BS 188, 442 and 538 in ams. states he had ice cream last pm. Bridget gave him his lantus and ssi this am; hes not nauseated but is thirsty and is drinking an ensure . review keeping log of bs and ssi 4 x a day. she knows carbs and is limiting them 10/15 Home yesterday. BS 165 at hs. BS 550 this am at 0800; took Lantus, SSI and repeat q 1 hour. At 11:00 is 240 and he got 4 more unit. Have got rid of old opened insulin vials. Using ones from hospital and Lantus just purchased. She states he does not get up at hs for snacks. His snacks and meals are all portion controlled by her 09/19 BS this AM was 440 covered w SSI. he ate some breakfast. 1130 BS was 158 Had a peanut butter and avacodo sandwich for lunch. 11/03 Bridget states hes taking 18 units Lantus q day and BS more manageable; not waking up with extremely hi numbers. has to cover BS with [facility]SI at lease once a day but they are betterand not having to cover every BS. She thinks he didn't do BS qid before because he had to pay for strips but, they get them now from the clinic. He is eating routine meals Constipation?: No Musculoskeletal, Exercise: WNL Except Musculoskeletal, Excercise Com: 09/20 "A little weak" Resting. Enc him to move around and get a little activity to avoid pneu and clots. 10/06 reports he only walks to bathroom and kitchen from chair. enc more act like walking to his mothers house next door or taking out trash etc. to help keep bs lower, keep strength and improve feeling of well being 11/03 states hes more active and even getting out to the store. does not think he is eating when he is out Mobility/Falls: WNL Mobility Comment: 10/15 steady but, enc him to wait until Bridget is home to shower due to previous dizzyness. Enc to be more active to lower BS 10/17 Bridget stated that Bharat did get up and showered this AM and has been amb around the home this AM Integumentary: WNL Except Integumentary Comment: 09/20 a few bruises where IV sites were. Enc him to check the site where he had a central line-monitor for redness, tenderness or any drainage. Feeling of Well Being: WNL Feeling of Well Being Comment: 09/20 staying with [id number]-vwx and doing OK" 10/06 discuss with s-i-l that he can be confused when bs is too hi or low and unable to give any or right amt of insulin. she states she realizes this and thinks that is what happened with prior admission. she is giving his insulin qid, ensuring bs are done and he is eating something routinely Socialization Comment: 09/29 staying with glcwuk-wq-jld as Mother is not well at this time. 10/15 Bridget denies any etoh since first admission at [facility] Scheduled Follow-Up with Avinashi: Yes (10/15 to DTC 10/22, then to [facility]) Community Resources/HHC: 10/06 Bridget states apps for his disability were completed when he was in [place] hospital few weeks ago and they have not heard back yet. [employer] consulted to help obtain all needed resources. Plan to get PCP and see endrocrinologist when insurance is obtained 10/15 states [facility] came to see him in hospital and contacted [employer] in [place]. They sent in some more paperwork to help expidite his luis armando for disability 10/17 Has an appt with DTC on 10/21 w Jose Jackson 11/03 to [facility] on 11/22 for f/u. [facility] has visited again to help expidite [employer] for disability but no word yet. TCM Discharge Criteria Medication Knowledge: 09/20 went over medications and the decrease in [id number] went over his medications. Bridget stated they made some adjustments to insulin at [facility] to 12 Units Lantus q AM and Humalog SSIC for the other BS.BS have been around 300-425. 10/06 states they had 2 SSI's. Verify correct SSI is 2-10 units. Using SSI qid 10/15 verified BS numbers and SSI dosing. She states he does BS and gives the injection but she draws up the insulin for him. She observed he did not give entire Lantus dose this am and had him complete thedose. Enc her to continue to monitor all of his BS and insulin activity. Good to enc and maintain his independence but needs her supervision with each dose . 11/03 Bridget verbalizes 18 unit of lantus a day and SSI coverage up to qid Disease Management/Concern/Wha: 10/06 review s/s hyper and hypoglycemia, need for consistency with po intake and activity Red/Yellow Flags: 09/20 went over hypo/hyperglycemia and shat he needs to do if either happens. We also discussed diet and his drinking. Enc him not to drink anymore Transitional Care Comment: 09/18 visited wi Boy gave him some information. He has no outside interests except watches TV and gets bored. Encouragd him to get a hobby of some sort like puzzels, Per [employer] etc I had finances bring him a form to fill out for assistance. SS visited with him about getting form so they could help him get medicaide and explained they could help him here or at [facility] complete and send in. He snswers yes to questions and explainations but doesn't really seem to be attentive to instructions. I asked the attending nurse to give /go over info with mother so she can help him 09/20 states "I'm doing OK. Staying with [id number]-hio and she has cooked diabetic diet." I asked him if he could have her help him fill out the forms for Medicaide, Hospital assistance and the Advanced directive. He said he would. Will FY at [facility] Friday at 1430. 24/12 Boy fell this AM in the bathroom but had gotten up by the time she (Bridget had gotten in there to help him. Bridget states that she knows he has not been drinking. He does and has been eating very poorly. states "i'M NOT VERY HUNGERY" eNC HER TO HAVE HIM GET SOME ACTIVITY TO PREVENT PNEU. aLSO TO EAT HIS MEALS. aSKED TO HAVE HER TAKE THE PAPERWORK TO THE [facility] TOMORROW SO THEY sw CAN HELP HIM FILL OUT THE FORMS. 10/01 He is in the ICU in DKA. I spoke with Bridget, he is very drowsy, and provided materials on DKA, Lantus and Regular insulin. He will start going to the [facility] once he discharges. 10/06 declines home visit. confident in diet management. reports qid BS and SSI use per dc orders. Review tx for hyper and hypoglycemia. Enc his participation in tx but to have Bridget supervise correct timing and dosing. 10/15 She verbalizes correct dosing of SSI for hi BS today and even waited to feed him until the BS came down a little. She has nonexpired insulin; knows they in 28 days and is monitoring Bobs BS and admin of insulin but states she can do it if he gets shaky. Disability is pending approval. 10/17 Refused HV today but Bridget felt he was doing pretty well today. Has been up moving around and she trys very hard to keep him on Diabetic diet and exchanges. He doesn't usually want a HS snack Goes to bed pretty early. Has a appt at [facility] 10/21 10/24 unable to contact 10/27 Talked to Bridget- she stated that "Boy doing oretty good. Went to see Dr Jackson at the [facility] on and he increased Boy's Lantus insulin fro 16 U to 18 U and she that has helped his BS they have stayed around 150 to 300. He is eatibng better and has taken hisself to get a hair cut and over to his mothers. Has NOT been drinking." 11/03 Bridget is more confident in help[ing Bharat manage his DM. When he doesn't want his insulin she remindshim of his recent hospital stays andthen he says he doesn't want to return and takes his medicine.She is still supervising BS and insulin and meals and return to clinic for f/u. LISA RATLIFF Nov 03, 2017 13:26
--- NOTE | 2017-11-11 14:45 | Transitional Care Management ---
Assessment Visit Type: Telephone Visit Spoke with: Bharat Cardiac: JUSTIN Cardiac Comment: 09/20 Denies any CP 10/15 dizzy this am with hi BS; has resolved now Respiratory: WNL Respiratory Comment: 09/20 Denies any resp problems GI: Nutrition: WNL GI Comment: 09/20 states he is eating a diabetic diet and has taken BS which is 191 this AM. Only used 10 units of insulin this AM 09/29 Is eating poorly but Bridget has been helping him with his BS and trying very hard to help him eat appropriate foods. States he has NOT been drinking. 11/11 He has been taking his blood sugar BID, I encouraged AC/HS. His blood sugars have been as high as 500 a few times, but mostly they are less than 200. 10/06 BS 188, 442 and 538 in ams. states he had ice cream last pm. Bridget gave him his lantus and ssi this am; hes not nauseated but is thirsty and is drinking an ensure . review keeping log of bs and ssi 4 x a day. she knows carbs and is limiting them 10/15 Home yesterday. BS 165 at hs. BS 550 this am at 0800; took Lantus, SSI and repeat q 1 hour. At 11:00 is 240 and he got 4 more unit. Have got rid of old opened insulin vials. Using ones from hospital and Lantus just purchased. She states he does not get up at hs for snacks. His snacks and meals are all portion controlled by her 09/19 BS this AM was 440 covered w SSI. he ate some breakfast. 1130 BS was 158 Had a peanut butter and avacodo sandwich for lunch. 11/03 Bridget states hes taking 18 units Lantus q day and BS more manageable; not waking up with extremely hi numbers. has to cover BS with [facility] at lease once a day but they are betterand not having to cover every BS. She thinks he didn't do BS qid before because he had to pay for strips but, they get them now from the clinic. He is eating routine meals Constipation?: No : WNL Musculoskeletal, Exercise: WNL Except Musculoskeletal, Excercise Com: 09/20 "A little weak" Resting. Enc him to move around and get a little activity to avoid pneu and clots. 10/06 reports he only walks to bathroom and kitchen from chair. enc more act like walking to his mothers house next door or taking out trash etc. to help keep bs lower, keep strength and improve feeling of well being 11/03 states hes more active and even getting out to the store. does not think he is eating when he is out Mobility/Falls: WNL Mobility Comment: 10/15 steady but, enc him to wait until Bridget is home to shower due to previous dizzyness. Enc to be more active to lower BS 10/17 Bridget stated that Bharat did get up and showered this AM and has been amb around the home this AM Integumentary: WNL Except Integumentary Comment: 09/20 a few bruises where IV sites were. Enc him to check the site where he had a central line-monitor for redness, tenderness or any drainage. Feeling of Well Being: WNL Feeling of Well Being Comment: 09/20 staying with bzbkms-hw-yzi and doing OK" 10/06 discuss with s-i-l that he can be confused when bs is too hi or low and unable to give any or right amt of insulin. she states she realizes this and thinks that is what happened with prior admission. she is giving his insulin qid, ensuring bs are done and he is eating something routinely Socialization Comment: 09/29 staying with teckac-xh-knj as Mother is not well at this time. 10/15 Bridget denies any etoh since first admission at [facility] Scheduled Follow-Up with Avinashi: Yes (11/11 He has an appt at the [facility] tomorrow.) Community Resources/HHC: 10/06 Bridget states apps for his disability were completed when he was in [place] hospital few weeks ago and they have not heard back yet. [employer] consulted to help obtain all needed resources. Plan to get PCP and see endrocrinologist when insurance is obtained 10/15 states [facility] came to see him in hospital and contacted [employer] in [place]. They sent in some more paperwork to help expidite his luis armando for disability 10/17 Has an appt with [facility]TC on 10/21 w Jose Jackson 11/03 to [facility]TC on 11/22 for f/u. [employer] has visited again to help expidite [employer] for disability but no word yet. TCM Discharge Criteria Medication Knowledge: 09/20 went over medications and the decrease in [id number] went over his medications. Bridget stated they made some adjustments to insulin at [facility] to 12 Units Lantus q AM and Humalog SSIC for the other BS.BS have been around 300-425. 10/06 states they had 2 SSI's. Verify correct SSI is 2-10 units. Using SSI qid 10/15 verified BS numbers and SSI dosing. She states he does BS and gives the injection but she draws up the insulin for him. She observed he did not give entire Lantus dose this am and had him complete thedose. Enc her to continue to monitor all of his BS and insulin activity. Good to enc and maintain his independence but needs her supervision with each dose . 11/03 Bridget verbalizes 18 unit of lantus a day and SSI coverage up to qid 11/11 Only taking his blood sugar BID, I encouraged AC/HS Disease Management/Concern/Wha: 10/06 review s/s hyper and hypoglycemia, need for consistency with po intake and activity Red/Yellow Flags: 09/20 went over hypo/hyperglycemia and shat he needs to do if either happens. We also discussed diet and his drinking. Enc him not to drink anymore Transitional Care Comment: 09/18 visited wi Boy gave him some information. He has no outside interests except watches TV and gets bored. Encouragd him to get a hobby of some sort like puzzels, suduko etc I had finances bring him a form to fill out for assistance. SS visited with him about getting form so they could help him get medicaide and explained they could help him here or at [facility] complete and send in. He snswers yes to questions and explainations but doesn't really seem to be attentive to instructions. I asked the attending nurse to give /go over info with mother so she can help him 09/20 states "I'm doing OK. Staying with ijefcu-kk-prh and she has cooked diabetic diet." I asked him if he could have her help him fill out the forms for Medicaide, Hospital assistance and the Advanced directive. He said he would. Will FY at [facility] Friday at 1430. 24/12 Boy fell this AM in the bathroom but had gotten up by the time she (Bridget had gotten in there to help him. Bridget states that she knows he has not been drinking. He does and has been eating very poorly. states "i'M NOT VERY HUNGERY" eNC HER TO HAVE HIM GET SOME ACTIVITY TO PREVENT PNEU. aLSO TO EAT HIS MEALS. aSKED TO HAVE HER TAKE THE PAPERWORK TO THE dtc TOMORROW SO THEY sw CAN HELP HIM FILL OUT THE FORMS. 10/01 He is in the ICU in DKA. I spoke with Bridget, he is very drowsy, and provided materials on DKA, Lantus and Regular insulin. He will start going to the [facility] once he discharges. 10/06 declines home visit. confident in diet management. reports qid BS and SSI use per dc orders. Review tx for hyper and hypoglycemia. Enc his participation in tx but to have Bridget supervise correct timing and dosing. 10/15 She verbalizes correct dosing of SSI for hi BS today and even waited to feed him until the BS came down a little. She has nonexpired insulin; knows they in 28 days and is monitoring Bobs BS and admin of insulin but states she can do it if he gets shaky. Disability is pending approval. 10/17 Refused HV today but Bridget felt he was doing pretty well today. Has been up moving around and she trys very hard to keep him on Diabetic diet and exchanges. He doesn't usually want a HS snack Goes to bed pretty early. Has a appt at [facility] 10/21 10/24 unable to contact 10/27 Talked to Bridget- she stated that "Boy doing oretty good. Went to see Dr Jackson at the [facility] on and he increased Boy's Lantus insulin fro 16 U to 18 U and she that has helped his BS they have stayed around 150 to 300. He is eatibng better and has taken hisself to get a hair cut and over to his mothers. Has NOT been drinking." 11/03 Bridget is more confident in help[ing Bharat manage his DM. When he doesn't want his insulin she remindshim of his recent hospital stays andthen he says he doesn't want to return and takes his medicine.She is still supervising BS and insulin and meals and return to clinic for f/u. 11/11 Blood sugar control is getting better, but he does not monitor as needed. I reinforced the need to take blood sugars AC/HS. DANIEL NARANJO Nov 11, 2017 14:45
--- NOTE | 2017-11-20 14:11 | Transitional Care Management ---
Assessment Visit Type: Telephone Visit Spoke with: Bharat Cardiac: JUSTIN Cardiac Comment: 09/20 Denies any CP 10/15 dizzy this am with hi BS; has resolved now Respiratory: WNL Respiratory Comment: 09/20 Denies any resp problems GI: Nutrition: WN GI Comment: 09/20 states he is eating a diabetic diet and has taken BS which is 191 this AM. Only used 10 units of insulin this AM 09/29 Is eating poorly but Bridget has been helping him with his BS and trying very hard to help him eat appropriate foods. States he has NOT been drinking. 11/11 He has been taking his blood sugar BID, I encouraged AC/HS. His blood sugars have been as high as 500 a few times, but mostly they are less than 200. 10/06 BS 188, 442 and 538 in ams. states he had ice cream last pm. Bridget gave him his lantus and ssi this am; hes not nauseated but is thirsty and is drinking an ensure . review keeping log of bs and ssi 4 x a day. she knows carbs and is limiting them 10/15 Home yesterday. BS 165 at hs. BS 550 this am at 0800; took Lantus, SSI and repeat q 1 hour. At 11:00 is 240 and he got 4 more unit. Have got rid of old opened insulin vials. Using ones from hospital and Lantus just purchased. She states he does not get up at hs for snacks. His snacks and meals are all portion controlled by her 09/19 BS this AM was 440 covered w SSI. he ate some breakfast. 1130 BS was 158 Had a peanut butter and avacodo sandwich for lunch. 11/03 Bridget states hes taking 18 units Lantus q day and BS more manageable; not waking up with extremely hi numbers. has to cover BS with SSI at lease once a day but they are betterand not having to cover every BS. She thinks he didn't do BS qid before because he had to pay for strips but, they get them now from the clinic. He is eating routine meals 11/20 Blood sugars have been 100 to 190. Constipation?: No : WNL Musculoskeletal, Exercise: WNL Except Musculoskeletal, Excercise Com: 09/20 "A little weak" Resting. Enc him to move around and get a little activity to avoid pneu and clots. 10/06 reports he only walks to bathroom and kitchen from chair. enc more act like walking to his mothers house next door or taking out trash etc. to help keep bs lower, keep strength and improve feeling of well being 11/03 states hes more active and even getting out to the store. does not think he is eating when he is out 11/20 He is being more active, getting out of the house. Mobility/Falls: WNL Mobility Comment: 10/15 steady but, enc him to wait until Bridget is home to shower due to previous dizzyness. Enc to be more active to lower BS 10/17 Bridget stated that Bharat did get up and showered this AM and has been amb around the home this AM Integumentary: WNL Except Integumentary Comment: 09/20 a few bruises where IV sites were. Enc him to check the site where he had a central line-monitor for redness, tenderness or any drainage. Feeling of Well Being: WNL Feeling of Well Being Comment: 09/20 staying with [id number] and doing OK" 10/06 discuss with s-i-l that he can be confused when bs is too hi or low and unable to give any or right amt of insulin. she states she realizes this and thinks that is what happened with prior admission. she is giving his insulin qid, ensuring bs are done and he is eating something routinely 11/20 He feels better than he has in a long time. Socialization Comment: 09/29 staying with [id number] as Mother is not well at this time. 10/15 Bridget denies any etoh since first admission at [facility] Scheduled Follow-Up with Anushka: No Community Resources/HHC: 10/06 Bridget states apps for his disability were completed when he was in [place] hospital few weeks ago and they have not heard back yet. [employer] consulted to help obtain all needed resources. Plan to get PCP and see endrocrinologist when insurance is obtained 10/15 states [facility] came to see him in hospital and contacted [employer] in [place]. They sent in some more paperwork to help expidite his luis armando for disability 10/17 Has an appt with [facility] on 10/21 w Jose Jackson 11/03 to [facility] on 11/22 for f/u. [facility] has visited again to help expidite [employer] for disability but no word yet. Following Discharge Instructio: Yes TCM Discharge Criteria Medication Knowledge: 09/20 went over medications and the decrease in [id number]/ went over his medications. Bridget stated they made some adjustments to insulin at [facility] to 12 Units Lantus q AM and Humalog SSIC for the other BS.BS have been around 300-425. 10/06 states they had 2 SSI's. Verify correct SSI is 2-10 units. Using SSI qid 10/15 verified BS numbers and SSI dosing. She states he does BS and gives the injection but she draws up the insulin for him. She observed he did not give entire Lantus dose this am and had him complete thedose. Enc her to continue to monitor all of his BS and insulin activity. Good to enc and maintain his independence but needs her supervision with each dose . 11/03 Bridget verbalizes 18 unit of lantus a day and SSI coverage up to qid 11/11 Only taking his blood sugar BID, I encouraged AC/HS 11/20 He is still only taking his blood sugar BID. Disease Management/Concern/Wha: 10/06 review s/s hyper and hypoglycemia, need for consistency with po intake and activity Red/Yellow Flags: 09/20 went over hypo/hyperglycemia and shat he needs to do if either happens. We also discussed diet and his drinking. Enc him not to drink anymore Transitional Care Comment: 09/18 visited wi Boy gave him some information. He has no outside interests except watches TV and gets bored. Encouragd him to get a hobby of some sort like puzzels, suduko etc I had finances bring him a form to fill out for assistance. SS visited with him about getting form so they could help him get medicaide and explained they could help him here or at [facility] complete and send in. He snswers yes to questions and explainations but doesn't really seem to be attentive to instructions. I asked the attending nurse to give /go over info with mother so she can help him 09/20 states "I'm doing OK. Staying with [id number] and she has cooked diabetic diet." I asked him if he could have her help him fill out the forms for Medicaide, Hospital assistance and the Advanced directive. He said he would. Will FY at [facility] Cathleen at 1430. 24/12 Boy fell this AM in the bathroom but had gotten up by the time she (Bridget had gotten in there to help him. Bridget states that she knows he has not been drinking. He does and has been eating very poorly. states "i'M NOT VERY HUNGERY" eNC HER TO HAVE HIM GET SOME ACTIVITY TO PREVENT PNEU. aLSO TO EAT HIS MEALS. aSKED TO HAVE HER TAKE THE PAPERWORK TO THE [facility] TOMORROW SO THEY sw CAN HELP HIM FILL OUT THE FORMS. 10/01 He is in the ICU in DKA. I spoke with Bridget, he is very drowsy, and provided materials on DKA, Lantus and Regular insulin. [facility]. 10/06 declines home visit. confident in diet management. reports qid BS and SSI use per dc orders. Review tx for hyper and hypoglycemia. Enc his participation in tx but to have Bridget supervise correct timing and dosing. 10/15 She verbalizes correct dosing of SSI for hi BS today and even waited to feed him until the BS came down a little. She has nonexpired insulin; knows they in 28 days and is monitoring Bobs BS and admin of insulin but states she can do it if he gets shaky. Disability is pending approval. 10/17 Refused HV today but Bridget felt he was doing pretty well today. Has been up moving around and she trys very hard to keep him on Diabetic diet and exchanges. He doesn't usually want a HS snack Goes to bed pretty early. Has a appt at [facility] 10/21 10/24 unable to contact 10/27 Talked to Bridget- she stated that "Boy doing oretty good. Went to see Dr Jackson at the [facility] on and he increased Boy's Lantus insulin fro 16 U to 18 U and she that has helped his BS they have stayed around 150 to 300. He is eatibng better and has taken hisself to get a hair cut and over to his mothers. Has NOT been drinking." 11/03 Bridget is more confident in help[ing Bharat manage his DM. When he doesn't want his insulin she remindshim of his recent hospital stays andthen he says he doesn't want to return and takes his medicine.She is still supervising BS and insulin and meals and return to clinic for f/u. 11/11 Blood sugar control is getting better, but he does not monitor as needed. I reinforced the need to take blood sugars AC/HS. 11/20 Taking blood sugar BID, but control is good with blood sugars 100-190 most of the time. He is feeling better than he has in a long time, and is being much more active. DANIEL NARANJO Nov 20, 2017 14:11
--- NOTE | 2017-11-26 11:34 | Transitional Care Management ---
Assessment Visit Type: Telephone Visit Spoke with: Bridget Cardiac: WN Cardiac Comment: 09/20 Denies any CP 10/15 dizzy this am with hi BS; has resolved now 11/26 no further c/o dizzyness Respiratory: WN Respiratory Comment: 09/20 Denies any resp problems GI: Nutrition: WN GI Comment: 09/20 states he is eating a diabetic diet and has taken BS which is 191 this AM. Only used 10 units of insulin this AM 09/29 Is eating poorly but Bridget has been helping him with his BS and trying very hard to help him eat appropriate foods. States he has NOT been drinking. 11/11 He has been taking his blood sugar BID, I encouraged AC/HS. His blood sugars have been as high as 500 a few times, but mostly they are less than 200. 10/06 BS 188, 442 and 538 in ams. states he had ice cream sundae last pm. Bridget gave him his lantus and ssi this am; hes not nauseated but is thirsty and is drinking an ensure . review keeping log of bs and ssi 4 x a day. she knows carbs and is limiting them 10/15 Home yesterday. BS 165 at hs. BS 550 this am at 0800; took Lantus, SSI and repeat q 1 hour. At 11:00 is 240 and he got 4 more unit. Have got rid of old opened insulin vials. Using ones from hospital and Lantus just purchased. She states he does not get up at hs for snacks. His snacks and meals are all portion controlled by her 09/19 BS this AM was 440 covered w SSI. he ate some breakfast. 1130 BS was 158 Had a peanut butter and avacodo sandwich for lunch. 11/03 Bridget states hes taking 18 units Lantus q day and BS more manageable; not waking up with extremely hi numbers. has to cover BS with SSI at lease once a day but they are betterand not having to cover every BS. She thinks he didn't do BS qid before because he had to pay for strips but, they get them now from the clinic. He is eating routine meals 11/20 Blood sugars have been 100 to 190. 11/26 states bs as hi as 450. Keeping records and will take to clinic visit next wk. He does all BS and insulin with only supervision. Weight Comment: 11/26 good appetite. eats after insulin, denies wt changes Constipation?: No : WNL Musculoskeletal, Exercise: WNL Except Musculoskeletal, Excercise Com: 09/20 "A little weak" Resting. Enc him to move around and get a little activity to avoid pneu and clots. 10/06 reports he only walks to bathroom and kitchen from chair. enc more act like walking to his mothers house next door or taking out trash etc. to help keep bs lower, keep strength and improve feeling of well being 11/03 states hes more active and even getting out to the store. does not think he is eating when he is out 11/20 He is being more active, getting out of the house. Mobility/Falls: WNL Mobility Comment: 10/15 steady but, enc him to wait until Bridget is home to shower due to previous dizzyness. Enc to be more active to lower BS 10/17 Bridget stated that Bharat did get up and showered this AM and has been amb around the home this AM 11/26 consistent activity, gen as weather is improving Integumentary: WNL Except Integumentary Comment: 09/20 a few bruises where IV sites were. Enc him to check the site where he had a central line-monitor for redness, tenderness or any drainage. Feeling of Well Being: WNL Feeling of Well Being Comment: 09/20 staying with [id number] and doing OK" 10/06 discuss with s-i-l that he can be confused when bs is too hi or low and unable to give any or right amt of insulin. she states she realizes this and thinks that is what happened with prior admission. she is giving his insulin qid, ensuring bs are done and he is eating something routinely 11/20 He feels better than he has in a long time. 11/26 states Bharat feels better about himself with self management of DM but, occas. needs to be coached to do BS or insulin by threat of having to return to hospital Socialization Comment: 09/29 staying with [id number] as Mother is not well at this time. 10/15 Bridget denies any etoh since first admission at [facility] Scheduled Follow-Up with Provi: No Community Resources/HHC: 10/06 Bridget states apps for his disability were completed when he was in [place] hospital few weeks ago and they have not heard back yet. [employer] consulted to help obtain all needed resources. Plan to get PCP and see endrocrinologist when insurance is obtained 10/15 states [facility] came to see him in hospital and contacted [employer] in [place]. They sent in some more paperwork to help expidite his luis armando for disability 10/17 Has an appt with [facility]TC on 10/21 w Dt Jackson 11/03 to [facility] on 11/22 for f/u. [facility] has visited again to help expidite [employer] for disability but no word yet. 11/26 no word on insurance. To [facility] next week. Needs more fast acting insulin and will inventory supplies before going. Enc Bridget to accompany him to hear any changes made Following Discharge Instructio: Yes TCM Discharge Criteria Medication Knowledge: 09/20 went over medications and the decrease in [id number]/ went over his medications. Bridget stated they made some adjustments to insulin at [facility] to 12 Units Lantus q AM and Humalog SSIC for the other BS.BS have been around 300-425. 10/06 states they had 2 SSI's. Verify correct SSI is 2-10 units. Using SSI qid 10/15 verified BS numbers and SSI dosing. She states he does BS and gives the injection but she draws up the insulin for him. She observed he did not give entire Lantus dose this am and had him complete thedose. Enc her to continue to monitor all of his BS and insulin activity. Good to enc and maintain his independence but needs her supervision with each dose . 11/03 Bridget verbalizes 18 unit of lantus a day and SSI coverage up to qid 11/11 Only taking his blood sugar BID, I encouraged AC/HS 11/20 He is still only taking his blood sugar BID.11/26 Bridget will attend next clinic visit to hear any changes made to insulin as bs are ranging higher up to 450 Disease Management/Concern/Wha: 10/06 review s/s hyper and hypoglycemia, need for consistency with po intake and activity Red/Yellow Flags: 09/20 went over hypo/hyperglycemia and shat he needs to do if either happens. We also discussed diet and his drinking. Enc him not to drink anymore Transitional Care Comment: 09/18 visited [facility] gave him some information. He has no outside interests except watches TV and gets bored. Encouragd him to get a hobby of some sort like puzzels, suduko etc I had finances bring him a form to fill out for assistance. SS visited with him about getting form so they could help him get medicaide and explained they could help him here or at [facility] complete and send in. He snswers yes to questions and explainations but doesn't really seem to be attentive to instructions. I asked the attending nurse to give /go over info with mother so she can help him 09/20 states "I'm doing OK. Staying with [id number] and she has cooked diabetic diet." I asked him if he could have her help him fill out the forms for Medicaide, Hospital assistance and the Advanced directive. He said he would. Will FY at [facility] Friday at 1430. 24/12 Boy fell this AM in the bathroom but had gotten up by the time she (Bridget had gotten in there to help him. Bridget states that she knows he has not been drinking. He does and has been eating very poorly. states "i'M NOT VERY HUNGERY" eNC HER TO HAVE HIM GET SOME ACTIVITY TO PREVENT PNEU. aLSO TO EAT HIS MEALS. aSKED TO HAVE HER TAKE THE PAPERWORK TO THE [facility] TOMORROW SO THEY sw CAN HELP HIM FILL OUT THE FORMS. 10/01 He is in the ICU in DKA. I spoke with Bridget, he is very drowsy, and provided materials on DKA, Lantus and Regular insulin. He will [facility] going to [facility] once he discharges. 10/06 declines home visit. confident in diet management. reports qid BS and SSI use per dc orders. Review tx for hyper and hypoglycemia. Enc his participation in tx but to have Bridget supervise correct timing and dosing. 10/15 She verbalizes correct dosing of SSI for hi BS today and even waited to feed him until the BS came down a little. She has nonexpired insulin; knows they in 28 days and is monitoring Bobs BS and admin of insulin but states she can do it if he gets shaky. Disability is pending approval. 10/17 Refused HV today but Bridget felt he was doing pretty well today. Has been up moving around and she trys very hard to keep him on Diabetic diet and exchanges. He doesn't usually want a HS snack Goes to bed pretty early. Has a appt at [facility] 10/21 10/24 unable to contact 10/27 Talked to Bridget- she stated that "Boy doing oretty good. Went to see Dr Jackson at the [facility] on and he increased Boy's Lantus insulin fro 16 U to 18 U and she that has helped his BS they have stayed around 150 to 300. He is eatibng better and has taken hisself to get a hair cut and over to his mothers. Has NOT been drinking." 11/03 Bridget is more confident in help[ing Bharat manage his DM. When he doesn't want his insulin she remindshim of his recent hospital stays andthen he says he doesn't want to return and takes his medicine.She is still supervising BS and insulin and meals and return to clinic for f/u. 11/11 Blood sugar control is getting better, but he does not monitor as needed. I reinforced the need to take blood sugars AC/HS. 11/20 Taking blood sugar BID, but control is good with blood sugars 100-190 most of the time. He is feeling better than he has in a long time, and is being much more active. 11/26 Bharat is more independent with monitoring and tx DM but still needs reminders/encouragement prn. Cont to keep BS log to show clinic at visit for anticipated changes in insulin. LISA RATLIFF November 26, 2017 11:34
--- NOTE | 2017-12-05 12:36 | Transitional Care Management ---
Assessment Visit Type: Telephone Visit (12/05 Bharat) Cardiac: [facility] Comment: 09/20 Denies any CP 10/15 dizzy this am with hi BS; has resolved now 11/26 no further c/o dizzyness 12/05 denies dizzyness or CP Respiratory: [facility] Respiratory Comment: 09/20 Denies any resp problems GI: Nutrition: [facility] GI Comment: 09/20 states he is eating a diabetic diet and has taken BS which is 191 this AM. Only used 10 units of insulin this AM 09/29 Is eating poorly but Bridget has been helping him with his BS and trying very hard to help him eat appropriate foods. States he has NOT been drinking. 11/11 He has been taking his blood sugar BID, I encouraged AC/HS. His blood sugars have been as high as 500 a few times, but mostly they are less than 200. 10/06 BS 188, 442 and 538 in ams. states he had ice cream last pm. Bridget gave him his lantus and ssi this am; hes not nauseated but is thirsty and is drinking an ensure . review keeping log of bs and ssi 4 x a day. she knows carbs and is limiting them 10/15 Home yesterday. BS 165 at hs. BS 550 this am at 0800; took Lantus, SSI and repeat q 1 hour. At 11:00 is 240 and he got 4 more unit. Have got rid of old opened insulin vials. Using ones from hospital and Lantus just purchased. She states he does not get up at hs for snacks. His snacks and meals are all portion controlled by her 09/19 BS this AM was 440 covered w SSI. he ate some breakfast. 1130 BS was 158 Had a peanut butter and avacodo sandwich for lunch. 11/03 Bridget states hes taking 18 units Lantus q day and BS more manageable; not waking up with extremely hi numbers. has to cover BS with SSI at lease once a day but they are betterand not having to cover every BS. She thinks he didn't do BS qid before because he had to pay for strips but, they get them now from the clinic. He is eating routine meals 11/20 Blood sugars have been 100 to 190. 11/26 states bs as hi as 450. Keeping records and will take to clinic visit next wk. He does all BS and insulin with only supervision. 12/05 states has been doing BS and insulin. Has been keeping a log to take t DTC this AM on was 170 but sometimes they run higher. States he has NOT beem drinking. Weight Comment: 11/26 good appetite. eats after insulin, denies wt changes 12/05 Eating better and no wt gain but has improved appitite Constipation?: No : WNL Musculoskeletal, Exercise: WNL Except Musculoskeletal, Excercise Com: 09/20 "A little weak" Resting. Enc him to move around and get a little activity to avoid pneu and clots. 10/06 reports he only walks to bathroom and kitchen from chair. enc more act like walking to his mothers house next door or taking out trash etc. to help keep bs lower, keep strength and improve feeling of well being 11/03 states hes more active and even getting out to the store. does not think he is eating when he is out 11/20 He is being more active, getting out of the house. 12/05 doing more around his own home and states "feeling bettr" Mobility/Falls: WNL Mobility Comment: 10/15 steady but, enc him to wait until Bridget is home to shower due to previous dizzyness. Enc to be more active to lower BS 10/17 Bridget stated that Bharat did get up and showered this AM and has been amb around the home this AM 11/26 consistent activity, gen as weather is improving Integumentary: WNL Except Integumentary Comment: 09/20 a few bruises where IV sites were. Enc him to check the site where he had a central line-monitor for redness, tenderness or any drainage. Feeling of Well Being: WNL Feeling of Well Being Comment: 09/20 staying with [id number] and doing OK" 10/06 discuss with s-i-l that he can be confused when bs is too hi or low and unable to give any or right amt of insulin. she states she realizes this and thinks that is what happened with prior admission. she is giving his insulin qid, ensuring bs are done and he is eating something routinely 11/20 He feels better than he has in a long time. 11/26 states Bharat feels better about himself with self management of DM but, occas. needs to be coached to do BS or insulin by threat of having to return to hospital Socialization Comment: 09/29 staying with [id number] as Mother is not well at this time. 10/15 Bridget denies any etoh since first admission at [facility] Scheduled Follow-Up with Anushka: No Community Resources/HHC: 10/06 Bridget states apps for his disability were completed when he was in [place] hospital few weeks ago and they have not heard back yet. [employer] consulted to help obtain all needed resources. Plan to get PCP and see endrocrinologist when insurance is obtained 10/15 states [facility]API came to see him in hospital and contacted [employer] in [place]. They sent in some more paperwork to help expidite his luis armando for disability 10/17 Has an appt with [facility]TC on 10/21 w Jose Jackson 11/03 to [facility] on 11/22 for f/u. [facility]API has visited again to help expidite [employer]SI for disability but no word yet. 11/26 no word on insurance. To [facility] next week. Needs more fast acting insulin and will inventory supplies before going. Enc Bridget to accompany him to hear any changes made Following Discharge Instructio: Yes TCM Discharge Criteria Medication Knowledge: 09/20 went over medications and the decrease in [id number]/ went over his medications. Bridget stated they made some adjustments to insulin at [facility] to 12 Units Lantus q AM and Humalog SSIC for the other BS.BS have been around 300-425. 10/06 states they had 2 SSI's. Verify correct SSI is 2-10 units. Using SSI qid 10/15 verified BS numbers and SSI dosing. She states he does BS and gives the injection but she draws up the insulin for him. She observed he did not give entire Lantus dose this am and had him complete thedose. Enc her to continue to monitor all of his BS and insulin activity. Good to enc and maintain his independence but needs her supervision with each dose . 11/03 Bridget verbalizes 18 unit of lantus a day and SSI coverage up to qid 11/11 Only taking his blood sugar BID, I encouraged AC/HS 11/20 He is still only taking his blood sugar BID.11/26 Bridget will attend next clinic visit to hear any changes made to insulin as bs are ranging higher up to 450 Disease Management/Concern/Wha: 10/06 review s/s hyper and hypoglycemia, need for consistency with po intake and activity Red/Yellow Flags: 09/20 went over hypo/hyperglycemia and shat he needs to do if either happens. We also discussed diet and his drinking. Enc him not to drink anymore 12/05 went over red and ellow flags of hyper/hypoglycemia and the need to NOT at all. Transitional Care Comment: 09/18 visited wi Boy gave him some information. He has no outside interests except watches TV and gets bored. Encouragd him to get a hobby of some sort like puzzels, suduko etc I had finances bring him a form to fill out for assistance. SS visited with him about getting form so they could help him get medicaide and explained they could help him here or at [facility] complete and send in. He snswers yes to questions and explainations but doesn't really seem to be attentive to instructions. I asked the attending nurse to give /go over info with mother so she can help him 09/20 states "I'm doing OK. Staying with [id number] and she has cooked diabetic diet." I asked him if he could have her help him fill out the forms for Medicaide, Hospital assistance and the Advanced directive. He said he would. Will FY at [facility] Friday at 1430. 24/12 Boy fell this AM in the bathroom but had gotten up by the time she (Bridget had gotten in there to help him. Bridget states that she knows he has not been drinking. He does and has been eating very poorly. states "i'M NOT VERY HUNGERY" eNC HER TO HAVE HIM GET SOME ACTIVITY TO PREVENT PNEU. aLSO TO EAT HIS MEALS. aSKED TO HAVE HER TAKE THE PAPERWORK TO THE [facility] TOMORROW SO THEY sw CAN HELP HIM FILL OUT THE FORMS. 10/01 He is in the ICU in DKA. I spoke with Bridget, he is very drowsy, and provided materials on DKA, Lantus and Regular insulin. He will start going to the [facility] once he discharges. 10/06 declines home visit. confident in diet management. reports qid BS and SSI use per dc orders. Review tx for hyper and hypoglycemia. Enc his participation in tx but to have Bridget supervise correct timing and dosing. 10/15 She verbalizes correct dosing of SSI for hi BS today and even waited to feed him until the BS came down a little. She has nonexpired insulin; knows they in 28 days and is monitoring Bobs BS and admin of insulin but states she can do it if he gets shaky. Disability is pending approval. 10/17 Refused HV today but Bridget felt he was doing pretty well today. Has been up moving around and she trys very hard to keep him on Diabetic diet and exchanges. He doesn't usually want a HS snack Goes to bed pretty early. Has a appt at [facility] 10/21 10/24 unable to contact 10/27 Talked to Bridget- she stated that "Boy doing oretty good. Went to see Dr Jackson at the [facility] on and he increased Boy's Lantus insulin fro 16 U to 18 U and she that has helped his BS they have stayed around 150 to 300. He is eatibng better and has taken hisself to get a hair cut and over to his mothers. Has NOT been drinking." 11/03 Bridget is more confident in help[ing Bharat manage his DM. When he doesn't want his insulin she remindshim of his recent hospital stays andthen he says he doesn't want to return and takes his medicine.She is still supervising BS and insulin and meals and return to clinic for f/u. 11/11 Blood sugar control is getting better, but he does not monitor as needed. I reinforced the need to take blood sugars AC/HS. 11/20 Taking blood sugar BID, but control is good with blood sugars 100-190 most of the time. He is feeling better than he has in a long time, and is being much more active. 11/26 Bharat is more independent with monitoring and tx DM but still needs reminders/encouragement prn. Cont to keep BS log to show clinic at visit for anticipated changes in insulin. 12/05 Bharat has moved to his own home at his time. He staes that he has been monitoring BS and going to the [facility] as scheduled. "I feel like I am doing pretty good and I have not been drinking. I go to my sister in laws for dinner every day. I have been eating better and think that has helped me" Told him that we would probably call him at least one more time since he has moved home for FU and maybe DC him from the program [place] 11, 2018 12:36
--- NOTE | 2017-12-15 11:31 | Transitional Care Management ---
Assessment Cardiac: [facility] Cardiac Comment: 09/20 Denies any CP 10/15 dizzy this am with hi BS; has resolved now 11/26 no further c/o dizzyness 12/05 denies dizzyness or CP Respiratory: [facility] Respiratory Comment: 09/20 Denies any resp problems GI: Nutrition: [facility] GI Comment: 09/20 states he is eating a diabetic diet and has taken BS which is 191 this AM. Only used 10 units of insulin this AM 09/29 Is eating poorly but Bridget has been helping him with his BS and trying very hard to help him eat appropriate foods. States he has NOT been drinking. 11/11 He has been taking his blood sugar BID, I encouraged AC/HS. His blood sugars have been as high as 500 a few times, but mostly they are less than 200. 10/06 BS 188, 442 and 538 in ams. states he had ice cream sundae last pm. Bridget gave him his lantus and ssi this am; hes not nauseated but is thirsty and is drinking an ensure . review keeping log of bs and ssi 4 x a day. she knows carbs and is limiting them 10/15 Home yesterday. BS 165 at hs. BS 550 this am at 0800; took Lantus, SSI and repeat q 1 hour. At 11:00 is 240 and he got 4 more unit. Have got rid of old opened insulin vials. Using ones from hospital and Lantus just purchased. She states he does not get up at hs for snacks. His snacks and meals are all portion controlled by her 09/19 BS this AM was 440 covered w SSI. he ate some breakfast. 1130 BS was 158 Had a peanut butter and avacodo sandwich for lunch. 11/03 Bridget states hes taking 18 units Lantus q day and BS more manageable; not waking up with extremely hi numbers. has to cover BS with SSI at lease once a day but they are betterand not having to cover every BS. She thinks he didn't do BS qid before because he had to pay for strips but, they get them now from the clinic. He is eating routine meals 11/20 Blood sugars have been 100 to 190. 11/26 states bs as hi as 450. Keeping records and will take to clinic visit next wk. He does all BS and insulin with only supervision. 12/05 states has been doing BS and insulin. Has been keeping a log to take t DTC this AM on was 170 but sometimes they run higher. States he has NOT beem drinking. Weight Comment: 11/26 good appetite. eats after insulin, denies wt changes 12/05 Eating better and no wt gain but has improved appitite Constipation?: No : WNL Musculoskeletal, Exercise: WNL Except Musculoskeletal, Excercise Com: 09/20 "A little weak" Resting. Enc him to move around and get a little activity to avoid pneu and clots. 10/06 reports he only walks to bathroom and kitchen from chair. enc more act like walking to his mothers house next door or taking out trash etc. to help keep bs lower, keep strength and improve feeling of well being 11/03 states hes more active and even getting out to the store. does not think he is eating when he is out 11/20 He is being more active, getting out of the house. 12/05 doing more around his own home and states "feeling bettr" Mobility/Falls: WNL Mobility Comment: 10/15 steady but, enc him to wait until Bridget is home to shower due to previous dizzyness. Enc to be more active to lower BS 10/17 Bridget stated that Bharat did get up and showered this AM and has been amb around the home this AM 11/26 consistent activity, gen as weather is improving Integumentary: WNL Except Integumentary Comment: 09/20 a few bruises where IV sites were. Enc him to check the site where he had a central line-monitor for redness, tenderness or any drainage. Feeling of Well Being: WNL Feeling of Well Being Comment: 09/20 staying with [id number] and doing OK" 10/06 discuss with s-i-l that he can be confused when bs is too hi or low and unable to give any or right amt of insulin. she states she realizes this and thinks that is what happened with prior admission. she is giving his insulin qid, ensuring bs are done and he is eating something routinely 11/20 He feels better than he has in a long time. 11/26 states Bharat feels better about himself with self management of DM but, occas. needs to be coached to do BS or insulin by threat of having to return to hospital Socialization Comment: 09/29 staying with [id number]-gz-dks as Mother is not well at this time. 10/15 Bridget denies any etoh since first admission at [facility] Scheduled Follow-Up with Anushka: No Community Resources/HHC: 10/06 Bridget states apps for his disability were completed when he was in [place] hospital few weeks ago and they have not heard back yet. [employer] consulted to help obtain all needed resources. Plan to get PCP and see endrocrinologist when insurance is obtained 10/15 states [facility] came to see him in hospital and contacted [employer] in [place]. They sent in some more paperwork to help expidite his luis armando for disability 10/17 Has an appt with DTC on 10/21 w Dt Renetta 11/03 to [facility] on 11/22 for f/u. PAPI has visited again to help expidite [employer]SI for disability but no word yet. 11/26 no word on insurance. To [facility] next week. Needs more fast acting insulin and will inventory supplies before going. Enc Bridget to accompany him to hear any changes made Following Discharge Instructio: Yes TCM Discharge Criteria Medication Knowledge: 09/20 went over medications and the decrease in [id number]/ went over his medications. Bridget stated they made some adjustments to insulin at [facility] to 12 Units Lantus q AM and Humalog SSIC for the other BS.BS have been around 300-425. 10/06 states they had 2 SSI's. Verify correct SSI is 2-10 units. Using SSI qid 10/15 verified BS numbers and SSI dosing. She states he does BS and gives the injection but she draws up the insulin for him. She observed he did not give entire Lantus dose this am and had him complete thedose. Enc her to continue to monitor all of his BS and insulin activity. Good to enc and maintain his independence but needs her supervision with each dose . 11/03 Bridget verbalizes 18 unit of lantus a day and SSI coverage up to qid 11/11 Only taking his blood sugar BID, I encouraged AC/HS 11/20 He is still only taking his blood sugar BID.11/26 Bridget will attend next clinic visit to hear any changes made to insulin as bs are ranging higher up to 450 Disease Management/Concern/Wha: 10/06 review s/s hyper and hypoglycemia, need for consistency with po intake and activity Red/Yellow Flags: 09/20 went over hypo/hyperglycemia and shat he needs to do if either happens. We also discussed diet and his drinking. Enc him not to drink anymore 12/05 went over red and ellow flags of hyper/hypoglycemia and the need to NOT at all. Transitional Care Comment: 09/18 visited wi Boy gave him some information. He has no outside interests except watches TV and gets bored. Encouragd him to get a hobby of some sort like puzzels, suduko etc I had finances bring him a form to fill out for assistance. SS visited with him about getting form so they could help him get medicaide and explained they could help him here or at [facility] complete and send in. He snswers yes to questions and explainations but doesn't really seem to be attentive to instructions. I asked the attending nurse to give /go over info with mother so she can help him 09/20 states "I'm doing OK. Staying with [id number] and she has cooked diabetic diet." I asked him if he could have her help him fill out the forms for Medicaide, Hospital assistance and the Advanced directive. He said he would. Will FY at [facility] Friday at 1430. 24/12 Boy fell this AM in the bathroom but had gotten up by the time she (Bridget had gotten in there to help him. Bridget states that she knows he has not been drinking. He does and has been eating very poorly. states "i'M NOT VERY HUNGERY" eNC HER TO HAVE HIM GET SOME ACTIVITY TO PREVENT PNEU. aLSO TO EAT HIS MEALS. aSKED TO HAVE HER TAKE THE PAPERWORK TO [facility] TOMORROW SO THEY sw CAN HELP HIM FILL OUT THE FORMS. 10/01 He is in the ICU in DKA. I spoke with Bridget, he is very drowsy, and provided materials on DKA, Lantus and Regular insulin. He will start going to the [facility] once he discharges. 10/06 declines home visit. confident in diet management. reports qid BS and SSI use per dc orders. Review tx for hyper and hypoglycemia. Enc his participation in tx but to have Bridget supervise correct timing and dosing. 10/15 She verbalizes correct dosing of SSI for hi BS today and even waited to feed him until the BS came down a little. She has nonexpired insulin; knows they in 28 days and is monitoring Ashlie BS and admin of insulin but states she can do it if he gets shaky. Disability is pending approval. 10/17 Refused HV today but Bridget felt he was doing pretty well today. Has been up moving around and she trys very hard to keep him on Diabetic diet and exchanges. He doesn't usually want a HS snack Goes to bed pretty early. Has a appt at [facility] 10/21 10/24 unable to contact 10/27 Talked to Bridget- she stated that "Boy doing oretty good. Went to see Dr Jackson at the [facility]TC on and he increased Boy's Lantus insulin fro 16 U to 18 U and she that has helped his BS they have stayed around 150 to 300. He is eatibng better and has taken hisself to get a hair cut and over to his mothers. Has NOT been drinking." 11/03 Bridget is more confident in help[ing Bharat manage his DM. When he doesn't want his insulin she remindshim of his recent hospital stays andthen he says he doesn't want to return and takes his medicine.She is still supervising BS and insulin and meals and return to clinic for f/u. 11/11 Blood sugar control is getting better, but he does not monitor as needed. I reinforced the need to take blood sugars AC/HS. 11/20 Taking blood sugar BID, but control is good with blood sugars 100-190 most of the time. He is feeling better than he has in a long time, and is being much more active. 11/26 Bharat is more independent with monitoring and tx DM but still needs reminders/encouragement prn. Cont to keep BS log to show clinic at visit for anticipated changes in insulin. 12/05 Bharat has moved to his own home at his time. He staes that he has been monitoring BS and going to the [facility] as scheduled. "I feel like I am doing pretty good and I have not been drinking. I go to my sister in laws for dinner every day. I have been eating better and think that has helped me" Told him that we would probably call him at least one more time since he has moved home for FU and maybe DC him from the program 12/15 Left message LISA RATLIFF December 15, 2017 11:31
--- NOTE | 2017-12-16 11:39 | Transitional Care Management ---
Assessment Cardiac: [facility] Cardiac Comment: 09/20 Denies any CP 10/15 dizzy this am with hi BS; has resolved now 11/26 no further c/o dizzyness 12/05 denies dizzyness or CP Respiratory: [facility] Respiratory Comment: 09/20 Denies any resp problems GI: Nutrition: [facility] GI Comment: 09/20 states he is eating a diabetic diet and has taken BS which is 191 this AM. Only used 10 units of insulin this AM 09/29 Is eating poorly but Bridget has been helping him with his BS and trying very hard to help him eat appropriate foods. States he has NOT been drinking. 11/11 He has been taking his blood sugar BID, I encouraged AC/HS. His blood sugars have been as high as 500 a few times, but mostly they are less than 200. 10/06 BS 188, 442 and 538 in ams. states he had ice cream sundae last pm. Bridget gave him his lantus and ssi this am; hes not nauseated but is thirsty and is drinking an ensure . review keeping log of bs and ssi 4 x a day. she knows carbs and is limiting them 10/15 Home yesterday. BS 165 at hs. BS 550 this am at 0800; took Lantus, SSI and repeat q 1 hour. At 11:00 is 240 and he got 4 more unit. Have got rid of old opened insulin vials. Using ones from hospital and Lantus just purchased. She states he does not get up at hs for snacks. His snacks and meals are all portion controlled by her 09/19 BS this AM was 440 covered w SSI. he ate some breakfast. 1130 BS was 158 Had a peanut butter and avacodo sandwich for lunch. 11/03 Bridget states hes taking 18 units Lantus q day and BS more manageable; not waking up with extremely hi numbers. has to cover BS with SSI at lease once a day but they are betterand not having to cover every BS. She thinks he didn't do BS qid before because he had to pay for strips but, they get them now from the clinic. He is eating routine meals 11/20 Blood sugars have been 100 to 190. 11/26 states bs as hi as 450. Keeping records and will take to clinic visit next wk. He does all BS and insulin with only supervision. 12/05 states has been doing BS and insulin. Has been keeping a log to take t DTC this AM on was 170 but sometimes they run higher. States he has NOT beem drinking. 12/16 states BS less than 200 q am and only doing BS q day without SSI. Takes 18 units lantus daily. Eating regular meals Weight Comment: 11/26 good appetite. eats after insulin, denies wt changes 12/05 Eating better and no wt gain but has improved appitite Constipation?: No : WNL Musculoskeletal, Exercise: WNL Except Musculoskeletal, Excercise Com: 09/20 "A little weak" Resting. Enc him to move around and get a little activity to avoid pneu and clots. 10/06 reports he only walks to bathroom and kitchen from chair. enc more act like walking to his mothers house next door or taking out trash etc. to help keep bs lower, keep strength and improve feeling of well being 11/03 states hes more active and even getting out to the store. does not think he is eating when he is out 11/20 He is being more active, getting out of the house. 12/05 doing more around his own home and states "feeling bettr" 12/16 actyive, mowing lawns, consistent act. Says he hasn't noticed BS get lower with increased act. Mobility/Falls: WNL Mobility Comment: 10/15 steady but, enc him to wait until Bridget is home to shower due to previous dizzyness. Enc to be more active to lower BS 10/17 Bridget stated that Bharat did get up and showered this AM and has been amb around the home this AM 11/26 consistent activity, gen as weather is improving Integumentary: WNL Except Integumentary Comment: 09/20 a few bruises where IV sites were. Enc him to check the site where he had a central line-monitor for redness, tenderness or any drainage. Feeling of Well Being: WNL Feeling of Well Being Comment: 09/20 staying with [id number] and doing OK" 10/06 discuss with s-i-l that he can be confused when bs is too hi or low and unable to give any or right amt of insulin. she states she realizes this and thinks that is what happened with prior admission. she is giving his insulin qid, ensuring bs are done and he is eating something routinely 11/20 He feels better than he has in a long time. 11/26 states Bharat feels better about himself with self management of DM but, occas. needs to be coached to do BS or insulin by threat of having to return to hospital 12/16 feels lots better and on his own Socialization Comment: 09/29 staying with [id number] as Mother is not well at this time. 10/15 Bridget denies any etoh since first admission at [facility] Scheduled Follow-Up with [facility]: Yes (12/16 will call [facility] to get more supplies) Community Resources/HHC: 10/06 Bridget states apps for his disability were completed when he was in [place] hospital few weeks ago and they have not heard back yet. [employer] consulted to help obtain all needed resources. Plan to get PCP and see endrocrinologist when insurance is obtained 10/15 states [employer] came to see him in hospital and contacted [employer] in [place]. They sent in some more paperwork to help expidite his luis armando for disability 10/17 Has an appt with [facility] on 10/21 w Jose Jackson 11/03 to [facility] on 11/22 for f/u. [employer] has visited again to help expidite [employer] for disability but no word yet. 11/26 no word on insurance. To [facility] next week. Needs more fast acting insulin and will inventory supplies before going. Enc Bridget to accompany him to hear any changes made 12/16 no info avail on insurance. Following Discharge Instructio: Yes TCM Discharge Criteria Medication Knowledge: 09/20 went over medications and the decrease in [id number] went over his medications. Bridget stated they made some adjustments to insulin at [facility] to 12 Units Lantus q AM and Humalog SSIC for the other BS.BS have been around 300-425. 10/06 states they had 2 SSI's. Verify correct SSI is 2-10 units. Using SSI qid 10/15 verified BS numbers and SSI dosing. She states he does BS and gives the injection but she draws up the insulin for him. She observed he did not give entire Lantus dose this am and had him complete thedose. Enc her to continue to monitor all of his BS and insulin activity. Good to enc and maintain his independence but needs her supervision with each dose . 11/03 Bridget verbalizes 18 unit of lantus a day and SSI coverage up to qid 11/11 Only taking his blood sugar BID, I encouraged AC/HS 11/20 He is still only taking his blood sugar BID.11/26 Bridget will attend next clinic visit to hear any changes made to insulin as bs are ranging higher up to 450 12/16 using Lantus 18unit q day, only testing q day. States he is short on strips and needles; agree to call [facility] today for supplies Disease Management/Concern/Wha: 10/06 review s/s hyper and hypoglycemia, need for consistency with po intake and activity Red/Yellow Flags: 09/20 went over hypo/hyperglycemia and shat he needs to do if either happens. We also discussed diet and his drinking. Enc him not to drink anymore 12/05 went over red and ellow flags of hyper/hypoglycemia and the need to NOT at all. Transitional Care Comment: 09/18 visited wi Boy gave him some information. He has no outside interests except watches TV and gets bored. Encouragd him to get a hobby of some sort like puzzels, [employer] etc I had finances bring him a form to fill out for assistance. SS visited with him about getting form so they could help him get medicaide and explained they could help him here or at [facility] complete and send in. He snswers yes to questions and explainations but doesn't really seem to be attentive to instructions. I asked the attending nurse to give /go over info with mother so she can help him 09/20 states "I'm doing OK. Staying with [id number] and she has cooked diabetic diet." I asked him if he could have her help him fill out the forms for Medicaide, Hospital assistance and the Advanced directive. He said he would. Will FY at [facility] Friday at 1430. 24/12 Boy fell this AM in the bathroom but had gotten up by the time she (Bridget had gotten in there to help him. Bridget states that she knows he has not been drinking. He does and has been eating very poorly. states "i'M NOT VERY HUNGERY" eNC HER TO HAVE HIM GET SOME ACTIVITY TO PREVENT PNEU. aLSO TO EAT HIS MEALS. aSKED TO HAVE HER TAKE THE PAPERWORK TO THE dtc TOMORROW SO THEY sw CAN HELP HIM FILL OUT THE FORMS. 10/01 He is in the ICU in DKA. I spoke with Bridget, he is very drowsy, and provided materials on DKA, Lantus and Regular insulin. He will start going to the [facility] once he discharges. 10/06 declines home visit. confident in diet management. reports qid BS and SSI use per dc orders. Review tx for hyper and hypoglycemia. Enc his participation in tx but to have Bridget supervise correct timing and dosing. 10/15 She verbalizes correct dosing of SSI for hi BS today and even waited to feed him until the BS came down a little. She has nonexpired insulin; knows they in 28 days and is monitoring Bobs BS and admin of insulin but states she can do it if he gets shaky. Disability is pending approval. 10/17 Refused HV today but Bridget felt he was doing pretty well today. Has been up moving around and she trys very hard to keep him on Diabetic diet and exchanges. He doesn't usually want a HS snack Goes to bed pretty early. Has a appt at [facility] 10/21 10/24 unable to contact 10/27 Talked to Bridget- she stated that "Boy doing oretty good. Went to see Dr Jackson at the [facility] on and he increased Boy's Lantus insulin fro 16 U to 18 U and she that has helped his BS they have stayed around 150 to 300. He is eatibng better and has taken hisself to get a hair cut and over to his mothers. Has NOT been drinking." 11/03 Bridget is more confident in help[ing Bharat manage his DM. When he doesn't want his insulin she remindshim of his recent hospital stays andthen he says he doesn't want to return and takes his medicine.She is still supervising BS and insulin and meals and return to clinic for f/u. 11/11 Blood sugar control is getting better, but he does not monitor as needed. I reinforced the need to take blood sugars AC/HS. 11/20 Taking blood sugar BID, but control is good with blood sugars 100-190 most of the time. He is feeling better than he has in a long time, and is being much more active. 11/26 Bharat is more independent with monitoring and tx DM but still needs reminders/encouragement prn. Cont to keep BS log to show clinic at visit for anticipated changes in insulin. 12/05 Bharat has moved to his own home at his time. He staes that he has been monitoring BS and going to the [facility] as scheduled. "I feel like I am doing pretty good and I have not been drinking. I go to my sister in laws for dinner every day. I have been eating better and think that has helped me" Told him that we would probably call him at least one more time since he has moved home for FU and maybe DC him from the program 12/15 Left message 12/16 Reported BS less than 200 daily and doing lantus q day only. Agree to test a little more often when he gets more strips. Bridget stated before that he stopped testing once because he was afraid of running out of strips. He agree to get more supplies today. LISA RATLIFF December 16, 2017 11:39
--- NOTE | 2017-12-25 15:45 | Transitional Care Management ---
Assessment Cardiac: [facility] Cardiac Comment: 09/20 Denies any CP 10/15 dizzy this am with hi BS; has resolved now 11/26 no further c/o dizzyness 12/05 denies dizzyness or CP Respiratory: [facility] Respiratory Comment: 09/20 Denies any resp problems GI: Nutrition: [facility] GI Comment: 09/20 states he is eating a diabetic diet and has taken BS which is 191 this AM. Only used 10 units of insulin this AM 09/29 Is eating poorly but Bridget has been helping him with his BS and trying very hard to help him eat appropriate foods. States he has NOT been drinking. 11/11 He has been taking his blood sugar BID, I encouraged AC/HS. His blood sugars have been as high as 500 a few times, but mostly they are less than 200. 10/06 BS 188, 442 and 538 in ams. states he had ice cream sundae last pm. Bridget gave him his lantus and ssi this am; hes not nauseated but is thirsty and is drinking an ensure . review keeping log of bs and ssi 4 x a day. she knows carbs and is limiting them 10/15 Home yesterday. BS 165 at hs. BS 550 this am at 0800; took Lantus, SSI and repeat q 1 hour. At 11:00 is 240 and he got 4 more unit. Have got rid of old opened insulin vials. Using ones from hospital and Lantus just purchased. She states he does not get up at hs for snacks. His snacks and meals are all portion controlled by her 09/19 BS this AM was 440 covered w SSI. he ate some breakfast. 1130 BS was 158 Had a peanut butter and avacodo sandwich for lunch. 11/03 Bridget states hes taking 18 units Lantus q day and BS more manageable; not waking up with extremely hi numbers. has to cover BS with SSI at lease once a day but they are betterand not having to cover every BS. She thinks he didn't do BS qid before because he had to pay for strips but, they get them now from the clinic. He is eating routine meals 11/20 Blood sugars have been 100 to 190. 11/26 states bs as hi as 450. Keeping records and will take to clinic visit next wk. He does all BS and insulin with only supervision. 12/05 states has been doing BS and insulin. Has been keeping a log to take t DTC this AM on was 170 but sometimes they run higher. States he has NOT beem drinking. 12/16 states BS less than 200 q am and only doing BS q day without SSI. Takes 18 units lantus daily. Eating regular meals Weight Comment: 11/26 good appetite. eats after insulin, denies wt changes 12/05 Eating better and no wt gain but has improved appitite Constipation?: No : WNL Musculoskeletal, Exercise: WNL Except Musculoskeletal, Excercise Com: 09/20 "A little weak" Resting. Enc him to move around and get a little activity to avoid pneu and clots. 10/06 reports he only walks to bathroom and kitchen from chair. enc more act like walking to his mothers house next door or taking out trash etc. to help keep bs lower, keep strength and improve feeling of well being 11/03 states hes more active and even getting out to the store. does not think he is eating when he is out 11/20 He is being more active, getting out of the house. 12/05 doing more around his own home and states "feeling bettr" 12/16 actyive, mowing lawns, consistent act. Says he hasn't noticed BS get lower with increased act. Mobility/Falls: WNL Mobility Comment: 10/15 steady but, enc him to wait until Bridget is home to shower due to previous dizzyness. Enc to be more active to lower BS 10/17 Bridget stated that Bharat did get up and showered this AM and has been amb around the home this AM 11/26 consistent activity, gen as weather is improving Integumentary: WNL Except Integumentary Comment: 09/20 a few bruises where IV sites were. Enc him to check the site where he had a central line-monitor for redness, tenderness or any drainage. Feeling of Well Being: WNL Feeling of Well Being Comment: 09/20 staying with [id number]-do-[id number] and doing OK" 10/06 discuss with s-i-l that he can be confused when bs is too hi or low and unable to give any or right amt of insulin. she states she realizes this and thinks that is what happened with prior admission. she is giving his insulin qid, ensuring bs are done and he is eating something routinely 11/20 He feels better than he has in a long time. 11/26 states Bharat feels better about himself with self management of DM but, occas. needs to be coached to do BS or insulin by threat of having to return to hospital 12/16 feels lots better and on his own Socialization Comment: 09/29 staying with [id number] as Mother is not well at this time. 10/15 Bridget denies any etoh since first admission at [facility] Scheduled Follow-Up with [facility]: Yes (12/16 will call [facility] to get more supplies) Community Resources/HHC: 10/06 Bridget states apps for his disability were completed when he was in [place] hospital few weeks ago and they have not heard back yet. [employer] consulted to help obtain all needed resources. Plan to get PCP and see endrocrinologist when insurance is obtained 10/15 states [facility] came to see him in hospital and contacted [employer] in [place]. They sent in some more paperwork to help expidite his luis armando for disability 10/17 Has an appt with [facility] on 10/21 w Jose Jackson 11/03 to [facility] on 11/22 for f/u. [employer] has visited again to help expidite [employer] for disability but no word yet. 11/26 no word on insurance. To [facility] next week. Needs more fast acting insulin and will inventory supplies before going. Enc Bridget to accompany him to hear any changes made 12/16 no info avail on insurance. Following Discharge Instructio: Yes TCM Discharge Criteria Medication Knowledge: 09/20 went over medications and the decrease in [id number] went over his medications. Bridget stated they made some adjustments to insulin at [facility] to 12 Units Lantus q AM and Humalog SSIC for the other BS.BS have been around 300-425. 10/06 states they had 2 SSI's. Verify correct SSI is 2-10 units. Using SSI qid 10/15 verified BS numbers and SSI dosing. She states he does BS and gives the injection but she draws up the insulin for him. She observed he did not give entire Lantus dose this am and had him complete thedose. Enc her to continue to monitor all of his BS and insulin activity. Good to enc and maintain his independence but needs her supervision with each dose . 11/03 Bridget verbalizes 18 unit of lantus a day and SSI coverage up to qid 11/11 Only taking his blood sugar BID, I encouraged AC/HS 11/20 He is still only taking his blood sugar BID.11/26 Bridget will attend next clinic visit to hear any changes made to insulin as bs are ranging higher up to 450 12/16 using Lantus 18unit q day, only testing q day. States he is short on strips and needles; agree to call [facility] today for supplies Disease Management/Concern/Wha: 10/06 review s/s hyper and hypoglycemia, need for consistency with po intake and activity Red/Yellow Flags: 09/20 went over hypo/hyperglycemia and shat he needs to do if either happens. We also discussed diet and his drinking. Enc him not to drink anymore 12/05 went over red and ellow flags of hyper/hypoglycemia and the need to NOT at all. Transitional Care Comment: 09/18 visited wi Boy gave him some information. He has no outside interests except watches TV and gets bored. Encouragd him to get a hobby of some sort like puzzels, [employer] etc I had finances bring him a form to fill out for assistance. SS visited with him about getting form so they could help him get medicaide and explained they could help him here or at [facility] complete and send in. He snswers yes to questions and explainations but doesn't really seem to be attentive to instructions. I asked the attending nurse to give /go over info with mother so she can help him 09/20 states "I'm doing OK. Staying with [id number] and she has cooked diabetic diet." I asked him if he could have her help him fill out the forms for Medicaide, Hospital assistance and the Advanced directive. He said he would. Will FY at [facility] Friday at 1430. 24/12 Boy fell this AM in the bathroom but had gotten up by the time she (Bridget had gotten in there to help him. Bridget states that she knows he has not been drinking. He does and has been eating very poorly. states "i'M NOT VERY HUNGERY" eNC HER TO HAVE HIM GET SOME ACTIVITY TO PREVENT PNEU. aLSO TO EAT HIS MEALS. aSKED TO HAVE HER TAKE THE PAPERWORK TO THE dtc TOMORROW SO THEY sw CAN HELP HIM FILL OUT THE FORMS. 10/01 He is in the ICU in DKA. I spoke with Bridget, he is very drowsy, and provided materials on DKA, Lantus and Regular insulin. He will start going to the [facility] once he discharges. 10/06 declines home visit. confident in diet management. reports qid BS and SSI use per dc orders. Review tx for hyper and hypoglycemia. Enc his participation in tx but to have Bridget supervise correct timing and dosing. 10/15 She verbalizes correct dosing of SSI for hi BS today and even waited to feed him until the BS came down a little. She has nonexpired insulin; knows they in 28 days and is monitoring Bobs BS and admin of insulin but states she can do it if he gets shaky. Disability is pending approval. 10/17 Refused HV today but Bridget felt he was doing pretty well today. Has been up moving around and she trys very hard to keep him on Diabetic diet and exchanges. He doesn't usually want a HS snack Goes to bed pretty early. Has a appt at [facility] 10/21 10/24 unable to contact 10/27 Talked to Bridget- she stated that "Boy doing oretty good. Went to see Dr Jackson at the [facility] on and he increased Boy's Lantus insulin fro 16 U to 18 U and she that has helped his BS they have stayed around 150 to 300. He is eatibng better and has taken hisself to get a hair cut and over to his mothers. Has NOT been drinking." 11/03 Bridget is more confident in help[ing Bharat manage his DM. When he doesn't want his insulin she remindshim of his recent hospital stays andthen he says he doesn't want to return and takes his medicine.She is still supervising BS and insulin and meals and return to clinic for f/u. 11/11 Blood sugar control is getting better, but he does not monitor as needed. I reinforced the need to take blood sugars AC/HS. 11/20 Taking blood sugar BID, but control is good with blood sugars 100-190 most of the time. He is feeling better than he has in a long time, and is being much more active. 11/26 Bharat is more independent with monitoring and tx DM but still needs reminders/encouragement prn. Cont to keep BS log to show clinic at visit for anticipated changes in insulin. 12/05 Bharat has moved to his own home at his time. He staes that he has been monitoring BS and going to the [facility] as scheduled. "I feel like I am doing pretty good and I have not been drinking. I go to my sister in laws for dinner every day. I have been eating better and think that has helped me" Told him that we would probably call him at least one more time since he has moved home for FU and maybe DC him from the program 12/15 Left message 12/16 Reported BS less than 200 daily and doing lantus q day only. Agree to test a little more often when he gets more strips. Bridget stated before that he stopped testing once because he was afraid of running out of strips. He agree to get more supplies today. 12/23 Left message. 12/25 Left message. DANIEL NARANJO December 25, 2017 15:45
--- NOTE | 2018-01-02 15:31 | Transitional Care Management ---
Assessment Cardiac: [facility] Cardiac Comment: 09/20 Denies any CP 10/15 dizzy this am with hi BS; has resolved now 11/26 no further c/o dizzyness 12/05 denies dizzyness or CP Respiratory: [facility] Respiratory Comment: 09/20 Denies any resp problems GI: Nutrition: [facility] GI Comment: 09/20 states he is eating a diabetic diet and has taken BS which is 191 this AM. Only used 10 units of insulin this AM 09/29 Is eating poorly but Bridget has been helping him with his BS and trying very hard to help him eat appropriate foods. States he has NOT been drinking. 11/11 He has been taking his blood sugar BID, I encouraged AC/HS. His blood sugars have been as high as 500 a few times, but mostly they are less than 200. 10/06 BS 188, 442 and 538 in ams. states he had ice cream sundae last pm. Bridget gave him his lantus and ssi this am; hes not nauseated but is thirsty and is drinking an ensure . review keeping log of bs and ssi 4 x a day. she knows carbs and is limiting them 10/15 Home yesterday. BS 165 at hs. BS 550 this am at 0800; took Lantus, SSI and repeat q 1 hour. At 11:00 is 240 and he got 4 more unit. Have got rid of old opened insulin vials. Using ones from hospital and Lantus just purchased. She states he does not get up at hs for snacks. His snacks and meals are all portion controlled by her 09/19 BS this AM was 440 covered w SSI. he ate some breakfast. 1130 BS was 158 Had a peanut butter and avacodo sandwich for lunch. 11/03 Bridget states hes taking 18 units Lantus q day and BS more manageable; not waking up with extremely hi numbers. has to cover BS with SSI at lease once a day but they are betterand not having to cover every BS. She thinks he didn't do BS qid before because he had to pay for strips but, they get them now from the clinic. He is eating routine meals 11/20 Blood sugars have been 100 to 190. 11/26 states bs as hi as 450. Keeping records and will take to clinic visit next wk. He does all BS and insulin with only supervision. 12/05 states has been doing BS and insulin. Has been keeping a log to take t DTC this AM on was 170 but sometimes they run higher. States he has NOT beem drinking. 12/16 states BS less than 200 q am and only doing BS q day without SSI. Takes 18 units lantus daily. Eating regular meals Weight Comment: 11/26 good appetite. eats after insulin, denies wt changes 12/05 Eating better and no wt gain but has improved appitite Constipation?: No : WNL Musculoskeletal, Exercise: WNL Except Musculoskeletal, Excercise Com: 09/20 "A little weak" Resting. Enc him to move around and get a little activity to avoid pneu and clots. 10/06 reports he only walks to bathroom and kitchen from chair. enc more act like walking to his mothers house next door or taking out trash etc. to help keep bs lower, keep strength and improve feeling of well being 11/03 states hes more active and even getting out to the store. does not think he is eating when he is out 11/20 He is being more active, getting out of the house. 12/05 doing more around his own home and states "feeling bettr" 12/16 actyive, mowing lawns, consistent act. Says he hasn't noticed BS get lower with increased act. Mobility/Falls: WNL Mobility Comment: 10/15 steady but, enc him to wait until Bridget is home to shower due to previous dizzyness. Enc to be more active to lower BS 10/17 Bridget stated that Bharat did get up and showered this AM and has been amb around the home this AM 11/26 consistent activity, gen as weather is improving Integumentary: WNL Except Integumentary Comment: 09/20 a few bruises where IV sites were. Enc him to check the site where he had a central line-monitor for redness, tenderness or any drainage. Feeling of Well Being: WNL Feeling of Well Being Comment: 09/20 staying with [id number] and doing OK" 10/06 discuss with s-i-l that he can be confused when bs is too hi or low and unable to give any or right amt of insulin. she states she realizes this and thinks that is what happened with prior admission. she is giving his insulin qid, ensuring bs are done and he is eating something routinely 11/20 He feels better than he has in a long time. 11/26 states Bharat feels better about himself with self management of DM but, occas. needs to be coached to do BS or insulin by threat of having to return to hospital 12/16 feels lots better and on his own Socialization Comment: 09/29 staying with [id number] as Mother is not well at this time. 10/15 Bridget denies any etoh since first admission at [facility] Scheduled Follow-Up with [facility]: Yes (12/16 will call [facility] to get more supplies) Community Resources/HHC: 10/06 Bridget states apps for his disability were completed when he was in [place] hospital few weeks ago and they have not heard back yet. [employer] consulted to help obtain all needed resources. Plan to get PCP and see endrocrinologist when insurance is obtained 10/15 states [facility] came to see him in hospital and contacted [employer] in [place]. They sent in some more paperwork to help expidite his luis armando for disability 10/17 Has an appt with [facility] on 10/21 w Jose Jackson 11/03 to [facility] on 11/22 for f/u. [employer] has visited again to help expidite [employer] for disability but no word yet. 11/26 no word on insurance. To [facility] next week. Needs more fast acting insulin and will inventory supplies before going. Enc Bridget to accompany him to hear any changes made 12/16 no info avail on insurance. Following Discharge Instructio: Yes TCM Discharge Criteria Medication Knowledge: 09/20 went over medications and the decrease in /05 went over his medications. Bridget stated they made some adjustments to insulin at [facility] to 12 Units Lantus q AM and Humalog SSIC for the other BS.BS have been around 300-425. 10/06 states they had 2 SSI's. Verify correct SSI is 2-10 units. Using SSI qid 10/15 verified BS numbers and SSI dosing. She states he does BS and gives the injection but she draws up the insulin for him. She observed he did not give entire Lantus dose this am and had him complete thedose. Enc her to continue to monitor all of his BS and insulin activity. Good to enc and maintain his independence but needs her supervision with each dose . 11/03 Bridget verbalizes 18 unit of lantus a day and SSI coverage up to qid 11/11 Only taking his blood sugar BID, I encouraged AC/HS 11/20 He is still only taking his blood sugar BID.11/26 Bridget will attend next clinic visit to hear any changes made to insulin as bs are ranging higher up to 450 12/16 using Lantus 18unit q day, only testing q day. States he is short on strips and needles; agree to call [facility] today for supplies Disease Management/Concern/Wha: 10/06 review s/s hyper and hypoglycemia, need for consistency with po intake and activity Red/Yellow Flags: 09/20 went over hypo/hyperglycemia and shat he needs to do if either happens. We also discussed diet and his drinking. Enc him not to drink anymore 12/05 went over red and ellow flags of hyper/hypoglycemia and the need to NOT at all. Transitional Care Comment: 09/18 visited wi Boy gave him some information. He has no outside interests except watches TV and gets bored. Encouragd him to get a hobby of some sort like puzzels, [employer] etc I had finances bring him a form to fill out for assistance. SS visited with him about getting form so they could help him get medicaide and explained they could help him here or at [facility] complete and send in. He snswers yes to questions and explainations but doesn't really seem to be attentive to instructions. I asked the attending nurse to give /go over info with mother so she can help him 09/20 states "I'm doing OK. Staying with [id number] and she has cooked diabetic diet." I asked him if he could have her help him fill out the forms for Medicaide, Hospital assistance and the Advanced directive. He said he would. Will FY at [facility] Friday at 1430. 24/12 Boy fell this AM in the bathroom but had gotten up by the time she (Bridget had gotten in there to help him. Bridget states that she knows he has not been drinking. He does and has been eating very poorly. states "i'M NOT VERY HUNGERY" eNC HER TO HAVE HIM GET SOME ACTIVITY TO PREVENT PNEU. aLSO TO EAT HIS MEALS. aSKED TO HAVE HER TAKE THE PAPERWORK TO THE dtc TOMORROW SO THEY sw CAN HELP HIM FILL OUT THE FORMS. 10/01 He is in the ICU in DKA. I spoke with Bridget, he is very drowsy, and provided materials on DKA, Lantus and Regular insulin. He will start going to the [facility] once he discharges. 10/06 declines home visit. confident in diet management. reports qid BS and SSI use per dc orders. Review tx for hyper and hypoglycemia. Enc his participation in tx but to have Bridget supervise correct timing and dosing. 10/15 She verbalizes correct dosing of SSI for hi BS today and even waited to feed him until the BS came down a little. She has nonexpired insulin; knows they in 28 days and is monitoring Bobs BS and admin of insulin but states she can do it if he gets shaky. Disability is pending approval. 10/17 Refused HV today but Bridget felt he was doing pretty well today. Has been up moving around and she trys very hard to keep him on Diabetic diet and exchanges. He doesn't usually want a HS snack Goes to bed pretty early. Has a appt at [facility] 10/21 10/24 unable to contact 10/27 Talked to Bridget- she stated that "Boy doing oretty good. Went to see Dr Jackson at the [facility] on and he increased Boy's Lantus insulin fro 16 U to 18 U and she that has helped his BS they have stayed around 150 to 300. He is eatibng better and has taken hisself to get a hair cut and over to his mothers. Has NOT been drinking." 11/03 Bridget is more confident in help[ing Bharat manage his DM. When he doesn't want his insulin she remindshim of his recent hospital stays andthen he says he doesn't want to return and takes his medicine.She is still supervising BS and insulin and meals and return to clinic for f/u. 11/11 Blood sugar control is getting better, but he does not monitor as needed. I reinforced the need to take blood sugars AC/HS. 11/20 Taking blood sugar BID, but control is good with blood sugars 100-190 most of the time. He is feeling better than he has in a long time, and is being much more active. 11/26 Bharat is more independent with monitoring and tx DM but still needs reminders/encouragement prn. Cont to keep BS log to show clinic at visit for anticipated changes in insulin. 12/05 Bharat has moved to his own home at his time. He staes that he has been monitoring BS and going to the [facility]TC as scheduled. "I feel like I am doing pretty good and I have not been drinking. I go to my sister in laws for dinner every day. I have been eating better and think that has helped me" Told him that we would probably call him at least one more time since he has moved home for FU and maybe DC him from the program 12/15 Left message 12/16 Reported BS less than 200 daily and doing lantus q day only. Agree to test a little more often when he gets more strips. Bridget stated before that he stopped testing once because he was afraid of running out of strips. He agree to get more supplies today. 12/23 Left message. 12/25 Left message. 01/02 Left message. DANIEL NARANJO Jan 02, 2018 15:31
--- NOTE | 2018-01-03 13:20 | Transitional Care Management ---
Assessment Cardiac: [facility] Cardiac Comment: 09/20 Denies any CP 10/15 dizzy this am with hi BS; has resolved now 11/26 no further c/o dizzyness 12/05 denies dizzyness or CP Respiratory: [facility] Respiratory Comment: 09/20 Denies any resp problems GI: Nutrition: [facility] GI Comment: 09/20 states he is eating a diabetic diet and has taken BS which is 191 this AM. Only used 10 units of insulin this AM 09/29 Is eating poorly but Bridget has been helping him with his BS and trying very hard to help him eat appropriate foods. States he has NOT been drinking. 11/11 He has been taking his blood sugar BID, I encouraged AC/HS. His blood sugars have been as high as 500 a few times, but mostly they are less than 200. 10/06 BS 188, 442 and 538 in ams. states he had ice cream sundae last pm. Bridget gave him his lantus and ssi this am; hes not nauseated but is thirsty and is drinking an ensure . review keeping log of bs and ssi 4 x a day. she knows carbs and is limiting them 10/15 Home yesterday. BS 165 at hs. BS 550 this am at 0800; took Lantus, SSI and repeat q 1 hour. At 11:00 is 240 and he got 4 more unit. Have got rid of old opened insulin vials. Using ones from hospital and Lantus just purchased. She states he does not get up at hs for snacks. His snacks and meals are all portion controlled by her 09/19 BS this AM was 440 covered w SSI. he ate some breakfast. 1130 BS was 158 Had a peanut butter and avacodo sandwich for lunch. 11/03 Bridget states hes taking 18 units Lantus q day and BS more manageable; not waking up with extremely hi numbers. has to cover BS with SSI at lease once a day but they are betterand not having to cover every BS. She thinks he didn't do BS qid before because he had to pay for strips but, they get them now from the clinic. He is eating routine meals 11/20 Blood sugars have been 100 to 190. 11/26 states bs as hi as 450. Keeping records and will take to clinic visit next wk. He does all BS and insulin with only supervision. 12/05 states has been doing BS and insulin. Has been keeping a log to take t DTC this AM on was 170 but sometimes they run higher. States he has NOT beem drinking. 12/16 states BS less than 200 q am and only doing BS q day without SSI. Takes 18 units lantus daily. Eating regular meals Weight Comment: 11/26 good appetite. eats after insulin, denies wt changes 12/05 Eating better and no wt gain but has improved appitite Constipation?: No : WNL Musculoskeletal, Exercise: WNL Except Musculoskeletal, Excercise Com: 09/20 "A little weak" Resting. Enc him to move around and get a little activity to avoid pneu and clots. 10/06 reports he only walks to bathroom and kitchen from chair. enc more act like walking to his mothers house next door or taking out trash etc. to help keep bs lower, keep strength and improve feeling of well being 11/03 states hes more active and even getting out to the store. does not think he is eating when he is out 11/20 He is being more active, getting out of the house. 12/05 doing more around his own home and states "feeling bettr" 12/16 actyive, mowing lawns, consistent act. Says he hasn't noticed BS get lower with increased act. Mobility/Falls: WNL Mobility Comment: 10/15 steady but, enc him to wait until Bridget is home to shower due to previous dizzyness. Enc to be more active to lower BS 10/17 Bridget stated that Bharat did get up and showered this AM and has been amb around the home this AM 11/26 consistent activity, gen as weather is improving Integumentary: WNL Except Integumentary Comment: 09/20 a few bruises where IV sites were. Enc him to check the site where he had a central line-monitor for redness, tenderness or any drainage. Feeling of Well Being: WNL Feeling of Well Being Comment: 09/20 staying with [id number] and doing OK" 10/06 discuss with s-i-l that he can be confused when bs is too hi or low and unable to give any or right amt of insulin. she states she realizes this and thinks that is what happened with prior admission. she is giving his insulin qid, ensuring bs are done and he is eating something routinely 11/20 He feels better than he has in a long time. 11/26 states Bharat feels better about himself with self management of DM but, occas. needs to be coached to do BS or insulin by threat of having to return to hospital 12/16 feels lots better and on his own Socialization Comment: 09/29 staying with [id number] as Mother is not well at this time. 10/15 Bridget denies any etoh since first admission at [facility] Scheduled Follow-Up with [facility]: Yes (12/16 will call [facility] to get more supplies) Community Resources/HHC: 10/06 Bridget states apps for his disability were completed when he was in [place] hospital few weeks ago and they have not heard back yet. [employer] consulted to help obtain all needed resources. Plan to get PCP and see endrocrinologist when insurance is obtained 10/15 states [facility] came to see him in hospital and contacted [employer] in [place]. They sent in some more paperwork to help expidite his luis armando for disability 10/17 Has an appt with [facility]TC on 10/21 w Jose Jackson 11/03 to [facility] on 11/22 for f/u. [facility] has visited again to help expidite [employer] for disability but no word yet. 11/26 no word on insurance. To [facility] next week. Needs more fast acting insulin and will inventory supplies before going. Enc Bridget to accompany him to hear any changes made 12/16 no info avail on insurance. Following Discharge Instructio: Yes TCM Discharge Criteria Medication Knowledge: 09/20 went over medications and the decrease in [id number] went over his medications. Bridget stated they made some adjustments to insulin at [facility] to 12 Units Lantus q AM and Humalog SSIC for the other BS.BS have been around 300-425. 10/06 states they had 2 SSI's. Verify correct SSI is 2-10 units. Using SSI qid 10/15 verified BS numbers and SSI dosing. She states he does BS and gives the injection but she draws up the insulin for him. She observed he did not give entire Lantus dose this am and had him complete thedose. Enc her to continue to monitor all of his BS and insulin activity. Good to enc and maintain his independence but needs her supervision with each dose . 11/03 Bridget verbalizes 18 unit of lantus a day and SSI coverage up to qid 11/11 Only taking his blood sugar BID, I encouraged AC/HS 11/20 He is still only taking his blood sugar BID.11/26 Bridget will attend next clinic visit to hear any changes made to insulin as bs are ranging higher up to 450 12/16 using Lantus 18unit q day, only testing q day. States he is short on strips and needles; agree to call [facility] today for supplies Disease Management/Concern/Wha: 10/06 review s/s hyper and hypoglycemia, need for consistency with po intake and activity Red/Yellow Flags: 09/20 went over hypo/hyperglycemia and shat he needs to do if either happens. We also discussed diet and his drinking. Enc him not to drink anymore 12/05 went over red and ellow flags of hyper/hypoglycemia and the need to NOT at all. Transitional Care Comment: 09/18 visited wi Boy gave him some information. He has no outside interests except watches TV and gets bored. Encouragd him to get a hobby of some sort like puzzels, [employer] etc I had finances bring him a form to fill out for assistance. SS visited with him about getting form so they could help him get medicaide and explained they could help him here or at [facility] complete and send in. He snswers yes to questions and explainations but doesn't really seem to be attentive to instructions. I asked the attending nurse to give /go over info with mother so she can help him 09/20 states "I'm doing OK. Staying with [id number] and she has cooked diabetic diet." I asked him if he could have her help him fill out the forms for Medicaide, Hospital assistance and the Advanced directive. He said he would. Will FY at [facility] Friday at 1430. 24/12 Boy fell this AM in the bathroom but had gotten up by the time she (Bridget had gotten in there to help him. Bridget states that she knows he has not been drinking. He does and has been eating very poorly. states "i'M NOT VERY HUNGERY" eNC HER TO HAVE HIM GET SOME ACTIVITY TO PREVENT PNEU. aLSO TO EAT HIS MEALS. aSKED TO HAVE HER TAKE THE PAPERWORK TO THE dtc TOMORROW SO THEY sw CAN HELP HIM FILL OUT THE FORMS. 10/01 He is in the ICU in DKA. I spoke with Bridget, he is very drowsy, and provided materials on DKA, Lantus and Regular insulin. He will start going to the [facility] once he discharges. 10/06 declines home visit. confident in diet management. reports qid BS and SSI use per dc orders. Review tx for hyper and hypoglycemia. Enc his participation in tx but to have Bridget supervise correct timing and dosing. 10/15 She verbalizes correct dosing of SSI for hi BS today and even waited to feed him until the BS came down a little. She has nonexpired insulin; knows they in 28 days and is monitoring Bobs BS and admin of insulin but states she can do it if he gets shaky. Disability is pending approval. 10/17 Refused HV today but Bridget felt he was doing pretty well today. Has been up moving around and she trys very hard to keep him on Diabetic diet and exchanges. He doesn't usually want a HS snack Goes to bed pretty early. Has a appt at [facility] 10/21 10/24 unable to contact 10/27 Talked to Bridget- she stated that "Boy doing oretty good. Went to see Dr Jackson at the [facility] on and he increased Boy's Lantus insulin fro 16 U to 18 U and she that has helped his BS they have stayed around 150 to 300. He is eatibng better and has taken hisself to get a hair cut and over to his mothers. Has NOT been drinking." 11/03 Bridget is more confident in help[ing Bharat manage his DM. When he doesn't want his insulin she remindshim of his recent hospital stays andthen he says he doesn't want to return and takes his medicine.She is still supervising BS and insulin and meals and return to clinic for f/u. 11/11 Blood sugar control is getting better, but he does not monitor as needed. I reinforced the need to take blood sugars AC/HS. 11/20 Taking blood sugar BID, but control is good with blood sugars 100-190 most of the time. He is feeling better than he has in a long time, and is being much more active. 11/26 Bhaart is more independent with monitoring and tx DM but still needs reminders/encouragement prn. Cont to keep BS log to show clinic at visit for anticipated changes in insulin. 12/05 Bharat has moved to his own home at his time. He staes that he has been monitoring BS and going to the [facility]TC as scheduled. "I feel like I am doing pretty good and I have not been drinking. I go to my sister in laws for dinner every day. I have been eating better and think that has helped me" Told him that we would probably call him at least one more time since he has moved home for FU and maybe DC him from the program 12/15 Left message 12/16 Reported BS less than 200 daily and doing lantus q day only. Agree to test a little more often when he gets more strips. Bridget stated before that he stopped testing once because he was afraid of running out of strips. He agree to get more supplies today. 12/23 Left message. 12/25 Left message. 01/02 Left message. 01/03 Unable to contact or leave message. Disharged from program. DANIEL NARANJO Jan 03, 2018 13:20
[2018-01-20] MEDS ORDERED: INSU100I30 SUBQ (14:16)
[2018-01-20] MEDS ORDERED: INSU100V24 SUBQ (14:16)
[2018-01-20] MEDS ORDERED: INSU100I30 SQ (15:28)
== END 2018-04-28 16:23 | disposition home or self-care (01) ==
LOC: TCM 08:27
PROVIDERS: ATTEND Nurse Practitioner
DX: Z02.9 Encounter for administrative examinations, unspecified (principal)

== ENCOUNTER 2017-09-22 19:50 | Emergency (ER) | payer SELFPAY ==
[2017-09-08 09:03] VITALS: Ht 172.7 cm; Wt 73.9 kg
[~2017-09-22] VITALS: Ht 172.7 cm; Wt 73.9 kg
--- NOTE | 2017-09-22 20:17 | ER Report ---
History and Physical Time Seen By MD: 20:16 HPI/ROS CHIEF COMPLAINT: Hyperglycemia him a vomiting HISTORY OF PRESENT ILLNESS: 56-year-old male presents ambulatory with his family complaining of hyperglycemia all day long. Patient was recently admitted for altered mental status, he was intubated for a GCS less than 8. Patient notes there. He has, increased urination. He's not been feeling well. He vomited this morning. Patient's shows a list of blood sugars that show nearly 600 throughout most of the day. He's had multiple doses of Lantus and Humalog insulin got improvement, See list of glucoses in times of administration of insulin. This list of glucoses was copied to the chart. Patient denies headache, fever, chills, shortness of breath or chest pain. REVIEW OF SYSTEMS: Respiratory: No cough, no dyspnea. Cardiovascular: No chest pain, no palpitations. Gastrointestinal: As above Musculoskeletal: No back pain. Allergies: Coded Allergies: No Known Drug Allergies (Verified , 09/22/17) Home Meds Active Scripts Vitamin B Complex (B COMPLEX) 1 Each Tablet, 1 EACH PO DAILY, #30 TAB Prov:ANA MARIA PALACIOS MD 09/19/17 Potassium Chloride (KLOR-CON 10) 10 Meq Tablet.er, 10 MEQ PO BIDBS, #20 TAB 0 Refills Prov:ANA MARIA PALACIOS MD 09/19/17 Insulin Glargine,Hum.rec.anlog (LANTUS SOLOSTAR) 100 Unit/1 Ml Insuln.pen, 10 UNIT SUBQ QDAY, #1 VIAL 1 Refill Prov:ANA MARIA PALACIOS MD 09/19/17 Discontinued Reported Medications Insulin Glargine (LANTUS) 100 Unit/Ml Soln, 20 UNIT SUBQ BID, ML 09/07/17 Reviewed Nurses Notes: Yes Old Medical Records Reviewed: Yes Hx Smoking: Yes (chewing tobacco) Smoking Status: Light Tobacco Smoker Hx Substance Use Disorder: No Hx Alcohol Use: Yes Constitutional Vital Sign - Last 24 Hours 09/22/17 09/22/17 09/22/17 09/22/17 19:50 20:05 20:20 20:35 Pulse 156 148 151 163 Pulse Ox 96 84 96 97 09/22/17 09/22/17 09/22/17 09/22/17 20:50 21:21 21:23 21:35 Temp 97.9 Pulse 94 94 Resp 20 B/P (MAP) 139/87 (104) 139/87 Pulse Ox 100 100 98 O2 Delivery Room Air 09/22/17 09/22/17 09/22/17 09/22/17 21:35 22:05 22:20 22:41 Pulse 94 96 94 B/P (MAP) 106/75 (85) Pulse Ox 98 98 100 09/22/17 09/22/17 09/22/17 09/22/17 22:50 23:00 23:05 23:10 Pulse 101 105 105 Resp 20 22 B/P (MAP) 115/68 (84) Pulse Ox 90 89 100 09/22/17 09/22/17 09/23/17 09/23/17 23:25 23:30 00:00 00:25 Pulse 103 105 Resp 14 17 B/P (MAP) 117/101 (106) 109/69 (82) Pulse Ox 95 93 09/23/17 09/23/17 09/23/17 00:30 00:40 00:55 Pulse 101 97 Resp 14 16 B/P (MAP) 146/80 (102) Pulse Ox 99 100 Physical Exam General Appearance: The patient is alert, has no immediate need for airway protection and no current signs of toxicity., Rapid respiratory rate, consistent with DKA, appears grossly dehydrated. Mildly confused Eyes: Pupils equal and round no injection. Respiratory: Chest is non tender, lungs are clear to auscultation. Cardiac: regular rate and rhythm Gastrointestinal: Abdomen is soft and non tender, no masses, bowel sounds normal. Musculoskeletal: Neck: Neck is supple and non tender. Extremities have full range of motion and are non tender. Skin: No rashes or lesions. DIFFERENTIAL DIAGNOSIS: After history and physical exam differential diagnosis was considered for diabetic ketoacidosis, vomiting, dehydration, Medical Decision Making Data Points Result Diagram: 09/22/17223409/22/172234 Laboratory Hematology Test 09/22/17 22:35 09/23/17 01:01 Red Blood Count 3.87 M/uL (4.00-5.60) Mean Corpuscular Volume 100.0 fL (80.0-96.0) Mean Corpuscular Hemoglobin 32.2 pg (26.0-33.0) Mean Corpuscular Hemoglobin Concent 32.2 g/dL (32.0-36.0) Red Cell Distribution Width 14.8 % (11.5-14.5) Mean Platelet Volume 7.3 fL (7.2-11.1) Neutrophils (%) (Auto) 93.5 % (39.4-72.5) Lymphocytes (%) (Auto) 4.0 % (17.6-49.6) Monocytes (%) (Auto) 2.3 % (4.1-12.4) Eosinophils (%) (Auto) 0.0 % (0.4-6.7) Basophils (%) (Auto) 0.2 % (0.3-1.4) Nucleated RBC Relative Count (auto) 0.0 /100WBC Neutrophils # (Auto) 17.3 K/uL (2.0-7.4) Lymphocytes # (Auto) 0.7 K/uL (1.3-3.6) Monocytes # (Auto) 0.4 K/uL (0.3-1.0) Eosinophils # (Auto) 0.0 K/uL (0.0-0.5) Basophils # (Auto) 0.0 K/uL (0.0-0.1) Nucleated RBC Absolute Count (auto) 0.00 K/uL Blood Gas Patient Temperature Unknown DEGREES Venous Blood pH 7.14 (7.31-7.41) Venous Blood Partial Pressure CO2 < 25 mmHg Venous Blood Partial Pressure O2 79 mmHg Venous Blood HCO3 5 mmol/L Venous Blood Oxygen Saturation 92 % Venous Blood Base Excess -24 mmol/L Oxygen Liters/Minute Unknown Sodium Level 138 mmol/L (137-145) Potassium Level 5.3 mmol/L (3.5-5.0) Chloride Level 106 mmol/L (98-107) Carbon Dioxide Level < 5 mmol/L (22-30) Blood Urea Nitrogen 19 mg/dl (9-21) Creatinine 1.00 mg/dl (0.66-1.25) Glomerular Filtration Rate Calc > 60.0 Random Glucose 389 mg/dl (75-110) Osmolality 323 mOSM/K (275-295) Calcium Level 9.2 mg/dl (8.4-10.2) Total Bilirubin 0.3 mg/dl (0.2-1.3) Aspartate Amino Transf (AST/SGOT) 14 U/L (0-35) Alanine Aminotransferase (ALT/SGPT) 31 U/L (0-56) Alkaline Phosphatase 108 U/L (0-126) Total Protein 6.2 gm/dl (6.3-8.2) Albumin 3.6 g/dl (3.5-5.0) Acetone, Qualitative Moderate Whole Blood Glucose 307 mg/DL (75-110) Chemistry Test 09/22/17 22:35 09/23/17 01:01 White Blood Count 18.5 k/uL (4.5-11.0) Red Blood Count 3.87 M/uL (4.00-5.60) Hemoglobin 12.5 g/dL (14.0-18.0) Hematocrit 38.7 % (42.0-52.0) Mean Corpuscular Volume 100.0 fL (80.0-96.0) Mean Corpuscular Hemoglobin 32.2 pg (26.0-33.0) Mean Corpuscular Hemoglobin Concent 32.2 g/dL (32.0-36.0) Red Cell Distribution Width 14.8 % (11.5-14.5) Platelet Count 349 K/uL (150-450) Mean Platelet Volume 7.3 fL (7.2-11.1) Neutrophils (%) (Auto) 93.5 % (39.4-72.5) Lymphocytes (%) (Auto) 4.0 % (17.6-49.6) Monocytes (%) (Auto) 2.3 % (4.1-12.4) Eosinophils (%) (Auto) 0.0 % (0.4-6.7) Basophils (%) (Auto) 0.2 % (0.3-1.4) Nucleated RBC Relative Count (auto) 0.0 /100WBC Neutrophils # (Auto) 17.3 K/uL (2.0-7.4) Lymphocytes # (Auto) 0.7 K/uL (1.3-3.6) Monocytes # (Auto) 0.4 K/uL (0.3-1.0) Eosinophils # (Auto) 0.0 K/uL (0.0-0.5) Basophils # (Auto) 0.0 K/uL (0.0-0.1) Nucleated RBC Absolute Count (auto) 0.00 K/uL Blood Gas Patient Temperature Unknown DEGREES Venous Blood pH 7.14 (7.31-7.41) Venous Blood Partial Pressure CO2 < 25 mmHg Venous Blood Partial Pressure O2 79 mmHg Venous Blood HCO3 5 mmol/L Venous Blood Oxygen Saturation 92 % Venous Blood Base Excess -24 mmol/L Oxygen Liters/Minute Unknown Glomerular Filtration Rate Calc > 60.0 Osmolality 323 mOSM/K (275-295) Calcium Level 9.2 mg/dl (8.4-10.2) Total Bilirubin 0.3 mg/dl (0.2-1.3) Aspartate Amino Transf (AST/SGOT) 14 U/L (0-35) Alanine Aminotransferase (ALT/SGPT) 31 U/L (0-56) Alkaline Phosphatase 108 U/L (0-126) Total Protein 6.2 gm/dl (6.3-8.2) Albumin 3.6 g/dl (3.5-5.0) Acetone, Qualitative Moderate Whole Blood Glucose 307 mg/DL (75-110) Toxicology Test 09/22/17 22:35 Acetone, Qualitative Moderate EKG/Imaging Imaging X-ray: Single view portable chest x-ray was obtained. I viewed the images myself on the PACS system. My interpretation of the images is: Hyperinflation, no infiltrate or effusion, mediastinum normal. The radiologist interpretation had no clinically significant variation from this interpretation. ED Course/Re-evaluation Clinical Indication for ER IV: Hydration, IV Access ED Course Patient was admitted to an examination room. H&P was done. The differential diagnoses was considered.. Nursing staff was unable to establish a peripheral IV. An EJ was established. Diagnostic lab for studies were sent off. His studies returned with gross evidence of DKA. Patient's hydrated with 2 L of normal saline. The bicarbonate was administered. Insulin 10 units regular was pushed IV. An insulin drip was initiated at 5 units per hour. 09/22/2017 11:15:43 pm case discussed with Dr. Ehsan Grace hospitalist. We will check and see if we have ICU bed availability. Unfortunately, we do not have any bed availability. Our unit is full. A call was made to [facility] [place]. They are in ICU divert as well 09/22/2017 11:48:31 pm case was discussed with hospitalist, Dr. Curry at [facility] who accepts the patient for direct admit to ICU at [facility] Decision to Disposition Date: Sep 22, 2017 Decision to Disposition Time: 23:15 Critical Care Time I spent a total of 90 minutes of critical care time in obtaining history, performing a physical exam, bedside monitoring of interventions, collecting and interpreting tests and discussion with consultants but not including time spent performing procedures. Depart Departure Latest Vital Signs Vital Signs Date Time Temp Pulse Resp B/P (MAP) Pulse Ox O2 Delivery O2 Flow Rate FiO2 09/23/17 00:55 97 16 100 09/23/17 00:30 146/80 (102) 09/22/17 21:23 97.9 Room Air Core Temperature (Celsius): 36.8 Impression: Primary Impression: Diabetic ketoacidosis Condition: Improved Disposition: HOME OR SELF-CARE Referrals: EDDIE MATHEWS MD (PCP) Problem Qualifiers Primary Impression: Diabetic ketoacidosis Diabetes mellitus type: type 1 Diabetes mellitus complication detail: without coma Qualified Codes: E10.10 - Type 1 diabetes mellitus with ketoacidosis without coma EZEQUIEL HINTON DO Sep 22, 2017 20:17
[2017-09-22] MEDS ORDERED: NS(*) 0.9% 1000 ML BAG 1,000 ML IV ONE ×2 (21:35→23:20)
[2017-09-22] MEDS ORDERED: ONDANSETRON 4 MG/2 ML VIAL IVP ONE (21:35)
[2017-09-22 22:50] LABS: PLATELET COUNT, AUTOMATED 349 K/uL (150-450)
[2017-09-22] MEDS ORDERED: INSU HUM REG 100 U/ML(ER ONLY) 10 ML VIAL IVP ONE (23:10)
[2017-09-22] MEDS ORDERED: SODIUM BICARB 8.4% 50 MEQ/50ML IV ONE (23:20)
[2017-09-22] MEDS ORDERED: INSULIN HUM REG 100 UN/ML 3 ML 100 UNIT in NS(*) 0.9% 100 ML BAG 100 ML IV SCH (23:20)
--- NOTE | 2017-09-22 23:40 | RADIOLOGY IMAGING REPORT ---
FACILITY: [facility] PATIENT NAME: Boy Carter : 1960 MR: [id number] V: [id number] EXAM DATE: ORDERING PHYSICIAN: EZEQUIEL HINTON TECHNOLOGIST: Location: [facility] [place] Patient: Boy Carter : 1960 Visit/Account:[id number] Date of Sevice: 09/22/2017 EXAMINATION: Portable chest radiograph single view at 2302 hours HISTORY: Altered mental status, white blood cells 18,000. Rule out pneumonia. COMPARISON: 09/17/2017. FINDINGS: A single portable AP view of the chest is obtained. Lines/tubes: Right IJ central venous line has been removed. Lungs/pleura: No focal consolidation or pleural effusion. Heart: Negative. Mediastinum: Negative. Bony structures/body wall: Negative. IMPRESSION: No radiographic evidence of acute cardiopulmonary disease or pneumonia. Report Dictated By: Beth Garcia MD at 09/22/2017 11:35 PM Report E-Signed By: Beth Garcia MD at 09/22/2017 11:36 PM WSN:[id number]
[2017-09-23 00:30] VITALS: BP 146/80
[2017-09-23] MEDS ORDERED: NS(*) 0.9% 100 ML BAG 0 ML ONE (00:33)
== END 2017-09-23 01:08 | disposition short-term general hospital (02) ==
LOC: ER 20:51
DX: E10.10 Type 1 diabetes mellitus with ketoacidosis without coma (principal)
CPT/HCPCS: 36416; 71045; 82009; 82803; 82948; 83930; 85025; 96361; 96374; 96375; A0425; A0434; J1815; J2405; J7030; J7050; 82040; 82247; 82310; 82374; 82435; 82565; 82947; 84075; 84132; 84155; 84295; 84450; 84460; 84520; 99285; 99291; 99292

== ENCOUNTER → 2017-09-23 | Outpatient (CLI) | payer SELFPAY ==
[2017-09-08 09:03] VITALS: BMI 23.6
[~2017-09-23] MED LIST changes: +INSU100V24 SQ; +INSU100V24 SUBQ; +MULT400T5 PO; +POTA-28 PO; +TOLN30CR TP
== END ==
LOC: AMB 00:48
PROVIDERS: ATTEND Nurse Practitioner
DX: E11.65 Type 2 diabetes mellitus with hyperglycemia (principal); R53.1 Weakness

== ENCOUNTER 2017-10-01 03:33 | Inpatient (IN) | payer SELFPAY ==
[2017-09-08 09:03] VITALS: Wt 62.6 kg
[2017-10-01] VITALS (26 sets, daily range): BP systolic 84–135; BP diastolic 48–92
[~2017-10-01 03:33] MED LIST changes: -INSU100V24 SQ; -INSU100V24 SUBQ; -MULT400T5 PO; -POTA-28 PO; -TOLN30CR TP
--- NOTE | 2017-10-01 03:42 | ER Report ---
History and Physical Time Seen By MD: 03:41 Hx. of Stated Complaint: FELL YESTERDAY. CALLED EMS TONIGHT BECAUSE BLOOD SUGAR OVER 550. TACHYPNIC AT 28 BREATHS PER MINUTE. HAS RETRACTIONS. HPI/ROS Review of systems: Unable to obtain secondary to patient's condition Allergies: Coded Allergies: No Known Drug Allergies (Verified , 10/01/17) Home Meds Active Scripts Vitamin B Complex (B COMPLEX) 1 Each Tablet, 1 EACH PO DAILY, #30 TAB Prov:ANA MARIA PALACIOS MD 09/19/17 Potassium Chloride (KLOR-CON 10) 10 Meq Tablet.er, 10 MEQ PO BIDBS, #20 TAB 0 Refills Prov:ANA MARIA PALACIOS MD 09/19/17 Insulin Glargine,Hum.rec.anlog (LANTUS SOLOSTAR) 100 Unit/1 Ml Insuln.pen, 10 UNIT SUBQ QDAY, #1 VIAL 1 Refill Prov:ANA MARIA PALACIOS MD 09/19/17 Past Medical/Surgical History Diabetes Hx Smoking: Yes (chewing tobacco) Smoking Status: Light Tobacco Smoker Hx Substance Use Disorder: No Hx Alcohol Use: Yes Constitutional Vital Sign - Last 24 Hours 10/01/17 10/01/17 10/01/17 10/01/17 03:36 03:37 03:45 03:48 Temp 98.1 Pulse 116 ??? Resp 28 27 B/P (MAP) 122/63 122/63 (82) Pulse Ox 100 O2 Delivery Room Air O2 Flow Rate 2.0 10/01/17 10/01/17 10/01/17 10/01/17 04:00 04:00 04:03 04:18 Pulse 110 111 117 Resp 26 27 24 B/P (MAP) 107/80 (89) 118/75 (89) Pulse Ox 97 98 98 O2 Delivery Nasal Cannula O2 Flow Rate 1 10/01/17 10/01/17 10/01/17 10/01/17 04:30 04:33 04:39 04:45 Pulse 118 113 Resp 14 25 B/P (MAP) 95/75 (82) 92/55 (67) Pulse Ox 96 99 O2 Delivery Nasal Cannula O2 Flow Rate 1 10/01/17 10/01/17 10/01/17 10/01/17 04:48 05:00 05:02 05:04 Pulse 116 115 Resp 23 28 B/P (MAP) 88/78 (81) 99/77 (84) 99/77 (84) Pulse Ox 97 97 O2 Delivery Nasal Cannula O2 Flow Rate 1 10/01/17 10/01/17 10/01/17 05:21 05:22 05:53 Temp 93.4 Pulse 116 113 Resp 23 27 B/P (MAP) 94/59 (71) Pulse Ox 97 97 O2 Delivery Nasal Cannula O2 Flow Rate 1 Physical Exam Physical exam: Vital signs noted. General: Patient mildly confused in severe distress. Can strongly smell the odor of ketones upon entering the room Skin: [Warm, dry, without rashes, or lesions]. Head: [Normocephalic, atraumatic]. Eye: [Normal conjunctiva]. ENMT: Dry oral mucosa, no pharyngeal erythema or exudate noted. Neck: [Supple, trachea midline]. Cardiovascular: Tachycardic no gallops or rubs noted no peripheral edema strong palpable pulses in all 4 extremities. Respiratory: Patient can't make with retractions, breath sounds throughout without any wheezes or crackles.. Chest wall: No tenderness deformity or bruises noted. Gastrointestinal: Abdomen soft nontender. Back: No midline tenderness or step-offs. Musculoskeletal: Normal range of motion throughout with normal strength. No palpable tenderness, no deformities. Neurologic: Patient awake and alert and oriented to name and place speech somewhat difficult to ascertain at times most likely secondary to severe dry mucosa Medical Decision Making Data Points Result Diagram: 10/01/17 0346 10/01/17 0525 Laboratory Hematology Test 10/01/17 03:46 10/01/17 04:18 10/01/17 04:36 10/01/17 05:25 Red Blood Count 4.11 M/uL (4.00-5.60) Mean Corpuscular Volume 106.4 fL (80.0-96.0) Mean Corpuscular Hemoglobin 32.0 pg (26.0-33.0) Mean Corpuscular Hemoglobin Concent 30.1 g/dL (32.0-36.0) Red Cell Distribution Width 15.9 % (11.5-14.5) Mean Platelet Volume 7.7 fL (7.2-11.1) Neutrophils (%) (Auto) 84.5 % (39.4-72.5) Lymphocytes (%) (Auto) 11.3 % (17.6-49.6) Monocytes (%) (Auto) 3.5 % (4.1-12.4) Eosinophils (%) (Auto) 0.0 % (0.4-6.7) Basophils (%) (Auto) 0.7 % (0.3-1.4) Nucleated RBC Relative Count (auto) 0.0 /100WBC Neutrophils # (Auto) 12.7 K/uL (2.0-7.4) Lymphocytes # (Auto) 1.7 K/uL (1.3-3.6) Monocytes # (Auto) 0.5 K/uL (0.3-1.0) Eosinophils # (Auto) 0.0 K/uL (0.0-0.5) Basophils # (Auto) 0.1 K/uL (0.0-0.1) Nucleated RBC Absolute Count (auto) 0.01 K/uL Peripheral Blood Smear No Y/N Venous Blood pH 6.90 (7.31-7.41) Venous Blood Partial Pressure CO2 < 25 mmHg Venous Blood Partial Pressure O2 35 mmHg Venous Blood HCO3 4 mmol/L Venous Blood Oxygen Saturation 37 % Venous Blood Base Excess -29 mmol/L Osmolality 339 mOSM/K (275-295) Total Bilirubin 0.4 mg/dl (0.2-1.3) Aspartate Amino Transf (AST/SGOT) 18 U/L (0-35) Alanine Aminotransferase (ALT/SGPT) 30 U/L (0-56) Alkaline Phosphatase 120 U/L (0-126) Total Protein 6.6 gm/dl (6.3-8.2) Albumin 3.9 g/dl (3.5-5.0) Acetone, Qualitative Moderate Lactate 1.7 mmol/L (0.7-2.1) Urine Color Yellow Urine Clarity Clear Urine pH 5.0 pH (4.8-9.5) Urine Specific Lincoln 1.017 Urine Protein Negative mg/dL (NEGATIVE) Urine Glucose (UA) 500 mg/dL (NEGATIVE) Urine Ketones 80 mg/dL (NEGATIVE) Urine Blood Negative (NEGATIVE) Urine Nitrite Negative (NEGATIVE) Urine Bilirubin Negative (NEGATIVE) Urine Urobilinogen Negative mg/dL (0.2-1.9) Urine Leukocyte Esterase Negative (NEGATIVE) Urine RBC None /HPF (0-2/HPF) Urine WBC <1 /HPF (0-5/HPF) Urine Squamous Epithelial Cells Moderate /LPF (NONE-FEW) Urine Bacteria Negative /HPF (NONE-FEW) Urine Hyaline Casts Moderate /LPF (NONE-FEW) Urine Mucus Few /HPF (NONE-FEW) Blood Gas Puncture Site Right radial Blood Gas Patient Temperature Unknown DEGREES Arterial Blood pH 6.97 (7.35-7.45) Arterial Blood Partial Pressure CO2 < 25 mmHg (32-37) Arterial Blood Partial Pressure O2 45 mmHg (60-80) Arterial Blood HCO3 4 mmol/L (20-26) Arterial Blood Oxygen Saturation 57 % (92-100) Arterial Blood Base Excess -28.0 mmol/L Jeffery Test Acceptable Oxygen Liters/Minute Unknown Sodium Level 144 mmol/L (137-145) Potassium Level 4.6 mmol/L (3.5-5.0) Chloride Level 109 mmol/L (98-107) Carbon Dioxide Level < 5 mmol/L (22-30) Blood Urea Nitrogen 21 mg/dl (9-21) Creatinine 1.10 mg/dl (0.66-1.25) Glomerular Filtration Rate Calc > 60.0 Random Glucose 403 mg/dl (75-110) Calcium Level 10.8 mg/dl (8.4-10.2) Test 10/01/17 05:39 Whole Blood Glucose 397 mg/DL (75-110) Chemistry Test 10/01/17 03:46 10/01/17 04:18 10/01/17 04:36 10/01/17 05:25 White Blood Count 15.1 k/uL (4.5-11.0) Red Blood Count 4.11 M/uL (4.00-5.60) Hemoglobin 13.2 g/dL (14.0-18.0) Hematocrit 43.8 % (42.0-52.0) Mean Corpuscular Volume 106.4 fL (80.0-96.0) Mean Corpuscular Hemoglobin 32.0 pg (26.0-33.0) Mean Corpuscular Hemoglobin Concent 30.1 g/dL (32.0-36.0) Red Cell Distribution Width 15.9 % (11.5-14.5) Platelet Count 431 K/uL (150-450) Mean Platelet Volume 7.7 fL (7.2-11.1) Neutrophils (%) (Auto) 84.5 % (39.4-72.5) Lymphocytes (%) (Auto) 11.3 % (17.6-49.6) Monocytes (%) (Auto) 3.5 % (4.1-12.4) Eosinophils (%) (Auto) 0.0 % (0.4-6.7) Basophils (%) (Auto) 0.7 % (0.3-1.4) Nucleated RBC Relative Count (auto) 0.0 /100WBC Neutrophils # (Auto) 12.7 K/uL (2.0-7.4) Lymphocytes # (Auto) 1.7 K/uL (1.3-3.6) Monocytes # (Auto) 0.5 K/uL (0.3-1.0) Eosinophils # (Auto) 0.0 K/uL (0.0-0.5) Basophils # (Auto) 0.1 K/uL (0.0-0.1) Nucleated RBC Absolute Count (auto) 0.01 K/uL Peripheral Blood Smear No Y/N Venous Blood pH 6.90 (7.31-7.41) Venous Blood Partial Pressure CO2 < 25 mmHg Venous Blood Partial Pressure O2 35 mmHg Venous Blood HCO3 4 mmol/L Venous Blood Oxygen Saturation 37 % Venous Blood Base Excess -29 mmol/L Osmolality 339 mOSM/K (275-295) Total Bilirubin 0.4 mg/dl (0.2-1.3) Aspartate Amino Transf (AST/SGOT) 18 U/L (0-35) Alanine Aminotransferase (ALT/SGPT) 30 U/L (0-56) Alkaline Phosphatase 120 U/L (0-126) Total Protein 6.6 gm/dl (6.3-8.2) Albumin 3.9 g/dl (3.5-5.0) Acetone, Qualitative Moderate Lactate 1.7 mmol/L (0.7-2.1) Urine Color Yellow Urine Clarity Clear Urine pH 5.0 pH (4.8-9.5) Urine Specific Lincoln 1.017 Urine Protein Negative mg/dL (NEGATIVE) Urine Glucose (UA) 500 mg/dL (NEGATIVE) Urine Ketones 80 mg/dL (NEGATIVE) Urine Blood Negative (NEGATIVE) Urine Nitrite Negative (NEGATIVE) Urine Bilirubin Negative (NEGATIVE) Urine Urobilinogen Negative mg/dL (0.2-1.9) Urine Leukocyte Esterase Negative (NEGATIVE) Urine RBC None /HPF (0-2/HPF) Urine WBC <1 /HPF (0-5/HPF) Urine Squamous Epithelial Cells Moderate /LPF (NONE-FEW) Urine Bacteria Negative /HPF (NONE-FEW) Urine Hyaline Casts Moderate /LPF (NONE-FEW) Urine Mucus Few /HPF (NONE-FEW) Blood Gas Puncture Site Right radial Blood Gas Patient Temperature Unknown DEGREES Arterial Blood pH 6.97 (7.35-7.45) Arterial Blood Partial Pressure CO2 < 25 mmHg (32-37) Arterial Blood Partial Pressure O2 45 mmHg (60-80) Arterial Blood HCO3 4 mmol/L (20-26) Arterial Blood Oxygen Saturation 57 % (92-100) Arterial Blood Base Excess -28.0 mmol/L Jeffery Test Acceptable Oxygen Liters/Minute Unknown Glomerular Filtration Rate Calc > 60.0 Calcium Level 10.8 mg/dl (8.4-10.2) Test 10/01/17 05:39 Whole Blood Glucose 397 mg/DL (75-110) Toxicology Test 10/01/17 03:46 Acetone, Qualitative Moderate Urinalysis Test 10/01/17 04:36 Urine Color Yellow Urine Clarity Clear Urine pH 5.0 pH (4.8-9.5) Urine Specific Lincoln 1.017 Urine Protein Negative mg/dL (NEGATIVE) Urine Glucose (UA) 500 mg/dL (NEGATIVE) Urine Ketones 80 mg/dL (NEGATIVE) Urine Blood Negative (NEGATIVE) Urine Nitrite Negative (NEGATIVE) Urine Bilirubin Negative (NEGATIVE) Urine Urobilinogen Negative mg/dL (0.2-1.9) Urine Leukocyte Esterase Negative (NEGATIVE) Urine RBC None /HPF (0-2/HPF) Urine WBC <1 /HPF (0-5/HPF) Urine Squamous Epithelial Cells Moderate /LPF (NONE-FEW) Urine Bacteria Negative /HPF (NONE-FEW) Urine Hyaline Casts Moderate /LPF (NONE-FEW) Urine Mucus Few /HPF (NONE-FEW) ED Course/Re-evaluation ED Course 56-year-old male with known history controlled diabetes presents with nausea vomiting or confusion with elevated glucose. Ketones obvious on patient's breath , patient tacypnic secondary to respiratory alkalosis to compensate for severe metabolic acidosis. Initial pH returned at 6.9. IV fluid bolus started immediately and sodium bicarbonate given upon return of his pH. Initial EKG shows a sinus tach with peaked T waves consistent with elevated potassium. Insulin bolus of 8 units given. Potassium returned at 6.9. Patient started on an insulin drip. Patient's heart rate improved to the 1 teens and his pressure remained in the mid to upper 90s systolic emergency department. Repeat venous gas and electrolytes showed no significant change in his venous pH so repeat bicarbonate given. Potassium markedly improved. Chest x-ray clear with no obvious signs of pneumonia. No evidence of fractured ribs from his fall either. UA without signs of infection as well. Discussed case with hospitalist and admitted to the ICU in critical condition. Decision to Disposition Date: Oct 01, 2017 Decision to Disposition Time: 05:37 Critical Care Time Critical care note Total time: 90 minutes. Critical care time mutually exclusive of separate billable procedures. Critical care conditions addressed for pending deterioration include airway, cardiovascular, SOLID PLASTERER, metabolic Associated risk factors include hypotension metabolic changes, dysrhythmia, hypoxia, acidosis, electrolyte abnormalities, dysrhythmia Management: Bedside assessment Interpretation: [Chest x-ray], [blood gases], [EKG], [blood pressure], Interventions: Hemodynamic management, correction of acidosis, hyperglycemia, Case review: Hospitalist, nursing, family Alternate history: Family and EMS Performed by myself Depart Departure Latest Vital Signs Vital Signs Date Time Temp Pulse Resp B/P (MAP) Pulse Ox O2 Delivery O2 Flow Rate FiO2 10/01/17 05:53 113 27 94/59 (71) 97 Nasal Cannula 1 10/01/17 05:21 93.4 Core Temperature (Celsius): 36.8 Impression: Primary Impression: DKA (diabetic ketoacidoses) Additional Impressions: Metabolic acidosis Hyperglycemia Hyperkalemia Dehydration Condition: Critical Disposition: Admitted from ER Referrals: EDDIE MATHEWS MD (PCP) Problem Qualifiers PATTIE MICHELE MD Oct 01, 2017 03:41
[2017-10-01] MEDS ORDERED: NS(*) 0.9% 1000 ML BAG 1,000 ML IV ONE ×2 (03:45)
[2017-10-01 04:00] LABS: PLATELET COUNT, AUTOMATED 431 K/uL (150-450)
[2017-10-01] MEDS ORDERED: SODIUM BICARB 8.4% 50 MEQ/50ML IV ONE ×2 (04:05→05:55)
[2017-10-01] MEDS ORDERED: SODIUM BICAR(* 8.4% 50 ML SYR 50 ML SYR ONE (04:08)
[2017-10-01] MEDS ORDERED: SODIUM BICAR(* 8.4% 50 ML SYR 50 ML SYR IVP ONE ×2 (04:10→05:40)
[2017-10-01] MEDS ORDERED: INS HUM LISPRO 100U/ML (ER ONLY) 10 ML VIAL IV ONE (04:15)
[2017-10-01] MEDS ORDERED: INSU HUM REG 100 U/ML(ER ONLY) 10 ML VIAL ONE (04:23)
--- NOTE | 2017-10-01 04:24 | EKG ---
FACILITY: [facility] [place] PATIENT NAME: ALLY NOONAN : [id number] MR: [id number] V: [id number] EXAM DATE: ORDERING PHYSICIAN: PATTIE MICHELE TECHNOLOGIST: TIMOTHY Test Reason : DKA Blood Pressure : / mmHG Vent. Rate : 112 BPM Atrial Rate : 112 BPM P-R Int : 150 ms QRS Dur : 086 ms QT Int : 356 ms P-R-T Axes : 072 070 046 degrees QTc Int : 485 ms Sinus tachycardia Possible Left atrial enlargement Borderline ECG When compared with ECG of 14-SEP-2017 11:29, Now with peaked T waves in the anterior leads Confirmed by RACHEL HERRERA ([id number]) on 10/01/2017 6:00:48 AM Referred By: Confirmed By:RACHEL HERRERA
[2017-10-01] MEDS ORDERED: INS HUM REG* 100 U/ML(ER ONLY) 100 UNIT in NS(*) 0.9% 100 ML BAG 99 ML IVPB ONE (04:25)
[2017-10-01] MEDS ORDERED: NS 0.9% IV ONE (05:25)
--- NOTE | 2017-10-01 05:31 | RADIOLOGY IMAGING REPORT ---
FACILITY: [facility] PATIENT NAME: Boy Carter : 1960 MR: [id number] V: [id number] EXAM DATE: ORDERING PHYSICIAN: PATTIE MICHELE TECHNOLOGIST: Location: [facility] Patient: Boy Cartre : 1960 Visit/Account:[id number] Date of Sevice: 10/01/2017 PORTABLE CHEST: Indication: Tachypnea. Technique: A single frontal film was obtained. Comparison: 09/22/2017 Skeletal and soft tissue structures: Intact and unremarkable. Heart and mediastinum: Within normal limits. Lung green: Well-expanded and clear. No focal or diffuse opacities. Pleural spaces: Unremarkable. Impression: No acute process or significant change. Report Dictated By: Adam Ford MD at 10/01/2017 5:26 AM Report E-Signed By: Adam Ford MD at 10/01/2017 5:27 AM WSN:[id number]
[2017-10-01] MEDS ORDERED: INSULIN HUM REG 100 UN/ML 3 ML 100 UNIT in NS(*) 0.9% 100 ML BAG 100 ML IV SCH ×2 (05:42→07:59)
[2017-10-01] MEDS ORDERED: NS(*) 0.9% 1000 ML BAG 1,000 ML IV PRN ×2 (05:45→07:59)
[2017-10-01] MEDS ORDERED: D5 1/2 NS(*) 1000 ML BAG 1,000 ML IV PRN (05:45)
--- NOTE | 2017-10-01 06:31 | History & Physical ---
History of Present Illness History of Present Illness 56yo male with T1DM who was brought to the ER for persistently elevated glucose , AMS and heavy breathing. In the last month, the patient has been admitted to the hospital for DKA x2 and hypoglycemia x1. Since the admission for hypoglycemia (09/14-09/19), he has not been as cognitively aware. His sister-in- law has taken over his insulin management and he has been living with her. He was last at [facility]. He was discharged home 5 days ago. 4 days ago, his glucose ranged from 208-274. 3 days ago, his glucose ranged from 294-301. 2 days ago, his glucose ranged from 255-455. He had a fall in the bathroom that was unwitnessed, but reported pain in the left ribs. He also had a vomiting episode that day. He started breathing heavy during that night. Yesterday, his glucose ranged from 241-512 and he didn't get Lantus because she was checking his glucose more often and covering with Humalog, so she concerned about giving Lantus and Humalog at the same time. He continued to be breathing heavy and he was getting more and more confused. Because of the persistently high glucose and AMS, she called EMS. The patient hasn't reported cough or dysuria. She hasn't noticed any skin changes, but he does have some small red areas on his arms that have persisted since his previous admission. The patient denies pain, but he isn't able to given any consistent answers. In the ER, he was given 8 units of IV insulin, 2 liters of IVF, 2 amps of bicarb , and started on an insulin drip at about 7 units an hour. History Problems: (1) History of depression Status: Chronic (2) Type 1 diabetes mellitus Status: Chronic (3) Alcohol use Status: Chronic Home Meds Active Scripts Vitamin B Complex (B COMPLEX) 1 Each Tablet, 1 EACH PO DAILY, #30 TAB Prov:ANA MARIA PALACIOS MD 09/19/17 Potassium Chloride (KLOR-CON 10) 10 Meq Tablet.er, 10 MEQ PO BIDBS, #20 TAB 0 Refills Prov:ANA MARIA PALACIOS MD 09/19/17 Insulin Glargine,Hum.rec.anlog (LANTUS SOLOSTAR) 100 Unit/1 Ml Insuln.pen, 10 UNIT SUBQ QDAY, #1 VIAL 1 Refill Prov:ANA MARIA PALACIOS MD 09/19/17 Allergies: Coded Allergies: No Known Drug Allergies (Verified , 10/01/17) Patient History: Blood clots MOTHER Cardiac pacemaker MOTHER FH: gastric ulcer MOTHER FH: heart attack FATHER MOTHER FH: hypertension FATHER FH: stroke MOTHER Other Social/Family Hx Not currently drinking. Living with [id number] Hx Smoking: Yes (chewing tobacco) Smoking Status: Light Tobacco Smoker Caffeine Intake: Coffee Caffeine/Cups Per Day: 5 Hx Alcohol Use: Yes Hx Substance Use Disorder: Yes Social Drugs: Marijuana Exam Vital Signs Vital Signs Date Time Temp Pulse Resp B/P (MAP) Pulse Ox O2 Delivery O2 Flow Rate FiO2 10/01/17 05:53 113 27 94/59 (71) 97 Nasal Cannula 1 10/01/17 05:21 93.4 General Appearance: Awake, Other (Tachypneic) Neuro: Other (Not answering questions appropriately) ENT: Other (dry mmm) Cardiovascular: Other (tachy, regular) Respiratory: Clear to Auscultation Chest: No Tenderness GI: Abd Soft and Non-Tender : No CVA Tenderness Extremities: No Edema Integumentary: No Jaundice, No Cyanosis Medical Decision Making Data Points Result Diagram: 10/01/17 0346 10/01/17 0525 Item Value Date Time Neutrophils (%) (Auto) 84.5 % H 10/01/17 0346 Lymphocytes (%) (Auto) 11.3 % L 10/01/17 0346 Monocytes (%) (Auto) 3.5 % L 10/01/17 0346 Eosinophils (%) (Auto) 0.0 % L 10/01/17 0346 Arterial Blood pH 6.97 *L 10/01/17 0525 Arterial Blood Partial Pressure CO2 < 25 mmHg L 10/01/17 0525 Arterial Blood Partial Pressure O2 45 mmHg *L 10/01/17 0525 Arterial Blood HCO3 4 mmol/L *L 10/01/17 0525 Arterial Blood Oxygen Saturation 57 % L 10/01/17 0525 Arterial Blood Base Excess -28.0 mmol/L 10/01/17 0525 Venous Blood pH 6.90 L 10/01/17 0346 Venous Blood Partial Pressure CO2 < 25 mmHg 10/01/17 0346 Venous Blood Partial Pressure O2 35 mmHg 10/01/17 0346 Venous Blood HCO3 4 mmol/L 10/01/17 0346 Venous Blood Base Excess -29 mmol/L 10/01/17 0346 Venous Blood Oxygen Saturation 37 % 10/01/17 0346 Sodium Level 138 mmol/L 10/01/17 0346 Potassium Level 6.9 mmol/L *H 10/01/17 0346 Chloride Level 103 mmol/L 10/01/17 0346 Carbon Dioxide Level < 5 mmol/L *L 10/01/17 0346 Blood Urea Nitrogen 22 mg/dl H 10/01/17 0346 Creatinine 1.30 mg/dl H 10/01/17 0346 Glomerular Filtration Rate Calc 56.9 10/01/17 0346 Random Glucose 487 mg/dl H 10/01/17 0346 Calcium Level 9.4 mg/dl 10/01/17 0346 Total Bilirubin 0.4 mg/dl 10/01/17 0346 Alanine Aminotransferase (ALT/SGPT) 30 U/L 10/01/17 0346 Alkaline Phosphatase 120 U/L 10/01/17 0346 Aspartate Amino Transf (AST/SGOT) 18 U/L 10/01/17 0346 Calcium Level 10.8 mg/dl H 10/01/17 0525 Lactate 1.7 mmol/L 10/01/17 0418 Sodium Level 144 mmol/L 10/01/17 0525 Potassium Level 4.6 mmol/L 10/01/17 0525 Chloride Level 109 mmol/L H 10/01/17 0525 Carbon Dioxide Level < 5 mmol/L *L 10/01/17 0525 Blood Urea Nitrogen 21 mg/dl 10/01/17 0525 Creatinine 1.10 mg/dl 10/01/17 0525 Whole Blood Glucose 397 mg/DL H 10/01/17 0539 Random Glucose 403 mg/dl H 10/01/17 0525 Whole Blood Glucose 407 mg/DL H 10/01/17 0458 Osmolality 339 mOSM/K H 10/01/17 0346 Urine Leukocyte Esterase Negative 10/01/17 0436 Urine RBC None /HPF 10/01/17 0436 Urine WBC <1 /HPF 10/01/17 0436 Urine Squamous Epithelial Cells Moderate /LPF H 10/01/17 0436 Urine Bacteria Negative /HPF 10/01/17 0436 Urine Hyaline Casts Moderate /LPF H 10/01/17 0436 Urine Glucose (UA) 500 mg/dL 10/01/17435 Urine Ketones 80 mg/dL H 10/01/17 0436 Urine Mucus Few /HPF 10/01/17 043 Acetone, Qualitative Moderate 10/01/17 0346 EKG / Imaging EKG Interpretation Vent. Rate : 112 BPM Atrial Rate : 112 BPM P-R Int : 150 ms QRS Dur : 086 ms QT Int : 356 ms P-R-T Axes : 072 070 046 degrees QTc Int : 485 ms Sinus tachycardia Possible Left atrial enlargement Borderline ECG When compared with ECG of 14-SEP-2017 11:29, Now with peaked T waves in the anterior leads Confirmed by RACHEL HERRERA ([id number]) on 10/01/2017 6:00:48 AM Imaging Vent. Rate : 112 BPM Atrial Rate : 112 BPM P-R Int : 150 ms QRS Dur : 086 ms QT Int : 356 ms P-R-T Axes : 072 070 046 degrees QTc Int : 485 ms Sinus tachycardia Possible Left atrial enlargement Borderline ECG When compared with ECG of 14-SEP-2017 11:29, Now with peaked T waves in the anterior leads Confirmed by RACHEL HERRERA ([id number]) on 10/01/2017 6:00:48 AM Assessment and Plan Problems: (1) DKA (diabetic ketoacidoses) Status: Acute Assessment & Plan: He presented with 4 days of glucose persistently in the 300' s to 400's and about 24 hours of breathing fast. He didn't get Lantus yesterday because his rdbjpq-qv-nte was concerned about giving Humalog and Lantus at the same time. He has a pH of 6.9, <5 bicarbonate and an AG in the 30 's. He has received 3 units of bicarbonate, now. The hyperkalemia has resolved. He is on the insulin drip at 7 units/hour. He will be getting hourly glucose and q4 hour BMP. ABG with the next lab. The patient has had 4 admissions in the last month. 3 for DKA and one for hypoglycemia. He is now living with his [id number] and she is managing his Lantus/Humalog. She needs education on DM, and people to call for questions. (2) Hyperkalemia Status: Acute Assessment & Plan: Secondary to acidosis. He had peaked T waves. K now wnl. Will need to follow closely for hypoglycemia. Venous Thromboembolism Antithrombotics Is Pt On Any Antithrombotics?: No Exam Sepsis Risk: No Definite Risk RACHEL HERRERA MD Oct 01, 2017 06:31
[2017-10-01] MEDS: ENOXAPARIN 40 MG/0.4ML SYR SC SCH (09:07)
[2017-10-01] MEDS: PANTOPRAZOLE SOD 40 MG IV VIAL IVP SCH (09:07)
[2017-10-01] MEDS: D5 1/2 NS(*) 1000 ML BAG 1,000 ML IV PRN ×2 (11:22→18:10)
[2017-10-01] MEDS ORDERED: INSU100V24 SQ ×2 (14:20→14:24)
[2017-10-01] MEDS ORDERED: TOLN30CR TP (14:29)
[2017-10-01] MEDS ORDERED: LANI SUBQ (14:32)
[2017-10-01] MEDS ORDERED: MULT400T5 PO (14:37)
[2017-10-01] MEDS ORDERED: POTA-28 PO (14:38)
[2017-10-01] MEDS ORDERED: NS 0.9% IVPB ONE (15:00)
[2017-10-01] MEDS ORDERED: POTASSIUM PHOS IVPB ONE (15:00)
--- NOTE | 2017-10-01 15:45 | Medical Nutrition Therapy ---
Nutrition Anthropometrics Weight (Pounds): 138 Weight (Calculated Kilograms): 62.596 BMI Calculated: 23.56 Stanton Nutrition Score: Stanton Nutrition Risk Score: Dietary Referral Nutrition Risk Factors: Special Diet Nutrition Risk Comment: PT IS DIABETIC Nutritional Diagnosis Nutritional Risk Acuity 2: Blood Glucose > 300mg/dl, DKA Nutritional Risk Acuity 3: Alcohol abuse Past Medical History: HX of Alcohol abuse (4-5 beers/day), T1DM, Depression, chew Tobacco, dysphagia Nutritional Acuity: 2-Moderate Nutrition Diagnosis: Inconsistent Carb. Intake Nutrition Etiology: Physiological Causes Nutrition Problem/Etiology/Sym: AEB dx DKA with admitting BG 316, positive ketones Energy Requirement: 1850 (30gm/kg) Protein Requirement: 63 (1gm/kg) Fluid Requirement: 1850 (3oml/kg) Diet Type: NPO (Nothing by Mouth) Nutrition Intervention: Incr diet as tolerated Nutrition Monitoring & Eval Nutrition Goals: Eat 75-100% Meal RD Patient Assessment Time: [address] Assessment Type: RD Assessment Patient Nutrition Acuity: 2-Moderate Follow Up Date: Oct 06, 2017 Nutritional Comment: 10/01 Pt admitted for AMS and DKA with BG 316. Sister has been caring for pt with insulin and meals. Will provide diabetic education to sister. Alb3.9. Currently NPO. Pt was on dysphagia 3 diet last admit per [facility], Pt may need ADA, dyspagia 3 diet with diet advances. Will cont to monitor. JERI MCNALLY Oct 01, 2017 15:45
--- NOTE | 2017-10-01 16:26 | Miscellaneous Provider Note ---
Miscellaneous Provider Note Note Glucoses and acidosis are improving on the IV insulin. His potassium level has remained in normal range, but phosphorus has dropped significantly. Will replace with IV Kphos. Watch electrolytes closely. ANA MARIA PALACIOS MD Oct 01, 2017 16:26
[2017-10-02] VITALS (17 sets, daily range): BP systolic 110–160; BP diastolic 59–97
[2017-10-02] MEDS: D5 1/2 NS(*) 1000 ML BAG 1,000 ML IV PRN (00:59)
[2017-10-02 05:46] LABS: PLATELET COUNT, AUTOMATED 269 K/uL (150-450)
[2017-10-02] MEDS ORDERED: KCL (*) 20 MEQ/100 ML PREMIX 100 ML IV ONE (06:25)
[2017-10-02] MEDS ORDERED: KCL 2 MEQ/ML 20 MEQ/10 ML VIAL 20 MEQ in D5 1/2 NS(*) 1000 ML BAG 1,000 ML IV PRN (06:25)
[2017-10-02] MEDS ORDERED: KCL/D1/2NS 20 MEQ 1000 ML 1,000 ML IV SCH ×2 (06:40→14:23)
[2017-10-02] MEDS: INSULIN GLARGINE 100 U/ML 3 ML PEN SUBQ SCH (09:13)
[2017-10-02] MEDS: ENOXAPARIN 40 MG/0.4ML SYR SC SCH (09:13)
[2017-10-02] MEDS: PANTOPRAZOLE SOD 40 MG IV VIAL IVP SCH (09:14)
--- NOTE | 2017-10-02 12:01 | Hospitalist Progress Note ---
Subjective Progress Notes Subjective The patient denies new complaints. He denies pain. Physical Exam Vital Signs Date Time Temp Pulse Resp B/P (MAP) Pulse Ox O2 Delivery O2 Flow Rate FiO2 10/02/17 07:50 98.3 68 12 115/64 (81) 93 Room Air 10/01/17 05:53 1 Intake and Output 10/03/17 07:00 Intake Total 600 ml Output Total 650 ml Balance -50 ml Intake Oral 600 ml Output Urine Total 650 ml General Appearance: Alert, Awake, No Acute Distress Neuro: No Gross deficits Eyes: PERRLA Cardiovascular: Regular Rate and Rhythm Respiratory: Clear to Auscultation GI: Other (Soft, nondistended. Tender in the midepigastrium to deep palpation. No masses, rebound or guarding.) Extremities: Warm, Perfused Integumentary: Skin Intact without Lesion / Mass Psych: Appropriate Mood & Affect Result Diagram: 10/02/1751910/02/17519 Assessment and Plan Problems: (1) DKA (diabetic ketoacidoses) Status: Acute Assessment & Plan: He presented with 4 days of glucose persistently in the 300' s to 400's and about 24 hours of tachypnea. He didn't get Lantus the day prior to admission because his zfgneb-xi-ivf was concerned about giving Humalog and Lantus at the same time. He had a pH of 6.9, <5 bicarbonate and an AG in the 30 's. He received 3 units of bicarbonate. The hyperkalemia resolved. He continued on the insulin drip. His anion gap improved. Glucose is down to 113. Will stop gtt today and put him back on his usual Lantus plus SSI. Start diabetic diet. The patient has had 4 admissions in the last month. 3 for DKA and one for hypoglycemia. He is now living with his rtskwb-ny-obb and she is managing his Lantus/Humalog. She needs education on DM, and people to call for questions. (2) Hyperkalemia Status: Acute Assessment & Plan: Secondary to acidosis. He had peaked T waves. Potassium is now low. Time Spent on Plan of Care: < 30 min Exam Sepsis Risk: No Definite Risk HENRY PALACIOS MD Oct 02, 2017 12:01
[2017-10-03 02:09] VITALS: BP 157/92
[2017-10-03 05:37] LABS: PLATELET COUNT, AUTOMATED 270 K/uL (150-450)
[2017-10-03] MEDS: INSULIN HUM LISPRO 100 UN/ML 3 ML VIAL SUBQ PRN ×4 (06:13→21:22)
[2017-10-03 07:27] VITALS: BP 139/89
[2017-10-03] MEDS: POTASSIUM CHL 20 MEQ TABCR PO SCH (09:10)
[2017-10-03] MEDS: PANTOPRAZOLE SOD 40 MG IV VIAL IVP SCH (09:10)
[2017-10-03] MEDS: INSULIN GLARGINE 100 U/ML 3 ML PEN SUBQ SCH (09:11)
[2017-10-03] MEDS: ENOXAPARIN 40 MG/0.4ML SYR SC SCH (09:11)
[2017-10-03 11:13] VITALS: BP 137/89
--- NOTE | 2017-10-03 11:59 | Hospitalist Progress Note ---
Subjective Progress Notes Subjective He denies any problems today. Eating and drinking well. Physical Exam Vital Signs Date Time Temp Pulse Resp B/P (MAP) Pulse Ox O2 Delivery O2 Flow Rate FiO2 10/03/17 11:13 98.3 67 14 137/89 (105) 94 Room Air 10/01/17 05:53 1 Intake and Output 10/04/17 07:00 Intake Total 403 ml Balance 403 ml Intake Oral 403 ml # Voids 1 General Appearance: Alert, Awake Neuro: No Gross deficits Cardiovascular: Regular Rate and Rhythm Respiratory: Clear to Auscultation GI: Soft and Non-Tender Extremities: Warm, Perfused Psych: Alert & Oriented X3 Result Diagram: 10/03/1751910/03/17519 Assessment and Plan Problems: (1) DKA (diabetic ketoacidoses) Status: Acute Assessment & Plan: He presented with 4 days of glucose persistently in the 300 to 400 range and about 24 hours of tachypnea. He didn't get Lantus the day prior to admission because his hyscwx-ha-mta was concerned about giving Humalog and Lantus at the same time. He had a pH of 6.9, <5 bicarbonate and an AG in the 30's. He received 3 units of bicarbonate. The hyperkalemia has resolved. He continued on the insulin drip. His anion gap improved. Glucose improved. He is now off IV insulin and back on his usual Lantus plus SSI. ADA diet. The patient has had 4 similar admissions in the last month - three for DKA and one for hypoglycemia. He is now living with his iglmil-wq-ayh and she is managing his Lantus/Humalog. We will have SW visit with patient and family to develop a care plan to help him manage his diabetes. (2) Hyperkalemia Status: Acute Assessment & Plan: Resolved. Secondary to acidosis. Exam Sepsis Risk: No Definite Risk ANA MARIA PALACIOS MD Oct 03, 2017 11:58
--- NOTE | 2017-10-03 12:04 | SPEECH INITIAL EVALUATION ---
SPEECH THERAPY vault person: Rachel Jacobo MS, CCC-FAN BALANCER, DARIANA Guerra Type of Assessment: Dysphagia Evaluation Patient: Boy Carter : 1960, 56yrs Evaluation Date: 10-02-2017 BACKGROUND The pt is a 56 year old male who was admitted to the [facility] emergency room on 2017 for a fall and elevated blood sugar levels. The pts medical hx is consistent with diabetes, acute kidney failure, and alcohol abuse. The patient was previously admitted to [facility] on 09-08-2017 for detox and on 09-14-17 for altered level of consciousness. Nursing staff reported that he was up frequently the previous night due to his blood sugar levels. A ST cognitive evaluation was ordered to assess the pts current cognitive status. COGNITION The [place] Cognitive Assessment (MoCA) was administered with the following results: -MoCA Total Score (TS): 18/30 = mild cognitive impairment (MCI) -Cognitive Domains Demonstrating Deficits: attention, abstraction, and delayed recall -Cognitive Domains Demonstrating Strength: visuospatial, naming, immediate recall, and language Cognitive- Linguistic deficits impact swallow function/safety, or response to therapy: Yes Functional Communication Deficits: The patient presents with cognitive linguistic deficits that reduce functional communication and participation at home and in the community, reducing safety and independence. The patient is no longer managing his insulin doses and relies on his sister for assistance with that. However, the score from the MoCA may not be a reliable measure of the patients true cognitive performance, as the nurse reported that he had limited sleep the night before. Functional Communication Deficits impact swallow function/safety, or response to therapy: Yes SPEECH: Articulation of speech sounds at word, sentence, and conversational level is wnl. VOICE: within functional limits DYSPHAGIA: Clinical swallow evaluation completed on 09-17-2017. Pt presented w/ mild oropharyngeal dysphagia and ST recommended a dysphagia 3 diet w/H2O only at that time. SUMMARY COGNITION/LANGUAGE SUMMARY Cognitive Deficits: Mild to moderate deficits. Please see above for details FUNCTIONAL COMMUNICATION The patient presents with mild cognitive linguistic deficits that reduce functional communication in the home and community, reducing safety and independence. Safety and independence concerns may be increased given the patients history of alcohol abuse and altered mental status. A reassessment using the MoCA may provide a more accurate description of the patients current cognitive status, given that the patient was reportedly tired from lack of sleep. The patient will benefit from ST to address current deficits and allow him to reach personal goals of returning to IADLS. RECOMMENDATIONS 1. ST 3x/wk to address cognitive deficits for increasing safety and independence with IADLs. PROGNOSIS: Good. Patient reports some family support. PLAN OF CARE Short Term Goals 1. The patient will perform executive function (i.e. thought organization and planning) for successful functional communication related to patient independence / safety / social interaction / care and comfort/ medical details independently at 95%. 2. The patient will recall 4-5 safety precautions related to independent living (e.g., medication management, medical emergencies, etc.). Long-Term Goals 1. The patient will complete IADLs given min assist. Thank you for this referral. Please call [phone] Rachel Jacobo M.S., CCC-FAN BALANCER, Tiffanie Downs, [facility] Physician Signature Date MTDD
[2017-10-03 15:12] VITALS: BP 129/83
[2017-10-03 21:19] VITALS: BP 141/81
[2017-10-03 23:06] VITALS: BP 139/84
[2017-10-04 04:04] VITALS: BP 140/87
[2017-10-04 06:19] LABS: PLATELET COUNT, AUTOMATED 278 K/uL (150-450)
[2017-10-04 07:32] VITALS: BP 132/94
[2017-10-04] MEDS: INSULIN HUM LISPRO 100 UN/ML 3 ML VIAL SUBQ PRN (07:38)
[2017-10-04] MEDS: POTASSIUM CHL 20 MEQ TABCR PO SCH (08:55)
[2017-10-04] MEDS: ENOXAPARIN 40 MG/0.4ML SYR SC SCH (08:55)
[2017-10-04] MEDS: PANTOPRAZOLE SOD 40 MG IV VIAL IVP SCH (08:55)
[2017-10-04] MEDS: INSULIN GLARGINE 100 U/ML 3 ML PEN SUBQ SCH (08:55)
[2017-10-04 11:07] VITALS: BP 106/74
--- NOTE | 2017-10-04 11:11 | Medical Nutrition Therapy ---
Nutrition Anthropometrics Weight (Pounds): 138 Weight (Calculated Kilograms): 62.596 BMI Calculated: 23.56 Stanton Nutrition Score: Adequate Stanton Nutrition Risk Score: 21 Dietary Referral Nutrition Risk Factors: Special Diet Nutrition Risk Comment: PT IS DIABETIC Physical Findings Physical Appearance: Underweight BMI<19 Skin Appearance Skin Appearance: Edema Edema Location Modifier: Edema Location: Type of Edema: Degree of Edema: Gastrointestinal Symptoms GI Symtoms: Diarrhea, Change in Bowel Pattern Tube Present: Bowel Sounds: Recent Bowel Pattern: Stool Characteristics: Nutritional Education Nutrition Education Topic: Diabetic Nutrition Learning Readiness: Interested Teaching Methods: Discussion, Handout Response to Teaching: Verbalize understanding Teaching Recipient: Patient, Family Nutrition Counseling: RD and RN met with pt and sister in law to talk about care at home. RN discussed insulin care with Lantus and Humalog. I went over the plate method following a 60 g/meal and gave handout for reinforcement. Both pt and sister in law seemed to have an understanding of the changes to diet. Talked about how physical activity and different foods will effect BG. Sister in law keeps a log of BG and will write down foods he eats too. LOUIS ROMERO Oct 04, 2017 11:11
[2017-10-04] MEDS ORDERED: INSU100V24 SUBQ (11:30)
--- NOTE | 2017-10-04 11:34 | Hospitalist Depart ---
Discharge Summary Reason for Hosp/Final Diag: (1) DKA (diabetic ketoacidoses) Status: Acute Hospital Course & Plan: He presented with hyperglycemia and an elevated anion gap. He was treated with IV insulin and fluid resuscitation. He was eventually converted back to subcutaneous insulin. He will discharge on Lantus and sliding scale level #2. (2) Hyperkalemia Status: Acute Hospital Course & Plan: Resolved with treatment of his DKA. Departure Latest Vital Signs Vital Signs 10/01/17 10/04/17 10/04/17 05:53 07:32 11:07 Temp 98.7 Pulse 97 Resp 18 B/P (MAP) 106/74 (85) Pulse Ox 91 O2 Delivery Room Air O2 Flow Rate 1 Weight (Pounds): 138 Weight (Ounces): 8.0 Result Diagram: 10/04/17 0541 10/04/17 05 Condition: Improved Discharge: Home, Self Care Discharge Instructions Home Meds Active Scripts Insulin Lispro (HUMALOG) 100 Unit/1 Ml Vial, 2-10 UNIT SUBQ SS Y for SLIDING SCALE INSULIN, #1 VIAL Prov:ELIZABETH GTZ DO 10/04/17 Vitamin B Complex (B COMPLEX) 1 Each Tablet, 1 EACH PO DAILY, #30 TAB Prov:ANA MARIA PALACIOS MD 09/19/17 Reported Medications Potassium Chloride (POTASSIUM CHLORIDE) 10 Meq Tablet.er, 10 MEQ PO BIDBS 10/01/17 Multivitamin With Folic Acid (ONE DAILY MULTIVITAMIN TABLET) 400 Mcg Tablet, 400 MCG PO QDAY 10/01/17 Insulin Glargine (LANTUS) 100 Unit/Ml Soln, 12 UNIT SUBQ QDAY, ML 10/01/17 Tolnaftate (TINACTIN) 30 Gm Cream..g., 30 GM TP BID 10/01/17 Discontinued Reported Medications Insulin Lispro (HUMALOG) 100 Unit/1 Ml Vial, 1-3 UNIT SQ, VIAL At bedtime: If less than 200, no insulin If Greater than 201 and less than 250, 1 unit If Greater than 251 and less than 300, 2 units If Greater than 301, 3 units and call doctor 10/01/17 Insulin Lispro (HUMALOG) 100 Unit/1 Ml Vial, 1-6 UNIT SQ BEFORE MEAL, VIAL Before Meals: If less than 150, no insulin If Greater than 151 and less than 200, 1 unit If Greater than 201 and less than 250, 2 units If Greater than 251 and less than 300, 3 units If Greater than 301 and less than 350, 4 units If Greater than 351 and less than 400, 5 units If Greater than 400, 6 units and call doctor 10/01/17 Discontinued Scripts Potassium Chloride (KLOR-CON 10) 10 Meq Tablet.er, 10 MEQ PO BIDBS, #20 TAB 0 Refills Prov:ANA MARIA PALACIOS MD 09/19/17 Insulin Glargine,Hum.rec.anlog (LANTUS SOLOSTAR) 100 Unit/1 Ml Insuln.pen, 10 UNIT SUBQ QDAY, #1 VIAL 1 Refill Prov:ANA MARIA PALACIOS MD 09/19/17 Diet: Diabetic Activity: As Tolerated Copies to: EDDIE MATHEWS MD Venous Thromboembolism Antithrombotics Is Pt On Any Antithrombotics?: No ELIZABETH GTZ DO Oct 04, 2017 11:34
== END 2017-10-04 12:18 | disposition home or self-care (01) | DRG 639 ==
LOC: ER 03:43 → ICU 06:03 → MED 10-02 14:30
PROVIDERS: ADMIT Internal Medicine; ATTEND Internal Medicine
DX: E10.10 Type 1 diabetes mellitus with ketoacidosis without coma (principal); E87.5 Hyperkalemia; F17.220 Nicotine dependence, chewing tobacco, uncomplicated; E86.0 Dehydration; F32.9 Major depressive disorder, single episode, unspecified; Z79.4 Long term (current) use of insulin
CPT/HCPCS: 36415; 36416; 36600; 71045; 81001; 82009; 82040; 82150; 82247; 82310; 82374; 82435; 82565; 82803; 82947; 82948; 83605; 83690; 83735; 83930; 84075; 84100; 84132; 84155; 84295; 84450; 84460; 84520; 85025; 87040; 93005; 96361; 96365; 96375; 97161; 97165; 99285; C1758; C9113; J1650; J1815; J3480; J7030; J7050

== ENCOUNTER → 2017-10-01 | Outpatient (CLI) | payer SELFPAY ==
[2017-09-08 09:03] VITALS: BMI 23.6
== END ==
LOC: AMB 03:10
PROVIDERS: ATTEND Nurse Practitioner
DX: E10.65 Type 1 diabetes mellitus with hyperglycemia (principal); R06.82 Tachypnea, not elsewhere classified; R07.81 Pleurodynia
CPT/HCPCS: A0425; A0427

== ENCOUNTER 2017-10-11 04:51 | Inpatient (IN) | payer SELFPAY ==
[2017-09-08 09:03] VITALS: Ht 167.6 cm; Wt 61.3 kg
[~2017-10-11] VITALS: Ht 167.6 cm; Wt 61.3 kg
[2017-10-11] VITALS (17 sets, daily range): BP systolic 89–129; BP diastolic 48–71
[2017-10-11] MEDS ORDERED: NS(*) 0.9% 1000 ML BAG 1,000 ML IV ONE (04:54)
--- NOTE | 2017-10-11 04:59 | ER Report ---
History and Physical Time Seen By MD: 04:56 HPI/ROS CHIEF COMPLAINT: Hyperglycemia, difficulty breathing HISTORY OF PRESENT ILLNESS: 56-year-old type I diabetic with frequent DKA. Patient's had 3 previous admissions for DKA.. He was just discharged one week ago. He's been suffering with increased shortness of breath for the last hour. Prior to that 2 hours ago. His gave him 12 units of rapid acting insulin and 14 units of long-acting insulin. EMS brought him to the hospital. They noted a blood glucose in the 400s REVIEW OF SYSTEMS: Respiratory: As above Cardiovascular: No chest pain, no palpitations. Gastrointestinal: As above Musculoskeletal: No back pain. Allergies: Coded Allergies: No Known Drug Allergies (Verified , 10/11/17) Home Meds Active Scripts Insulin Lispro (HUMALOG) 100 Unit/1 Ml Vial, 2-10 UNIT SUBQ SS Y for SLIDING SCALE INSULIN, #1 VIAL Prov:ELIZABETH GTZ DO 10/04/17 Vitamin B Complex (B COMPLEX) 1 Each Tablet, 1 EACH PO DAILY, #30 TAB Prov:ANA MARIA BURNETTE MD 09/19/17 Reported Medications Potassium Chloride (POTASSIUM CHLORIDE) 10 Meq Tablet.er, 10 MEQ PO BIDBS 10/01/17 Multivitamin With Folic Acid (ONE DAILY MULTIVITAMIN TABLET) 400 Mcg Tablet, 400 MCG PO QDAY 10/01/17 Insulin Glargine (LANTUS) 100 Unit/Ml Soln, 12 UNIT SUBQ QDAY, ML 10/01/17 Tolnaftate (TINACTIN) 30 Gm Cream..g., 30 GM TP BID 10/01/17 Past Medical/Surgical History Type I diabetic, recurrent DKA Reviewed Nurses Notes: Yes Old Medical Records Reviewed: Yes Hx Smoking: Yes (chewing tobacco) Smoking Status: Light Tobacco Smoker Hx Substance Use Disorder: No Hx Alcohol Use: Yes Constitutional Vital Sign - Last 24 Hours 10/11/17 10/11/17 10/11/17 10/11/17 04:54 05:06 05:11 05:21 Pulse 117 118 114 Resp 30 29 39 B/P (MAP) 112/80 90/29 (49) Pulse Ox 100 95 89 O2 Delivery Room Air 10/11/17 10/11/17 10/11/17 10/11/17 05:30 05:36 05:51 06:00 Pulse 123 116 Resp 35 29 B/P (MAP) 138/101 (113) 116/73 (87) Pulse Ox 100 99 10/11/17 10/11/17 10/11/17 10/11/17 06:06 06:21 06:30 06:36 Pulse 110 109 104 Resp 28 24 21 B/P (MAP) 109/70 (83) Pulse Ox 77 98 99 Physical Exam Vital signs stable, gross tachypnea General Appearance: The patient is alert, has no immediate need for airway protection and no current signs of toxicity. Slightly pale appearing, skin warm and dry HEENT: Pupils equal and round no injection. Oropharynx with dry mucous membranes Respiratory: Chest is non tender, lungs are clear to auscultation. Cardiac: regular rate and rhythm Gastrointestinal: Abdomen is soft and non tender, no masses, bowel sounds normal. Musculoskeletal: Neck: Neck is supple and non tender. Extremities have full range of motion and are non tender. Skin: No rashes or lesions. DIFFERENTIAL DIAGNOSIS: After history and physical exam differential diagnosis was considered for diabetic ketoacidosis, hyperglycemia Medical Decision Making Data Points Result Diagram: 10/12/17 0512 10/12/17 0512 Laboratory Hematology Test 10/11/17 04:45 Peripheral Blood Smear No Y/N Blood Gas Patient Temperature Unknown DEGREES Venous Blood pH 6.90 (7.31-7.41) Venous Blood Partial Pressure CO2 25 mmHg Venous Blood Partial Pressure O2 40 mmHg Venous Blood HCO3 5 mmol/L Venous Blood Oxygen Saturation 44 % Venous Blood Base Excess -28 mmol/L Oxygen Liters/Minute Unknown Osmolality 321 mOSM/K (275-295) Troponin I < 0.012 ng/ml B-Type Natriuretic Peptide 50 pg/ml (0-100) Acetone, Qualitative Moderate Chemistry Test 10/11/17 04:45 Peripheral Blood Smear No Y/N Blood Gas Patient Temperature Unknown DEGREES Venous Blood pH 6.90 (7.31-7.41) Venous Blood Partial Pressure CO2 25 mmHg Venous Blood Partial Pressure O2 40 mmHg Venous Blood HCO3 5 mmol/L Venous Blood Oxygen Saturation 44 % Venous Blood Base Excess -28 mmol/L Oxygen Liters/Minute Unknown Osmolality 321 mOSM/K (275-295) Troponin I < 0.012 ng/ml B-Type Natriuretic Peptide 50 pg/ml (0-100) Acetone, Qualitative Moderate Toxicology Test 10/11/17 04:45 Acetone, Qualitative Moderate EKG/Imaging EKG Interpretation 12 lead EK Rhythm: Sinus tachycardia, rate 115 bpm [place]: normal QRS: normal ST segments: normal, no evidence of ischemia or dysrhythmia, compared to previous EKG 10/01/17, peaked T waves waves in the anterior leads have normalized Imaging X-ray: Single view portable chest x-ray was obtained. I viewed the images myself on the PACS system. My interpretation of the images is: No infiltrate, no effusion, normal mediastinum. [The radiologist interpretation had no clinically significant variation from this interpretation]. ED Course/Re-evaluation Clinical Indication for ER IV: Hydration, IV Access ED Course Patient was admitted to an examination room. H&P was done. The dental diagnoses was considered. Patient on clinical examination has acute tachypnea. He has history DKA. He is likely in DKA again. Diagnostic laboratory studies are ordered. 2 L of normal saline bolus is administered insulin 10 units IV push then an insulin drip was initiated at 7 units per hour. Patient' s potassium is 5.4. 10/11/2017 5:41:22 am case was discussed with Dr. Jeancarlos Burnette hospitalist on-call , who accepts the patient for admission to ICU Decision to Disposition Date: Oct 11, 2017 Decision to Disposition Time: 05:32 Critical Care Time I spent a total of 30 minutes of critical care time in obtaining history, performing a physical exam, bedside monitoring of interventions, collecting and interpreting tests and discussion with consultants but not including time spent performing procedures. Depart Departure Latest Vital Signs Vital Signs Date Time Temp Pulse Resp B/P (MAP) Pulse Ox O2 Delivery O2 Flow Rate FiO2 10/11/17 06:36 104 21 99 10/11/17 06:30 109/70 (83) 10/11/17 04:54 Room Air Core Temperature (Celsius): 35.5 Impression: Primary Impression: Diabetic ketoacidosis Additional Impression: Dehydration Condition: Improved Disposition: Admitted from ER Referrals: EDDIE MATHEWS MD (PCP) Problem Qualifiers Primary Impression: Diabetic ketoacidosis Diabetes mellitus type: type 1 Diabetes mellitus complication detail: without coma Qualified Codes: E10.10 - Type 1 diabetes mellitus with ketoacidosis without coma EZEQUIEL HINTON DO Oct 11, 2017 04:59
[2017-10-11 05:18] LABS: PLATELET COUNT, AUTOMATED 498 K/uL (150-450)
[2017-10-11] MEDS ORDERED: SODIUM BICAR(* 8.4% 50 ML SYR 50 ML SYR IVP ONE ×2 (05:20)
[2017-10-11] MEDS ORDERED: INS HUM REG* 100 U/ML(ER ONLY) 100 UNIT in NS(*) 0.9% 100 ML BAG 99 ML IV SCH ×2 (05:25→22:05)
[2017-10-11] MEDS ORDERED: INSU HUM REG 100 U/ML(ER ONLY) 10 ML VIAL IV ONE (05:25)
[2017-10-11] MEDS ORDERED: NS(*) 0.9% 100 ML BAG 100 ML ONE (05:31)
[2017-10-11] MEDS ORDERED: EMS NS 0.9%(*) 1000 ML BAG 1,000 ML IV ONE (05:35)
[2017-10-11] MEDS ORDERED: SODIUM BICAR 8.4%* 50 MEQ/50ML 100 MEQ in NS 0.45%(*) 1000 ML BAG 1,000 ML IV SCH (05:45)
--- NOTE | 2017-10-11 06:24 | EKG ---
FACILITY: [facility] PATIENT NAME: ALLY NOONAN : [id number] MR: [id number] V: [id number] EXAM DATE: ORDERING PHYSICIAN: EZEQUIEL HINTON TECHNOLOGIST: DONALD Test Reason : DKA Blood Pressure : / mmHG Vent. Rate : 115 BPM Atrial Rate : 115 BPM P-R Int : 158 ms QRS Dur : 080 ms QT Int : 360 ms P-R-T Axes : 062 069 036 degrees QTc Int : 498 ms Sinus tachycardia Otherwise normal ECG When compared with ECG of 01-OCT-2017 04:05, Nonspecific T wave abnormality now evident in Lateral leads Confirmed by RACHEL HERRERA ([id number]) on 10/11/2017 4:36:22 PM Referred By: Confirmed By:RACHEL HERRERA
--- NOTE | 2017-10-11 06:37 | RADIOLOGY IMAGING REPORT ---
FACILITY: [facility] PATIENT NAME: Boy Carter : 1960 MR: [id number] V: [id number] EXAM DATE: ORDERING PHYSICIAN: EZEQUIEL HINTON TECHNOLOGIST: Location: [facility] Patient: Boy Carter : 1960 Visit/Account:[id number] Date of Sevice: 10/11/2017 CHEST SINGLE AP HISTORY: Dyspnea. COMPARISON: 10/01/2017. FINDINGS: A single portable AP view of the chest is obtained. Lines/tubes: None. Lungs/pleura: Negative. Heart: Negative. Mediastinum: Negative. Bony structures/body wall: Negative. IMPRESSION: No acute cardiopulmonary process. Report Dictated By: Antonio Willis MD at 10/11/2017 6:31 AM Report E-Signed By: Antonio Willis MD at 10/11/2017 6:33 AM WSN:[id number]
[2017-10-11] MEDS ORDERED: NS(*) 0.9% 500 ML BAG 500 ML ONE (07:10)
[2017-10-11] MEDS ORDERED: NS(*) 0.9% 1000 ML BAG 1,000 ML IV PRN ×3 (07:40→10:00)
[2017-10-11] MEDS ORDERED: INSULIN HUM REG 100 UN/ML 3 ML 100 UNIT in NS(*) 0.9% 100 ML BAG 100 ML IV SCH (07:42)
[2017-10-11] MEDS ORDERED: ACETAMINOPHEN 325 MG TAB PO PRN (07:50)
[2017-10-11] MEDS ORDERED: IV BOLUS 500 ML IVSOL IV ONE (07:50)
[2017-10-11] MEDS ORDERED: KCL 2 MEQ/ML 20 MEQ/10 ML VIAL 20 MEQ in D5 1/2 NS(*) 1000 ML BAG 1,000 ML IV PRN ×2 (07:55→22:05)
--- NOTE | 2017-10-11 08:00 | History & Physical ---
History of Present Illness Chief Complaint Vomiting History of Present Illness 56yo male with PMHx significant for type 1 DM with frequent DKA. He has been admitted to [facility] on 4 occasions over the past 2 months. He was recently discharged one week ago. He reports doing well for a couple of days. He then began to have nausea, poor appetite, and vomiting. He reports he has been using his Lantus and Humalog as prescribed. His sister supports this as well. They both state the insulin has been stored appropriately. He denies any fevers/ chills. No urinary complaints. No rashes. No cough or sputum. He was evaluated in the ER and found to have recurrent DKA. He was recommended for admission. History Problems: (1) Fracture of humeral head, left, closed Status: Resolved (2) History of closed head injury Status: Resolved (3) UTI (urinary tract infection) (4) Hypoglycemic reaction Status: Resolved (5) Type 1 diabetes mellitus Status: Chronic (6) Alcohol use Status: Chronic (7) History of depression Status: Chronic (8) History of vasectomy Status: Resolved (9) Hx of hernia repair Status: Resolved (10) Diabetic ketoacidosis Onset Date: ~ 2017 Status: Acute Home Meds Active Scripts Insulin Lispro (HUMALOG) 100 Unit/1 Ml Vial, 2-10 UNIT SUBQ SS Y for SLIDING SCALE INSULIN, #1 VIAL Prov:ELIZABETH GTZ DO 10/04/17 Vitamin B Complex (B COMPLEX) 1 Each Tablet, 1 EACH PO DAILY, #30 TAB Prov:ANA MARIA PALACIOS MD 09/19/17 Reported Medications Potassium Chloride (POTASSIUM CHLORIDE) 10 Meq Tablet.er, 10 MEQ PO BIDBS 10/01/17 Multivitamin With Folic Acid (ONE DAILY MULTIVITAMIN TABLET) 400 Mcg Tablet, 400 MCG PO QDAY 10/01/17 Insulin Glargine (LANTUS) 100 Unit/Ml Soln, 12 UNIT SUBQ QDAY, ML 10/01/17 Tolnaftate (TINACTIN) 30 Gm Cream..g., 30 GM TP BID 10/01/17 Discontinued Reported Medications Insulin Lispro (HUMALOG) 100 Unit/1 Ml Vial, 1-3 UNIT SQ, VIAL At bedtime: If less than 200, no insulin If Greater than 201 and less than 250, 1 unit If Greater than 251 and less than 300, 2 units If Greater than 301, 3 units and call doctor 10/01/17 Insulin Lispro (HUMALOG) 100 Unit/1 Ml Vial, 1-6 UNIT SQ BEFORE MEAL, VIAL Before Meals: If less than 150, no insulin If Greater than 151 and less than 200, 1 unit If Greater than 201 and less than 250, 2 units If Greater than 251 and less than 300, 3 units If Greater than 301 and less than 350, 4 units If Greater than 351 and less than 400, 5 units If Greater than 400, 6 units and call doctor 10/01/17 Allergies: Coded Allergies: No Known Drug Allergies (Verified , 10/11/17) Patient History: Blood clots MOTHER Cardiac pacemaker MOTHER FH: gastric ulcer MOTHER FH: heart attack FATHER MOTHER FH: hypertension FATHER FH: stroke MOTHER Hx Smoking: Yes (chewing tobacco) Smoking Status: Light Tobacco Smoker Caffeine Intake: Coffee Caffeine/Cups Per Day: 5 Hx Alcohol Use: Yes Hx Substance Use Disorder: No Social Drugs: Marijuana Review of Systems Constitutional: No Fever, No Chills, No Night Sweats Neurological: Weakness Eyes: No Vision Change, No Loss of Vision ENT: No Hearing Loss, No Sore Throat Cardiovascular: No Chest Pain, No Palpitations Respiratory: Shortness of Breath, No Cough, No Wheezing Gastrointestinal: Nausea, Vomiting, No Diarrhea, No Hematemesis, No Hematochezia, No Melena, No Abdominal Pain Genitourinary: No Dysuria Musculoskeletal: No Pain, No Impaired Mobility Psychiatric: No Depression, No Anxiety Exam Vital Signs Vital Signs Date Time Temp Pulse Resp B/P (MAP) Pulse Ox O2 Delivery O2 Flow Rate FiO2 10/11/17 06:57 98.5 103 20 104/68 (80) 100 Room Air General Appearance: Alert, Awake Neuro: No Gross deficits Eyes: PERRLA ENT: Oropharynx Clear (mucosa dry) Neck: No Masses Cardiovascular: Other (slightly tachycardic regular no murmur) Respiratory: Clear to Auscultation Chest: No Tenderness GI: Abd Soft and Non-Tender : No CVA Tenderness Lymph: No Adenopathy Extremities: Warm, Perfused Integumentary: Other (no rashes) Medical Decision Making Data Points Result Diagram: 10/11/1744410/11/17444 Item Value Date Time Troponin I < 0.012 ng/ml 3/17/18 0445 B-Type Natriuretic Peptide 50 pg/ml 10/11/17444 Albumin 4.2 g/dl 10/11/17444 Total Protein 6.8 gm/dl 10/11/17444 Alkaline Phosphatase 141 U/L H 10/11/17444 Alanine Aminotransferase (ALT/SGPT) 28 U/L 10/11/17444 Aspartate Amino Transf (AST/SGOT) 22 U/L 10/11/17444 Total Bilirubin 0.3 mg/dl 10/11/17444 Calcium Level 9.9 mg/dl 10/11/17 044 Acetone, Qualitative Moderate 10/11/17444 Oxygen Liters/Minute Unknown 10/11/17444 Venous Blood Base Excess -28 mmol/L 10/11/17444 Venous Blood Oxygen Saturation 44 % 10/11/17444 Venous Blood HCO3 5 mmol/L 10/11/17444 Venous Blood Partial Pressure O2 40 mmHg 10/11/17444 Venous Blood Partial Pressure CO2 25 mmHg 10/11/17444 Venous Blood pH 6.90 L 10/11/17444 EKG / Imaging Imaging PATIENT NAME: Boy Carter : 1960 MR: [id number] V: [id number] EXAM DATE: ORDERING PHYSICIAN: EZEQUIEL HINTON TECHNOLOGIST: Location: [facility] Patient: Boy Carter : 1960 Visit/Account:[id number] Date of Sevice: 10/11/2017 CHEST SINGLE AP HISTORY: Dyspnea. COMPARISON: 10/01/2017. FINDINGS: A single portable AP view of the chest is obtained. Lines/tubes: None. Lungs/pleura: Negative. Heart: Negative. Mediastinum: Negative. Bony structures/body wall: Negative. IMPRESSION: No acute cardiopulmonary process. Report Dictated By: Antonio Willis MD at 10/11/2017 6:31 AM Report E-Signed By: Antonio Willis MD at 10/11/2017 6:33 AM WSN:[id number] Assessment and Plan Problems: (1) Diabetic ketoacidosis Onset Date: ~ 2017 Status: Acute Assessment & Plan: He has had several episodes of recurrent DKA in the past 2 months. While he has been hospitalized he does well with the Lantus 12-14 units once daily with sliding scale Humalog, but upon returning home he does not do well at all. It sounds as if they are dosing the insulins appropriately. I would question if the insulin has "spoiled"/turned cloudy and is not effective. Will admit to the ICU on IV insulin with aggressive IV fluids. Watch glucoses and electrolytes closely. We will need to figure out some sort of plan that will work for him and his family. Venous Thromboembolism Antithrombotics Is Pt On Any Antithrombotics?: Yes Exam Sepsis Risk: No Definite Risk Problem Qualifiers (1) Diabetic ketoacidosis: Diabetes mellitus type: type 1 Diabetes mellitus complication detail: without coma Qualified Codes: E10.10 - Type 1 diabetes mellitus with ketoacidosis without coma ANA MARIA PALACIOS MD Oct 11, 2017 08:00
[2017-10-11] MEDS: ENOXAPARIN 40 MG/0.4ML SYR SC SCH (08:33)
[2017-10-11] MEDS ORDERED: KCL/D1/2NS 20 MEQ 1000 ML 1,000 ML IV ONE (08:56)
[2017-10-11] MEDS ORDERED: INFLUENZA VIRUS VAC 0.5 ML SYR IM ONLY ONE (09:00)
[2017-10-11] MEDS ORDERED: KCL/D1/2NS 20 MEQ 1000 ML 1,000 ML IV SCH (09:35)
[2017-10-11] MEDS ORDERED: DEXTROSE 50% 50 ML SYR IVP ONE (11:10)
--- NOTE | 2017-10-11 12:23 | Medical Nutrition Therapy ---
Nutrition Anthropometrics Height (Inches): 66 (past admit) Weight (Pounds): 135 Weight (Calculated Kilograms): 61.348 BMI Calculated: 23.56 Stanton Nutrition Score: Probably Inadequate Stanton Nutrition Risk Score: 19 Dietary Referral Nutrition Risk Factors: Special Diet Nutrition Risk Comment: PT IS DIABETIC Nutritional Diagnosis Nutritional Risk Acuity 2: Blood Glucose > 300mg/dl, DKA Nutritional Risk Acuity 3: Alcohol abuse, Substance abuse Past Medical History: HX of Alcohol abuse (4-5 beers/day), T1DM, Depression, chew Tobacco, dysphagia Nutritional Acuity: 2-Moderate Nutrition Diagnosis: Inconsistent Carb. Intake, Excessive Alcohol Intake Nutrition Etiology: Physiological Causes, Alcohol Addiction Nutrition Problem/Etiology/Sym: AEB dx DKA with admitting BG 316, positive ketones, pt reporting 8 alcoholic drinks/day Energy Requirement: 1800 (M- StJ) Protein Requirement: 62 (1gm/kg) Fluid Requirement: 1860 (30ml/kg) Diet Type: Clear Liquids Nutrition Intervention: Incr diet as tolerated Nutrition Monitoring & Eval RD Patient Assessment Time: [address] Assessment Type: RD Assessment Patient Nutrition Acuity: 2-Moderate Follow Up Date: Oct 15, 2017 Nutritional Comment: 10/11 Pt admitted with DKA and BG 500+. Pt reports continued 8 alcoholic drinks/day. Curretnly on clear liquid diet. Pt and sister recieved diabetic eduation on last admit . Will cont to monitor and encourage intake. JERI MCNALLY Oct 11, 2017 12:23
[2017-10-11] MEDS: INSULIN HUM LISPRO 100 UN/ML 3 ML VIAL SUBQ PRN ×2 (17:54→21:01)
--- NOTE | 2017-10-11 22:10 | Miscellaneous Provider Note ---
Miscellaneous Provider Note Note The patient was stopped on the insulin drip because of glucoses consistently < 100. He was given 1/2 amp of d50 and was on the d5 1/2NS drip. His AG closed and his bicarb increased, so the drips were stopped. He had received 14 units of Lantus this morning before going to the ER, so no further Lantus was given. His blood sugar has been increasing. He feels well and is eating. His bicarb decreased some and his AG increased, so he is going back on the insulin drip with d5 1/2NS. RACHEL HERRERA MD Oct 11, 2017 22:10
[2017-10-12] VITALS (16 sets, daily range): BP systolic 97–133; BP diastolic 57–73
[2017-10-12] MEDS ORDERED: INSULIN HUM REG 100 UN/ML 3 ML 100 UNIT in NS(*) 0.9% 100 ML BAG 99 ML IV SCH (01:30)
[2017-10-12] MEDS ORDERED: INS HUM REG* 100 U/ML(ER ONLY) 100 UNIT in NS(*) 0.9% 100 ML BAG 99 ML IV SCH ×2 (02:41→06:16)
[2017-10-12 05:48] LABS: PLATELET COUNT, AUTOMATED 296 K/uL (150-450)
[2017-10-12] MEDS: KCL/D1/2NS 20 MEQ 1000 ML 1,000 ML IV SCH ×2 (07:14→07:48)
[2017-10-12] MEDS ORDERED: KCL/D1/2NS 20 MEQ 1000 ML 1,000 ML IV SCH (07:55)
[2017-10-12] MEDS: INSULIN GLARGINE 100 U/ML 3 ML PEN SUBQ SCH (08:57)
[2017-10-12] MEDS: ENOXAPARIN 40 MG/0.4ML SYR SC SCH (08:57)
--- NOTE | 2017-10-12 10:52 | Hospitalist Progress Note ---
Subjective Progress Notes Subjective This patient was admitted for DKA. He had no acute events overnight. Patient Complains of: Cardiovascular: No: Chest Pain Respiratory: No: Shortness of Breath Physical Exam Vital Signs Date Time Temp Pulse Resp B/P (MAP) Pulse Ox O2 Delivery O2 Flow Rate FiO2 10/12/17 08:00 98.3 75 12 111/65 (80) 91 Room Air 10/11/17 10:58 0.5 Intake and Output 10/13/17 07:00 Intake Total 400 ml Balance 400 ml Intake Oral 400 ml Neuro: No Gross deficits Cardiovascular: Regular Rate and Rhythm Respiratory: Clear to Auscultation Extremities: No Edema Integumentary: No Cyanosis Result Diagram: 10/12/1712 10/12/17 05 Item Value Date Time Urine Culture - Preliminary Resulted 10/11/17 08 Clean Catch Midstream Ur NO GROWTH AFTER 1 DAY, REINCUBATED Assessment and Plan Problems: (1) Diabetic ketoacidosis Onset Date: ~ 2017 Status: Acute Assessment & Plan: He has had several episodes of recurrent DKA in the past 2 months. While he has been hospitalized he does well with the Lantus 12-14 units once daily with sliding scale Humalog, but upon returning home he does not do well at all. He was placed on an insulin infusion and fluid resuscitation. He is now back on Lantus and sliding scale level #1. His fluids have been discontinued and he is progressing on his diet. Exam Sepsis Risk: No Definite Risk Problem Qualifiers (1) Diabetic ketoacidosis: Diabetes mellitus type: type 1 Diabetes mellitus complication detail: without coma Qualified Codes: E10.10 - Type 1 diabetes mellitus with ketoacidosis without coma ELIZABETH GTZ DO Oct 12, 2017 10:52
[2017-10-12] MEDS: INSULIN HUM LISPRO 100 UN/ML 3 ML VIAL SUBQ PRN ×3 (11:38→20:36)
[2017-10-13 03:12] VITALS: BP 125/83
[2017-10-13 06:06] LABS: PLATELET COUNT, AUTOMATED 293 K/uL (150-450)
[2017-10-13 07:00] VITALS: BP 130/67
[2017-10-13] MEDS: INSULIN HUM LISPRO 100 UN/ML 3 ML VIAL SUBQ PRN ×2 (08:26→21:06)
[2017-10-13] MEDS: INSULIN GLARGINE 100 U/ML 3 ML PEN SUBQ SCH (08:28)
[2017-10-13] MEDS: ENOXAPARIN 40 MG/0.4ML SYR SC SCH (09:59)
[2017-10-13] MEDS ORDERED: NS(*) 0.9% 1000 ML BAG 1,000 ML ONE (11:06)
--- NOTE | 2017-10-13 13:55 | Hospitalist Progress Note ---
Subjective Progress Notes Subjective The patient has no new complaints. Blood sugar is over 400 this am. The patient states he has had some diabetic teaching in the past but could use some more. Currently staying at his [id number] house due to his furnace not working, but will be going home soon and will need to prepare some of his meals himself. States he never eats breakfast. Physical Exam Vital Signs Date Time Temp Pulse Resp B/P (MAP) Pulse Ox O2 Delivery O2 Flow Rate FiO2 10/13/17 08:00 92 Room Air 10/13/17 07:00 98.4 92 16 130/67 (88) 10/13/17 03:12 1.5 Intake and Output 10/14/17 07:00 # Voids 2 General Appearance: Alert, Awake, No Acute Distress Neuro: No Gross deficits Eyes: PERRLA Cardiovascular: Regular Rate and Rhythm Respiratory: Clear to Auscultation GI: Soft and Non-Tender Extremities: Warm, Perfused Psych: Appropriate Mood & Affect Result Diagram: 10/13/17 0527 10/13/17 1011 Assessment and Plan Problems: (1) Diabetic ketoacidosis Onset Date: ~ 2017 Status: Acute Assessment & Plan: He has had several episodes of recurrent DKA in the past 2 months. While he has been hospitalized he does well with the Lantus 12-14 units once daily with sliding scale Humalog, but upon returning home he does not do well at all. He was placed on an insulin infusion and fluid resuscitation. He is now back on Lantus and sliding scale level #1. This am his blood sugar increased to over 400 and his CO2 decreased to 14. A repeat BMP several hours later showed further decrease in CO2 to 12. Will give SQ insulin to decrease sugar and restart fluids. Follow glucoses. Recheck BMP this evening. Will make sure the patient is following a diabetic diet as ordered. Time Spent on Plan of Care: < 30 min Exam Sepsis Risk: No Definite Risk Problem Qualifiers (1) Diabetic ketoacidosis: Diabetes mellitus type: type 1 Diabetes mellitus complication detail: without coma Qualified Codes: E10.10 - Type 1 diabetes mellitus with ketoacidosis without coma HENRY PALACIOS MD Oct 13, 2017 13:55
[2017-10-13 16:27] VITALS: BP 112/70
[2017-10-13 20:08] VITALS: BP 131/79
[2017-10-14 02:33] VITALS: BP 127/86
[2017-10-14 07:30] VITALS: BP 155/90
[2017-10-14] MEDS: INSULIN HUM LISPRO 100 UN/ML 3 ML VIAL SUBQ PRN ×2 (07:54→11:40)
[2017-10-14] MEDS: ENOXAPARIN 40 MG/0.4ML SYR SC SCH (08:31)
[2017-10-14] MEDS: INSULIN GLARGINE 100 U/ML 3 ML PEN SUBQ SCH (08:32)
[2017-10-14] MEDS ORDERED: INFLUENZA VIRUS VAC 0.5 ML SYR IM ONLY ONE (09:00)
[2017-10-14 10:55] VITALS: BP 111/76
--- NOTE | 2017-10-14 16:16 | Hospitalist Depart ---
Discharge Summary Reason for Hosp/Final Diag: (1) Diabetic ketoacidosis Onset Date: ~ 2017 Status: Acute Hospital Course & Plan: He has had several episodes of recurrent DKA in the past 2 months. He is a brittle diabetic. While he has been hospitalized, he does well with the Lantus 12-14 units once daily with sliding scale Humalog, but upon returning home he does not do well at all. He was placed on an insulin infusion and fluid resuscitation. He is now back on Lantus and sliding scale level #1. He has demonstrated glucose lability in the hospital with spikes with ingestion of sugary drinks. He and his bowfcr-hv-srm have received diabetic education about diet. We went over the plan below to cover elevated blood sugars. We stressed the importance of discarding all the old Lantus and Humalog. The patient is going home with our Lantus and Humalog pens. They did recently purchase Lantus, so that is okay to use. We did discuss proper storage of insulin. Departure Weight (Pounds): 135 Weight (Ounces): 4.0 Result Diagram: 10/13/17 0527 10/14/17 0525 Item Value Date Time Whole Blood Glucose 157 mg/DL H 10/14/17 1132 Whole Blood Glucose 349 mg/DL H 10/14/17 0735 Random Glucose 328 mg/dl H 10/14/17 0525 Whole Blood Glucose 184 mg/DL H 10/13/17 2105 Random Glucose 138 mg/dl H 10/13/17 1555 Whole Blood Glucose 178 mg/DL H 10/13/17 1151 Random Glucose 337 mg/dl H 10/13/17 1011 Whole Blood Glucose 466 mg/DL H 10/13/17 0821 Random Glucose 398 mg/dl H 10/13/17 0527 Whole Blood Glucose 364 mg/DL H 10/12/17 2024 Whole Blood Glucose 292 mg/DL H 10/12/17 1624 Whole Blood Glucose 265 mg/DL H 10/12/17 1135 Whole Blood Glucose 78 mg/DL 10/12/17 0814 Whole Blood Glucose 96 mg/DL 10/12/17 0716 Whole Blood Glucose 117 mg/DL H 10/12/17 0612 Whole Blood Glucose 127 mg/DL H 10/12/17 0117 Whole Blood Glucose 148 mg/DL H 10/12/17 0018 Whole Blood Glucose 258 mg/DL H 10/11/17 2315 Whole Blood Glucose 322 mg/DL H 10/11/17 2203 Whole Blood Glucose 327 mg/DL H 10/11/17 2056 Random Glucose 500 mg/dl *H 10/11/17 0445 Sodium Level 133 mmol/L L 10/11/17 0445 Potassium Level 5.4 mmol/L H 10/11/17 0445 Chloride Level 95 mmol/L L 10/11/17 0445 Carbon Dioxide Level < 5 mmol/L *L 10/11/17 0445 Blood Urea Nitrogen 14 mg/dl 10/11/17 0445 Creatinine 1.10 mg/dl 10/11/17 0445 Glomerular Filtration Rate Calc > 60.0 10/11/17 0445 Osmolality 321 mOSM/K H 10/11/17 0445 Calcium Level 9.9 mg/dl 10/11/17 0445 Total Bilirubin 0.3 mg/dl 10/11/17 0445 Aspartate Amino Transf (AST/SGOT) 22 U/L 10/11/17 0445 Alanine Aminotransferase (ALT/SGPT) 28 U/L 10/11/17 0445 Alkaline Phosphatase 141 U/L H 10/11/17 0445 B-Type Natriuretic Peptide 50 pg/ml 10/11/17 0445 Troponin I < 0.012 ng/ml 10/11/17 0445 Whole Blood Glucose 313 mg/DL H 10/11/17 0626 Whole Blood Glucose 389 mg/DL H 10/11/17 0508 Whole Blood Glucose 209 mg/DL H 10/11/17 0727 Whole Blood Glucose 121 mg/DL H 10/11/17 0835 Whole Blood Glucose 88 mg/DL 10/11/17 0927 Whole Blood Glucose 74 mg/DL L 10/11/17 1007 Whole Blood Glucose 62 mg/DL L 10/11/17 1101 Whole Blood Glucose 100 mg/DL 10/11/17 1210 Sodium Level 136 mmol/L L 10/11/17 1215 Potassium Level 3.8 mmol/L 10/11/17 1215 Chloride Level 104 mmol/L 10/11/17 1215 Carbon Dioxide Level 21 mmol/L L 10/11/17 1215 Blood Urea Nitrogen 13 mg/dl 10/11/17 1215 Creatinine 0.60 mg/dl L 10/11/17 1215 Glomerular Filtration Rate Calc > 60.0 10/11/17 1215 Random Glucose 111 mg/dl H 10/11/17 1215 Whole Blood Glucose 139 mg/DL H 10/11/17 1312 Whole Blood Glucose 209 mg/DL H 10/11/17 1417 Whole Blood Glucose 252 mg/DL H 10/11/17 1554 Whole Blood Glucose 249 mg/DL H 10/11/17 1646 Sodium Level 133 mmol/L L 10/11/17 1844 Potassium Level 4.0 mmol/L 10/11/17 1844 Chloride Level 99 mmol/L 10/11/17 1844 Carbon Dioxide Level 15 mmol/L L 10/11/17 1844 Blood Urea Nitrogen 10 mg/dl 10/11/17 1844 Creatinine 0.60 mg/dl L 10/11/17 1844 Glomerular Filtration Rate Calc > 60.0 10/11/17 1844 Random Glucose 283 mg/dl H 10/11/17 1844 Whole Blood Glucose 110 mg/DL 10/12/17 0215 Whole Blood Glucose 102 mg/DL 10/12/17 0321 Whole Blood Glucose 101 mg/DL 10/12/17 0410 Whole Blood Glucose 90 mg/DL 10/12/17 0511 Sodium Level 132 mmol/L L 10/12/17 0512 Potassium Level 3.5 mmol/L 10/12/17 0512 Chloride Level 102 mmol/L 10/12/17 0512 Carbon Dioxide Level 22 mmol/L 10/12/17 0512 Creatinine 0.50 mg/dl L 10/12/17 0512 Blood Urea Nitrogen 7 mg/dl L 10/12/17 0512 Random Glucose 88 mg/dl 10/12/17 0512 Sodium Level 128 mmol/L L 10/13/17 0527 Potassium Level 5.3 mmol/L H 10/13/17 0527 Chloride Level 97 mmol/L L 10/13/17 0527 Carbon Dioxide Level 14 mmol/L *L 10/13/17 0527 Blood Urea Nitrogen 8 mg/dl L 10/13/17 0527 Creatinine 0.60 mg/dl L 10/13/17 0527 Glomerular Filtration Rate Calc > 60.0 10/13/17 0527 Potassium Level 4.0 mmol/L 10/13/17 1011 Sodium Level 131 mmol/L L 10/13/17 1011 Chloride Level 96 mmol/L L 10/13/17 1011 Blood Urea Nitrogen 9 mg/dl 10/13/17 1011 Carbon Dioxide Level 12 mmol/L *L 10/13/17 1011 Creatinine 0.70 mg/dl 10/13/17 1011 Glomerular Filtration Rate Calc > 60.0 10/13/17 1011 Sodium Level 130 mmol/L L 10/13/17 1555 Potassium Level 4.1 mmol/L 10/13/17 1555 Chloride Level 99 mmol/L 10/13/17 1555 Carbon Dioxide Level 23 mmol/L 10/13/17 1555 Blood Urea Nitrogen 10 mg/dl 10/13/17 1555 Creatinine 0.50 mg/dl L 10/13/17 1555 Sodium Level 128 mmol/L L 10/14/17 0525 Potassium Level 4.6 mmol/L 10/14/17 0525 Chloride Level 97 mmol/L L 10/14/17 0525 Carbon Dioxide Level 21 mmol/L L 10/14/17 0525 Blood Urea Nitrogen 9 mg/dl 10/14/17 0525 Creatinine 0.50 mg/dl L 10/14/17 0525 White Blood Count 17.8 k/uL H 10/11/17 0445 White Blood Count 7.9 k/uL 10/12/17 0512 White Blood Count 6.2 k/uL 10/13/17 0527 Hemoglobin 11.5 g/dL L 10/13/17 0527 Hemoglobin 10.2 g/dL L 10/12/17 0512 Hemoglobin 14.0 g/dL 10/11/17 0445 Platelet Count 498 K/uL H 10/11/17 0445 Platelet Count 296 K/uL 10/12/17 0512 Platelet Count 293 K/uL 10/13/17 0527 Venous Blood pH 6.90 L 10/11/17 0445 Venous Blood Partial Pressure CO2 25 mmHg 10/11/17 0445 Venous Blood Partial Pressure O2 40 mmHg 10/11/17 0445 Venous Blood HCO3 5 mmol/L 10/11/17 0445 Venous Blood Oxygen Saturation 44 % 10/11/17 0445 Urine Glucose (UA) 500 mg/dL 10/11/17 0804 Urine Specific [place] 1.018 10/11/17 0804 Urine Ketones 80 mg/dL H 10/11/17 0804 Urine RBC <1 /HPF 10/11/17 0804 Urine WBC 1 /HPF 10/11/17 0804 Urine Squamous Epithelial Cells Many /LPF H 10/11/17 0804 Acetone, Qualitative Moderate 10/11/17 0445 Imaging 10/11/18 CXR - No acute cardiopulmonary process. EKG Blood Pressure : / mmHG Vent. Rate : 115 BPM Atrial Rate : 115 BPM P-R Int : 158 ms QRS Dur : 080 ms QT Int : 360 ms P-R-T Axes : 062 069 036 degrees QTc Int : 498 ms Sinus tachycardia Otherwise normal ECG When compared with ECG of 01-OCT-2017 04:05, Nonspecific T wave abnormality now evident in Lateral leads Confirmed by RACHEL HERRERA ([id number]) on 10/11/2017 4:36:22 PM Condition: Improved Discharge: Home Discharge Instructions Home Meds Active Scripts Insulin Lispro (HUMALOG) 100 Unit/1 Ml Vial, 2-10 UNIT SUBQ SS Y for SLIDING SCALE INSULIN, #1 VIAL Prov:ELIZABETH GTZ DO 10/04/17 Vitamin B Complex (B COMPLEX) 1 Each Tablet, 1 EACH PO DAILY, #30 TAB Prov:ANA MARIA PALACIOS MD 09/19/17 Reported Medications Multivitamin With Folic Acid (ONE DAILY MULTIVITAMIN TABLET) 400 Mcg Tablet, 400 MCG PO QDAY 10/01/17 Insulin Glargine (LANTUS) 100 Unit/Ml Soln, 16 UNIT SUBQ QDAY, ML 10/01/17 Tolnaftate (TINACTIN) 30 Gm Cream..g., 30 GM TP BID 10/01/17 Discontinued Reported Medications Potassium Chloride (POTASSIUM CHLORIDE) 10 Meq Tablet.er, 10 MEQ PO BIDBS 10/01/17 Diet: Diabetic Activity: As Tolerated Special Instructions: Go to the ER for heavy breathing, confusion, glucoses that won't go below 300 or go above 100. Check glucose before meals and before bedtime. Give sliding scale insulin before meals. If glucose >300, give sliding scale insulin and recheck in one hour. If glucose still >300, then give sliding scale again and check glucose in an hour. Repeat until glucose <300, or go to the ER. If glucose<100, give a glucose tablet and check glucose in an hour. If <100, give glucose tablet and check in an hour. Repeat until glucose >100 or go to the ER. Go to the [facility] on 10/22 for scheduled appointment. Copies to: [facility] Venous Thromboembolism Antithrombotics Is Pt On Any Antithrombotics?: Yes Problem Qualifiers (1) Diabetic ketoacidosis: Diabetes mellitus type: type 1 Diabetes mellitus complication detail: without coma Qualified Codes: E10.10 - Type 1 diabetes mellitus with ketoacidosis without coma RACHEL HERRERA MD Oct 14, 2017 16:16
== END 2017-10-14 16:20 | disposition home or self-care (01) | DRG 639 ==
LOC: ER 04:55 → ICU 06:38 → MED 10-12 12:20
PROVIDERS: ADMIT Internal Medicine; ATTEND Internal Medicine
DX: E10.10 Type 1 diabetes mellitus with ketoacidosis without coma (principal); F17.210 Nicotine dependence, cigarettes, uncomplicated; E86.0 Dehydration; F32.9 Major depressive disorder, single episode, unspecified; Z79.4 Long term (current) use of insulin
CPT/HCPCS: 36415; 36416; 71045; 81001; 82009; 82040; 82247; 82310; 82374; 82435; 82565; 82803; 82947; 82948; 83880; 83930; 84075; 84132; 84155; 84295; 84450; 84460; 84484; 84520; 85025; 87088; 93005; 96361; 96365; 96368; 96375; 99285; 99291; J1650; J1815; J3480; J7030; J7040; J7050

== ENCOUNTER → 2017-10-11 | Outpatient (CLI) | payer SELFPAY ==
[2017-09-08 09:03] VITALS: BMI 23.6
[~2017-10-11] MED LIST changes: +INSU100V24 SQ; +INSU100V24 SUBQ; +MULT400T5 PO; +POTA-28 PO; +TOLN30CR TP
== END ==
LOC: AMB 04:23
PROVIDERS: ATTEND Nurse Practitioner
DX: E10.65 Type 1 diabetes mellitus with hyperglycemia (principal); R06.00 Dyspnea, unspecified; R53.1 Weakness
CPT/HCPCS: A0425; A0427

== ENCOUNTER 2018-01-19 09:45 | Inpatient (IN) | payer SELFPAY ==
[2017-09-08 09:03] VITALS: Ht 182.9 cm; Wt 64.4 kg
[2018-01-19] VITALS (21 sets, daily range): BP systolic 88–129; BP diastolic 50–86
[~2018-01-19] VITALS: Ht 182.9 cm; Wt 64.4 kg
--- NOTE | 2018-01-19 09:50 | ER Report ---
History and Physical Time Seen By MD: 09:49 HPI/ROS CHIEF COMPLAINT: "Diabetic ketoacidosis" HISTORY OF PRESENT ILLNESS: Patient is a 57-year-old male who is had multiple admissions for DKA in the past. He was recently admitted in September and was followed for transitional care. He also has a known history of alcohol use and abuse but denies any alcohol recently. He states that he ran out of his Lantus and he had his NovoLog. His blood sugars have been running elevated over the past few days she's become nauseous with vomiting. For this reason he presents to the emergency department for further evaluation. Review of the electronic medical record shows that the patient was discharged from transitional care after multiple attempts to contact the patient on December 23, December 25, January 02 and January 03. Patient states he never received these messages. He denies that his phone number at home has changed. REVIEW OF SYSTEMS: Constitutional: No fever, no chills. Generalized weakness Eyes: No discharge. ENT: No sore throat. Cardiovascular: No chest pain, no palpitations. Respiratory: No cough, no shortness of breath. Gastrointestinal: Nausea with vomiting Genitourinary: No hematuria. Musculoskeletal: No back pain. Skin: No rashes. Neurological: No headache. Allergies: Coded Allergies: No Known Drug Allergies (Verified , 01/19/18) Home Meds Active Scripts Insulin Lispro 100 Un/Ml Vial (HUMALOG 100 U/ML VIAL) 100 Unit/1 Ml Vial, 2-10 UNIT SUBQ SS Y for SLIDING SCALE INSULIN, #1 VIAL Prov:ELIZABETH GTZ DO 10/04/17 Vitamin B Complex (B COMPLEX) 1 Each Tablet, 1 EACH PO DAILY, #30 TAB Prov:ANA MARIA PALACIOS MD 09/19/17 Reported Medications Multivitamin With Folic Acid (ONE DAILY MULTIVITAMIN TABLET) 400 Mcg Tablet, 400 MCG PO QDAY 10/01/17 Insulin Glargine (LANTUS) 100 Unit/Ml Soln, 16 UNIT SUBQ QDAY, ML 10/01/17 Tolnaftate (TINACTIN) 30 Gm Cream..g., 30 GM TP BID 10/01/17 Past Medical/Surgical History History of DKA history of alcohol abuse history of type I diabetes Hx Smoking: Yes (chewing tobacco) Smoking Status: Light Tobacco Smoker Hx Substance Use Disorder: No Hx Alcohol Use: Yes Constitutional Vital Sign - Last 24 Hours 6/25/18 6/25/18 6/25/18 6/25/18 09:50 10:00 10:02 10:15 Temp 97.5 Pulse 110 114 Resp 24 21 B/P (MAP) 113/64 (80) 123/96 (105) 113/64 Pulse Ox 100 100 O2 Delivery Room Air 01/19/18 01/19/18 01/19/18 01/19/18 10:30 10:45 11:00 11:30 Pulse 118 Resp 18 B/P (MAP) 112/52 (72) 134/77 (96) 130/91 (104) Pulse Ox 97 Physical Exam General/Constitutional: Patient is awake, alert, Ill-appearing Head: Normocephalic and atraumatic. Eyes: Conjunctival clear, Pupils are equal and reactive to light. Extraocular muscles are intact and symmetrical. Sclera are clear and anicteric. Ears:External canals are clear. Tympanic membranes are clear with normal landmarks and light reflex. Nares: No rhinorrhea or bleeding. Turbinates are pink and moist. Oropharyngeal: Mucous membranes are moist. There is no pharyngeal erythema or exudate. There are no palatal petechiae. Uvula is midline and symmetrical. Neck: Supple, no adenopathy. Cardiovascular: R is regular but tachycardic Pulmonary: Lungs are clear to auscultation bilaterally. There are no wheezes, rales, or rhonchi. Chest rise is symmetrical patient is to Abdomen: Soft, nontender, no guarding or peritoneal signs. Extremities: No gross deformities, No peripheral cyanosis. Able to move all 4 extremities. Neuro: Alert and oriented X3, Skin: No rashes, skin is warm dry and well perfused. Medical Decision Making Data Points Result Diagram: 01/19/18 1016 01/19/18 1310 Laboratory Hematology Test 01/19/18 10:16 01/19/18 11:31 Red Blood Count 4.57 M/uL (4.00-5.60) Mean Corpuscular Volume 100.4 fL (80.0-96.0) Mean Corpuscular Hemoglobin 31.9 pg (26.0-33.0) Mean Corpuscular Hemoglobin Concent 31.8 g/dL (32.0-36.0) Red Cell Distribution Width 14.7 % (11.5-14.5) Mean Platelet Volume 7.6 fL (7.2-11.1) Neutrophils (%) (Auto) 79.3 % (39.4-72.5) Lymphocytes (%) (Auto) 16.2 % (17.6-49.6) Monocytes (%) (Auto) 4.1 % (4.1-12.4) Eosinophils (%) (Auto) 0.0 % (0.4-6.7) Basophils (%) (Auto) 0.4 % (0.3-1.4) Nucleated RBC Relative Count (auto) 0.0 /100WBC Neutrophils # (Auto) 11.5 K/uL (2.0-7.4) Lymphocytes # (Auto) 2.3 K/uL (1.3-3.6) Monocytes # (Auto) 0.6 K/uL (0.3-1.0) Eosinophils # (Auto) 0.0 K/uL (0.0-0.5) Basophils # (Auto) 0.1 K/uL (0.0-0.1) Nucleated RBC Absolute Count (auto) 0.01 K/uL Blood Gas Patient Temperature Unknown DEGREES Venous Blood pH 7.08 (7.31-7.41) Venous Blood Partial Pressure CO2 < 25 mmHg Venous Blood Partial Pressure O2 59 mmHg Venous Blood HCO3 5 mmol/L Venous Blood Oxygen Saturation 80 % Venous Blood Base Excess -25 mmol/L Oxygen Liters/Minute Unknown Hemoglobin A1c 9.1 % (4.6-6.0) Magnesium Level 2.4 mg/dl (1.7-2.2) Total Bilirubin 0.8 mg/dl (0.2-1.3) Aspartate Amino Transf (AST/SGOT) 23 U/L (0-35) Alanine Aminotransferase (ALT/SGPT) 32 U/L (0-56) Alkaline Phosphatase 100 U/L (0-126) Total Protein 7.2 g/dl (6.3-8.2) Albumin 4.7 g/dl (3.5-5.0) Serum Alcohol < 10 mg/dl Acetone, Qualitative Moderate Whole Blood Glucose 322 mg/DL (75-110) Chemistry Test 01/19/18 10:16 01/19/18 11:31 White Blood Count 14.5 k/uL (4.5-11.0) Red Blood Count 4.57 M/uL (4.00-5.60) Hemoglobin 14.6 g/dL (14.0-18.0) Hematocrit 45.9 % (42.0-52.0) Mean Corpuscular Volume 100.4 fL (80.0-96.0) Mean Corpuscular Hemoglobin 31.9 pg (26.0-33.0) Mean Corpuscular Hemoglobin Concent 31.8 g/dL (32.0-36.0) Red Cell Distribution Width 14.7 % (11.5-14.5) Platelet Count 301 K/uL (150-450) Mean Platelet Volume 7.6 fL (7.2-11.1) Neutrophils (%) (Auto) 79.3 % (39.4-72.5) Lymphocytes (%) (Auto) 16.2 % (17.6-49.6) Monocytes (%) (Auto) 4.1 % (4.1-12.4) Eosinophils (%) (Auto) 0.0 % (0.4-6.7) Basophils (%) (Auto) 0.4 % (0.3-1.4) Nucleated RBC Relative Count (auto) 0.0 /100WBC Neutrophils # (Auto) 11.5 K/uL (2.0-7.4) Lymphocytes # (Auto) 2.3 K/uL (1.3-3.6) Monocytes # (Auto) 0.6 K/uL (0.3-1.0) Eosinophils # (Auto) 0.0 K/uL (0.0-0.5) Basophils # (Auto) 0.1 K/uL (0.0-0.1) Nucleated RBC Absolute Count (auto) 0.01 K/uL Blood Gas Patient Temperature Unknown DEGREES Venous Blood pH 7.08 (7.31-7.41) Venous Blood Partial Pressure CO2 < 25 mmHg Venous Blood Partial Pressure O2 59 mmHg Venous Blood HCO3 5 mmol/L Venous Blood Oxygen Saturation 80 % Venous Blood Base Excess -25 mmol/L Oxygen Liters/Minute Unknown Hemoglobin A1c 9.1 % (4.6-6.0) Magnesium Level 2.4 mg/dl (1.7-2.2) Total Bilirubin 0.8 mg/dl (0.2-1.3) Aspartate Amino Transf (AST/SGOT) 23 U/L (0-35) Alanine Aminotransferase (ALT/SGPT) 32 U/L (0-56) Alkaline Phosphatase 100 U/L (0-126) Total Protein 7.2 g/dl (6.3-8.2) Albumin 4.7 g/dl (3.5-5.0) Serum Alcohol < 10 mg/dl Acetone, Qualitative Moderate Whole Blood Glucose 322 mg/DL (75-110) Toxicology Test 01/19/18 10:16 Serum Alcohol < 10 mg/dl Acetone, Qualitative Moderate EKG/Imaging EKG Interpretation EKG shows sinus tachycardia with a ventricular rate of 113 bpm. Monitor Interpretation: Sinus Tachycardia ED Course/Re-evaluation Clinical Indication for ER IV: Hydration, IV Access ED Course 01/19/2018 11:20:30 am patient in DKA with moderate ketones VBG shows mixed metabolic acidosis with respiratory alkalosis. Case discussed with Dr. Gtz who is well aware of this patient. We will admit to the ICU for intravenous insulin through drip and close monitoring of blood sugars. Decision to Disposition Date: Jan 19, 2018 Decision to Disposition Time: 11:21 Critical Care Time Total amount of critical care time approximately 25 minutes of direct patient care along with discussion with patient and family of ED course, 5 minutes discussing case with hospitalist Depart Departure Latest Vital Signs Vital Signs Date Time Temp Pulse Resp B/P (MAP) Pulse Ox O2 Delivery O2 Flow Rate FiO2 01/19/18 11:30 130/91 (104) 01/19/18 10:45 118 18 97 01/19/18 10:02 97.5 Room Air Core Temperature (Celsius): 35.5 Impression: Primary Impression: Diabetic ketoacidosis Condition: Improved Disposition: Admitted from ER (to ICU) Referrals: EDDIE MATHEWS MD (PCP) Problem Qualifiers Primary Impression: Diabetic ketoacidosis Diabetes mellitus type: type 1 Diabetes mellitus complication detail: without coma Qualified Codes: E10.10 - Type 1 diabetes mellitus with ketoacidosis without coma LIZABETH COSME MD Jan 19, 2018 09:50
[2018-01-19] MEDS ORDERED: ONDANSETRON 4 MG/2 ML VIAL IVP ONE (10:05)
[2018-01-19] MEDS ORDERED: NS(*) 0.9% 1000 ML BAG 1,000 ML IV ONE ×3 (10:06→12:55)
[2018-01-19] MEDS ORDERED: INSU HUM REG 100 U/ML(ER ONLY) 10 ML VIAL IV ONE (10:10)
--- NOTE | 2018-01-19 10:20 | EKG ---
FACILITY: [facility] [place] PATIENT NAME: ALLY NOONAN : [id number] MR: [id number] V: [id number] EXAM DATE: ORDERING PHYSICIAN: LIZABETH COSME TECHNOLOGIST: SANDI Yung Reason : DKA Blood Pressure : / mmHG Vent. Rate : 113 BPM Atrial Rate : 113 BPM P-R Int : 144 ms QRS Dur : 094 ms QT Int : 360 ms P-R-T Axes : 060 060 059 degrees QTc Int : 493 ms Sinus tachycardia Nonspecific ST abnormality Abnormal ECG When compared with ECG of 11-OCT-2017 05:47, Nonspecific T wave abnormality no longer evident in Inferior leads Nonspecific T wave abnormality no longer evident in Lateral leads Confirmed by ELIZABETH GTZ ([id number]) on 01/19/2018 10:25:01 AM Referred By: CARMELINA Confirmed By:ELIZABETH GTZ
[2018-01-19 10:23] LABS: PLATELET COUNT, AUTOMATED 301 K/uL (150-450)
[2018-01-19] MEDS ORDERED: INSULIN HUM REG 100 UN/ML 3 ML 100 UNIT in NS(*) 0.9% 100 ML BAG 99 ML IV SCH (13:25)
[2018-01-19] MEDS ORDERED: INFLUENZA VIRUS VAC 0.5 ML SYR IM ONLY ONE (13:25)
--- NOTE | 2018-01-19 13:36 | History & Physical ---
History of Present Illness Chief Complaint Nausea and vomiting. History of Present Illness This patient presented to the emergency room with complaints of nausea and vomiting. He ran out of his Lantus several days ago and has been having elevated blood sugars over the past few days. History Problems: (1) Type 1 diabetes mellitus Status: Chronic (2) Alcohol use Status: Chronic (3) History of depression Status: Chronic (4) History of closed head injury Status: Resolved (5) History of vasectomy Status: Resolved (6) Hx of hernia repair Status: Resolved Home Meds Active Scripts Insulin Lispro 100 Un/Ml Vial (HUMALOG 100 U/ML VIAL) 100 Unit/1 Ml Vial, 2-10 UNIT SUBQ SS Y for SLIDING SCALE INSULIN, #1 VIAL Prov:ELIZABETH GTZ DO 10/04/17 Vitamin B Complex (B COMPLEX) 1 Each Tablet, 1 EACH PO DAILY, #30 TAB Prov:ANA MARIA PALACIOS MD 09/19/17 Reported Medications Multivitamin With Folic Acid (ONE DAILY MULTIVITAMIN TABLET) 400 Mcg Tablet, 400 MCG PO QDAY 10/01/17 Insulin Glargine (LANTUS) 100 Unit/Ml Soln, 16 UNIT SUBQ QDAY, ML 10/01/17 Tolnaftate (TINACTIN) 30 Gm Cream..g., 30 GM TP BID 10/01/17 Allergies: Coded Allergies: No Known Drug Allergies (Verified , 01/19/18) Patient History: Blood clots MOTHER Cardiac pacemaker MOTHER FH: gastric ulcer MOTHER FH: heart attack FATHER MOTHER FH: hypertension FATHER FH: stroke MOTHER Hx Smoking: Yes (chewing tobacco) Smoking Status: Light Tobacco Smoker Caffeine Intake: Coffee Caffeine/Cups Per Day: 5 Hx Alcohol Use: Yes ([employer] NIGHTLY WHEN HE FEELS GOOD) Hx Substance Use Disorder: No (Pt denies. ) Social Drugs: Marijuana Review of Systems All Systems Reviewed/Normal: Yes, Except as Noted Gastrointestinal: Nausea, Vomiting Exam Vital Signs Vital Signs Date Time Temp Pulse Resp B/P (MAP) Pulse Ox O2 Delivery O2 Flow Rate FiO2 01/19/18 12:20 97 23 99 01/19/18 12:00 134/81 (98) 01/19/18 10:02 97.5 Room Air Neuro: No Gross deficits Eyes: PERRLA Cardiovascular: Regular Rate and Rhythm Respiratory: Clear to Auscultation GI: Abd Soft and Non-Tender Extremities: No Edema Integumentary: No Cyanosis Medical Decision Making Data Points Result Diagram: 01/19/18 1016 01/19/18 1310 Assessment and Plan Problems: (1) Diabetic ketoacidosis Onset Date: ~ 2017 Status: Acute Assessment & Plan: He did present with nausea and vomiting. He was found to have an elevated blood sugar and anion gap. He has been started on fluid resuscitation and IV insulin protocol. Venous Thromboembolism Antithrombotics Is Pt On Any Antithrombotics?: No Exam Sepsis Risk: No Definite Risk Problem Qualifiers (1) Diabetic ketoacidosis: Diabetes mellitus type: type 1 Diabetes mellitus complication detail: without coma Qualified Codes: E10.10 - Type 1 diabetes mellitus with ketoacidosis without coma ELIZABETH GTZ DO Jan 19, 2018 13:36
[2018-01-19] MEDS: KCL/D1/2NS 20 MEQ 1000 ML 1,000 ML IV PRN ×3 (14:38→23:02)
[2018-01-20] VITALS (9 sets, daily range): BP systolic 86–121; BP diastolic 51–76
[2018-01-20] MEDS: KCL/D1/2NS 20 MEQ 1000 ML 1,000 ML IV PRN (03:03)
[2018-01-20 05:08] LABS: PLATELET COUNT, AUTOMATED 213 K/uL (150-450)
--- NOTE | 2018-01-20 07:39 | Hospitalist Progress Note ---
Subjective Progress Notes Subjective He reports feeling better. No nausea. Physical Exam Vital Signs Date Time Temp Pulse Resp B/P (MAP) Pulse Ox O2 Delivery O2 Flow Rate FiO2 01/20/18 07:00 98.0 78 16 118/76 (90) 95 Room Air General Appearance: Alert, Awake Cardiovascular: Regular Rate and Rhythm Respiratory: Clear to Auscultation GI: Soft and Non-Tender Extremities: Warm, Perfused Result Diagram: 01/20/18 0503 01/20/18 0503 Item Value Date Time Whole Blood Glucose 218 mg/DL H 01/20/18 0654 Whole Blood Glucose 254 mg/DL H 01/20/18 0306 Whole Blood Glucose 238 mg/DL H 01/20/18 0103 Whole Blood Glucose 240 mg/DL H 01/19/18 2308 Whole Blood Glucose 254 mg/DL H 01/19/18 2201 Whole Blood Glucose 271 mg/DL H 01/19/18 2105 Whole Blood Glucose 227 mg/DL H 01/19/182014 Assessment and Plan Problems: (1) Diabetic ketoacidosis Onset Date: ~ 2017 Status: Acute Assessment & Plan: Due to non-compliance with prescribed regimen. He ran out of Lantus and had not used for several days. He presented with nausea and vomiting. He was found to have an elevated blood sugar and wide anion gap. He was started on IV fluid resuscitation and IV insulin infusion. His glucoses have improved and his anion gap has closed. His N/V has resolved. Will now transition back to his usual regimen with Lantus 16 units SQ daily and Humalog at mealtimes. Will need to see if can get his family and social work to get a plan to make sure he has insulin and what to do if he runs out (ie [facility], [facility]). Will also see if Social work can check on the status of his disability/social security. Exam Sepsis Risk: No Definite Risk Problem Qualifiers (1) Diabetic ketoacidosis: Diabetes mellitus type: type 1 Diabetes mellitus complication detail: without coma Qualified Codes: E10.10 - Type 1 diabetes mellitus with ketoacidosis without coma ANA MARIA PALACIOS MD Jan 20, 2018 07:39
[2018-01-20] MEDS: INSULIN HUM LISPRO 100 UN/ML 3 ML VIAL SUBQ PRN ×2 (08:05→12:10)
[2018-01-20] MEDS: INSULIN GLARGINE 100 U/ML 3 ML PEN SUBQ SCH ×2 (08:05→08:15)
[2018-01-20] MEDS ORDERED: ENOXAPARIN 40 MG/0.4ML SYR SC SCH (09:00)
[2018-01-20] MEDS ORDERED: INSU100V24 SUBQ (14:16)
[2018-01-20] MEDS ORDERED: INSU100I30 SUBQ (14:16)
--- NOTE | 2018-01-20 14:23 | Hospitalist Depart ---
Discharge Summary Reason for Hosp/Final Diag: (1) Diabetic ketoacidosis Onset Date: ~ 2017 Status: Acute Hospital Course & Plan: Due to non-compliance with prescribed regimen. He ran out of Lantus and had not used it for several days. He presented with nausea and vomiting. He was found to have an elevated blood sugar and wide anion gap. He was started on IV fluid resuscitation and IV insulin infusion. His glucoses improved and his anion gap closed. His N/V resolved. He was able to eat and drink without problems. We transitioned him back to his usual regimen with Lantus 16 units SQ daily and Humalog at mealtimes. He will work with his family to make sure he has insulin and what to do if he runs out (ie [facility], Check with pharmacy, [facility]). We also encouraged him to continue to work on his disability/social security. He will follow up at the [facility] in next 1-2 weeks or sooner if any problems. Departure Weight (Pounds): 142 Weight (Ounces): 2.0 Result Diagram: 01/20/18 0503 01/20/18 0503 Item Value Date Time White Blood Count 14.5 k/uL H 01/19/18 1016 Hemoglobin 14.6 g/dL 01/19/18 1016 Hematocrit 45.9 % 01/19/18 1016 Platelet Count 301 K/uL 01/19/18 1016 Sodium Level 137 mmol/L 01/19/18 1016 Potassium Level 6.0 mmol/L *H 01/19/18 1016 Chloride Level 96 mmol/L L 01/19/18 1016 Carbon Dioxide Level < 5 mmol/L *L 01/19/18 1016 Blood Urea Nitrogen 28 mg/dl H 01/19/18 1016 Creatinine 1.50 mg/dl H 01/19/18 1016 Glomerular Filtration Rate Calc 48.1 01/19/18 1016 Random Glucose 444 mg/dl H 01/19/18 1016 Calcium Level 9.4 mg/dl 01/19/18 1016 Magnesium Level 2.4 mg/dl H 01/19/18 1016 Total Bilirubin 0.8 mg/dl 01/19/18 1016 Aspartate Amino Transf (AST/SGOT) 23 U/L 01/19/18 1016 Alanine Aminotransferase (ALT/SGPT) 32 U/L 01/19/18 1016 Total Protein 7.2 g/dl 01/19/18 1016 Alkaline Phosphatase 100 U/L 01/19/18 1016 Albumin 4.7 g/dl 01/19/18 1016 Hemoglobin A1c 9.1 % H 01/19/18 1016 Sodium Level 139 mmol/L 01/19/18 1310 Potassium Level 4.8 mmol/L 01/19/18 1310 Chloride Level 103 mmol/L 01/19/18 1310 Carbon Dioxide Level 7 mmol/L *L 01/19/18 1310 Blood Urea Nitrogen 25 mg/dl H 01/19/18 1310 Creatinine 1.20 mg/dl 01/19/18 1310 Calcium Level 8.2 mg/dl L 01/19/18 1310 Sodium Level 135 mmol/L L 01/19/18 1904 Potassium Level 4.8 mmol/L 01/19/18 1904 Chloride Level 106 mmol/L 01/19/18 190 Carbon Dioxide Level 12 mmol/L *L 01/19/18 1904 Blood Urea Nitrogen 20 mg/dl 01/19/18 1904 Creatinine 0.90 mg/dl 01/19/18 190 Glomerular Filtration Rate Calc > 60.0 01/19/18 1904 Calcium Level 8.1 mg/dl L 01/19/18 1904 Urine Color Straw 01/20/18 0704 Urine Clarity Clear 01/20/18 0704 Urine pH 5.0 pH 01/20/18 0704 Urine Specific [place] 1.022 01/20/18 0704 Urine Protein Negative mg/dL 01/20/18 0704 Urine Glucose (UA) 500 mg/dL 01/20/18 0704 Urine Ketones 80 mg/dL H 01/20/18 0704 Urine Blood Negative 01/20/18 0704 Urine Nitrite Negative 01/20/18 0704 Urine Bilirubin Negative 01/20/18 0704 Urine Urobilinogen Negative mg/dL 01/20/18 0704 Urine Leukocyte Esterase Negative 01/20/18 0704 Urine RBC None /HPF 01/20/18 0704 Urine WBC 1 /HPF 01/20/18 0704 Urine Squamous Epithelial Cells Few /LPF 01/20/18 0704 Urine Bacteria Negative /HPF 01/20/18 0704 Urine Mucus None /HPF 01/20/18 0704 Acetone, Qualitative Moderate 01/19/18 1016 Serum Alcohol < 10 mg/dl 01/19/18 1016 Venous Blood pH 7.08 L 01/19/18 1016 Venous Blood Partial Pressure CO2 < 25 mmHg 01/19/18 1016 Venous Blood Partial Pressure O2 59 mmHg 01/19/18 1016 Venous Blood HCO3 5 mmol/L 01/19/18 1016 Venous Blood Oxygen Saturation 80 % 01/19/18 1016 Venous Blood Base Excess -25 mmol/L 01/19/18 1016 Oxygen Liters/Minute Unknown 01/19/18 1016 Condition: Improved Discharge: Home Follow-Up Labs: Finger Sticks (Four times daily (at mealtimes and at bedtime)) Time Spent: > 30 min Discharge Instructions Home Meds Active Scripts Insulin Glargine 100 Un/Ml Pen (LANTUS SOLOSTAR PEN) 100 Unit/1 Ml Insuln.pen, 16 UNIT SUBQ QAM, #1 EA 6 Refills Prov:ANA MARIA PALACIOS MD 01/20/18 Insulin Lispro 100 Un/Ml Vial (HUMALOG 100 U/ML VIAL) 100 Unit/1 Ml Vial, 2-10 UNIT SUBQ SS Y for SLIDING SCALE INSULIN, #1 VIAL Prov:ANA MARIA PALACIOS MD 01/20/18 Vitamin B Complex (B COMPLEX) 1 Each Tablet, 1 EACH PO DAILY, #30 TAB Prov:ANA MARIA PALACIOS MD 09/19/17 Reported Medications Multivitamin With Folic Acid (ONE DAILY MULTIVITAMIN TABLET) 400 Mcg Tablet, 400 MCG PO QDAY 10/01/17 Discontinued Reported Medications Insulin Glargine (LANTUS) 100 Unit/Ml Soln, 16 UNIT SUBQ QDAY, ML 10/01/17 Tolnaftate (TINACTIN) 30 Gm Cream..g., 30 GM TP BID 10/01/17 Diet: Diabetic Special Instructions: Follow up at [facility] in next 1-2 weeks or sooner if any problems. Return to [facility] if any problems. Copies to: [facility] Venous Thromboembolism Antithrombotics Is Pt On Any Antithrombotics?: No Problem Qualifiers (1) Diabetic ketoacidosis: Diabetes mellitus type: type 1 Diabetes mellitus complication detail: without coma Qualified Codes: E10.10 - Type 1 diabetes mellitus with ketoacidosis without coma ANA MARIA PALACIOS MD Jan 20, 2018 14:23
--- NOTE | 2018-01-20 15:26 | Medical Nutrition Therapy ---
Nutrition Anthropometrics Height (Inches): 72.00 Height (Calculated Centimeters: [phone] Weight (Pounds): 142 Weight (Calculated Kilograms): 64.467 Stanton Nutrition Score: Adequate Stanton Nutrition Risk Score: 21 Dietary Referral Nutrition Risk Factors: Special Diet Nutrition Risk Comment: PT IS DIABETIC Physical Findings Physical Appearance: WNR BMI 19.3 Skin Appearance Skin Appearance: Edema Edema Location Modifier: Edema Location: Type of Edema: Degree of Edema: Gastrointestinal Symptoms GI Symtoms: Tube Present: Bowel Sounds: Recent Bowel Pattern: Stool Characteristics: Nutritional Diagnosis Nutritional Risk Acuity 2: DKA Past Medical History: HX of Alcohol abuse (4-5 beers/day), T1DM, Depression, chew Tobacco, dysphagia, ARF, dehydration, UTI, DKA Nutritional Acuity: 2-Moderate Nutrition Etiology: Medications, Economic Constraints Nutrition Problem/Etiology/Sym: Failure to administer medication related to economic restraints as evidence by elevated blood sugar between 250-185 for several days resulting in DKA. Energy Requirement: 1954 (Tyrrell-[employer]or AF 1.3) Protein Requirement: 77 (1.2g/kg) Fluid Requirement: 1932 (30ml/kg) Diet Type: Diabetic Nutrition Intervention: Cont diet as ordered, Encourage intake, Between meal supplement Diet Comment To [facility]: OFFER DIABETIC NUTRITION SUPPLEMENT Nutritional Education Nutrition Education Topic: Diabetic Nutrition Learning Readiness: Little Interest Teaching Methods: Handout Response to Teaching: Verbalize understanding Teaching Recipient: Patient Nutrition Counseling: Provided nutrition education about diabetes diet before pt discharged. Discussed MyPlate and CHO intake. Pt was familiar with education given. Showed little interest, but accepted handouts. -MT Nutrition Monitoring & Eval Nutrition Goals: Eat 50-100% Meal RD Patient Assessment Time: [address] Assessment Type: RD Assessment Patient Nutrition Acuity: 2-Moderate Follow Up Date: Jan 24, 2018 Nutritional Comment: 01/20 Pt admitted for DKA. Pt has hx of alcohol use and abuse but denies any alcohol recently. Per doctor note pt states that he ran out of his Lantus and could not afford any medications at this time. Pt blood glucose has remained elevated for several days. Since admission pt blood glucose ranges from (185-250). Pt is on ADA diet and reports that he has low he appetite only consuming 50% of his meal today. Offer diabetic nutrition supplement to ensure pt meets energy needs. Pt also has low Na (131). Will continue to monitor pt progress, labs and encourage intake. -MESHA FERRER Jan 20, 2018 14:16
[2018-01-20] MEDS ORDERED: INSU100I30 SQ (15:28)
== END 2018-01-20 15:30 | disposition home or self-care (01) | DRG 638 ==
LOC: ER 09:49 → ICU 11:32
PROVIDERS: ADMIT Family Medicine; ATTEND Family Medicine
DX: E10.10 Type 1 diabetes mellitus with ketoacidosis without coma (principal); E87.3 Alkalosis; T38.3X6A Underdosing of insulin and oral hypoglycemic [antidiabetic] drugs, initial encounter; F17.220 Nicotine dependence, chewing tobacco, uncomplicated; F32.9 Major depressive disorder, single episode, unspecified; Z91.128 Patient's intentional underdosing of medication regimen for other reason; Z79.4 Long term (current) use of insulin
CPT/HCPCS: 36415; 36416; 80320; 81001; 82009; 82040; 82247; 82310; 82374; 82435; 82565; 82803; 82947; 82948; 83036; 83735; 84075; 84132; 84155; 84295; 84450; 84460; 84520; 85025; 93005; 99291; J1650; J1815; J2405; J3480; J7030; J7050

== ENCOUNTER 2018-01-20 12:49 | Outpatient (RCR) | payer SELFPAY ==
[2017-09-08 09:03] VITALS: BMI 23.6
[2018-01-20] MEDS ORDERED: INSU100I30 SUBQ (14:16)
[2018-01-20] MEDS ORDERED: INSU100V24 SUBQ (14:16)
[2018-01-20] MEDS ORDERED: INSU100I30 SQ (15:28)
--- NOTE | 2018-01-22 12:14 | Transitional Care Management ---
Assessment Visit Type: Telephone Visit Cardiac: WNL Respiratory: WNL GI: Nutrition: WNL Except GI Comment: 01/22 Has hx of eating only 1 meal a day but states hes been eating 3 since discharge. BS 208 this am Musculoskeletal, Exercise: WNL Except Musculoskeletal, Excercise Com: 01/22 I feel weak Scheduled Follow-Up with Provi: Yes Community Resources/HHC: 01/22 To DTC yesterday for new lantus bottle and syringes. States he has enough strips for testing and insulin and syringes and meds TCM Discharge Criteria Medication Knowledge: 01/22 verbalizes taking lantus and humalog and BS testing. DTC gave himn ASA, confirmed his meds and gave him lantus. Aware of backup plan if he runs out of insulin. Disease Management/Concern/Wha: 01/22 reviewed that family would rather know when hes in trouble or has needs as opposed to feeling guilty when he is admitted to hospital and they didnt' do anything bucause they didn't know he had needs. Enc communication but states he went by himself to DTC yesterday because his jeanie was working. Transitional Care Comment: 01/20 Boy had been in program in the past but d/t fact we were unable to contact him we dc'd from program. Daughter is going to clear VM and help Boy learn to get VM from phone so he can return calls. We wnt over information on type 1 diabetes and the importance of doing BS and using insulins as directed. Basically Boy only eats one meal a day at his sister in laws in the evening.He does BS in the morning and evening uses Lantus 16 u in AM and Hunalog SS[facility] w meals.(sometimes but rarely will eat breakfast) NO lunch and then eats dinner.I suggested MOW and he did not like that idea. SSW is looking into his medicade status. Fozia Dooley has filed several times for Medicade or disabily but it has been denied. She just tried again.Saima (daughter) states he had a food card but he let it so she will help him apply again for it. He has used [facility] on occasion to get food.Dr Jeancarlos Burnette is working out a plan to ehlp him w getting his insulin if he runs again. A. Monitor status of insulins before get to low and get from DTC. B. Dr will leave a standing order at [facility] for him to get insulin if DTC doesn't happen to have any, C. Come to ER before he gets acidotic get an injection and then be given the rest of the pen. We discussed this w Boy several times and then asked daughter to help him monitor level of insulins and try to get to DTC before he runs out.Boy has agreed to give us a call back if unable to answer when we call and Saima will also monitor his phone to help him remember. LISA RATLIFF Jan 22, 2018 12:14
--- NOTE | 2018-01-27 11:27 | Transitional Care Management ---
Assessment Cardiac: WNL Respiratory: WNL GI: Nutrition: WNL Except GI Comment: 01/22 Has hx of eating only 1 meal a day but states he's been eating 3 since discharge. BS 208 this am Musculoskeletal, Exercise: WNL Except Musculoskeletal, Excercise Com: 01/22 I feel weak Scheduled Follow-Up with Provi: Yes Community Resources/HHC: 01/22 To DTC yesterday for new lantus bottle and syringes. States he has enough strips for testing and insulin and syringes and meds TCM Discharge Criteria Medication Knowledge: 01/22 verbalizes taking lantus and humalog and BS testing. DTC gave himn ASA, confirmed his meds and gave him lantus. Aware of backup plan if he runs out of insulin. Disease Management/Concern/Wha: 01/22 reviewed that family would rather know when hes in trouble or has needs as opposed to feeling guilty when he is admitted to hospital and they didnt' do anything bucause they didn't know he had needs. Enc communication but states he went by himself to DTC yesterday because his jeanie was working. Transitional Care Comment: 01/20 Boy had been in program in the past but d/t fact we were unable to contact him we dc'd from program. Daughter is going to clear VM and help Boy learn to get VM from phone so he can return calls. We wnt over information on type 1 diabetes and the importance of doing BS and using insulins as directed. Basically Boy only eats one meal a day at his sister in laws in the evening.He does BS in the morning and evening uses Lantus 16 u in AM and Hunalog SSIC w meals.(sometimes but rarely will eat breakfast) NO lunch and then eats dinner.I suggested MOW and he did not like that idea. SSW is looking into his medicade status. Fozia Dooley has filed several times for Medicade or disabily but it has been denied. She just tried again.Saima (daughter) states he had a food card but he let it so she will help him apply again for it. He has used [facility] on occasion to get food.Dr Jeancarlos Burnette is working out a plan to ehlp him w getting his insulin if he runs again. A. Monitor status of insulins before get to low and get from DTC. B. Dr will leave a standing order at [facility] for him to get insulin if DTC doesn't happen to have any, C. Come to ER before he gets acidotic get an injection and then be given the rest of the pen. We discussed this w Boy several times and then asked daughter to help him monitor level of insulins and try to get to DTC before he runs out.Boy has agreed to give us a call back if unable to answer when we call and Saima will also monitor his phone to help him remember. 01/27 unable to contact-left message [place] Jan 27, 2018 11:27
--- NOTE | 2018-01-29 15:05 | Transitional Care Management ---
Assessment Visit Type: Telephone Visit (01/29 Boy) Cardiac: WNL Respiratory: WNL GI: Nutrition: WNL Except GI Comment: 01/22 Has hx of eating only 1 meal a day but states he's been eating 3 since discharge. BS 208 this am 01/29 I have been eating better. I fix my lunch here at home and then go to [employer] for dinner. My BS las PM was 260 and this AM 222. I'm watching my Lanstus levels so I don't run out" My daughter has also been helping me" Constipation?: No Musculoskeletal, Exercise: WNL Except Musculoskeletal, Excercise Com: 01/22 I feel weak 01/29 I think I'm getting stronger-trying not to sleep so much" Feeling of Well Being Comment: 01/29 My daughter has been coming over which is nice and I go over to [employer] and my brother's in the evening." Scheduled Follow-Up with Avinashi: Yes Community Resources/HHC: 01/22 To [facility] yesterday for new lantus bottle and syringes. States he has enough strips for testing and insulin and syringes and meds01/29 '"I'm to go to DTCin a couple of weeks for follow up" TCM Discharge Criteria Medication Knowledge: 01/22 verbalizes taking lantus and humalog and BS testing. DTC gave himn ASA, confirmed his meds and gave him lantus. Aware of backup plan if he runs out of insulin. 01/29 went over meds and amt of insulin he is to use and and he states his duaghter has helping him with is insulins. Disease Management/Concern/Wha: 01/22 reviewed that family would rather know when hes in trouble or has needs as opposed to feeling guilty when he is admitted to hospital and they didnt' do anything bucause they didn't know he had needs. Enc communication but states he went by himself to DTC yesterday because his jeanie was working. Transitional Care Comment: 01/20 Boy had been in program in the past but d/t fact we were unable to contact him we dc'd from program. Daughter is going to clear VM and help Boy learn to get VM from phone so he can return calls. We wnt over information on type 1 diabetes and the importance of doing BS and using insulins as directed. Basically Boy only eats one meal a day at his sister in laws in the evening.He does BS in the morning and evening uses Lantus 16 u in AM and Hunalog [facility] w meals.(sometimes but rarely will eat breakfast) NO lunch and then eats dinner.I suggested MOW and he did not like that idea. SSW is looking into his medicade status. Fozia [facility] has filed several times for Medicade or disabily but it has been denied. She just tried again.Saima (daughter) states he had a food card but he let it so she will help him apply again for it. [facility]Dr Jeancarlos Burnette is working out a plan to ehlp him w getting his insulin if he runs again. A. Monitor status of insulins before get to low and get from DTC. B. Dr will leave a standing order at [facility] for him to get insulin if DTC doesn't happen to have any, C. Come to ER before he gets acidotic get an injection and then be given the rest of the pen. We discussed this w Boy several times and then asked daughter to help him monitor level of insulins and try to get to DTC before he runs out.Boy has agreed to give us a call back if unable to answer when we call and Saima will also monitor his phone to help him remember. 01/27 unable to contact-left message 01/29 I visited with Geovany from [facility] and she states she is working on Medicaide and medical lab technologist waiver for [place] but is takes time. His daughter will go to review coordinator with him the next meeting and help him answer questins. But sound pretty good day he actually carried on a conversation with me "My daughter comes and helps me and visits and that is nice" Copies to: [facility] [place] Jan 29, 2018 15:05
--- NOTE | 2018-02-04 11:44 | Transitional Care Management ---
Assessment Visit Type: Telephone Visit Spoke with: Geovany Cardiac: WNL Respiratory: WNL GI: Nutrition: WNL Except GI Comment: 01/22 Has hx of eating only 1 meal a day but states he's been eating 3 since discharge. BS 208 this am 01/29 I have been eating better. I fix my lunch here at home and then go to [email or web address] for dinner. My BS las PM was 260 and this AM 222. I'm watching my Lanstus levels so I don't run out" My daughter has also been helping me" 02/04 states BS 191 this am; usually runs 200, checks bid. States eats only lunch and dinner Constipation?: No Musculoskeletal, Exercise: WNL Except Musculoskeletal, Excercise Com: 01/22 I feel weak 01/29 I think I'm getting stronger-trying not to sleep so much" Feeling of Well Being Comment: 01/29 My daughter has been coming over which is nice and I go over to [email or web address] and my brother's in the evening." 02/04 states hasn't heard from jeanie for a while Scheduled Follow-Up with Anushka: Yes Community Resources/HHC: 01/22 To DTC yesterday for new lantus bottle and syringes. States he has enough strips for testing and insulin and syringes and meds01/29 '"I'm to go to DTCin a couple of weeks for follow up" 02/04 reports he is supposed to FU with DTC at end of month. Enc to take glucometer with him so they can see his results TCM Discharge Criteria Medication Knowledge: 01/22 verbalizes taking lantus and humalog and BS testing. DTC gave himn ASA, confirmed his meds and gave him lantus. Aware of backup plan if he runs out of insulin. 01/29 went over meds and amt of insulin he is to use and and he states his duaghter has helping him with is insulins. 02/04 states he has "quite a bit" of insulin left and has 2 bottles in dridge. has plenty of needles and strips. Able to tell me he would go to DTC to cloth picker more if he ran out or to the ER. Reminded him a RX is available at [facility]. Reinforced he would not go without. States he takes 18 unit of lantus qam and covers bs bid with ssi Disease Management/Concern/Wha: 01/22 reviewed that family would rather know when hes in trouble or has needs as opposed to feeling guilty when he is admitted to hospital and they didnt' do anything bucause they didn't know he had needs. Enc communication but states he went by himself to DTC yesterday because his jeanie was working. Transitional Care Comment: 01/20 Boy had been in program in the past but d/t fact we were unable to contact him we dc'd from program. Daughter is going to clear VM and help Boy learn to get VM from phone so he can return calls. We wnt over information on type 1 diabetes and the importance of doing BS and using insulins as directed. Basically Boy only eats one meal a day at his sister in laws in the evening.He does BS in the morning and evening uses Lantus 16 u in AM and Hunalog [facility] w meals.(sometimes but rarely will eat breakfast) NO lunch and then eats dinner.I suggested MOW and he did not like that idea. SSW is looking into his medicade status. Fozia Dooley has filed several times for Medicade or disabily but it has been denied. She just tried again.Saima (daughter) states he had a food card but he let it so she will help him apply again for it. He has used [facility] on occasion to get food.Dr Jeancarlos Burnette is working out a plan to ehlp him w getting his insulin if he runs again. A. Monitor status of insulins before get to low and get from DTC. B. Dr will leave a standing order at [facility] for him to get insulin if DTC doesn't happen to have any, C. Come to ER before he gets acidotic get an injection and then be given the rest of the pen. We discussed this w Boy several times and then asked daughter to help him monitor level of insulins and try to get to DTC before he runs out.Boy has agreed to give us a call back if unable to answer when we call and Saima will also monitor his phone to help him remember. 02/04 feeling good and that he is managing DM with insulin, bs bid, eating bid and getting f/u. reports enough meds and ability to get more. 01/27 unable to contact-left message 7/5 I visited with Geovany from [facility] and she states she is working on Medicaide and nursing home waiver for [place] but is takes time. His daughter will go to surveyor hydrographic with him the next meeting and help him answer questins. But sound pretty good day he actually carried on a conversation with me "My daughter comes and helps me and visits and that is nice" LISA RATLIFF Feb 04, 2018 11:44
--- NOTE | 2018-02-13 14:22 | Transitional Care Management ---
Assessment Visit Type: Telephone Visit Spoke with: Geovany Cardiac: WNL Respiratory: WNL GI: Nutrition: WNL Except GI Comment: 01/22 Has hx of eating only 1 meal a day but states he's been eating 3 since discharge. BS 208 this am 01/29 I have been eating better. I fix my lunch here at home and then go to [employer] for dinner. My BS las PM was 260 and this AM 222. I'm watching my Lanstus levels so I don't run out" My daughter has also been helping me" 02/04 states BS 191 this am; usually runs 200, checks bid. States eats only lunch and dinner 02/13 Blood sugar this morning was 194, which is about average for him, he has been eating three meals a day regularly. Constipation?: No Musculoskeletal, Exercise: WNL Except Musculoskeletal, Excercise Com: 01/22 I feel weak 01/29 I think I'm getting stronger-trying not to sleep so much" 02/13 Feeling stronger, able to do more. Feeling of Well Being Comment: 01/29 My daughter has been coming over which is nice and I go over to [employer] and my brother's in the evening." 02/04 states hasn't heard from jeanie for a while 02/13 His mother is in the beta suite, on comfort care. Scheduled Follow-Up with Anushka: Yes Community Resources/HHC: 01/22 To [facility] yesterday for new lantus bottle and syringes. States he has enough strips for testing and insulin and syringes and meds01/29 '"I'm to go to DTCin a couple of weeks for follow up" 02/04 reports he is supposed to FU with DTC at end of month. Enc to take glucometer with him so they can see his results Following Discharge Instructio: Yes TCM Discharge Criteria Medication Knowledge: 01/22 verbalizes taking lantus and humalog and BS testing. DTC gave himn ASA, confirmed his meds and gave him lantus. Aware of backup plan if he runs out of insulin. 01/29 went over meds and amt of insulin he is to use and and he states his duaghter has helping him with is insulins. 02/04 states he has "quite a bit" of insulin left and has 2 bottles in dridge. has plenty of needles and strips. Able to tell me he would go to DTC to steel pickler more if he ran out or to the ER. Reminded him a RX is available at [facility]. Reinforced he would not go without. States he takes 18 unit of lantus qam and covers bs bid with ssi Disease Management/Concern/Wha: 01/22 reviewed that family would rather know when hes in trouble or has needs as opposed to feeling guilty when he is admitted to hospital and they didnt' do anything bucause they didn't know he had needs. Enc communication but states he went by himself to DTC yesterday because his jeanie was working. Transitional Care Comment: 01/20 Boy had been in program in the past but d/t fact we were unable to contact him we dc'd from program. Daughter is going to clear VM and help Boy learn to get VM from phone so he can return calls. We wnt over information on type 1 diabetes and the importance of doing BS and using insulins as directed. Basically Boy only eats one meal a day at his sister in laws in the evening.He does BS in the morning and evening uses Lantus 16 u in AM and Hunalog [facility] w meals.(sometimes but rarely will eat breakfast) NO lunch and then eats dinner.I suggested MOW and he did not like that idea. SSW is looking into his medicade status. Fozia Dooley has filed several times for Medicade or disabily but it has been denied. She just tried again.Saima (daughter) states he had a food card but he let it so she will help him apply again for it. He has used [facility] on occasion to get food.Dr Jeancarlos Burnette is working out a plan to ehlp him w getting his insulin if he runs again. A. Monitor status of insulins before get to low and get from DTC. B. Dr will leave a standing order at [facility] for him to get insulin if DTC doesn't happen to have any, C. Come to ER before he gets acidotic get an injection and then be given the rest of the pen. We discussed this w Boy several times and then asked daughter to help him monitor level of insulins and try to get to DTC before he runs out.Boy has agreed to give us a call back if unable to answer when we call and Saima will also monitor his phone to help him remember. 02/04 feeling good and that he is managing DM with insulin, bs bid, eating bid and getting f/u. reports enough meds and ability to get more. 01/27 unable to contact-left message 01/29 I visited with Isaiah from [facility] and she states she is working on Medicaide and termination clerk waiver for [employer] but is takes time. His daughter will go to lime kiln operator with him the next meeting and help him answer questins. But sound pretty good day he actually carried on a conversation with me "My daughter comes and helps me and visits and that is nice" 02/13 He is eating well, checking blood sugar twice a day with results below 200. We discussed his mother being in the hospital, and the need to continue caring for himself during this stressful time. DANIEL NARANJO Feb 13, 2018 14:22
--- NOTE | 2018-02-23 13:21 | Transitional Care Management ---
Assessment Visit Type: Telephone Visit Spoke with: Boy Cardiac: WNTahmina Respiratory: WNL GI: Nutrition: WN Except GI Comment: 01/22 Has hx of eating only 1 meal a day but states he's been eating 3 since discharge. BS 208 this am 01/29 I have been eating better. I fix my lunch here at home and then go to [employer] for dinner. My BS las PM was 260 and this AM 222. I'm watching my Lanstus levels so I don't run out" My daughter has also been helping me" 02/04 states BS 191 this am; usually runs 200, checks bid. States eats only lunch and dinner 02/13 Blood sugar this morning was 194, which is about average for him, he has been eating three meals a day regularly. 02/23 Blood sugars stable 180-215, he is not running low on his insulins, checking BS BID. Constipation?: No Musculoskeletal, Exercise: WNL Except Musculoskeletal, Excercise Com: 01/22 I feel weak 01/29 I think I'm getting stronger-trying not to sleep so much" 02/13 Feeling stronger, able to do more. Feeling of Well Being Comment: 01/29 My daughter has been coming over which is nice and I go over to [employer] and my brother's in the evening." 02/04 states hasn't heard from jeanie for a while 02/13 His mother is in the beta suite, on comfort care. 02/23 He is sad, his mother is in the process of passing. Socialization: WNL Scheduled Follow-Up with Avinashi: Yes Community Resources/HHC: 01/22 To [facility] yesterday for new lantus bottle and syringes. States he has enough strips for testing and insulin and syringes and meds01/29 '"I'm to go to [facility] a couple of weeks for follow up" 02/04 reports he is supposed to FU with DTC at end of month. Enc to take glucometer with him so they can see his results Following Discharge Instructio: Yes TCM Discharge Criteria Medication Knowledge: 01/22 verbalizes taking lantus and humalog and BS testing. DTC gave himn ASA, confirmed his meds and gave him lantus. Aware of backup plan if he runs out of insulin. 01/29 went over meds and amt of insulin he is to use and and he states his duaghter has helping him with is insulins. 02/04 states he has "quite a bit" of insulin left and has 2 bottles in drashley. has plenty of needles and strips. Able to tell me he would go to DTC to cloth picker more if he ran out or to the ER. Reminded him a RX is available at [facility]. Reinforced he would not go without. States he takes 18 unit of lantus qam and covers bs bid with ssi Disease Management/Concern/Wha: 01/22 reviewed that family would rather know when hes in trouble or has needs as opposed to feeling guilty when he is admitted to hospital and they didnt' do anything bucause they didn't know he had needs. Enc communication but states he went by himself to DTC yesterday because his jeanie was working. Transitional Care Comment: 01/20 Boy had been in program in the past but d/t fact we were unable to contact him we dc'd from program. Daughter is going to clear VM and help Boy learn to get VM from phone so he can return calls. We wnt over information on type 1 diabetes and the importance of doing BS and using insulins as directed. Basically Boy only eats one meal a day at his sister in laws in the evening.He does BS in the morning and evening uses Lantus 16 u in AM and Hunalog [facility] w meals.(sometimes but rarely will eat breakfast) NO lunch and then eats dinner.I suggested MOW and he did not like that idea. SSW is looking into his medicade status. Fozia pruett Soumya has filed several times for Medicade or disabily but it has been denied. She just tried again.Saima (daughter) states he had a food card but he let it so she will help him apply again for it. He has used [facility] on occasion to get food.Dr Jeancarlos Burnette is working out a plan to ehlp him w getting his insulin if he runs again. A. Monitor status of insulins before get to low and get from DTC. B. Dr will leave a standing order at [facility] for him to get insulin if DTC doesn't happen to have any, C. Come to ER before he gets acidotic get an injection and then be given the rest of the pen. We discussed this w Boy several times and then asked daughter to help him monitor level of insulins and try to get to DTC before he runs out.Boy has agreed to give us a call back if unable to answer when we call and Saima will also monitor his phone to help him remember. 02/04 feeling good and that he is managing DM with insulin, bs bid, eating bid and getting f/u. reports enough meds and ability to get more. 01/27 unable to contact-left message 01/29 I visited with Geovany from [facility] and she states she is working on Medicaide and grinding wheel dresser waiver for GEOVANY but is takes time. His daughter will go to fur stylist with him the next meeting and help him answer questins. But sound pretty good day he actually carried on a conversation with me "My daughter comes and helps me and visits and that is nice" 02/13 He is eating well, checking blood sugar twice a day with results below 200. We discussed his mother being in the hospital, and the need to continue caring for himself during this stressful time. 02/23 Call was brief, he is in the hospital with his mother who is passing away. Blood sugars stable, checking BID, is not running low on insulins. He has no new information regaurding his Medicaid waiver. I will call him next friday, and if he has not heard anything, I will call [facility]. DANIEL NARANJO Feb 23, 2018 13:21
--- NOTE | 2018-02-27 12:08 | Transitional Care Management ---
Assessment Visit Type: Telephone Visit Spoke with: Geovany Cardiac: WNL Respiratory: WNL GI: Nutrition: WNL Except GI Comment: 01/22 Has hx of eating only 1 meal a day but states he's been eating 3 since discharge. BS 208 this am 01/29 I have been eating better. I fix my lunch here at home and then go to [employer] for dinner. My BS las PM was 260 and this AM 222. I'm watching my Lanstus levels so I don't run out" My daughter has also been helping me" 02/04 states BS 191 this am; usually runs 200, checks bid. States eats only lunch and dinner 02/13 Blood sugar this morning was 194, which is about average for him, he has been eating three meals a day regularly. 02/23 Blood sugars stable 180-215, he is not running low on his insulins, checking BS BID. 02/28 BS 241 this am. He states it goes down when he takes his insulin and he had 18U Lantus. Eating 2-3 x a day Constipation?: No Musculoskeletal, Exercise: WNL Except Musculoskeletal, Excercise Com: 01/22 I feel weak 01/29 I think I'm getting stronger-trying not to sleep so much" 02/13 Feeling stronger, able to do more. Feeling of Well Being Comment: 01/29 My daughter has been coming over which is nice and I go over to [employer] and my brother's in the evening." 02/04 states hasn't heard from jeanie for a while 02/13 His mother is in the beta suite, on comfort care. 02/23 He is sad, his mother is in the process of passing. 02/28 in 03/04. Feels sad; knows he must continue to take care of self Socialization: WNL Scheduled Follow-Up with Provi: Yes Community Resources/HHC: 01/22 To [facility] yesterday for new lantus bottle and syringes. States he has enough strips for testing and insulin and syringes and meds01/29 '"I'm to go to DTCin a couple of weeks for follow up" 02/04 reports he is supposed to FU with DTC at end of month. Enc to take glucometer with him so they can see his results 03/04 states he should f/u at end of mo (again). Enc him to call and make appt as he only has 1/2 bottle of Lantus. States he would go to er if he ran out. Reminded [facility] gives him the insulin and that he has rx at [facility] Following Discharge Instructio: Yes TCM Discharge Criteria Medication Knowledge: 01/22 verbalizes taking lantus and humalog and BS testing. DTC gave himn ASA, confirmed his meds and gave him lantus. Aware of backup plan if he runs out of insulin. 01/29 went over meds and amt of insulin he is to use and and he states his duaghter has helping him with is insulins. 02/04 states he has "quite a bit" of insulin left and has 2 bottles in dridge. has plenty of needles and strips. Able to tell me he would go to DTC to picker machine operator more if he ran out or to the ER. Reminded him a RX is available at [facility]. Reinforced he would not go without. States he takes 18 unit of lantus qam and covers bs bid with ssi Disease Management/Concern/Wha: 01/22 reviewed that family would rather know when hes in trouble or has needs as opposed to feeling guilty when he is admitted to hospital and they didnt' do anything bucause they didn't know he had needs. Enc communication but states he went by himself to [facility]TC yesterday because his jeanie was working. Transitional Care Comment: 01/20 Boy had been in program in the past but d/t fact we were unable to contact him we dc'd from program. Daughter is going to clear VM and help Boy learn to get VM from phone so he can return calls. We wnt over information on type 1 diabetes and the importance of doing BS and using insulins as directed. Basically Boy only eats one meal a day at his sister in laws in the evening.He does BS in the morning and evening uses Lantus 16 u in AM and Hunalog [facility] w meals.(sometimes but rarely will eat breakfast) NO lunch and then eats dinner.I suggested MOW and he did not like that idea. SSW is looking into his medicade status. Fozia pruett Soumya has filed several times for Medicade or disabily but it has been denied. She just tried again.Saima (daughter) states he had a food card but he let it so she will help him apply again for it. He has used [facility] on occasion to get food.Dr Jeancarlos Burnette is working out a plan to ehlp him w getting his insulin if he runs again. A. Monitor status of insulins before get to low and get from DTC. B. Dr will leave a standing order at [facility] for him to get insulin if DTC doesn't happen to have any, C. Come to ER before he gets acidotic get an injection and then be given the rest of the pen. We discussed this w Boy several times and then asked daughter to help him monitor level of insulins and try to get to DTC before he runs out.Byo has agreed to give us a call back if unable to answer when we call and Saima will also monitor his phone to help him remember. 02/04 feeling good and that he is managing DM with insulin, bs bid, eating bid and getting f/u. reports enough meds and ability to get more. 01/27 unable to contact-left message 01/29 I visited with Geovany from [facility] and she states she is working on Medicaide and long term acute care registered nurse waiver for GEOVANY but is takes time. His daughter will go to foreclosure paralegal with him the next meeting and help him answer questins. But sound pretty good day he actually carried on a conversation with me "My daughter comes and helps me and visits and that is nice" 02/13 He is eating well, checking blood sugar twice a day with results below 200. We discussed his mother being in the hospital, and the need to continue caring for himself during this stressful time. 02/23 Call was brief, he is in the hospital with his mother who is passing away. Blood sugars stable, checking BID, is not running low on insulins. He has no new information regaurding his Medicaid waiver. I will call him next friday, and if he has not heard anything, I will call [facility]. 02/27 still does not remember order of getting insulin if he runs out. should be [facility] first, then [facility] then ER. Is checking bs, taking insulin and eating though this will be tough time waiting for and loss of his mother. LISA RATLIFF Feb 27, 2018 12:08
--- NOTE | 2018-03-06 10:47 | Transitional Care Management ---
Assessment Cardiac: WNL Respiratory: WNL GI: Nutrition: WNL Except GI Comment: 01/22 Has hx of eating only 1 meal a day but states he's been eating 3 since discharge. BS 208 this am 01/29 I have been eating better. I fix my lunch here at home and then go to [employer] for dinner. My BS las PM was 260 and this AM 222. I'm watching my Lanstus levels so I don't run out" My daughter has also been helping me" 02/04 states BS 191 this am; usually runs 200, checks bid. States eats only lunch and dinner 02/13 Blood sugar this morning was 194, which is about average for him, he has been eating three meals a day regularly. 02/23 Blood sugars stable 180-215, he is not running low on his insulins, checking BS BID. 02/28 BS 241 this am. He states it goes down when he takes his insulin and he had 18U Lantus. Eating 2-3 x a day Constipation?: No Musculoskeletal, Exercise: WNL Except Musculoskeletal, Excercise Com: 01/22 I feel weak 01/29 I think I'm getting stronger-trying not to sleep so much" 02/13 Feeling stronger, able to do more. Feeling of Well Being Comment: 01/29 My daughter has been coming over which is nice and I go over to [employer] and my brother's in the evening." 02/04 states hasn't heard from jeanie for a while 02/13 His mother is in the beta suite, on comfort care. 02/23 He is sad, his mother is in the process of passing. 02/28 in 03/04. Feels sad; knows he must continue to take care of self Socialization: WNL Scheduled Follow-Up with Provi: Yes Community Resources/HHC: 01/22 To [facility] yesterday for new lantus bottle and syringes. States he has enough strips for testing and insulin and syringes and meds01/29 '"I'm to go to [facility]TCin a couple of weeks for follow up" 02/04 reports he is supposed to FU with DTC at end of month. Enc to take glucometer with him so they can see his results 03/04 states he should f/u at end of mo (again). Enc him to call and make appt as he only has 1/2 bottle of Lantus. States he would go to er if he ran out. Reminded [facility] gives him the insulin and that he has rx at [facility] Following Discharge Instructio: Yes TCM Discharge Criteria Medication Knowledge: 01/22 verbalizes taking lantus and humalog and BS testing. DTC gave himn ASA, confirmed his meds and gave him lantus. Aware of backup plan if he runs out of insulin. 01/29 went over meds and amt of insulin he is to use and and he states his duaghter has helping him with is insulins. 02/04 states he has "quite a bit" of insulin left and has 2 bottles in dridge. has plenty of needles and strips. Able to tell me he would go to DTC to machine operator hop picker more if he ran out or to the ER. Reminded him a RX is available at [facility]. Reinforced he would not go without. States he takes 18 unit of lantus qam and covers bs bid with ssi Disease Management/Concern/Wha: 01/22 reviewed that family would rather know when hes in trouble or has needs as opposed to feeling guilty when he is admitted to hospital and they didnt' do anything bucause they didn't know he had needs. Enc communication but states he went by himself to [facility] yesterday because his jeanie was working. Transitional Care Comment: 01/20 Boy had been in program in the past but d/t fact we were unable to contact him we dc'd from program. Daughter is going to clear VM and help Boy learn to get VM from phone so he can return calls. We wnt over information on type 1 diabetes and the importance of doing BS and using insulins as directed. Basically Boy only eats one meal a day at his sister in laws in the evening.He does BS in the morning and evening uses Lantus 16 u in AM and Hunalog [facility] w meals.(sometimes but rarely will eat breakfast) NO lunch and then eats dinner.I suggested MOW and he did not like that idea. SSW is looking into his medicade status. Fozia Dooley has filed several times for Medicade or disabily but it has been denied. She just tried again.Saima (daughter) states he had a food card but he let it so she will help him apply again for it. [facility].Dr Jeancarlos Burnette is working out a plan to ehlp him w getting his insulin if he runs again. A. Monitor status of insulins before get to low and get from DTC. B. Dr will leave a standing order at [facility] for him to get insulin if DTC doesn't happen to have any, C. Come to ER before he gets acidotic get an injection and then be given the rest of the pen. We discussed this w Boy several times and then asked daughter to help him monitor level of insulins and try to get to DTC before he runs out.Boy has agreed to give us a call back if unable to answer when we call and Saima will also monitor his phone to help him remember. 02/04 feeling good and that he is managing DM with insulin, bs bid, eating bid and getting f/u. reports enough meds and ability to get more. 01/27 unable to contact-left message 01/29 I visited with Geovany from [facility] and she states she is working on Medicaide and terminal operator waiver for GEOVANY but is takes time. His daughter will go to interactive marketing strategist with him the next meeting and help him answer questins. But sound pretty good day he actually carried on a conversation with me "My daughter comes and helps me and visits and that is nice" 02/13 He is eating well, checking blood sugar twice a day with results below 200. We discussed his mother being in the hospital, and the need to continue caring for himself during this stressful time. 02/23 Call was brief, he is in the hospital with his mother who is passing away. Blood sugars stable, checking BID, is not running low on insulins. He has no new information regaurding his Medicaid waiver. I will call him next friday, and if he has not heard anything, I will call [facility]. 02/27 still does not remember order of getting insulin if he runs out. [facility]. Is checking bs, taking insulin and eating though this will be tough time waiting for and loss of his mother. 03/06 unable to contact-left message [place] Mar 06, 2018 10:47
--- NOTE | 2018-03-07 10:04 | Transitional Care Management ---
Assessment Visit Type: Telephone Visit (03/07 Boy) Cardiac: WNL Respiratory: WNL GI: Nutrition: WNL Except GI Comment: 01/22 Has hx of eating only 1 meal a day but states he's been eating 3 since discharge. BS 208 this am 01/29 I have been eating better. I fix my lunch here at home and then go to [employer] for dinner. My BS las PM was 260 and this AM 222. I'm watching my Lanstus levels so I don't run out" My daughter has also been helping me" 02/04 states BS 191 this am; usually runs 200, checks bid. States eats only lunch and dinner 02/13 Blood sugar this morning was 194, which is about average for him, he has been eating three meals a day regularly. 02/23 Blood sugars stable 180-215, he is not running low on his insulins, checking BS BID. 02/28 BS 241 this am. He states it goes down when he takes his insulin and he had 18U Lantus. Eating 2-3 x a day 03/07 Eating habits still have not changed much. Still goes to [employer] for dinner. BS stay pretty much in the 200 range. Doesn't have an appt w DTC at this time. Constipation?: No Musculoskeletal, Exercise: WNL Except Musculoskeletal, Excercise Com: 01/22 I feel weak 01/29 I think I'm getting stronger-trying not to sleep so much" 02/13 Feeling stronger, able to do more. Feeling of Well Being Comment: 01/29 My daughter has been coming over which is nice and I go over to [email or web address] and my brother's in the evening." 02/04 states hasn't heard from jeanie for a while 02/13 His mother is in the beta suite, on comfort care. 02/23 He is sad, his mother is in the process of passing. 02/28 in 03/04. Feels sad; knows he must continue to take care of self 03/07 States doing OK past the . Has support from daughter and other family Socialization: WNL Scheduled Follow-Up with Avinashi: Yes Community Resources/HHC: 01/22 To DTC yesterday for new lantus bottle and syringes. States he has enough strips for testing and insulin and syringes and meds01/29 '"I'm to go to DTCin a couple of weeks for follow up" 02/04 reports he is supposed to FU with DTC at end of month. Enc to take glucometer with him so they can see his results 03/04 states he should f/u at end of mo (again). Enc him to call and make appt as he only has 1/2 bottle of Lantus. States he would go to er if he ran out. Reminded [facility] gives him the insulin and that he has rx at [facility] 03/07No appt w DTC at this time. Enc him to go for FU appt and to closly monitor his insulin so he soesn't run short. He assured me he was and repeated the protocol. Daughter has been helping him Following Discharge Instructio: Yes TCM Discharge Criteria Medication Knowledge: 01/22 verbalizes taking lantus and humalog and BS testing. DTC gave himn ASA, confirmed his meds and gave him lantus. Aware of backup plan if he runs out of insulin. 01/29 went over meds and amt of insulin he is to use and and he states his duaghter has helping him with is insulins. 02/04 states he has "quite a bit" of insulin left and has 2 bottles in dridge. has plenty of needles and strips. Able to tell me he would go to DTC to picker packer more if he ran out or to the ER. Reminded him a RX is available at [facility]. Reinforced he would not go without. States he takes 18 unit of lantus qam and covers bs bid with ssi Disease Management/Concern/Wha: 01/22 reviewed that family would rather know when hes in trouble or has needs as opposed to feeling guilty when he is admitted to hospital and they didnt' do anything bucause they didn't know he had needs. Enc communication but states he went by himself to DTC yesterday because his jeanie was working. Transitional Care Comment: 01/20 Boy had been in program in the past but d/t fact we were unable to contact him we dc'd from program. Daughter is going to clear VM and help Boy learn to get VM from phone so he can return calls. We wnt over information on type 1 diabetes and the importance of doing BS and using insulins as directed. Basically Boy only eats one meal a day at his sister in laws in the evening.He does BS in the morning and evening uses Lantus 16 u in AM and Hunalog [facility] w meals.(sometimes but rarely will eat breakfast) NO lunch and then eats dinner.I suggested MOW and he did not like that idea. SSW is looking into his medicade status. Fozia [facility] has filed several times for Medicade or disabily but it has been denied. She just tried again.Saima (daughter) states he had a food card but he let it so she will help him apply again for it. He has used [facility] on occasion to get food.Dr Jeancarlos Burnette is working out a plan to ehlp him w getting his insulin if he runs again. A. Monitor status of insulins before get to low and get from DTC. B. Dr will leave a standing order at [facility] for him to get insulin if DTC doesn't happen to have any, C. Come to ER before he gets acidotic get an injection and then be given the rest of the pen. We discussed this w Boy several times and then asked daughter to help him monitor level of insulins and try to get to DTC before he runs out.Boy has agreed to give us a call back if unable to answer when we call and Saima will also monitor his phone to help him remember. 02/04 feeling good and that he is managing DM with insulin, bs bid, eating bid and getting f/u. reports enough meds and ability to get more. 01/27 unable to contact-left message 01/29 I visited with Geovany from [facility] and she states she is working on Medicaide and oysterman waiver for GEOVANY but is takes time. His daughter will go to shareholder with him the next meeting and help him answer questins. But sound pretty good day he actually carried on a conversation with me "My daughter comes and helps me and visits and that is nice" 02/13 He is eating well, checking blood sugar twice a day with results below 200. We discussed his mother being in the hospital, and the need to continue caring for himself during this stressful time. 02/23 Call was brief, he is in the hospital with his mother who is passing away. Blood sugars stable, checking BID, is not running low on insulins. He has no new information regaurding his Medicaid waiver. I will call him next friday, and if he has not heard anything, I will call [facility]. 02/27 still does not remember order of getting insulin if he runs out. [facility], then [facility] then [facility]. Is checking bs, taking insulin and eating though this will be tough time waiting for and loss of his mother. 03/06 unable to contact-left message 03/07 Boy sound really well this am. He actually conversed and talked about doing BS and that they continue to run in the 200's. I enc him to contact or go to DTC and have a FU and to take his glucometer w. He stated he was doing OK post his mothers "she is at peace." Has suport from daughter and other family. LAKE BENNETT Mar 07, 2018 10:04
--- NOTE | 2018-03-16 13:24 | Transitional Care Management ---
Assessment Visit Type: Telephone Visit Spoke with: Geovany Cardiac: WNL Respiratory: WNL GI: Nutrition: WNL Except GI Comment: 01/22 Has hx of eating only 1 meal a day but states he's been eating 3 since discharge. BS 208 this am 01/29 I have been eating better. I fix my lunch here at home and then go to [employer] for dinner. My BS las PM was 260 and this AM 222. I'm watching my Lanstus levels so I don't run out" My daughter has also been helping me" 02/04 states BS 191 this am; usually runs 200, checks bid. States eats only lunch and dinner 02/13 Blood sugar this morning was 194, which is about average for him, he has been eating three meals a day regularly. 02/23 Blood sugars stable 180-215, he is not running low on his insulins, checking BS BID. 02/28 BS 241 this am. He states it goes down when he takes his insulin and he had 18U Lantus. Eating 2-3 x a day 03/07 Eating habits still have not changed much. Still goes to [employer] for dinner. BS stay pretty much in the 200 range. Doesn't have an appt w DTC at this time. 03/16 states bs 194 this am, usually around 200. Ate ham sandwich this am. To [employer] for dinner Constipation?: No Musculoskeletal, Exercise: WNL Except Musculoskeletal, Excercise Com: 01/22 I feel weak 01/29 I think I'm getting stronger-trying not to sleep so much" 02/13 Feeling stronger, able to do more. 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 enc to drink fluids on this hot day and watch sugar as it may drop with activity Feeling of Well Being Comment: 01/29 My daughter has been coming over which is nice and I go over to [employer] and my brother's in the evening." 02/04 states hasn't heard from jeanie for a while 02/13 His mother is in the beta suite, on comfort care. 02/23 He is sad, his mother is in the process of passing. 02/28 in 03/04. Feels sad; knows he must continue to take care of self 03/07 States doing OK past the . Has support from daughter and other family 03/16 To [employer] for dinner. Hasn't seen jeanie for a while; she must be busy Socialization: WNL Scheduled Follow-Up with Anushka: Yes Community Resources/HHC: 01/22 To DTC yesterday for new lantus bottle and syringes. States he has enough strips for testing and insulin and syringes and meds01/29 '"I'm to go to DTCin a couple of weeks for follow up" 02/04 reports he is supposed to FU with DTC at end of month. Enc to take glucometer with him so they can see his results 03/04 states he should f/u at end of mo (again). Enc him to call and make appt as he only has 1/2 bottle of Lantus. States he would go to er if he ran out. Reminded [facility] gives him the insulin and that he has rx at [facility] 03/07No appt w DTC at this time. Enc him to go for FU appt and to closly monitor his insulin so he soesn't run short. He assured me he was and repeated the protocol. Daughter has been helping him 03/16 states will go to DTC on Friday. Reminded him today is Friday and he stated he would go tomorrow Following Discharge Instructio: Yes TCM Discharge Criteria Medication Knowledge: 01/22 verbalizes taking lantus and humalog and BS testing. DTC gave himn ASA, confirmed his meds and gave him lantus. Aware of backup plan if he runs out of insulin. 01/29 went over meds and amt of insulin he is to use and and he states his duaghter has helping him with is insulins. 02/04 states he has "quite a bit" of insulin left and has 2 bottles in dridge. has plenty of needles and strips. Able to tell me he would go to DTC to worm picker more if he ran out or to the ER. Reminded him a RX is available at [facility]. Reinforced he would not go without. States he takes 18 unit of lantus qam and covers bs bid with ssi 03/16 states he has 1/4 bottle insulin left, enc to go to DTC then he states he has 1/2 bottle left. Enc him to inventory supplies and go get more Disease Management/Concern/Wha: 01/22 reviewed that family would rather know when hes in trouble or has needs as opposed to feeling guilty when he is admitted to hospital and they didnt' do anything bucause they didn't know he had needs. Enc communication but states he went by himself to DTC yesterday because his jeanie was working. Transitional Care Comment: 01/20 Boy had been in program in the past but d/t fact we were unable to contact him we dc'd from program. Daughter is going to clear VM and help Boy learn to get VM from phone so he can return calls. We wnt over information on type 1 diabetes and the importance of doing BS and using insulins as directed. Basically Boy only eats one meal a day at his sister in laws in the evening.He does BS in the morning and evening uses Lantus 16 u in AM and Hunalog [facility] w meals.(sometimes but rarely will eat breakfast) NO lunch and then eats dinner.I suggested MOW and he did not like that idea. SSW is looking into his medicade status. Fozia Dooley has filed several times for Medicade or disabily but it has been denied. She just tried again.Saima (daughter) states he had a food card but he let it so she will help him apply again for it. He has used [facility] on occasion to get food.Dr Jeancarlos Burnette is working out a plan to ehlp him w getting his insulin if he runs again. A. Monitor status of insulins before get to low and get from DTC. B. Dr will leave a standing order at [facility] for him to get insulin if DTC doesn't happen to have any, C. Come to ER before he gets acidotic get an injection and then be given the rest of the pen. We discussed this w Boy several times and then asked daughter to help him monitor level of insulins and try to get to DTC before he runs out.Boy has agreed to give us a call back if unable to answer when we call and Saima will also monitor his phone to help him remember. 02/04 feeling good and that he is managing DM with insulin, bs bid, eating bid and getting f/u. reports enough meds and ability to get more. 01/27 unable to contact-left message 01/29 I visited with Thresa from [facility] and she states she is working on Medicaide and correction waiver for GEOVANY but is takes time. His daughter will go to electronics tech with him the next meeting and help him answer questins. But sound pretty good day he actually carried on a conversation with me "My daughter comes and helps me and visits and that is nice" 02/13 He is eating well, checking blood sugar twice a day with results below 200. We discussed his mother being in the hospital, and the need to continue caring for himself during this stressful time. 02/23 Call was brief, he is in the hospital with his mother who is passing away. Blood sugars stable, checking BID, is not running low on insulins. He has no new information regaurding his Medicaid waiver. I will call him next friday, and if he has not heard anything, I will call [facility]. 02/27 still does not remember order of getting insulin if he runs out. [facility]. Is checking bs, taking insulin and eating though this will be tough time waiting for and loss of his mother. 03/06 unable to contact-left message 03/07 Boy yana really well this am. He actually conversed and talked about doing BS and that they continue to run in the 200's. I enc him to contact or go to DTC and have a FU and to take his glucometer w. He stated he was doing OK post his mothers "she is at peace." Has suport from daughter and other family.03/16 Answers seem to be the same with each call but lyssa need to get refills on his supplies soon LISA RATLIFF Mar 16, 2018 13:24
--- NOTE | 2018-03-26 15:11 | Transitional Care Management ---
Assessment Visit Type: Telephone Visit Spoke with: Geovany Cardiac: WNL Respiratory: WNL GI: Nutrition: WNL Except GI Comment: 01/22 Has hx of eating only 1 meal a day but states he's been eating 3 since discharge. BS 208 this am 01/29 I have been eating better. I fix my lunch here at home and then go to [employer] for dinner. My BS las PM was 260 and this AM 222. I'm watching my Lanstus levels so I don't run out" My daughter has also been helping me" 02/04 states BS 191 this am; usually runs 200, checks bid. States eats only lunch and dinner 02/13 Blood sugar this morning was 194, which is about average for him, he has been eating three meals a day regularly. 02/23 Blood sugars stable 180-215, he is not running low on his insulins, checking BS BID. 02/28 BS 241 this am. He states it goes down when he takes his insulin and he had 18U Lantus. Eating 2-3 x a day 03/07 Eating habits still have not changed much. Still goes to [employer] for dinner. BS stay pretty much in the 200 range. Doesn't have an appt w DTC at this time. 03/16 states bs 194 this am, usually around 200. Ate ham sandwich this am. To [employer] for dinner 03/26 Blood sugar was 235 this morning. Constipation?: No Musculoskeletal, Exercise: WNL Except Musculoskeletal, Excercise Com: 01/22 I feel weak 01/29 I think I'm getting stronger-trying not to sleep so much" 02/13 Feeling stronger, able to do more. 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 enc to drink fluids on this hot day and watch sugar as it may drop with activity Feeling of Well Being Comment: 01/29 My daughter has been coming over which is nice and I go over to [employer] and my brother's in the evening." 02/04 states hasn't heard from jeanie for a while 02/13 His mother is in the beta suite, on comfort care. 02/23 He is sad, his mother is in the process of passing. 02/28 in 03/04. Feels sad; knows he must continue to take care of self 03/07 States doing OK past the . Has support from daughter and other family 03/16 To [employer] for dinner. Hasn't seen jeanie for a while; she must be busy 03/26 Says he is fine. Socialization: WNL Scheduled Follow-Up with Anushka: No (03/26 Encouraged him to call and make an appt today.) Community Resources/HHC: 01/22 To DTC yesterday for new lantus bottle and syringes. States he has enough strips for testing and insulin and syringes and meds01/29 '"I'm to go to DTCin a couple of weeks for follow up" 02/04 reports he is supposed to FU with DTC at end of month. Enc to take glucometer with him so they can see his results 03/04 states he should f/u at end of mo (again). Enc him to call and make appt as he only has 1/2 bottle of Lantus. States he would go to er if he ran out. Reminded [facility] gives him the insulin and that he has rx at [facility] 03/07No appt w DTC at this time. Enc him to go for FU appt and to closly monitor his insulin so he soesn't run short. He assured me he was and repeated the protocol. Daughter has been helping him 03/16 states will go to DTC on Friday. Reminded him today is Friday and he stated he would go tomorrow Following Discharge Instructio: Yes TCM Discharge Criteria Medication Knowledge: 01/22 verbalizes taking lantus and humalog and BS testing. DTC gave himn ASA, confirmed his meds and gave him lantus. Aware of backup plan if he runs out of insulin. 01/29 went over meds and amt of insulin he is to use and and he states his duaghter has helping him with is insulins. 02/04 states he has "quite a bit" of insulin left and has 2 bottles in dridge. has plenty of needles and strips. 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 Reminded him a RX is available at [facility]. Reinforced he would not go without. States he takes 18 unit of lantus qam and covers bs bid with ssi 03/16 states he has 1/4 bottle insulin left, enc to go to DTC then he states he has 1/2 bottle left. Enc him to inventory supplies and go get more Disease Management/Concern/Wha: 01/22 reviewed that family would rather know when hes in trouble or has needs as opposed to feeling guilty when he is admitted to hospital and they didnt' do anything bucause they didn't know he had needs. Enc communication but states he went by himself to DTC yesterday because his jeanie was working. Transitional Care Comment: 01/20 Boy had been in program in the past but d/t fact we were unable to contact him we dc'd from program. Daughter is going to clear VM and help Boy learn to get VM from phone so he can return calls. We wnt over information on type 1 diabetes and the importance of doing BS and using insulins as directed. Basically Boy only eats one meal a day at his sister in laws in the evening.He does BS in the morning and evening uses Lantus 16 u in AM and Hunalog [facility] w meals.(sometimes but rarely will eat breakfast) NO lunch and then eats dinner.I suggested MOW and he did not like that idea. SSW is looking into his medicade status. Fozia Dooley has filed several times for Medicade or disabily but it has been denied. She just tried again.Saima (daughter) states he had a food card but he let it so she will help him apply again for it. He has used [facility] on occasion to get food.Dr Jeancarlos Burnette is working out a plan to ehlp him w getting his insulin if he runs again. A. Monitor status of insulins before get to low and get from DTC. B. Dr will leave a standing order at [facility] for him to get insulin if DTC doesn't happen to have any, C. Come to ER before he gets acidotic get an injection and then be given the rest of the pen. We discussed this w Boy several times and then asked daughter to help him monitor level of insulins and try to get to DTC before he runs out.Boy has agreed to give us a call back if unable to answer when we call and Saima will also monitor his phone to help him remember. 02/04 feeling good and that he is managing DM with insulin, bs bid, eating bid and getting f/u. reports enough meds and ability to get more. 01/27 unable to contact-left message 01/29 I visited with Geovany from [facility] and she states she is working on Medicaide and correction waiver for GEOVANY but is takes time. His daughter will go to sap technical architect with him the next meeting and help him answer questins. But sound pretty good day he actually carried on a conversation with me "My daughter comes and helps me and visits and that is nice" 02/13 He is eating well, checking blood sugar twice a day with results below 200. We discussed his mother being in the hospital, and the need to continue caring for himself during this stressful time. 02/23 Call was brief, he is in the hospital with his mother who is passing away. Blood sugars stable, checking BID, is not running low on insulins. He has no new information regaurding his Medicaid waiver. I will call him next friday, and if he has not heard anything, I will call [facility]. 02/27 still does not remember order of getting insulin if he runs out. [facility] be [facility] first, then [facility]. Is checking bs, taking insulin and eating though this will be tough time waiting for and loss of his mother. 03/06 unable to contact-left message 03/07 Boy sound really well this am. He actually conversed and talked about doing BS and that they continue to run in the 200's. I enc him to contact or go to DTC and have a FU and to take his glucometer w. He stated he was doing OK post his mothers "she is at peace." Has suport from daughter and other family.03/16 Answers seem to be the same with each call but lyssa need to get refills on his supplies soon 03/26 He is slurring his words, but states that he feels fine. He tells me that he is doing fine on his insulin, has plenty, but then later in the conversation he blurts out, "I'm almost out of insulin!" He states that he has not been to the DTC in a long time. I encouraged him to call and make an appt. I reminded him where to get insulin and, reviewed the need not to run out of insulin, and the importance of checking his blood sugars. He says he will go to the DTC on Friday. DANIEL NARANJO Mar 26, 2018 15:11
--- NOTE | 2018-03-31 14:25 | Transitional Care Management ---
Assessment Visit Type: Telephone Visit Spoke with: Geovany Cardiac: WNL Respiratory: WNL GI: Nutrition: WNL Except GI Comment: 01/22 Has hx of eating only 1 meal a day but states he's been eating 3 since discharge. BS 208 this am 01/29 I have been eating better. I fix my lunch here at home and then go to [employer] for dinner. My BS las PM was 260 and this AM 222. I'm watching my Lanstus levels so I don't run out" My daughter has also been helping me" 02/04 states BS 191 this am; usually runs 200, checks bid. States eats only lunch and dinner 02/13 Blood sugar this morning was 194, which is about average for him, he has been eating three meals a day regularly. 02/23 Blood sugars stable 180-215, he is not running low on his insulins, checking BS BID. 02/28 BS 241 this am. He states it goes down when he takes his insulin and he had 18U Lantus. Eating 2-3 x a day 03/07 Eating habits still have not changed much. Still goes to [employer] for dinner. BS stay pretty much in the 200 range. Doesn't have an appt w DTC at this time. 03/16 states bs 194 this am, usually around 200. Ate ham sandwich this am. To [employer] for dinner 03/26 Blood sugar was 235 this morning. 03/31 Blood sugars have been 170-200. Constipation?: No Musculoskeletal, Exercise: WNL Except Musculoskeletal, Excercise Com: 01/22 I feel weak 01/29 I think I'm getting stronger-trying not to sleep so much" 02/13 Feeling stronger, able to do more. 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 enc to drink fluids on this hot day and watch sugar as it may drop with activity Feeling of Well Being Comment: 01/29 My daughter has been coming over which is nice and I go over to [employer] and my brother's in the evening." 02/04 states hasn't heard from jeanie for a while 02/13 His mother is in the beta suite, on comfort care. 02/23 He is sad, his mother is in the process of passing. 02/28 in 03/04. Feels sad; knows he must continue to take care of self 03/07 States doing OK past the . Has support from daughter and other family 03/16 To [employer] for dinner. Hasn't seen jeanie for a while; she must be busy 03/26 Says he is fine. Socialization: WNL Scheduled Follow-Up with Anushka: No (03/26 Encouraged him to call and make an appt today.) Community Resources/HHC: 01/22 To [facility] yesterday for new lantus bottle and syringes. States he has enough strips for testing and insulin and syringes and meds01/29 '"[facility]'m to [facility] for follow up" 02/04 reports he is supposed to FU with DTC at end of month. Enc to take glucometer with him so they can see his results 03/04 states he should f/u at end of mo (again). Enc him to call and make appt as he only has 1/2 bottle of Lantus. States he would go to er if he ran out. Reminded [facility] gives him the insulin and that he has rx at [facility] 03/07No appt w DTC at this time. Enc him to go for FU appt and to closly monitor his insulin so he soesn't run short. He assured me he was and repeated the protocol. Daughter has been helping him 03/16 states will go to [facility] on Friday. Reminded him today is Friday and he stated he would go tomorrow 03/31 Has not made an appt with DTC, says he will do it tomorrow. Following Discharge Instructio: Yes TCM Discharge Criteria Medication Knowledge: 01/22 verbalizes taking lantus and humalog and BS testing. DTC gave himn ASA, confirmed his meds and gave him lantus. Aware of backup plan if he runs out of insulin. 01/29 went over meds and amt of insulin he is to use and and he states his duaghter has helping him with is insulins. 02/04 states he has "quite a bit" of insulin left and has 2 bottles in dridge. has plenty of needles and strips. 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 Reminded him a RX is available at [facility]. Reinforced he would not go without. States he takes 18 unit of lantus qam and covers bs bid with ssi 03/16 states he has 1/4 bottle insulin left, enc to go to DTC then he states he has 1/2 bottle left. Enc him to inventory supplies and go get more Disease Management/Concern/Wha: 01/22 reviewed that family would rather know when hes in trouble or has needs as opposed to feeling guilty when he is admitted to hospital and they didnt' do anything bucause they didn't know he had needs. Enc communication but states he went by himself to [facility] yesterday because his jeanie was working. Transitional Care Comment: 01/20 Boy had been in program in the past but d/t fact we were unable to contact him we dc'd from program. Daughter is going to clear VM and help Boy learn to get VM from phone so he can return calls. We wnt over information on type 1 diabetes and the importance of doing BS and using insulins as directed. Basically Boy only eats one meal a day at his sister in laws in the evening.He does BS in the morning and evening uses Lantus 16 u in AM and Hunalog SSIC w meals.(sometimes but rarely will eat breakfast) NO lunch and then eats dinner.I suggested MOW and he did not like that idea. SSW is looking into his medicade status. Fozia Dooley has filed several times for Medicade or disabily but it has been denied. She just tried again.Saima (daughter) states he had a food card but he let it so she will help him apply again for it. He has used [facility] on occasion to get food.Dr Jeancarlos Burnette is working out a plan to ehlp him w getting his insulin if he runs again. A. Monitor status of insulins before get to low and get from DTC. B. Dr will leave a standing order at [facility] for him to get insulin if DTC doesn't happen to have any, C. Come to ER before he gets acidotic get an injection and then be given the rest of the pen. We discussed this w Boy several times and then asked daughter to help him monitor level of insulins and try to get to DTC before he runs out.Boy has agreed to give us a call back if unable to answer when we call and Saima will also monitor his phone to help him remember. 02/04 feeling good and that he is managing DM with insulin, bs bid, eating bid and getting f/u. reports enough meds and ability to get more. 01/27 unable to contact-left message 01/29 I visited with Geovany from [facility] and she states she is working on Medicaide and detention waiver for GEOVANY but is takes time. His daughter will go to rn relief charge with him the next meeting and help him answer questins. But sound pretty good day he actually carried on a conversation with me "My daughter comes and helps me and visits and that is nice" 02/13 He is eating well, checking blood sugar twice a day with results below 200. We discussed his mother being in the hospital, and the need to continue caring for himself during this stressful time. 02/23 Call was brief, he is in the hospital with his mother who is passing away. Blood sugars stable, checking BID, is not running low on insulins. He has no new information regaurding his Medicaid waiver. I will call him next friday, and if he has not heard anything, I will call [facility]. 02/27 still does not remember order of getting insulin if he runs out. should be [facility] first, then [facility] then ER. Is checking bs, taking insulin and eating though this will be tough time waiting for and loss of his mother. 03/06 unable to contact-left message 03/07 Boy sound really well this am. He actually conversed and talked about doing BS and that they continue to run in the 200's. I enc him to contact or go to [employer] and have a FU and to take his glucometer w. He stated he was doing OK post his mothers "she is at peace." Has suport from daughter and other family.03/16 Answers seem to be the same with each call but lyssa need to get refills on his supplies soon 03/26 He is slurring his words, but states that he feels fine. He tells me that he is doing fine on his insulin, has plenty, but then later in the conversation he blurts out, "I'm almost out of insulin!" He states that he has not been to the DTC in a long time. I encouraged him to call and make an appt. I reminded him where to get insulin and, reviewed the need not to run out of insulin, and the importance of checking his blood sugars. He says he will go to the DTC on Friday. 03/31 He says he will call DTC for an appt tomorrow. States that he has 1/2 a bottle of each of the insulins. I asked him if the Lantus was in a bottle or a pen, he didn't know what I meant, so I explained further, He is not sure if it is a pen or bottle, but it's 1/2 full. DANIEL NARANJO Mar 31, 2018 14:25
--- NOTE | 2018-04-07 11:54 | Transitional Care Management ---
Assessment Visit Type: Telephone Visit (04/07 Boy) Cardiac: WNL Respiratory: WNL GI: Nutrition: WNL Except GI Comment: 01/22 Has hx of eating only 1 meal a day but states he's been eating 3 since discharge. BS 208 this am 01/29 I have been eating better. I fix my lunch here at home and then go to [employer] for dinner. My BS las PM was 260 and this AM 222. I'm watching my Lanstus levels so I don't run out" My daughter has also been helping me" 02/04 states BS 191 this am; usually runs 200, checks bid. States eats only lunch and dinner 02/13 Blood sugar this morning was 194, which is about average for him, he has been eating three meals a day regularly. 02/23 Blood sugars stable 180-215, he is not running low on his insulins, checking BS BID. 02/28 BS 241 this am. He states it goes down when he takes his insulin and he had 18U Lantus. Eating 2-3 x a day 03/07 Eating habits still have not changed much. Still goes to [employer] for dinner. BS stay pretty much in the 200 range. Doesn't have an appt w [facility] at this time. 03/16 states bs 194 this am, usually around 200. Ate ham sandwich this am. To [employer] for dinner 03/26 Blood sugar was 235 this morning. 03/31 Blood sugars have been 170-200. 04/07 BS this AM was 220. He thinkds he is eating better-continues to go to [employer] for dinner. He is watching the level of lantus insulin-has about 1/4 bottle left and has an appt at [facility] tomorrow and will remember to get another bottle. Constipation?: No Musculoskeletal, Exercise: WNL Except Musculoskeletal, Excercise Com: 01/22 I feel weak 01/29 I think I'm getting stronger-trying not to sleep so much" 02/13 Feeling stronger, able to do more. 04/07 feeling stronger and doing more things. [place]eded [place] at this time to pay bills. 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 enc to drink fluids on this hot day and watch sugar as it may drop with activity Feeling of Well Being Comment: 01/29 My daughter has been coming over which is nice and I go over to [employer] and my brother's in the evening." 02/04 states hasn't heard from jeanie for a while 02/13 His mother is in the beta suite, on comfort care. 02/23 He is sad, his mother is in the process of passing. 02/28 in 03/04. Feels sad; knows he must continue to take care of self 03/07 States doing OK past the . Has support from daughter and other family 03/16 To [employer] for dinner. Hasn't seen jeanie for a while; she must be busy 03/26 Says he is fine. Socialization: WNL Scheduled Follow-Up with Anushka: Yes (1/ Has an appt at [facility]TC tomorrow 04/08 at 1600. reminded him to get more Lantus) Community Resources/HHC: 01/22 To [facility] yesterday for new lantus bottle and syringes. States he has enough strips for testing and insulin and syringes and meds01/29 '"[facility]" 02/04 reports he is supposed to FU with DTC at end of month. Enc to take glucometer with him so they can see his results 03/04 states he should f/u at end of mo (again). Enc him to call and make appt as he only has 1/2 bottle of Lantus. States he would go to er if he ran out. Reminded [facility] gives him the insulin and that he has rx at [facility] 03/07No appt w DTC at this time. Enc him to go for FU appt and to closly monitor his insulin so he soesn't run short. He assured me he was and repeated the protocol. Daughter has been helping him 03/16 states will go to [facility] on Friday. Reminded him today is Friday and he stated he would go tomorrow 03/31 Has not made an appt with DTC, says he will do it tomorrow. Following Discharge Instructio: Yes TCM Discharge Criteria Medication Knowledge: 01/22 verbalizes taking lantus and humalog and BS testing. DTC gave himn ASA, confirmed his meds and gave him lantus. Aware of backup plan if he runs out of insulin. 01/29 went over meds and amt of insulin he is to use and and he states his duaghter has helping him with is insulins. 02/04 states he has "quite a bit" of insulin left and has 2 bottles in dridge. has plenty of needles and strips. 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 Reminded him a RX is available at [facility]. Reinforced he would not go without. States he takes 18 unit of lantus qam and covers bs bid with ssi 03/16 states he has 1/4 bottle insulin left, enc to go to [facility]TC then he states he has 1/2 bottle left. Enc him to inventory supplies and go get more Disease Management/Concern/Wha: 01/22 reviewed that family would rather know when hes in trouble or has needs as opposed to feeling guilty when he is admitted to hospital and they didnt' do anything bucause they didn't know he had needs. Enc communication but states he went by himself to [facility] yesterday because his jeanie was working. Transitional Care Comment: 01/20 Boy had been in program in the past but d/t fact we were unable to contact him we dc'd from program. Daughter is going to clear VM and help Boy learn to get VM from phone so he can return calls. We wnt over information on type 1 diabetes and the importance of doing BS and using insulins as directed. Basically Boy only eats one meal a day at his sister in laws in the evening.He does BS in the morning and evening uses Lantus 16 u in AM and Hunalog SSIC w meals.(sometimes but rarely will eat breakfast) NO lunch and then eats dinner.I suggested MOW and he did not like that idea. SSW is looking into his medicade status. Fozia pruett Soumya has filed several times for Medicade or disabily but it has been denied. She just tried again.Saima (daughter) states he had a food card but he let it so she will help him apply again for it. He has used [facility] on occasion to get food.Dr Jeancarlos Burnette is working out a plan to ehlp him w getting his insulin if he runs again. A. Monitor status of insulins before get to low and get from DTC. B. Dr will leave a standing order at [facility] for him to get insulin if DTC doesn't happen to have any, C. Come to ER before he gets acidotic get an injection and then be given the rest of the pen. We discussed this w Boy several times and then asked daughter to help him monitor level of insulins and try to get to [facility]TC before he runs out.Boy has agreed to give us a call back if unable to answer when we call and Saima will also monitor his phone to help him remember. 02/04 feeling good and that he is managing DM with insulin, bs bid, eating bid and getting f/u. reports enough meds and ability to get more. 01/27 unable to contact-left message 01/29 I visited with Isaiah from [facility] and she states she is working on Medicaide and [employer] waiver for GEOVANY but is takes time. His daughter will go to gas line repairer with him the next meeting and help him answer questins. But sound pretty good day he actually carried on a conversation with me "My daughter comes and helps me and visits and that is nice" 02/13 He is eating well, checking blood sugar twice a day with results below 200. We discussed his mother being in the hospital, and the need to continue caring for himself during this stressful time. 02/23 Call was brief, he is in the hospital with his mother who is passing away. Blood sugars stable, checking BID, is not running low on insulins. He has no new information regaurding his Medicaid waiver. I will call him next friday, and if he has not heard anything, I will call [facility]. 02/27 still does not remember order of getting insulin if he runs out. should be [facility] first, then [facility] then ER. Is checking bs, taking insulin and eating though this will be tough time waiting for and loss of his mother. 03/06 unable to contact-left message 03/07 Boy sound really well this am. He actually conversed and talked about doing BS and that they continue to run in the 200's. I enc him to contact or go to [facility] and have a FU and to take his glucometer w. He stated he was doing OK post his mothers "she is at peace." Has suport from daughter and other family.03/16 Answers seem to be the same with each call but lyssa need to get refills on his supplies soon 03/26 He is slurring his words, but states that he feels fine. He tells me that he is doing fine on his insulin, has plenty, but then later in the conversation he blurts out, "I'm almost out of insulin!" He states that he has not been to the [facility]TC in a long time. I encouraged him to call and make an appt. I reminded him where to get insulin and, reviewed the need not to run out of insulin, and the importance of checking his blood sugars. He says he will go to the [facility] on Friday. 03/31 He says he will call [facility]TC for an appt tomorrow. States that he has 1/2 a bottle of each of the insulins. I asked him if the Lantus was in a bottle or a pen, he didn't know what I meant, so I explained further, He is not sure if it is a pen or bottle, but it's 1/2 full. 04/07 Geovany is going to [facility] to pay some bills. He sounds well over the phone-denies any drinking. Will go to [facility] tomorrow and get some more insulins. He feels like he id doing well. A person from [facility] is working with him to get disablility and JOYCE. Saima checks in [facility] and visits when she gets off work. Copies to: ; LAKE BENNETT Apr 07, 2018 11:54
--- NOTE | 2018-04-17 13:22 | Transitional Care Management ---
Assessment Visit Type: Telephone Visit Spoke with: Geovany Cardiac: WNL Respiratory: WNL GI: Nutrition: WNL Except GI Comment: 01/22 Has hx of eating only 1 meal a day but states he's been eating 3 since discharge. BS 208 this am 01/29 I have been eating better. I fix my lunch here at home and then go to [employer] for dinner. My BS las PM was 260 and this AM 222. I'm watching my Lanstus levels so I don't run out" My daughter has also been helping me" 02/04 states BS 191 this am; usually runs 200, checks bid. States eats only lunch and dinner 02/13 Blood sugar this morning was 194, which is about average for him, he has been eating three meals a day regularly. 02/23 Blood sugars stable 180-215, he is not running low on his insulins, checking BS BID. 02/28 BS 241 this am. He states it goes down when he takes his insulin and he had 18U Lantus. Eating 2-3 x a day 03/07 Eating habits still have not changed much. Still goes to [employer] for dinner. BS stay pretty much in the 200 range. Doesn't have an appt w [facility] at this time. 03/16 states bs 194 this am, usually around 200. Ate ham sandwich this am. To [employer] for dinner 03/26 Blood sugar was 235 this morning. 03/31 Blood sugars have been 170-200. 04/07 BS this AM was 220. He thinkds he is eating better-continues to go to [employer] for dinner. He is watching the level of lantus insulin-has about 1/4 bottle left and has an appt at [facility] tomorrow and will remember to get another bottle. Constipation?: No Musculoskeletal, Exercise: WNL Except Musculoskeletal, Excercise Com: 01/22 I feel weak 01/29 I think I'm getting stronger-trying not to sleep so much" 02/13 Feeling stronger, able to do more. 04/07 feeling stronger and doing more things. Heded [place] at this time to pay bills. 04/17 He fell and hurt his hip a few weeks ago, and has not been getting around very well. [facility] wanted to do x-rays yesterday, but he declined. 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 enc to drink fluids on this hot day and watch sugar as it may drop with activity 04/17 Reduced mobility D/T hip. Feeling of Well Being Comment: 01/29 My daughter has been coming over which is nice and I go over to [employer] and my brother's in the evening." 02/04 states hasn't heard from jeanie for a while 02/13 His mother is in the beta suite, on comfort care. 02/23 He is sad, his mother is in the process of passing. 02/28 in 03/04. Feels sad; knows he must continue to take care of self 03/07 States doing OK past the . Has support from daughter and other family 03/16 To [employer] for dinner. Hasn't seen jeanie for a while; she must be busy 03/26 Says he is fine. Socialization: WNL Scheduled Follow-Up with Anushak: Yes (911/ Has an appt at [facility] tomorrow 04/08 at 1600. reminded him to get more Lantus) Community Resources/HHC: 01/22 To [facility] yesterday for new lantus bottle and syringes. States he has enough strips for testing and insulin and syringes and meds01/29 '"I'm to go to [facility] a couple [facility] weeks for follow up" 02/04 reports he is supposed to FU with [facility] at end of month. Enc to take glucometer with him so they can see his results 03/04 states he should f/u at end of mo (again). Enc him to call and make appt as he only has 1/2 bottle of Lantus. States he would go to er if he ran out. Reminded [facility] gives him the insulin and that he has rx at [facility] 03/07No appt w [facility] at this time. Enc him to go for FU appt and to closly monitor his insulin so he soesn't run short. He assured me he was and repeated the protocol. Daughter has been helping him 03/16 states will go to [facility] on Friday. Reminded him today is Friday and he stated he would go tomorrow 03/31 Has not made an appt with [facility], says he will do it tomorrow. 04/17 Went to [facility] yesterday, recieved more insulin. Following Discharge Instructio: Yes TCM Discharge Criteria Medication Knowledge: 01/22 verbalizes taking lantus and humalog and BS testing. DTC gave himn ASA, confirmed his meds and gave him lantus. Aware of backup plan if he runs out of insulin. 01/29 went over meds and amt of insulin he is to use and and he states his duaghter has helping him with is insulins. 02/04 states he has "quite a bit" of insulin left and has 2 bottles in dridge. has plenty of needles and strips. Able to tell me he would go to [facility] to waste picker more if he ran out or to the ER. Reminded him a RX is available at [facility]. Reinforced he would not go without. States he takes 18 unit of lantus qam and covers bs bid with ssi 03/16 states he has 1/4 bottle insulin left, enc to go to [facility] then he states he has 1/2 bottle left. Enc him to inventory supplies and go get more Disease Management/Concern/Wha: 01/22 reviewed that family would rather know when hes in trouble or has needs as opposed to feeling guilty when he is admitted to hospital and they didnt' do anything bucause they didn't know he had needs. Enc communication but states he went by himself to [facility] yesterday because his jeanie was working. Transitional Care Comment: 01/20 Boy had been in program in the past but d/t fact we were unable to contact him we dc'd from program. Daughter is going to clear VM and help Boy learn to get VM from phone so he can return calls. We wnt over information on type 1 diabetes and the importance of doing BS and using insulins as directed. Basically Boy only eats one meal a day at his sister in laws in the evening.He does BS in the morning and evening uses Lantus 16 u in AM and Hunalog SSIC w meals.(sometimes but rarely will eat breakfast) NO lunch and then eats dinner.I suggested MOW and he did not like that idea. SSW is looking into his medicade status. Fozia pruett Soumya has filed several times for Medicade or disabily but it has been denied. She just tried again.Saima (daughter) states he had a food card but he let it so she will help him apply again for it. He has used [facility] on occasion to get food.Dr Jeancarlos Burnette is working out a plan to ehlp him w getting his insulin if he runs again. A. Monitor status of insulins before get to low and get from D[facility]. B. Dr will leave a standing order at [facility] for him to get insulin if [facility]TC doesn't happen to have any, C. Come to ER before he gets acidotic get an injection and then be given the rest of the pen. We discussed this w Boy several times and then asked daughter to help him monitor level of insulins and try to get to [facility] before he runs out.Boy has agreed to give us a call back if unable to answer when we call and Saima will also monitor his phone to help him remember. 02/04 feeling good and that he is managing DM with insulin, bs bid, eating bid and getting f/u. reports enough meds and ability to get more. 01/27 unable to contact-left message 01/29 I visited with Geovany from [facility] and she states she is working on Medicaide and long-term waiver for GEOVANY but is takes time. His daughter will go to [employer] with him the next meeting and help him answer questins. But sound pretty good day he actually carried on a conversation with me "My daughter comes and helps me and visits and that is nice" 02/13 He is eating well, checking blood sugar twice a day with results below 200. We discussed his mother being in the hospital, and the need to continue caring for himself during this stressful time. 02/23 Call was brief, he is in the hospital with his mother who is passing away. Blood sugars stable, checking BID, is not running low on insulins. He has no new information regaurding his Medicaid waiver. I will call him next friday, and if he has not heard anything, I will call [facility]. 02/27 still does not remember order of getting insulin if he runs out. [facility], [facility]. Is checking bs, taking insulin and eating though this will be tough time waiting for and loss of his mother. 03/06 unable to contact-left message 03/07 Boy sound really well this am. He actually conversed and talked about doing BS and that they continue to run in the 200's. I enc him to contact or go to [facility]TC and have a FU and to take his glucometer w. He stated he was doing OK post his mothers "she is at peace." Has suport from daughter and other family.03/16 Answers seem to be the same with each call but lyssa need to get refills on his supplies soon 03/26 He is slurring his words, but states that he feels fine. He tells me that he is doing fine on his insulin, has plenty, but then later in the conversation he blurts out, "I'm almost out of insulin!" He states that he has not been to the [facility]TC in a long time. I encouraged him to call and make an appt. I reminded him where to get insulin and, reviewed the need not to run out of insulin, and the importance of checking his blood sugars. He says he will go to the [facility] on Friday. 03/31 He says he will call [facility] for an appt tomorrow. States that he has 1/2 a bottle of each of the insulins. I asked him if the Lantus was in a bottle or a pen, he didn't know what I meant, so I explained further, He is not sure if it is a pen or bottle, but it's 1/2 full. 04/07 Geovany is going to [facility] to pay some bills. He sounds well over the phone-denies any drinking. Will go to [facility] tomorrow and get some more insulins. He feels like he id doing well. A person from [facility] is working with him to get disablility and JOYCE. Saima checks in [employer] and visits when she gets off work. 04/17 Went to [facility] yesterday, has new bottles of insulin. Blood sugars have been stable in the high 100's. He is not getting around well D/T a fall with residual hip pain. [facility]TC assessed, and wanted to do an x-ray, but he declined. DANIEL NARANJO Apr 17, 2018 13:22
--- NOTE | 2018-04-24 14:22 | Transitional Care Management ---
Assessment Cardiac: WNL Respiratory: WNL GI: Nutrition: WNL Except GI Comment: 01/22 Has hx of eating only 1 meal a day but states he's been eating 3 since discharge. BS 208 this am 01/29 I have been eating better. I fix my lunch here at home and then go to [employer] for dinner. My BS las PM was 260 and this AM 222. I'm watching my Lanstus levels so I don't run out" My daughter has also been helping me" 02/04 states BS 191 this am; usually runs 200, checks bid. States eats only lunch and dinner 02/13 Blood sugar this morning was 194, which is about average for him, he has been eating three meals a day regularly. 02/23 Blood sugars stable 180-215, he is not running low on his insulins, checking BS BID. 02/28 BS 241 this am. He states it goes down when he takes his insulin and he had 18U Lantus. Eating 2-3 x a day 03/07 Eating habits still have not changed much. Still goes to [employer] for dinner. BS stay pretty much in the 200 range. Doesn't have an appt w [facility] at this time. 03/16 states bs 194 this am, usually around 200. Ate ham sandwich this am. To [employer] for dinner 03/26 Blood sugar was 235 this morning. 03/31 Blood sugars have been 170-200. 04/07 BS this AM was 220. He thinkds he is eating better-continues to go to [employer] for dinner. He is watching the level of lantus insulin-has about 1/4 bottle left and has an appt at [facility] tomorrow and will remember to get another bottle. Constipation?: No Musculoskeletal, Exercise: WNL Except Musculoskeletal, Excercise Com: 01/22 I feel weak 01/29 I think I'm getting stronger-trying not to sleep so much" 02/13 Feeling stronger, able to do more. 04/07 feeling stronger and doing more things. Heded [employer] at this time to pay bills. 04/17 He fell and hurt his hip a few weeks ago, and has not been getting around very well. [facility] wanted to do x-rays yesterday, but he declined. 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 enc to drink fluids on this hot day and watch sugar as it may drop with activity 04/17 Reduced mobility D/T hip. Feeling of Well Being Comment: 01/29 My daughter has been coming over which is nice and I go over to [employer] and my brother's in the evening." 02/04 states hasn't heard from jeanie for a while 02/13 His mother is in the beta suite, on comfort care. 02/23 He is sad, his mother is in the process of passing. 02/28 in 03/04. Feels sad; knows he must continue to take care of self 03/07 States doing OK past the . Has support from daughter and other family 03/16 To [employer] for dinner. Hasn't seen jeanie for a while; she must be busy 03/26 Says he is fine. Socialization: WNL Scheduled Follow-Up with Anushka: Yes (911/ Has an appt at [facility] tomorrow 04/08 at 1600. reminded him to get more Lantus) Community Resources/HHC: 01/22 To [facility] yesterday for new lantus bottle and syringes. States he has enough strips for testing and insulin and syringes and meds01/29 '"I'm to go to [facility] a couple [facility] weeks for follow up" 02/04 reports he is supposed to FU with [facility] at end of month. Enc to take glucometer with him so they can see his results 03/04 states he should f/u at end of mo (again). Enc him to call and make appt as he only has 1/2 bottle of Lantus. States he would go to er if he ran out. Reminded [facility] gives him the insulin and that he has rx at [facility] 03/07No appt w [facility] at this time. Enc him to go for FU appt and to closly monitor his insulin so he soesn't run short. He assured me he was and repeated the protocol. Daughter has been helping him 03/16 states will go to [facility] on Friday. Reminded him today is Friday and he stated he would go tomorrow 03/31 Has not made an appt with [facility], says he will do it tomorrow. 04/17 Went to [facility] yesterday, recieved more insulin. Following Discharge Instructio: Yes TCM Discharge Criteria Medication Knowledge: 01/22 verbalizes taking lantus and humalog and BS testing. [facility]TC gave himn ASA, confirmed his meds and gave him lantus. Aware of backup plan if he runs out of insulin. 01/29 went over meds and amt of insulin he is to use and and he states his duaghter has helping him with is insulins. 02/04 states he has "quite a bit" of insulin left and has 2 bottles in dridge. has plenty of needles and strips. Able to tell me he would go to [facility]TC to order picker more if he ran out or to the ER. Reminded him a RX is available at [facility]. Reinforced he would not go without. States he takes 18 unit of lantus qam and covers bs bid with ssi 03/16 states he has 1/4 bottle insulin left, enc to go to [facility] then he states he has 1/2 bottle left. Enc him to inventory supplies and go get more Disease Management/Concern/Wha: 01/22 reviewed that family would rather know when hes in trouble or has needs as opposed to feeling guilty when he is admitted to hospital and they didnt' do anything bucause they didn't know he had needs. Enc communication but states he went by himself to [facility] yesterday because his jeanie was working. Transitional Care Comment: 01/20 Boy had been in program in the past but d/t fact we were unable to contact him we dc'd from program. Daughter is going to clear VM and help Boy learn to get VM from phone so he can return calls. We wnt over information on type 1 diabetes and the importance of doing BS and using insulins as directed. Basically Boy only eats one meal a day at his sister in laws in the evening.He does BS in the morning and evening uses Lantus 16 u in AM and Hunalog SSIC w meals.(sometimes but rarely will eat breakfast) NO lunch and then eats dinner.I suggested MOW and he did not like that idea. SSW is looking into his medicade status. Fozia Dooley has filed several times for Medicade or disabily but it has been denied. She just tried again.Saima (daughter) states he had a food card but he let it so she will help him apply again for it. He has used [facility] on occasion to get food.Dr Jeancarlos Burnette is working out a plan to ehlp him w getting his insulin if he runs again. A. Monitor status of insulins before get to low and get from [facility]. B. Dr will leave a standing order at [facility] for him to get insulin if DTC doesn't happen to have any, C. Come to ER before he gets acidotic get an injection and then be given the rest of the pen. We discussed this w Boy several times and then asked daughter to help him monitor level of insulins and try to get to [facility] before he runs out.Boy has agreed to give us a call back if unable to answer when we call and Saima will also monitor his phone to help him remember. 02/04 feeling good and that he is managing DM with insulin, bs bid, eating bid and getting f/u. reports enough meds and ability to get more. 01/27 unable to contact-left message 01/29 I visited with Geovany from [facility] and she states she is working on Medicaide and termite control servicer waiver for GEOVANY but is takes time. His daughter will go to [employer] with him the next meeting and help him answer questins. But sound pretty good day he actually carried on a conversation with me "My daughter comes and helps me and visits and that is nice" 02/13 He is eating well, checking blood sugar twice a day with results below 200. We discussed his mother being in the hospital, and the need to continue caring for himself during this stressful time. 02/23 Call was brief, he is in the hospital with his mother who is passing away. Blood sugars stable, checking BID, is not running low on insulins. He has no new information regaurding his Medicaid waiver. I will call him next friday, and if he has not heard anything, I will call [facility]. 02/27 still does not remember order of getting insulin if he runs out. should be [facility] first, then [facility] then ER. Is checking bs, taking insulin and eating though this will be tough time waiting for and loss of his mother. 03/06 unable to contact-left message 03/07 Boy sound really well this am. He actually conversed and talked about doing BS and that they continue to run in the 200's. I enc him to contact or go to [facility] and have a FU and to take his glucometer w. He stated he was doing OK post his mothers "she is at peace." Has suport from daughter and other family.03/16 Answers seem to be the same with each call but lyssa need to get refills on his supplies soon 03/26 He is slurring his words, but states that he feels fine. He tells me that he is doing fine on his insulin, has plenty, but then later in the conversation he blurts out, "I'm almost out of insulin!" He states that he has not been to the [facility]TC in a long time. I encouraged him to call and make an appt. I reminded him where to get insulin and, reviewed the need not to run out of insulin, and the importance of checking his blood sugars. He says he will go to the [facility]TC on Friday. 03/31 He says he will call [facility] for an appt tomorrow. States that he has 1/2 a bottle of each of the insulins. I asked him if the Lantus was in a bottle or a pen, he didn't know what I meant, so I explained further, He is not sure if it is a pen or bottle, but it's 1/2 full. 04/07 Geovany is going to town to pay some bills. He sounds well over the phone-denies any drinking. Will go to [facility] tomorrow and get some more insulins. He feels like he id doing well. A person from [facility] is working with him to get disablility and JOYCE. Saima checks in [employer] and visits when she gets off work. 04/17 Went to [facility] yesterday, has new bottles of insulin. Blood sugars have been stable in the high 100's. He is not getting around well D/T a fall with residual hip pain. [facility]TC assessed, and wanted to do an x-ray, but he declined. 04.24 unable to contact-martin has been disconnected. No answer at daughters # Copies to: [facility] ; [place] Apr 24, 2018 14:22
== END 2018-04-28 16:23 | disposition home or self-care (01) ==
LOC: TCM 12:49
PROVIDERS: ATTEND Nurse Practitioner
DX: Z02.9 Encounter for administrative examinations, unspecified (principal)

== ENCOUNTER 2018-06-12 13:58 | Inpatient (IN) | payer SELFPAY ==
[2018-06-12] VITALS (24 sets, daily range): BP systolic 84–117; BP diastolic 42–76
[~2018-06-12] VITALS: Ht 182.9 cm; Wt 62.1 kg
[~2018-06-12 13:58] MED LIST changes: +INSU100I30 SQ
[2018-06-12] MEDS ORDERED: NS(*) 0.9% 1000 ML BAG 1,000 ML IV ONE ×2 (14:13→14:15)
--- NOTE | 2018-06-12 14:19 | EKG ---
FACILITY: [facility] PATIENT NAME: ALLY NOONAN : [id number] MR: [id number] V: [id number] EXAM DATE: ORDERING PHYSICIAN: LIZABETH LAGUNAS TECHNOLOGIST: NAHUM Test Reason : THROWING UP Blood Pressure : / mmHG Vent. Rate : 106 BPM Atrial Rate : 106 BPM P-R Int : 150 ms QRS Dur : 106 ms QT Int : 384 ms P-R-T Axes : 032 066 059 degrees QTc Int : 510 ms Sinus tachycardia Otherwise normal ECG When compared with ECG of 19-JAN-2018 10:15, No significant change was found Confirmed by Jose Hallman [id number] on 06/12/2018 11:00:31 PM Referred By: JANNETH Confirmed By:Jose Grier
[2018-06-12 14:44] LABS: PLATELET COUNT, AUTOMATED 379 K/uL (150-450)
--- NOTE | 2018-06-12 14:44 | ER Report ---
History and Physical Time Seen By MD: 14:00 HPI/ROS CHIEF COMPLAINT: vomiting HISTORY OF PRESENT ILLNESS: history per pt and brother; pt was supposed to meet brother this am; when he did nto show up, brother went to his house and noted that pt was altered, vomiting. Vomiting is dark. Pt cannot give accurate ros due to mental status. Limited ros sig for sob; denies abd pain REVIEW OF SYSTEMS: Constitutional: No fever, no chills. Eyes: No discharge. ENT: No sore throat. Cardiovascular: No chest pain, no palpitations. Respiratory: sob Gastrointestinal: vomiting Genitourinary: denies change in urination Musculoskeletal: No back pain. Skin: denies Neurological: unable to assess Remainder of the 14 system rev: No (pt unable to provide ROS) Allergies: Coded Allergies: No Known Drug Allergies (Verified , 01/19/18) Home Meds Active Scripts Insulin Glargine 100 Un/Ml Pen (LANTUS SOLOSTAR PEN) 100 Unit/1 Ml Insuln.pen, 18 UNIT SQ QAM, #1 ML 6 Refills Prov:ANA MARIA PALACIOS MD 01/20/18 Insulin Lispro 100 Un/Ml Vial (HUMALOG 100 U/ML VIAL) 100 Unit/1 Ml Vial, 2-10 UNIT SUBQ SS PRN for SLIDING SCALE INSULIN, #1 VIAL Prov:ANA MARIA PALACIOS MD 01/20/18 Vitamin B Complex (B COMPLEX) 1 Each Tablet, 1 EACH PO DAILY, #30 TAB Prov:ANA MARIA PLAACIOS MD 09/19/17 Reported Medications Multivitamin With Folic Acid (ONE DAILY MULTIVITAMIN TABLET) 400 Mcg Tablet, 400 MCG PO QDAY 10/01/17 Reviewed Nurses Notes: Yes Old Medical Records Reviewed: Yes Hx Smoking: Yes (chewing tobacco) Smoking Status: Light Tobacco Smoker Hx Substance Use Disorder: No (Pt denies. ) Hx Alcohol Use: Yes (COUPLE BEERS NIGHTLY WHEN HE FEELS GOOD) Constitutional Vital Sign - Last 24 Hours 06/12/18 06/12/18 06/12/18 06/12/18 13:58 14:00 14:03 14:08 Temp 94.5 Pulse ??? 107 ??? 107 Resp 24 22 B/P (MAP) 96/64 96/64 (75) Pulse Ox 100 O2 Delivery Room Air 11/06/12/18 06/12/18 06/12/18 14:13 14:15 14:18 14:20 Pulse 106 ??? Resp 22 26 B/P (MAP) 98/60 (73) 102/61 (75) 06/12/18 06/12/18 06/12/18 06/12/18 14:23 14:25 14:28 14:30 Pulse 108 105 Resp 24 19 B/P (MAP) 83/71 (75) 95/82 (86) Pulse Ox 100 100 06/12/18 06/12/18 06/12/18 06/12/18 14:33 14:35 14:38 14:40 Pulse 105 103 Resp 20 22 B/P (MAP) 95/64 (74) 105/91 (96) Pulse Ox 99 100 06/12/18 06/12/18 06/12/18 06/12/18 14:43 14:45 14:48 14:50 Pulse 104 103 Resp 22 20 B/P (MAP) 78/45 (56) 76/43 (54) Pulse Ox 100 97 06/12/18 06/12/18 06/12/18 06/12/18 14:53 14:55 14:58 15:00 Pulse 101 103 Resp 17 25 B/P (MAP) 77/44 (55) 85/54 (64) Pulse Ox 97 99 06/12/18 06/12/18 06/12/18 06/12/18 15:03 15:05 15:08 15:10 Pulse 103 102 Resp 20 20 B/P (MAP) 82/53 (63) 89/57 (68) Pulse Ox 98 97 06/12/18 06/12/18 06/12/18 06/12/18 15:13 15:15 15:18 15:20 Pulse 103 103 Resp 20 18 B/P (MAP) 88/58 (68) 91/57 (68) Pulse Ox 98 97 06/12/18 06/12/18 06/12/18 06/12/18 15:23 15:25 15:28 15:30 Pulse 105 102 Resp 18 20 B/P (MAP) 78/42 (54) 82/51 (61) Pulse Ox 100 100 06/12/18 06/12/18 06/12/18 06/12/18 15:33 15:35 15:38 15:40 Pulse 102 102 Resp 18 17 B/P (MAP) 73/54 (60) 75/46 (56) Pulse Ox 100 100 06/12/18 06/12/18 06/12/18 06/12/18 15:43 15:45 15:48 15:50 Pulse 102 102 Resp 17 23 B/P (MAP) 70/48 (55) 88/57 (67) Pulse Ox 100 100 06/12/18 06/12/18 06/12/18 06/12/18 15:53 15:58 16:00 16:03 Pulse 101 103 104 Resp 23 17 16 B/P (MAP) 90/57 (68) Pulse Ox 100 100 99 06/12/18 06/12/18 06/12/18 06/12/18 16:05 16:08 16:10 16:13 Pulse 105 108 Resp 18 19 B/P (MAP) 89/65 (73) 82/66 (71) Pulse Ox 99 100 06/12/18 06/12/18 06/12/18 06/12/18 16:14 16:18 16:20 16:23 Temp 95.0 Pulse 106 107 Resp 22 20 B/P (MAP) 82/46 (58) Pulse Ox 100 100 06/12/18 06/12/18 06/12/18 06/12/18 16:25 16:28 16:30 16:33 Pulse 108 109 Resp 25 33 B/P (MAP) 82/49 (60) 90/46 (61) Pulse Ox 100 100 06/12/18 06/12/18 06/12/18 06/12/18 16:35 16:38 16:40 16:43 Pulse 108 109 Resp 17 26 B/P (MAP) 77/39 (52) 78/40 (53) Pulse Ox 100 100 06/12/18 06/12/18 06/12/18 06/12/18 16:45 16:48 16:50 16:53 Pulse 110 112 Resp 22 22 B/P (MAP) 94/52 (66) 76/67 (70) Pulse Ox 100 100 Physical Exam General Appearance: patient is awake, kussmal breathing, altered but redirectable. He is protecting his airway Eyes: Pupils equal and round no pallor or injection. ENT, Mouth: mm dry, coffee ground emesis in mouth Respiratory: lctab, tachypneic Cardiovascular: tachycardic Gastrointestinal: Abdomen is soft and non tender, no masses, bowel sounds normal. Neurological: intermittently responsive Skin: cool and dry. No lesions Musculoskeletal: Extremities are nontender, nonswollen and have full range of motion. DIFFERENTIAL DIAGNOSIS: After history and physical exam differential diagnosis was considered for dka, anemia, gi bleed, acs, obstruction, sepsis, or other em ergent etiology of symptoms Medical Decision Making Data Points Result Diagram: 06/14/1851806/14/1819 Laboratory Hematology Test 06/12/18 14:10 06/12/18 14:33 06/12/18 14:38 Macrocytosis 3+ Lipase 52 U/L (23-300) Serum Alcohol < 10 mg/dl Urine Color Yellow Urine Clarity Clear Urine pH 5.0 pH (4.8-9.5) Urine Specific [place] 1.020 Urine Protein Negative mg/dL (NEGATIVE) Urine Glucose (UA) 500 mg/dL (NEGATIVE) Urine Ketones 20 mg/dL (NEGATIVE) Urine Blood Small (NEGATIVE) Urine Nitrite Negative (NEGATIVE) Urine Bilirubin Negative (NEGATIVE) Urine Urobilinogen Negative mg/dL (0.2-1.9) Urine Leukocyte Esterase Negative (NEGATIVE) Urine RBC 1 /HPF (0-2/HPF) Urine WBC <1 /HPF (0-5/HPF) Urine Squamous Epithelial Cells Many /LPF (</=FEW) Urine Bacteria Few /HPF (NONE-FEW) Urine Mucus Few /HPF (NONE-FEW) Urine Random Creatinine 31.1 mg/dl Urine Random Sodium 16 MEQ/L Stool Occult Blood (IFOB) Negative (NEGATIVE) Blood Gas Puncture Site Right radial Arterial Blood pH 6.96 (7.35-7.45) Arterial Blood Partial Pressure CO2 < 25 mmHg (32-37) Arterial Blood Partial Pressure O2 103 mmHg (60-80) Arterial Blood HCO3 2 mmol/L (20-26) Arterial Blood Oxygen Saturation 94 % (92-100) Arterial Blood Base Excess -30.0 mmol/L Jeffery Test Acceptable Chemistry Test 06/12/18 14:10 06/12/18 14:33 06/12/18 14:38 Macrocytosis 3+ Lipase 52 U/L (23-300) Serum Alcohol < 10 mg/dl Urine Color Yellow Urine Clarity Clear Urine pH 5.0 pH (4.8-9.5) Urine Specific [place] 1.020 Urine Protein Negative mg/dL (NEGATIVE) Urine Glucose (UA) 500 mg/dL (NEGATIVE) Urine Ketones 20 mg/dL (NEGATIVE) Urine Blood Small (NEGATIVE) Urine Nitrite Negative (NEGATIVE) Urine Bilirubin Negative (NEGATIVE) Urine Urobilinogen Negative mg/dL (0.2-1.9) Urine Leukocyte Esterase Negative (NEGATIVE) Urine RBC 1 /HPF (0-2/HPF) Urine WBC <1 /HPF (0-5/HPF) Urine Squamous Epithelial Cells Many /LPF (</=FEW) Urine Bacteria Few /HPF (NONE-FEW) Urine Mucus Few /HPF (NONE-FEW) Urine Random Creatinine 31.1 mg/dl Urine Random Sodium 16 MEQ/L Stool Occult Blood (IFOB) Negative (NEGATIVE) Blood Gas Puncture Site Right radial Arterial Blood pH 6.96 (7.35-7.45) Arterial Blood Partial Pressure CO2 < 25 mmHg (32-37) Arterial Blood Partial Pressure O2 103 mmHg (60-80) Arterial Blood HCO3 2 mmol/L (20-26) Arterial Blood Oxygen Saturation 94 % (92-100) Arterial Blood Base Excess -30.0 mmol/L Jeffery Test Acceptable Toxicology Test 06/12/18 14:10 Serum Alcohol < 10 mg/dl Urinalysis Test 06/12/18 14:33 Urine Color Yellow Urine Clarity Clear Urine pH 5.0 pH (4.8-9.5) Urine Specific [place] 1.020 Urine Protein Negative mg/dL (NEGATIVE) Urine Glucose (UA) 500 mg/dL (NEGATIVE) Urine Ketones 20 mg/dL (NEGATIVE) Urine Blood Small (NEGATIVE) Urine Nitrite Negative (NEGATIVE) Urine Bilirubin Negative (NEGATIVE) Urine Urobilinogen Negative mg/dL (0.2-1.9) Urine Leukocyte Esterase Negative (NEGATIVE) Urine RBC 1 /HPF (0-2/HPF) Urine WBC <1 /HPF (0-5/HPF) Urine Squamous Epithelial Cells Many /LPF (</=FEW) Urine Bacteria Few /HPF (NONE-FEW) Urine Mucus Few /HPF (NONE-FEW) Urine Random Creatinine 31.1 mg/dl Urine Random Sodium 16 MEQ/L Microbiology Microbiology Date/Time Source Procedure Growth Status 06/12/18 15:45 Blood Peripheral Draw Blood Culture - Preliminary NO GROWTH AFTER 1 DAY, REINCUBATED Resulted 06/12/18 15:45 Blood Line Draw Blood Culture - Final Resulted 06/12/18 15:45 Blood Line Draw Blood Culture - Preliminary Resulted EKG/Imaging EKG Interpretation 12 lead EKG: Rhythm: sinus tachycardia [place]: normal QRS: widened qrs ST segments: no apparent acute stemi, though sig artifact [ ] Monitor Interpretation: Sinus Tachycardia ED Course/Re-evaluation ED Course Pt presents with sgs/symptoms of severe dka; iv x 2 initiated, ns resuscitation initiated. ABG shows severe acidemia. Despite 2+ L IVF, pt remains hypotensive; R IJ CL placed emergently as family not present and pt cannot consent.IJ without complication; awaiting cxr. Saline bolus x 4; will follow wtih 200/hr insulin drip initiated Will admit to ICU in critical condition Procedure Procedure: Central line placement. After verbal informed consent from patient; with the risks explained to be bleeding, infection, and collapsed lung; maximal sterile barrier technique was uses including cap, gown, sterile gloves, large sheet, hand washing and chlorhexidine prep. The area anesthetized with 1% lidocaine. The right IJ was punctured with a 19 gauge finder needle, then a wire introducer was placed, a 7 Iranian triple lumen was placed using Seldinger technique. There were no complications. Blood return low pressure, dark blood. Patient tolerated procedure well. CXR results: Appropriate line placement, and no pneumothorax. Xray was interpreted by myself. Radiologist interpretation is pending. The procedure was performed by myself. Decision to Disposition Date: Jun 12, 2018 Decision to Disposition Time: 15:27 Critical Care Time I spent a total of 75 minutes of critical care time in obtaining history, performing a physical exam, bedside monitoring of interventions, collecting and interpreting tests and discussion with consultants but not including time spent performing procedures. Depart Departure Latest Vital Signs Vital Signs Date Time Temp Pulse Resp B/P (MAP) Pulse Ox O2 Delivery O2 Flow Rate FiO2 06/12/18 16:53 112 22 100 06/12/18 16:50 76/67 (70) 06/12/18 16:14 95.0 06/12/18 14:00 Room Air Core Temperature (Celsius): 35.5 Impression: Primary Impression: DKA (diabetic ketoacidoses) Additional Impressions: Hyperkalemia Vomiting Condition: Critical Disposition: Admitted from ER Referrals: EDDIE MATHEWS MD (PCP) Problem Qualifiers Primary Impression: DKA (diabetic ketoacidoses) Diabetes mellitus type: type 1 Diabetes mellitus complication detail: with coma Qualified Codes: E10.11 - Type 1 diabetes mellitus with ketoacidosis with coma Additional Impressions: Vomiting Vomiting Intractability: unspecified Nausea presence: unspecified LIZABETH LAGUNAS MD Jun 12, 2018 14:43
[2018-06-12] MEDS ORDERED: LR(*) 1000 ML BAG 2,000 ML ONE (14:58)
[2018-06-12] MEDS ORDERED: INS HUM REG* 100 U/ML(ER ONLY) 100 UNIT in NS(*) 0.9% 100 ML BAG 99 ML IV SCH (15:15)
[2018-06-12] MEDS ORDERED: INS HUM REG* 100 U/ML(ER ONLY) 100 UNIT in NS(*) 0.9% 100 ML BAG 99 ML IV ONE (15:20)
[2018-06-12] MEDS ORDERED: NOREPINE BITAR* 4 MG/4 ML AMP 4 MG in D5W(*) 250 ML BAG 246 ML IV PRN (15:50)
--- NOTE | 2018-06-12 15:55 | RADIOLOGY IMAGING REPORT ---
[facility] PATIENT NAME: Boy Carter : 1960 MR: [id number] V: [id number] EXAM DATE: ORDERING PHYSICIAN: LIZABETH LAGUNAS TECHNOLOGIST: Location: [facility] Patient: Boy Carter : 1960 Visit/Account:[id number] Date of Sevice: 06/12/2018 CHEST, 1 view History: Shortness of breath COMPARISON: 10/11/2017 FINDINGS: AP supine Heart size and central pulmonary vasculature are normal. Mediastinum and rui are normal. Lungs are clear of infiltrate and atelectasis. There is no pneumothorax or pleural effusion. Right sided central venous catheter distal tip is in the lower SVC. IMPRESSION: No radiographic evidence of an acute chest process. Report Dictated By: Sylvia Chahal MD at 06/12/2018 3:49 PM Report E-Signed By: Sylvia Chahal MD at 06/12/2018 3:50 PM WSN:[id number]
[2018-06-12] MEDS ORDERED: NOREPINEPH BITAR 4 MG/4 ML AMP ONE (16:27)
[2018-06-12] MEDS ORDERED: INSULIN HUM REG 100 UN/ML 3 ML 100 UNIT in NS(*) 0.9% 100 ML BAG 100 ML IV SCH (17:12)
[2018-06-12] MEDS ORDERED: NS(*) 0.9% 1000 ML BAG 1,000 ML IV PRN (17:12)
--- NOTE | 2018-06-12 17:12 | History & Physical ---
History of Present Illness Chief Complaint AMS, hyperglycemia History of Present Illness 57M with PMHX of poorly controlled DM type I and multiple admissions for DKA. Found by brother altered and vomiting after he failed to meet at scheduled time and location. In H ER noted to have to high to read glucose, Kussmaul respirations, hypotension, + ketones. Admitted to ICU for further evaluation and treatment of DKA. Per report he is a daily drinker when feeling well. History Unable To Obtain Past Medical: Unable to Obtain/Update Home Meds Active Scripts Insulin Glargine 100 Un/Ml Pen (LANTUS SOLOSTAR PEN) 100 Unit/1 Ml Insuln.pen, 18 UNIT SQ QAM, #1 ML 6 Refills Prov:ANA MARIA PALACIOS MD 01/20/18 Insulin Lispro 100 Un/Ml Vial (HUMALOG 100 U/ML VIAL) 100 Unit/1 Ml Vial, 2-10 UNIT SUBQ SS PRN for SLIDING SCALE INSULIN, #1 VIAL Prov:ANA MARIA PALACIOS MD 01/20/18 Vitamin B Complex (B COMPLEX) 1 Each Tablet, 1 EACH PO DAILY, #30 TAB Prov:ANA MARIA PALACIOS MD 09/19/17 Reported Medications Multivitamin With Folic Acid (ONE DAILY MULTIVITAMIN TABLET) 400 Mcg Tablet, 400 MCG PO QDAY 10/01/17 Allergies: Coded Allergies: No Known Drug Allergies (Verified , 01/19/18) Patient History: Blood clots MOTHER Cardiac pacemaker MOTHER FH: gastric ulcer MOTHER FH: heart attack FATHER MOTHER FH: hypertension FATHER FH: stroke MOTHER Hx Smoking: Yes (chewing tobacco) Smoking Status: Light Tobacco Smoker Caffeine Intake: Coffee Caffeine/Cups Per Day: 5 Hx Alcohol Use: Yes (COUPLE BEERS NIGHTLY WHEN HE FEELS GOOD) Hx Substance Use Disorder: No (Pt denies. ) Social Drugs: Marijuana Review of Systems Other unable to reliably obtain 2/2 mental status. Exam Vital Signs Vital Signs Date Time Temp Pulse Resp B/P (MAP) Pulse Ox O2 Delivery O2 Flow Rate FiO2 06/12/18 16:14 95.0 06/12/18 16:13 108 19 100 06/12/18 16:10 82/66 (71) 06/12/18 14:00 Room Air General Appearance: Awake (altered mental status, ) Neuro: No Gross deficits Eyes: PERRLA ENT: Other (dry mucosa) Cardiovascular: Normal Rhythm & Peripheral Pulses (hypotensive) Respiratory: No Respiratory Distress GI: Abd Soft and Non-Tender Extremities: Soft and Non Tender, Warm, Pulses, Perfused Integumentary: Skin Intact without Lesion / Mass Psych: Other (unable to reliably evaluate) Medical Decision Making Data Points Result Diagram: 06/12/18 1410 06/12/18 1410 Assessment and Plan Problems: (1) Diabetic ketoacidosis Status: Acute Assessment & Plan: Will begin IV fluids, insulin drip. Correct electrolyte disturbances PRN. Recurrent issue for patient, unclear trigger for this event. (2) Hypotension Assessment & Plan: Volume resuscitation in ER, continue IV fluids, Levophed. Likely this is because of hypovolemia and DKA. Possible could have been precipitated by sepsis. (3) Leukocytosis Status: Acute Assessment & Plan: Likely 2/2 DKA/hypovolemia. No focal signs illness, BCx ordered, CXR negative, UA no sign infection, no empiric Abx at this time. Bare hugger to stabilize temperature as he is hypothermic. (4) Acute kidney failure Status: Acute Assessment & Plan: Likely 2/2 hypovolemia and hypotension. FENa pending, renal US if not responsive to fluids, Hill for strict I/O. (5) Type 1 diabetes mellitus Status: Chronic Assessment & Plan: Poorly controlled, will get HgbA1c. (6) Nausea & vomiting Status: Acute Assessment & Plan: Likely from DKA, some coffee ground emesis. Will begin PPI IV BID. (7) Alcohol use Status: Chronic Assessment & Plan: Daily drinker per report, monitor for signs withdrawal. Venous Thromboembolism Antithrombotics Is Pt On Any Antithrombotics?: No (SCD only with hematemesis) Exam Sepsis Risk: No Definite Risk HARE WES GAITAN DO Jun 12, 2018 17:12
[2018-06-12] MEDS ORDERED: FLUSH 10 ML SYR IVP PRN (17:15)
[2018-06-12] MEDS ORDERED: NOREPINE BITAR* 4 MG/4 ML AMP 8 MG in D5W(*) 500 ML BAG 492 ML IV PRN (17:15)
[2018-06-12] MEDS ORDERED: ONDANSETRON 4 MG/2 ML VIAL IVP PRN (17:15)
[2018-06-12] MEDS ORDERED: INS HUM REG* 100 U/ML(ER ONLY) 100 UNIT in NS(*) 0.9% 100 ML BAG 99 ML IV PRN (17:55)
[2018-06-12 21:10] LABS: PLATELET COUNT, AUTOMATED 281 K/uL (150-450)
[2018-06-12] MEDS: PANTOPRAZOLE SOD 40 MG IV VIAL IVP SCH (21:26)
[2018-06-13] VITALS (95 sets, daily range): BP systolic 86–120; BP diastolic 36–75; Ht 182.9 cm; Wt 62.1 kg
[2018-06-13] MEDS: CEFEPIME HCL 2 GM VIAL 2 GM in NS(*) 0.9% 100 ML BAG 100 ML IVPB SCH (00:10)
[2018-06-13] MEDS ORDERED: KCL/D1/2NS 20 MEQ 1000 ML 1,000 ML IV SCH (00:30)
[2018-06-13] MEDS ORDERED: KCL/D1/2NS 20 MEQ 1000 ML 1,000 ML IV PRN ×2 (03:30→05:41)
[2018-06-13 05:43] LABS: PLATELET COUNT, AUTOMATED 258 K/uL (150-450)
[2018-06-13] MEDS ORDERED: D5 1/2 NS(*) 1000 ML BAG 1,000 ML IV PRN (06:05)
[2018-06-13] MEDS ORDERED: D5 1/2 NS(*) 1000 ML BAG 1,000 ML IV ONE ×2 (06:14→12:10)
[2018-06-13] MEDS ORDERED: INS HUM REG* 100 U/ML(ER ONLY) 100 UNIT in NS(*) 0.9% 100 ML BAG 99 ML IV PRN (07:50)
--- NOTE | 2018-06-13 08:08 | Hospitalist Progress Note ---
Subjective Progress Notes Subjective He reports feeling "Okay". He denies any CP/SOB/abdominal pain/nausea. He states appetite is improved. Physical Exam Vital Signs Date Time Temp Pulse Resp B/P (MAP) Pulse Ox O2 Delivery O2 Flow Rate FiO2 06/13/18 07:50 86 120/70 (87) 98 Room Air 80 109/69 (82) 80 06/13/18 06:15 99.8 12 Intake and Output 06/13/18 07:00 Intake Total 3201.3 ml Output Total 1260 ml Balance 1941.3 ml Intake Oral 200 ml IV Total 3001.3 ml Output Urine Total 1260 ml General Appearance: Alert, Awake Cardiovascular: Regular Rate and Rhythm Respiratory: Other (few scattered rhonchi) Chest: No Tenderness GI: Soft and Non-Tender (BS present) Extremities: Warm, Perfused Integumentary: Skin Intact without Lesion / Mass Result Diagram: 06/13/18 0529 06/13/18 0529 Item Value Date Time Random Glucose 246 mg/dl H 06/13/18 0529 Whole Blood Glucose 245 mg/DL H 06/13/18 0433 Random Glucose 249 mg/dl H 06/13/18 0313 Whole Blood Glucose 222 mg/DL H 06/13/18 0216 Whole Blood Glucose 212 mg/DL H 06/13/18 0116 Random Glucose 237 mg/dl H 06/13/18 0024 Whole Blood Glucose 248 mg/DL H 06/13/18 0018 Whole Blood Glucose 278 mg/DL H 06/12/18 2322 Whole Blood Glucose 334 mg/DL H 06/12/18 2217 Whole Blood Glucose 394 mg/DL H 06/12/18 2102 Random Glucose 407 mg/dl H 06/12/18 2102 Monitor Interpretation: Normal Sinus Rhythm Assessment and Plan Problems: (1) Diabetic ketoacidosis Status: Acute Assessment & Plan: Improved. Acidosis appears to have resolved fairly quickly. No obvious eliciting cause. He does still have elevated WBC count. Will re-check CXR. He appears to be relatively asymptomatic. Will continue IV insulin and IV fluids until he is eating and drinking well. Watch closely. (2) Hypotension Assessment & Plan: Probably due to acidosis/dehydration, but cannot exclude infectious cause. Will re-check CXR. Cultures negative thus far. He received IV fluid resuscitation in ER - will continue IV fluids. He required Levophed initially. Automated BPs are significantly lower than manual readings - Will do only manual readings. Try to wean off the Levophed today. (3) Acute kidney failure Status: Acute Assessment & Plan: Resolved. Most likely due to hypovolemia and hypotension. (4) Type 1 diabetes mellitus Status: Chronic Assessment & Plan: He has had significant difficulty controlling his DM in the past. HgbA1c pending. (5) Nausea & vomiting Status: Acute Assessment & Plan: Improved/resolved. Will try to resume his ADA diet today. (6) Alcohol use Status: Chronic Assessment & Plan: Daily drinker per report. Will monitor for signs withdrawal. Exam Sepsis Risk: Severe Sepsis Risk ANA MARIA PALACIOS MD Jun 13, 2018 08:08
[2018-06-13] MEDS: PANTOPRAZOLE SOD 40 MG IV VIAL IVP SCH ×2 (09:01→20:30)
[2018-06-13] MEDS: NS(*) 0.9% 1000 ML BAG 1,000 ML IV PRN (09:02)
--- NOTE | 2018-06-13 10:45 | RADIOLOGY IMAGING REPORT ---
FACILITY: [facility] PATIENT NAME: Boy Carter : 1960 MR: [id number] V: [id number] EXAM DATE: ORDERING PHYSICIAN: ANA MARIA PALACIOS TECHNOLOGIST: Location: [facility] [place] Patient: Boy Carter : 1960 Visit/Account:[id number] Date of Sevice: 06/13/2018 Single view of the chest Indication: Elevated white count. Comparison: X-ray examination of the chest June 12 Findings: Heart is stable. Lungs are clear. Appropriate appearance right IJ catheter. No effusion or pneumothor ax. No new consolidation. IMPRESSION: 1. No acute cardiopulmonary process. Report Dictated By: Jessee Grant MD at 06/13/2018 10:40 AM Report E-Signed By: Jessee Grant MD at 06/13/2018 10:41 AM WSN:[id number]
[2018-06-13] MEDS: D5 1/2 NS(*) 1000 ML BAG 1,000 ML IV PRN (22:45)
[2018-06-13] MEDS ORDERED: CEFEPIME HCL 2 GM VIAL IVP SCH (23:00)
[2018-06-14] VITALS (54 sets, daily range): BP systolic 94–140; BP diastolic 23–94
[2018-06-14] MEDS ORDERED: VANCOMYCIN(*) 1 GM VIAL 1 GM, VANCOMYCIN (*) 0.5 GM VIAL 0.5 GM in NS(*) 0.9% 250 ML BA... IVPB ONE
[2018-06-14] MEDS ORDERED: NS(*) 0.9% 500 ML BAG 500 ML ONE (00:14)
[2018-06-14] MEDS: NS(*) 0.9% 1000 ML BAG 1,000 ML IV PRN ×2 (01:41→19:18)
[2018-06-14 05:30] LABS: PLATELET COUNT, AUTOMATED 186 K/uL (150-450)
--- NOTE | 2018-06-14 08:17 | Hospitalist Progress Note ---
Subjective Progress Notes Subjective The patient is awake and alert today. States he will try to eat breakfast. Physical Exam Vital Signs Date Time Temp Pulse Resp B/P (MAP) Pulse Ox O2 Delivery O2 Flow Rate FiO2 06/14/18 07:30 70 10 116/85 (95) 100 Room Air 06/14/18 06:00 99.4 Intake and Output 06/14/18 06:59 Intake Total 5417 ml Output Total 875 ml Balance 4542 ml Intake Oral 2072 ml IV Total 3345 ml Output Urine Total 875 ml General Appearance: Alert, Awake, No Acute Distress, Afebrile Neuro: No Gross deficits Cardiovascular: Regular Rate and Rhythm Respiratory: Clear to Auscultation (Anteriorly.) GI: Soft and Non-Tender (BS+) Extremities: Warm, Perfused, Edema (Trace.), Other (No wounds or ulcers.) Integumentary: Skin Intact without Lesion / Mass Psych: Alert & Oriented X3, Appropriate Mood & Affect Result Diagram: 06/14/1851806/14/18518 Item Value Date Time Ns(*) 0.9% 100 Ml B... w/Insulin Hum Reg (PHA) Complete 09/07/17 1442 Total Bilirubin 0.4 mg/dl 06/14/18 05 Aspartate Amino Transf (AST/SGOT) 84 U/L H 06/14/18 05 Alanine Aminotransferase (ALT/SGPT) 49 U/L 06/14/18 05 Alkaline Phosphatase 62 U/L 06/14/18 05 Total Protein 4.5 g/dl L 06/14/18 05 Albumin 2.5 g/dl L 06/14/18 05 Calcium Level 8.2 mg/dl L 06/14/18 05 [facility] [place] [place] LAB *LIVE* [address] [place] [address] PHANI GRAF M.D., DIRECTOR OF LABORATORY SERVICES WES CHING M.D., PATHOLOGIST RUN DATE: 06/13/18 Specimen Inquiry Report PAGE 1 RUN TIME: 2200 PATIENT: ALLY NOONAN ACCT: [id number] LOC: ICU U: [id number] AGE/SX: 57/M ROOM: 2259 RE06/12/[address]: WES JOHNSON : 1960 BED: 259 DIS: STATUS: ADM IN TLOC: SPEC #: [id number] JOSÉ MIGUEL: 06/12/18 STATUS: RES REQ #: [id number] RECD: 06/12/[address] [facility] [address]: LIZABEHT LAGUNAS MD SOURCE: BLOOD LINE ENTR: 06/12/[address] [facility] [address]: EDDIE MATHEWS MD [facility]: ORDERED: BCGS, CULT BLOOD Procedure Result Verified BLOOD CULTURE GRAM STAIN Final 06/13/18-2200 AERO GRAM POSITIVE COCCI POSITIVE BLOOD CULTURE GRAM STAIN REPORT CALLED TO: JEFERSON SKELTON RN. DATE/TIME REPORT CALLED: 06/13/2018 AT 2200 CALLED BY: SAEED FRENCHCE BLOOD CULTURE Preliminary 06/13/18-2200 Positive BLOOD CULTURE workup in progress. Report to follow. Imaging FACILITY: [facility] PATIENT NAME: Ally Noonan : 1960 MR: [id number] V: [id number] EXAM DATE: [id number] ORDERING PHYSICIAN: ANA MARIA PALACIOS TECHNOLOGIST: Location: [facility] Patient: Ally Noonan : 1960 Visit/Account:[id number] Date of Sevice: 06/13/2018 Single view of the chest Indication: Elevated white count. Comparison: X-ray examination of the chest June 12 Findings: Heart is stable. Lungs are clear. Appropriate appearance right IJ catheter. No effusion or pneumothorax. No new consolidation. IMPRESSION: 1. No acute cardiopulmonary process. Report Dictated By: Jessee Grant MD at 06/13/2018 10:40 AM Report E-Signed By: Jessee Grant MD at 06/13/2018 10:41 AM WSN:[id number] Monitor Interpretation: Normal Sinus Rhythm Assessment and Plan Problems: (1) Diabetic ketoacidosis Status: Acute Assessment & Plan: Improved. Acidosis appears to have resolved fairly quickly. No obvious eliciting cause. He did have elevated WBC count, but this resolved. Will re-check CXRs have been normal. He appears to be relatively asymptomatic. Will continue IV insulin and IV fluids until he is eating and drinking well. Watch closely. (2) Hypotension Assessment & Plan: Probably due to acidosis/dehydration, but cannot exclude infectious cause. CXRs negative. One blood culture positive for gram positive cocci. On cefepime and Vanco. He received IV fluid resuscitation in ER. Now on fluids at 100cc/hr. He required Levophed initially but his pressures have normalized. (3) Acute kidney failure Status: Acute Assessment & Plan: Resolved. Most likely due to hypovolemia and hypotension. (4) Type 1 diabetes mellitus Status: Chronic Assessment & Plan: He has had significant difficulty controlling his DM in the past. HgbA1c pending. (5) Nausea & vomiting Status: Acute Assessment & Plan: Improved/resolved. Will try to resume his ADA diet today. (6) Alcohol use Status: Chronic Assessment & Plan: Daily drinker per report. Will monitor for signs withdrawal. (7) Positive blood culture Status: Acute Assessment & Plan: One blood culture growing a gram positive cocci. See above. Will continue cefepime and Vanco. Vanco trough pending at 2300. Time Spent on Plan of Care: < 30 min Exam Sepsis Risk: No Definite Risk HENRY PALACIOS MD Jun 14, 2018 08:17
[2018-06-14] MEDS ORDERED: INFLUENZA VIRUS VAC 0.5ML SYR IM ONLY ONE (09:00)
[2018-06-14] MEDS: PANTOPRAZOLE SOD 40 MG IV VIAL IVP SCH ×2 (09:12→21:18)
[2018-06-14] MEDS: CEFEPIME HCL 2 GM VIAL 2 GM in NS(*) 0.9% 100 ML BAG 100 ML IVPB SCH ×2 (11:44→23:09)
[2018-06-14] MEDS ORDERED: VANCOMYCIN 1 GM ADDVIAL 1 GM in NS(*) 0.9% 250 ML ADDVAN BAG 250 ML IVPB SCH (12:00)
--- NOTE | 2018-06-14 12:24 | Medical Nutrition Therapy ---
Nutrition Anthropometrics Height (Inches): 72.00 Height (Calculated Centimeters: 182.989149 Weight (Pounds): 137 Weight (Calculated Kilograms): 62.227 Stanton Nutrition Score: Probably Inadequate Stanton Nutrition Risk Score: 16 Dietary Referral Nutrition Risk Factors: Special Diet Nutrition Risk Comment: PT IS DIABETIC Physical Findings Physical Appearance: Underweight BMI<19 Skin Appearance Skin Appearance: Edema Edema Location Modifier: Edema Location: Type of Edema: Degree of Edema: Gastrointestinal Symptoms GI Symtoms: Nausea Tube Present: Bowel Sounds: Recent Bowel Pattern: Stool Characteristics: Nutrition/Food History Special Diet Prior Admit, Non-compliant W/Diet Uncontrolled T1DM Poor Skipped Meals: Yes Alcohol Use: Currently Amount of Alcohol Used: 4 beers and 4 shots per day Nutritional Diagnosis Nutritional Risk Acuity 2: DKA Nutritional Risk Acuity 3: Alcohol abuse Past Medical History: HX of Alcohol abuse (4-5 beers/day), T1DM, Depression, chew Tobacco, dysphagia, ARF, dehydration, UTI, DKA Nutritional Acuity: 2-Moderate Nutrition Diagnosis: Under-weight, Nutr. Knowledge Deficit, Not Ready for Diet Change, Excessive Alcohol Intake Nutrition Etiology: Harmful Nutrition Beliefs, Nutr. Knowledge Deficit, Disin terested in Nutr. Ed, Alcohol Addiction Nutrition Problem/Etiology/Sym: Not ready for diet change related to nutrition knowledge deficit, disinterest in nutr. ed, and harmful nutr beliefs as evidenced by DKA, high random blood glucose, and unadherence to diet. Excessive alcohol intake related to alcohol addiction as evidenced by 4 beers and 4 shots per day. Energy Requirement: 2051.6 (62.2*25*1.1*1.0=820396.2*35*1.1*1.8=7081) Protein Requirement: 68.4 (62.2*1.1) Fluid Requirement: 1866 (62.2*30) Diet Type: Diabetic Nutrition Intervention: Cont diet as ordered, Encourage intake, Between meal supplement, Incr diet as tolerated, Vit/min support, Check glucose Nutritional Needs Comment: Caloric needs range from 2051 (25kcal/kg) for maintence to 3058 (35kcal/kg) for weight gain, which is recommended. Protein needs are elevated due to illness and possible sepsis per MD note, at 1.0 g/kg or 62.2g/day. Normal fluid need of 25oz/kg. Additional Diet Restrictions: OFFER SF NUTR SUPPLMENT Nutritional Education Nutrition Education Topic: Diabetic Nutrition Learning Barriers: Cognitive, Hx Of Non-Compliance Learning Readiness: Little Interest Teaching Methods: Discussion, Handout Response to Teaching: Unable to comprehend Teaching Recipient: Patient Nutrition Counseling: RD provided education on diabetic diet and importance of blood glucose management. Pt reports taking termite helper insulin at home, but not insulin at meal times. Had trouble recalling typical diet intake, and only reported eating sandwiches. RD explained the importance of consistent meals and snacking, and 3 CHO servings with fat and protein at each meal. Pt did not seem to comprehend nutr. ed. Nutrition Monitoring & Eval Nutrition Goals: Eat 50-100% Meal, Drink > 1500 cc/day Nutritional Goals Comment: Currently consuming 0-25%. Encourage intake of 50-100% of meals. Nutrition Monitoring: Monitor for increased oral intake, and improvements in labs, whole blood glucose, albumin, AST, WBC. RD Patient Assessment Time: [address] Assessment Type: RD Assessment Patient Nutrition Acuity: 2-Moderate Follow Up Date: Jun 17, 2018 Nutritional Comment: 06/13/18 Pt admitted for DKA. Pt has hx of T1DM and alcoholism. Pt is on ADA diet. Ate 10% of first meal in facility. Pt's stated ht is 72" however past admission ht stated as 66". Will clarify correct ht. At 72" current BMI is in underwt range. Pt has demonstrated wt loss trend from previous admissions. Wt has ranged 135-145# past 8 months. BG in ER 496. Curretn BG 188. Alb 3.1, Hgb 11.1, Hct 33.5. Pt reports drinks 4 beers, 4 shots/day. Recommend thiamin and folate supplments.Pt has recieved dibetic diet education in past visits. will see if pt is interested in further education. Will offer nutr supplment to increase protein and kcal intake. Cont to monitor and encourage intake. BK 06/14/18 Pt admitted for DKA. Whole blood glucose continues to improve from 158 in the morning (06/14) to 77 in the early afternoon (06/14). WBC have decreased to WNL of 10.0. RBC and hgb are low at 3.39 and 11.1, respectively. Total protein of 4.5 and albumin of 2.5 are low. AST of 86 is elevated, indicating possible liver dysfunction, possibly related to alcoholism. Reported ht has varied from 66in to 72in with pt reporting ht of 69in. RD completed an arm length measurement with an arm length of 36 in, ht is more accurately 72in. BMI of 18.6 and a nutr. focused physical exam indicate possible mild malnutrition as evidenced by BMI below 19 and moderate temporal, arm, shoulder, and hand wasting. Recommend folic acid and thiamine supplement. Continue to monitor progress. CLAUDIA DELANEY Jun 14, 2018 12:14
[2018-06-14] MEDS: D5 1/2 NS(*) 1000 ML BAG 1,000 ML IV PRN (13:06)
[2018-06-14] MEDS ORDERED: WATER FOR INJ,STERILE 20 ML 20 ML ONE (23:41)
[2018-06-14] MEDS ORDERED: VANCOMYCIN 0.5 GM VIAL ONE (23:41)
[2018-06-15] VITALS (26 sets, daily range): BP systolic 104–142; BP diastolic 63–97
[2018-06-15] MEDS ORDERED: ADDVIAL IVPB SCH
[2018-06-15] MEDS ORDERED: NS 0.9% IVPB SCH
[2018-06-15] MEDS ORDERED: VANCOMYCIN IVPB SCH
[2018-06-15 06:01] LABS: PLATELET COUNT, AUTOMATED 159 K/uL (150-450)
[2018-06-15] MEDS: INSULIN GLARGINE 100 U/ML 3 ML PEN SUBQ SCH (08:29)
[2018-06-15] MEDS: PANTOPRAZOLE SOD 40 MG IV VIAL IVP SCH ×2 (09:11→20:39)
[2018-06-15] MEDS: CEFEPIME HCL 2 GM VIAL 2 GM in NS(*) 0.9% 100 ML BAG 100 ML IVPB SCH (10:47)
[2018-06-15] MEDS ORDERED: VANCOMYCIN(*) 1 GM VIAL 1 GM, VANCOMYCIN (*) 0.5 GM VIAL 0.25 GM in NS(*) 0.9% 250 ML B... IVPB SCH (12:00)
[2018-06-15] MEDS: INSULIN HUM LISPRO 100 UN/ML 3 ML VIAL SUBQ PRN ×3 (12:11→20:38)
--- NOTE | 2018-06-15 12:35 | Hospitalist Progress Note ---
Subjective Progress Notes Subjective 57M admitted for DKA. ROBERTA overnight, taking some PO. Patient Complains of: Gastrointestinal: No Nausea, No Vomiting Physical Exam Vital Signs Date Time Temp Pulse Resp B/P (MAP) Pulse Ox O2 Delivery O2 Flow Rate FiO2 06/15/18 12:00 68 06/15/18 12:00 99.4 13 142/90 (107) 96 Room Air Intake and Output 06/15/18 07:00 Intake Total 5140.5 ml Output Total 1750 ml Balance 3390.5 ml Intake Oral 1613 ml IV Total 3527.5 ml Output Urine Total 1750 ml # Bowel Movements 1 General Appearance: Alert, Awake, No Acute Distress Neuro: No Gross deficits Eyes: PERRLA ENT: Normal Neck: No Masses Cardiovascular: Normal Rhythm & Peripheral Pulses Respiratory: No Respiratory Distress GI: Soft and Non-Tender : Normal (+ Hill) Musculoskeletal: No Weakness/Pain Extremities: Soft and Non Tender, Warm, Pulses, Perfused; No Edema Integumentary: Skin Intact without Lesion / Mass Psych: Alert & Oriented X3 Result Diagram: 06/15/1851806/15/18518 Monitor Interpretation: Normal Sinus Rhythm Assessment and Plan Problems: (1) Diabetic ketoacidosis Status: Acute Assessment & Plan: Improved. Acidosis appears to have resolved fairly quickly. No obvious eliciting cause. He did have elevated WBC count, but this resolved. Re-check CXRs have been normal. He appears to be relatively asymptomatic. Transitioned to subQ insulin (2) Hypotension Assessment & Plan: Probably due to acidosis/dehydration, but cannot exclude infectious cause. CXRs negative. One blood culture positive for gram positive cocci, likely contaminant. Post cefepime and Vanco. He received IV fluid resuscitation in ER. He required Levophed initially but his pressures have nor malized. Monitor off antibiotics and await Cx result. (3) Acute kidney failure Status: Acute Assessment & Plan: Resolved. Most likely due to hypovolemia and hypotension. (4) Type 1 diabetes mellitus Status: Chronic Assessment & Plan: He has had significant difficulty controlling his DM in the past. HgbA1c pending. (5) Nausea & vomiting Status: Acute Assessment & Plan: Resolved. ADA diet. (6) Alcohol use Status: Chronic Assessment & Plan: Daily drinker per report. Will monitor for signs withdrawal. (7) Positive blood culture Status: Acute Assessment & Plan: One blood culture growing a gram positive cocci. See above. Monitor off Abx. Exam Sepsis Risk: No Definite Risk HARE WES GAITAN DO Jun 15, 2018 12:35
[2018-06-16 03:44] VITALS: BP 125/86
[2018-06-16 06:09] LABS: PLATELET COUNT, AUTOMATED 157 K/uL (150-450)
[2018-06-16 07:51] VITALS: BP 133/77
[2018-06-16] MEDS: INSULIN GLARGINE 100 U/ML 3 ML PEN SUBQ SCH (07:53)
[2018-06-16] MEDS: INSULIN HUM LISPRO 100 UN/ML 3 ML VIAL SUBQ PRN ×2 (07:53→12:05)
[2018-06-16] MEDS ORDERED: INSULIN GLARGINE 100 U/ML 3 ML PEN SUBQ ONE (09:40)
[2018-06-16 10:26] VITALS: BP 101/69
--- NOTE | 2018-06-16 13:09 | Hospitalist Progress Note ---
Subjective Progress Notes Subjective He denies nausea and reports feeling well. He had a good breakfast. Physical Exam Vital Signs Date Time Temp Pulse Resp B/P (MAP) Pulse Ox O2 Delivery O2 Flow Rate FiO2 06/16/18 10:26 98.6 82 16 101/69 (80) 95 Room Air Intake and Output 06/16/18 07:00 Intake Total 1684.6 ml Output Total 2700 ml Balance -1015.4 ml Intake Oral 1040 ml IV Total 644.6 ml Output Urine Total 2700 ml # Voids 1 General Appearance: Alert, Awake, No Acute Distress GI: Soft and Non-Tender Result Diagram: 06/16/18 0555 06/16/18 1059 Monitor Interpretation: Normal Sinus Rhythm Assessment and Plan Problems: (1) Diabetic ketoacidosis Status: Acute Assessment & Plan: Improved. Acidosis appears to have resolved fairly quickly. It is likely secondary to holding Lantus the day before admission for a low glucose. He did have elevated WBC count, but this resolved. Re-check CXRs have b een normal. He appears to be relatively asymptomatic. See below. (2) Type 1 diabetes mellitus Status: Chronic Assessment & Plan: He has had significant difficulty controlling his DM in the past. He admits to holding a dose of Lantus the day before admission. He also admits to checking his glucose once a day and not using SSI. HgbA1c 10.9. Transitioned to Lantus on 06/15. Will increase the dose to 16 units a day. He was on 20 units a day as an outpatient, which had been changed about 2-3 weeks prior to admission. He was told that he has to check his glucose 3-4x/day and use SSI. He has had diabetic education as an inpatient before but he has difficulty grasping the concepts. He would benefit from home health nursing, but he hasn't completed the paperwork for disability. Will watch another 24 hours for glucose stabilization. (3) Hypotension Status: Resolved Assessment & Plan: Probably due to acidosis/dehydration. CXRs negative. One blood culture positive for staph capitis, likely contaminant. Post cefepime and Vanco. He received IV fluid resuscitation in ER. He required Levophed initially but his pressures have normalized. Now off of abx since 06/15. (4) Acute kidney failure Status: Resolved Assessment & Plan: Resolved. Most likely due to hypovolemia and hypotension. (5) Nausea & vomiting Status: Resolved Assessment & Plan: Resolved. ADA diet. (6) Alcohol use Status: Chronic Assessment & Plan: Daily drinker per report. Will monitor for signs withdrawal. (7) Positive blood culture Status: Acute Assessment & Plan: See above. Likely, contaminant. Exam Sepsis Risk: No Definite Risk RACHEL HERRERA MD Jun 16, 2018 13:09
[2018-06-16 14:00] VITALS: BP 116/75
[2018-06-16] MEDS ORDERED: INSULIN HUM LISPRO 100 UN/ML 3 ML VIAL SUBQ PRN (16:35)
[2018-06-16 19:18] VITALS: BP 133/87
[2018-06-16 22:45] VITALS: BP 141/79
[2018-06-17 06:15] LABS: PLATELET COUNT, AUTOMATED 170 K/uL (150-450)
[2018-06-17 07:19] VITALS: BP 133/87
[2018-06-17] MEDS ORDERED: INSULIN GLARGINE 100 U/ML 3 ML PEN SUBQ SCH (08:00)
[2018-06-17] MEDS ORDERED: INSULIN HUM LISPRO 100 UN/ML 3 ML VIAL SUBQ PRN (09:00)
--- NOTE | 2018-06-17 10:09 | Hospitalist Progress Note ---
Subjective Progress Notes Subjective This patient was admitted for diabetic ketoacidosis. He had no acute issues overnight. Patient Complains of: Cardiovascular: No: Chest Pain Respiratory: No: Shortness of Breath Physical Exam Vital Signs Date Time Temp Pulse Resp B/P (MAP) Pulse Ox O2 Delivery O2 Flow Rate FiO2 06/17/18 08:08 92 Room Air 06/17/18 07:19 98.1 87 20 133/87 (102) Intake and Output 06/17/18 07:00 Intake Total 680 ml Balance 680 ml Intake Oral 680 ml # Voids 5 Cardiovascular: Regular Rate and Rhythm Respiratory: Clear to Auscultation Result Diagram: 06/17/18 0547 06/17/18 0547 Monitor Interpretation: Normal Sinus Rhythm Assessment and Plan Problems: (1) Diabetic ketoacidosis Status: Acute Assessment & Plan: He was initially admitted to the ICU and was treated with IV insulin. His acidosis resolved and he was transferred to the medical floor. He has had intermittent acidosis over the last 2 days, but it resolves with Sub Q insulin. (2) Type 1 diabetes mellitus Status: Chronic Assessment & Plan: He has a long history of being noncompliant with his diabetes and insulin. He is currently on a lower dose of Lantus and sliding scale level #1. He has had persistent hyperglycemia and mild acidosis in the mornings. We will check a sugar at 0100 tonight to help guide further decisions. (3) Hypotension Status: Resolved Assessment & Plan: He did require a norepinephrine infusion and fluid resuscitation, but this has resolved. (4) Acute kidney failure Status: Resolved Assessment & Plan: Resolved with IV fluids. (5) Nausea & vomiting Status: Resolved Assessment & Plan: Resolved. (6) Alcohol use Status: Chronic Assessment & Plan: Daily drinker per report. He has not shown any signs of withdrawal. (7) Positive blood culture Status: Acute Assessment & Plan: This is believed to be a contaminant. He was initially on empiric treatment with cefepime and vancomycin, but these have since been discontinued. Exam Sepsis Risk: No Definite Risk ELIZABETH GTZ DO Jun 17, 2018 10:09
[2018-06-17 10:45] VITALS: BP 120/71
[2018-06-17] MEDS: INSULIN HUM LISPRO 100 UN/ML 3 ML VIAL SUBQ PRN ×3 (12:04→20:30)
--- NOTE | 2018-06-17 12:53 | Medical Nutrition Therapy ---
Nutrition Anthropometrics Height (Inches): 72.00 Height (Calculated Centimeters: 182.786738 Weight (Pounds): 137 Weight (Calculated Kilograms): 62.227 BMI: 18.6 [place] Nutrition Score: Probably Inadequate Stanton Nutrition Risk Score: 17 Dietary Referral Nutrition Risk Factors: Special Diet Nutrition Risk Comment: PT IS DIABETIC Physical Findings Physical Appearance: Underweight BMI<19 Skin Appearance Skin Appearance: Edema Edema Location Modifier: Edema Location: Type of Edema: Degree of Edema: Gastrointestinal Symptoms GI Symtoms: Nausea Tube Present: Bowel Sounds: Recent Bowel Pattern: Stool Characteristics: Nutritional Diagnosis Nutritional Risk Acuity 2: Blood Glucose > 300mg/dl, DKA Nutritional Risk Acuity 3: Alcohol abuse Past Medical History: HX of Alcohol abuse (4-5 beers/day), T1DM, Depression, chew Tobacco, dysphagia, ARF, dehydration, UTI, DKA Nutritional Acuity: 2-Moderate Nutrition Diagnosis: Under-weight, Nutr. Knowledge Deficit, Not Ready for Diet Change, Excessive Alcohol Intake Nutrition Etiology: Harmful Nutrition Beliefs, Nutr. Knowledge Deficit, Disinterested in Nutr. Ed, Alcohol Addiction Nutrition Problem/Etiology/Sym: Not ready for diet change related to nutrition knowledge deficit, disinterest in nutr. ed, and harmful nutr beliefs as evidenced by DKA, high random blood glucose, and unadherence to diet. Excessive alcohol intake related to alcohol addiction as evidenced by 4 beers and 4 shots per day. Energy Requirement: 2052.6 (62.2*25*1.1*1.1=373455.2*35*1.1*1.2=5964) Protein Requirement: 75 (62.2*1.2) Fluid Requirement: 1866 (62.2*30) Diet Type: Diabetic Nutrition Intervention: Cont diet as ordered, Encourage intake, Between meal supplement, Vit/min support, Check glucose Nutritional Needs Comment: Caloric needs range from 2051 (25kcal/kg) for maintence to 3058 (35kcal/kg) for weight gain, which is recommended. Protein needs are elevated due to illness and possible sepsis per MD note, at 1.2 g/kg or 75g/day. Diet Comment To [facility]: PROVIEDE NUTR SUPPLMENT Nutrition Monitoring & Eval Nutrition Goals: Eat 75-100% Meal, Drink > 1500 cc/day RD Patient Assessment Time: [address] Assessment Type: RD Re-Assessment Patient Nutrition Acuity: 2-Moderate Follow Up Date: Jun 17, 2018 Nutritional Comment: 06/13/18 Pt admitted for DKA. Pt has hx of T1DM and alcoholism. Pt is on ADA diet. Ate 10% of first meal in facility. Pt's stated ht is 72" however past admission ht stated as 66". Will clarify correct ht. At 72" current BMI is in underwt range. Pt has demonstrated wt loss trend from previous admissions. Wt has ranged 135-145# past 8 months. BG in ER 496. Curretn BG 188. Alb 3.1, Hgb 11.1, Hct 33.5. Pt reports drinks 4 beers, 4 shots/day. Recommend thiamin and folate supplments. Pt has recieved dibetic diet education in past visits. will see if pt is interested in further education. Will offer nutr supplment to increase protein and kcal intake. Cont to monitor and encourage intake. BK 06/14/18 Pt admitted for DKA. Whole blood glucose continues to improve from 158 in the morning (06/14) to 77 in the early afternoon (06/14). WBC have decreased to WNL of 10.0. RBC and hgb are low at 3.39 and 11.1, respectively. Total protein of 4.5 and albumin of 2.5 are low. AST of 86 is elevated, indicating possible liver dysfunction, possibly related to alcoholism. Reported ht has varied from 66in to 72in with pt reporting ht of 69in. RD completed an arm length measurement with an arm length of 36 in, ht is more accurately 72in. BMI of 18.6 and a nutr. focused physical exam indicate possible mild malnutrition as evidenced by BMI below 19 and moderate temporal, arm, shoulder, and hand wasting. Recommend folic acid and thiamine supplement. Continue to monitor progress. AKG 06/17 Pt on diabetic diet, BG still occassionally > 300. RBC are low, but steadily increasing. Alb is low at 2.3, will cont to provide nutr supplement. Pt had poor intake 06/13- 06/15, but has increased intake to 75%-100% of meals. Will cont to monitor and encourage intake. MARI LOMBARDO Jun 17, 2018 08:41
--- NOTE | 2018-06-17 15:00 | Medical Nutrition Therapy ---
Nutrition Monitoring & Eval RD Patient Assessment Time: [address] Assessment Type: RD Re-Assessment Patient Nutrition Acuity: 2-Moderate Follow Up Date: Jun 20, 2018 Nutritional Comment: 06/13/18 Pt admitted for DKA. Pt has hx of T1DM and alcoholism. Pt is on ADA diet. Ate 10% of first meal in facility. Pt's stated ht is 72" however past admission ht stated as 66". Will clarify correct ht. At 72" current BMI is in underwt range. Pt has demonstrated wt loss trend from previous admissions. Wt has ranged 135-145# past 8 months. BG in ER 496. Curretn BG 188. Alb 3.1, Hgb 11.1, Hct 33.5. Pt reports drinks 4 beers, 4 shots/day. Recommend thiamin and folate supplments. Pt has recieved dibetic diet education in past visits. will see if pt is interested in further education. Will offer nutr supplment to increase protein and kcal intake. Cont to monitor and encourage intake. BK 06/14/18 Pt admitted for DKA. Whole blood glucose continues to improve from 158 in the morning (06/14) to 77 in the early afternoon (06/14). WBC have decreased to WNL of 10.0. RBC and hgb are low at 3.39 and 11.1, respectively. Total protein of 4.5 and albumin of 2.5 are low. AST of 86 is elevated, indicating possible liver dysfunction, possibly related to alcoholism. Reported ht has varied from 66in to 72in with pt reporting ht of 69in. RD completed an arm length measurement with an arm length of 36 in, ht is more accurately 72in. BMI of 18.6 and a nutr. focused physical exam indicate possible mild malnutrition as evidenced by BMI below 19 and moderate temporal, arm, shoulder, and hand wasting. Recommend folic acid and thiamine supplement. Continue to monitor progress. AKG 06/17 Pt on diabetic diet, BG still occassionally > 300. RBC are low, but steadily increasing. Alb is low at 2.3, will cont to provide nutr supplement. Pt had poor intake 06/13- 06/15, but has increased intake to 75%-100% of meals. Will cont to monitor and encourage intake. JERI MOJICA Jun 17, 2018 15:00
[2018-06-17 16:05] VITALS: BP 124/78
[2018-06-17 19:39] VITALS: BP 129/86
[2018-06-18 01:04] VITALS: BP 139/91
[2018-06-18 03:17] VITALS: BP 141/86
[2018-06-18 08:15] VITALS: BP 136/93
[2018-06-18] MEDS ORDERED: INSU100I30 SQ (09:28)
[2018-06-18] MEDS ORDERED: INSULIN GLARGINE 100 U/ML 3 ML PEN SUBQ SCH ×2 (09:30→21:00)
--- NOTE | 2018-06-18 09:46 | Hospitalist Depart ---
Discharge Summary Reason for Hosp/Final Diag: (1) Diabetic ketoacidosis Status: Acute Hospital Course & Plan: He was initially admitted to the ICU and was treated with IV insulin. His acidosis resolved fairly quickly and he was transferred to the medical floor. He had intermittent mild acidosis and mild hypoglycemia during the remainder of his hospitalization, so we modified his Lantus regimen to twice daily dosing instead of once. He is now on Lantus 10units SQ qAM and 8units SQ qPM. He will monitor his glucoses AC and HS. He will follow up with the [facility] within the next 5-7 days. He will return to the ER if any problems. He will be followed by the Transitional Care Nursing team. (2) Hypotension Status: Resolved Hospital Course & Plan: Resolved. Most likely due to acidosis and volume depletion. He did initially require a norepinephrine infusion and fluid resuscitation. (3) Acute kidney failure Status: Resolved Hospital Course & Plan: Resolved with IV fluids. (4) Nausea & vomiting Status: Resolved Hospital Course & Plan: Resolved. (5) Alcohol use Status: Chronic Hospital Course & Plan: Daily drinker per report. He has not shown any signs of withdrawal. (6) Positive blood culture Status: Acute Hospital Course & Plan: This is believed to be a contaminant. He was initially on empiric treatment with cefepime and vancomycin, but these have since been discontinued. Departure Weight (Pounds): 137 Weight (Ounces): 3.0 Result Diagram: 06/17/18 0547 06/18/18 0522 Item Value Date Time Sodium Level 134 mmol/L L 06/12/18 1410 Potassium Level 7.2 mmol/L *H 06/12/18 1410 Chloride Level 89 mmol/L L 06/12/18 1410 Carbon Dioxide Level < 5 mmol/L *L 06/12/18 1410 Blood Urea Nitrogen 31 mg/dl H 06/12/18 1410 Creatinine 1.90 mg/dl H 06/12/18 1410 Glomerular Filtration Rate Calc 36.6 06/12/18 1410 Calcium Level 9.0 mg/dl 06/12/18 1410 Lactate 5.2 mmol/L *H 06/12/18 1410 Total Bilirubin 0.3 mg/dl 06/12/18 1410 Aspartate Amino Transf (AST/SGOT) 32 U/L 06/12/18 1410 Alanine Aminotransferase (ALT/SGPT) 37 U/L 06/12/18 1410 Alkaline Phosphatase 123 U/L 06/12/18 1410 Total Protein 7.1 g/dl 06/12/18 1410 Albumin 4.7 g/dl 06/12/18 1410 Lipase 52 U/L 06/12/18 1410 Albumin 4.0 g/dl 06/12/18 1745 Total Protein 6.2 g/dl L 06/12/18 1745 Alkaline Phosphatase 78 U/L 06/12/18 1745 Alanine Aminotransferase (ALT/SGPT) 30 U/L 06/12/18 1745 Aspartate Amino Transf (AST/SGOT) 37 U/L H 06/12/18 1745 Total Bilirubin 0.4 mg/dl 06/12/18 1745 Calcium Level 8.1 mg/dl L 06/12/18 1745 Random Glucose 688 mg/dl *H 06/12/18 1745 Glomerular Filtration Rate Calc 38.9 06/12/18 1745 Creatinine 1.80 mg/dl H 06/12/18 1745 Blood Urea Nitrogen 32 mg/dl H 06/12/18 1745 Carbon Dioxide Level < 5 mmol/L *L 06/12/18 1745 Chloride Level 102 mmol/L 06/12/18 1745 Potassium Level 6.0 mmol/L *H 06/12/18 1745 Sodium Level 140 mmol/L 06/12/18 1745 Lactate 3.6 mmol/L *H 06/12/18 1745 Sodium Level 142 mmol/L 06/13/18 0313 Potassium Level 4.3 mmol/L 06/13/18 0313 Chloride Level 111 mmol/L H 06/13/18 0313 Carbon Dioxide Level 22 mmol/L 06/13/18 0313 Blood Urea Nitrogen 30 mg/dl H 06/13/18 0313 Creatinine 1.00 mg/dl 06/13/18 0313 Glomerular Filtration Rate Calc > 60.0 06/13/18 0313 Random Glucose 249 mg/dl H 06/13/18 0313 Lactate 1.6 mmol/L 06/13/18 0313 Calcium Level 8.3 mg/dl L 06/13/18 0313 Total Bilirubin 0.3 mg/dl 06/13/18 0313 Aspartate Amino Transf (AST/SGOT) 37 U/L H 06/13/18 0313 Alanine Aminotransferase (ALT/SGPT) 34 U/L 06/13/18 0313 Alkaline Phosphatase 73 U/L 06/13/18 0313 Total Protein 5.6 g/dl L 06/13/18 0313 Albumin 3.2 g/dl L 06/13/18 0313 Sodium Level 135 mmol/L L 06/14/18 0519 Potassium Level 3.9 mmol/L 06/14/18 0519 Chloride Level 107 mmol/L 06/14/18 0519 Carbon Dioxide Level 24 mmol/L 06/14/18 0519 Blood Urea Nitrogen 14 mg/dl 06/14/18 0519 Creatinine 0.60 mg/dl L 06/14/18 0519 Glomerular Filtration Rate Calc > 60.0 06/14/18 0519 Random Glucose 161 mg/dl H 06/14/18 0519 Calcium Level 8.2 mg/dl L 06/14/18 0519 Total Bilirubin 0.4 mg/dl 06/14/18 0519 Aspartate Amino Transf (AST/SGOT) 84 U/L H 06/14/18 0519 Alanine Aminotransferase (ALT/SGPT) 49 U/L 06/14/18 0519 Alkaline Phosphatase 62 U/L 06/14/18 0519 Albumin 2.5 g/dl L 06/14/18 0519 Total Protein 4.5 g/dl L 06/14/18 0519 Sodium Level 133 mmol/L L 06/16/18 1059 Potassium Level 3.8 mmol/L 06/16/18 1059 Chloride Level 99 mmol/L 06/16/18 1059 Carbon Dioxide Level 21 mmol/L L 06/16/18 1059 Blood Urea Nitrogen 14 mg/dl 06/16/18 1059 Creatinine 0.80 mg/dl 06/16/18 1059 Glomerular Filtration Rate Calc > 60.0 06/16/18 1059 Random Glucose 278 mg/dl H 06/16/18 1059 Calcium Level 8.4 mg/dl 06/16/18 1059 Sodium Level 131 mmol/L L 06/17/18 1306 Potassium Level 4.1 mmol/L 06/17/18 1306 Chloride Level 98 mmol/L 06/17/18 1306 Carbon Dioxide Level 23 mmol/L 06/17/18 1306 Blood Urea Nitrogen 13 mg/dl 06/17/18 1306 Creatinine 0.70 mg/dl 06/17/18 1306 Glomerular Filtration Rate Calc > 60.0 06/17/18 1306 Random Glucose 312 mg/dl H 06/17/18 1306 Calcium Level 8.3 mg/dl L 06/17/18 1306 Serum Alcohol < 10 mg/dl 06/12/18 1410 Urine Color Yellow 06/12/18 1433 Urine Clarity Clear 06/12/18 1433 Urine pH 5.0 pH 06/12/18 1433 Urine Specific [place] 1.020 06/12/18 1433 Urine Protein Negative mg/dL 06/12/18 1433 Urine Glucose (UA) 500 mg/dL 06/12/18 1433 Urine Ketones 20 mg/dL H 06/12/18 1433 Urine Blood Small 06/12/18 1433 Urine Nitrite Negative 06/12/18 1433 Urine Bilirubin Negative 06/12/18 1433 Urine Urobilinogen Negative mg/dL 06/12/18 1433 Urine Leukocyte Esterase Negative 06/12/18 1433 Urine RBC 1 /HPF 06/12/18 1433 Urine WBC <1 /HPF 06/12/18 1433 Urine Squamous Epithelial Cells Many /LPF H 06/12/18 1433 Urine Bacteria Few /HPF 06/12/18 1433 Urine Mucus Few /HPF 06/12/18 1433 Urine Random Creatinine 31.1 mg/dl 06/12/18 1433 Urine Random Sodium 16 MEQ/L 06/12/18 1433 Oxygen Liters/Minute 21 06/12/18 1438 Jeffery Test Acceptable 06/12/18 1438 Arterial Blood Base Excess -30.0 mmol/L 06/12/18 1438 Arterial Blood Oxygen Saturation 94 % 06/12/18 1438 Arterial Blood HCO3 2 mmol/L *L 06/12/18 1438 Arterial Blood Partial Pressure O2 103 mmHg *H 06/12/18 1438 Arterial Blood Partial Pressure CO2 < 25 mmHg L 06/12/18 1438 Arterial Blood pH 6.96 *L 06/12/18 1438 Blood Gas Patient Temperature 94.4 DEGREES 06/12/18 1438 Blood Gas Puncture Site Right radial 06/12/18 1438 Stool Occult Blood (IFOB) Negative 06/12/18 1433 White Blood Count 24.5 k/uL H 06/12/18 1410 Hemoglobin 13.3 g/dL L 06/12/18 1410 Hematocrit 48.3 % 06/12/18 1410 Platelet Count 379 K/uL 06/12/18 1410 White Blood Count 18.4 k/uL H 06/13/18 0529 Hemoglobin 11.1 g/dL L 06/13/18 0529 Hematocrit 33.5 % L 06/13/18 0529 Platelet Count 258 K/uL 06/13/18 0529 White Blood Count 7.7 k/uL 06/16/18 0555 Hemoglobin 11.9 g/dL L 06/16/18 0555 Hematocrit 34.9 % L 06/16/18 0555 Platelet Count 157 K/uL 06/16/18 0555 [facility] LAB *LIVE* [address] [facility] [place] [address] PHANI GRAF M.D., DIRECTOR OF LABORATORY SERVICES WES CHING M.D., PATHOLOGIST RUN DATE: 06/16/18 Specimen Inquiry Report PAGE 1 RUN TIME: 1205 PATIENT: ALLY NOONAN ACCT: [id number] LOC: MED U: [id number] AGE/SX: 57/M ROOM: [facility] RE06/12/[address]: WES HALLMAN : 1960 BED: 267 DIS: STATUS: ADM IN TLOC: SPEC #: [id number] JOSÉ MIGUEL: 06/12/18-4144 STATUS: RES REQ #: [id number] RECD: 06/12/[address]: LIZABETH LAGUNAS MD SOURCE: BLOOD LINE ENTR: 06/12/[address] [facility] [address]: EDDIE MATHEWS MD [facility]: ORDERED: BCGS, CULT BLOOD Procedure Result Verified -- BLOOD CULTURE GRAM STAIN Final 06/13/18-2200 AERO GRAM POSITIVE COCCI POSITIVE BLOOD CULTURE GRAM STAIN REPORT CALLED TO: JEFERSON SKELTON RN. DATE/TIME REPORT CALLED: 06/13/2018 AT 2200 CALLED BY: SAEED ESPOSITO BLOOD CULTURE Preliminary 06/16/18-1205 Organism 1 STAPHYLOCOCCUS CAPITIS GROWTH PRESENT IN THE AEROBIC BOTTLE STA CAPI M.I.C. RX --------- --- CIPROFLOXACIN <=0.5 S CLINDAMYCIN <=0.25 I ERYTHROMYCIN >=8 R GENTAMICIN <=0.5 S LEVOFLOXACIN 0.25 S LINEZOLID 2 S OXACILLIN <=0.25 S BENZYLPENICILLIN <=0.03 S RIFAMPIN <=0.5 S TETRACYCLINE <=1 S TRIMETHOPRIM/SULFAMETHOXAZOLE <=10 S VANCOMYCIN <=0.5 S END OF REPORT [facility] LAB *LIVE* [address] [facility] [place] [address] PHANI GRAF M.D., DIRECTOR OF LABORATORY SERVICES WES CHING M.D., PATHOLOGIST RUN DATE: 06/17/18 Specimen Inquiry Report PAGE 1 RUN TIME: 1014 PATIENT: ALLY NOONAN ACCT: [id number] LOC: MED U: [id number] AGE/SX: 57/M ROOM: [facility] RE06/12/[address]: WES HALLMAN : 1960 BED: 267 DIS: STATUS: ADM IN TLOC: SPEC #: [id number] JOSÉ MIGUEL: 06/12/18 STATUS: RES REQ #: [id number] RECD: 06/12/18-[address]: LIZABETH LAGUNAS MD SOURCE: BLOOD PER ENTR: 06/12/18-[address] [facility] [address]: EDDIE MATHEWS MD [facility]: ORDERED: BCGS, CULT BLOOD Procedure Result Verified BLOOD CULTURE GRAM STAIN Final 06/16/18-210 ANAEROBIC BOTTLE POSITIVE GRAM POSITIVE RODS POSITIVE BLOOD CULTURE GRAM STAIN REPORT CALLED TO: LUANA CHADWICK RN DATE/TIME REPORT CALLED: 06/16/2018 AT 2104 TECH: SAEED ESPOSITO BLOOD CULTURE Preliminary 06/17/18-1014 Organism 1 GRAM POSITIVE LEAH GROWTH PRESENT IN THE ANAEROBIC BOTTLE Positive BLOOD CULTURE workup in progress. Report to follow. Imaging PATIENT NAME: Ally Noonan : 1960 MR: [id number] V: [id number] EXAM DATE: ORDERING PHYSICIAN: LIZABETH LAGUNAS TECHNOLOGIST: [place] [facility] [place] Patient: Ally Noonna : 1960 Visit/Account:[id number] Date of Sevice: 06/12/2018 CHEST, 1 view History: Shortness of breath COMPARISON: 10/11/2017 FINDINGS: AP supine Heart size and central pulmonary vasculature are normal. Mediastinum and rui are normal. Lungs are clear of infiltrate and atelectasis. There is no pneumothorax or pleural effusion. Right sided central venous catheter distal tip is in the lower SVC. IMPRESSION: No radiographic evidence of an acute chest process. Report Dictated By: Sylvia Chahal MD at 06/12/2018 3:49 PM Report E-Signed By: Sylvia Chahal MD at 06/12/2018 3:50 PM WSN:[id number] PATIENT NAME: Ally Noonan : 1960 MR: [id number] V: [id number] EXAM DATE: [id number] ORDERING PHYSICIAN: ANA MARIA PALACIOS TECHNOLOGIST: [place] [facility] [place] Patient: Ally Noonan : 1960 Visit/Account:[id number] Date of Sevice: 06/13/2018 Single view of the chest Indication: Elevated white count. Comparison: X-ray examination of the chest June 12 Findings: Heart is stable. Lungs are clear. Appropriate appearance right IJ catheter. No effusion or pneumothorax. No new consolidation. IMPRESSION: 1. No acute cardiopulmonary process. Report Dictated By: Jessee Grant MD at 06/13/2018 10:40 AM Report E-Signed By: Jessee Grant MD at 06/13/2018 10:41 AM WSN:[id number] EKG PATIENT NAME: ALLY NOONAN : [id number] MR: [id number] V: [id number] EXAM DATE: ORDERING PHYSICIAN: LIZABETH LAGUNAS TECHNOLOGIST: NAHUM Test Reason : THROWING UP Blood Pressure : / mmHG Vent. Rate : 106 BPM Atrial Rate : 106 BPM P-R Int : 150 ms QRS Dur : 106 ms QT Int : 384 ms P-R-T Axes : 032 066 059 degrees QTc Int : 510 ms Sinus tachycardia Otherwise normal ECG When compared with ECG of 19-JAN-2018 10:15, No significant change was found Confirmed by Wes Hallmna ([id number]) on 06/12/2018 11:00:31 PM Referred By: JANNETH Confirmed By:Wes Grier Condition: Improved Discharge: Home (Transitional Care Nursing to follow at home.) Follow-Up Labs: Finger Sticks (AC and HS) Time Spent: > 30 min Discharge Instructions Home Meds Active Scripts Insulin Glargine 100 Un/Ml Pen (LANTUS SOLOSTAR PEN) 100 Unit/1 Ml Insuln.pen, 0 SQ BID for 30 Days, #1 VIAL 6 Refills 10 units SQ qAM and 8 units SQ qPM. Prov:ANA MARIA PALACIOS MD 06/18/18 Insulin Lispro 100 Un/Ml Vial (HUMALOG 100 U/ML VIAL) 100 Unit/1 Ml Vial, 2-10 UNIT SUBQ SS PRN for SLIDING SCALE INSULIN, #1 VIAL Prov:ANA MARIA PALACIOS MD 01/20/18 Vitamin B Complex (B COMPLEX) 1 Each Tablet, 1 EACH PO DAILY, #30 TAB Prov:ANA MARIA PALACIOS MD 09/19/17 Reported Medications Multivitamin With Folic Acid (ONE DAILY MULTIVITAMIN TABLET) 400 Mcg Tablet, 400 MCG PO QDAY 10/01/17 Follow up Referrals: Family Practice with EDDIE MATHEWS MD Diet: Diabetic Activity: As Tolerated Special Instructions: [facility] 5-7 days or sooner if any problems. Return to ER if any problems. Copies to: [facility] ; Venous Thromboembolism Antithrombotics Is Pt On Any Antithrombotics?: No (SCD only with hematemesis) ANA MARIA PALACIOS MD Jun 18, 2018 09:46
== END 2018-06-18 10:50 | disposition home or self-care (01) | DRG 638 ==
LOC: ER 14:09 → ICU 16:54 → MED 06-15 13:45
PROVIDERS: ADMIT Internal Medicine; ATTEND Internal Medicine
PROC: 02HV33Z Insertion of Infusion Device into Superior Vena Cava, Percutaneous Approach (ICD-10-PCS; principal; 2018-06-12)
DX: E10.10 Type 1 diabetes mellitus with ketoacidosis without coma (principal); N17.9 Acute kidney failure, unspecified; E86.1 Hypovolemia; T68.XXXA Hypothermia, initial encounter; R11.2 Nausea with vomiting, unspecified; F10.10 Alcohol abuse, uncomplicated; I95.9 Hypotension, unspecified; Z79.4 Long term (current) use of insulin; Z91.14 Patient's other noncompliance with medication regimen
CPT/HCPCS: 36415; 36416; 36600; 71045; 80202; 80320; 81001; 82040; 82247; 82274; 82310; 82374; 82435; 82565; 82570; 82803; 82947; 82948; 83036; 83605; 83690; 83735; 84075; 84100; 84132; 84155; 84295; 84300; 84450; 84460; 84520; 85025; 87040; 87077; 87186; 93005; 96365; 96366; 96367; 96375; 99291; 99292; C1758; C9113; J0692; J1815; J2405; J3370; J3480; J7030; J7040; J7050; J7060

== ENCOUNTER 2018-06-17 16:02 | Outpatient (RCR) | payer SELFPAY ==
[2018-06-13 10:02] VITALS: BMI 18.6
[2018-06-18] MEDS ORDERED: INSU100I30 SQ (09:28)
--- NOTE | 2018-06-19 11:08 | Transitional Care Management ---
Assessment Visit Type: Telephone Visit (06/19 Boy) Cardiac: WNL Respiratory: WNL GI: Nutrition: WNL Except GI Comment: 06/19 BS at 1000 was 349 Used Insulin. Ate dinner at [employer] yesterday and is over at their house now, plans on eating lunch. I encouraged him to take BS befor dinner this evening befor dinner. Constipation?: No Musculoskeletal, Exercise: WNL Musculoskeletal, Excercise Com: 06/19 "a little weak but feeling stronger than yesterday" Feeling of Well Being: WNL Scheduled Follow-Up with Provi: Yes (06/19 will call [facility] on Friday to get an appoint on Friday if he can,) TCM Discharge Criteria Transitional Care Comment: 06/13 Will visit with his daughter, Saima and PAPI to see if he can get his papers filled out for [facility]. He has a care plan for his insulin.He is to go to watch his insulin amt and go to [facility] to get more. If happens to run out before going to [facility] he is to check with his pharmacy and the go to ER and get an injection and leave with the remaining bottle or pen. 06/17 I Called PAPI to see where oBy is with disablity. She stated that he has been denied several times. He does have a court hearing for Social Security disablity Jul 27 2018 at 1300 in [place]. I talked with Boy about this and he said that he had gotten a call and they told him he could do that over the phone. I encouraged him to go over to [place] if at all possible. Suggested his brother and [id number] take him and be with him during the hearing. I also asked him about any money he might have. He stated "I have NO money at all, I do get food stamps and I buy a few things. I go over to [employer] for dinner and I eat a sandwich at home for lunch. I haven't drank for over 3 weeks and a friend brought over some beer and I had a couple." We discusssed the fact that if he doesn't take care for himself he might not be so tequila next time if he falls and family doesn't find him in time. [facility] will call Saima on Friday and see what suggestions she might have about helping Boy do his BS and making sure he had enough insulin. 06/19 He was at his brother's home at this time. His BS was high when he took it this am he used insulin and is going to have some lunch at brothes's home . His duaghter is not home now but he will talk to her about being at the Court hearing with him in [place], [place] Jun 19, 2018 11:08
--- NOTE | 2018-06-26 15:04 | Transitional Care Management ---
Assessment Visit Type: Telephone Visit (06/26 Boy and Bridget) Cardiac: WNL Respiratory: WNL GI: Nutrition: WNL Except GI Comment: 06/19 BS at 1000 was 349 Used Insulin. Ate dinner at [employer] yesterday and is over at their house now, plans on eating lunch. I encouraged him to take BS befor dinner this evening befor dinner. Constipation?: No Musculoskeletal, Exercise: WNL Musculoskeletal, Excercise Com: 06/19 "a little weak but feeling stronger than yesterday" 06/26 Getting around more-going to brothers house at night. Feeling of Well Being: WNL Scheduled Follow-Up with Provi: Yes (06/19 will call [facility] on Friday to get an appoint on Friday if he can,) TCM Discharge Criteria Transitional Care Comment: 06/13 Will visit with his daughter, Saima and [employer] to see if he can get his papers filled out for [facility]. He has a care plan for his insulin.He is to go to watch his insulin amt and go to [facility] to get more. If happens to run out before going to [facility] he is to check with his pharmacy and the go to ER and get an injection and leave with the remaining bottle or pen. 06/17 I Called PAPI to see where Boy is with disablity. She stated that he has been denied several times. He does have a court hearing for Social Security disablity Jul 27 2018 at 1300 in [place]. I talked with Boy about this and he said that he had gotten a call and they told him he could do that over the phone. I encouraged him to go over to [place] if at all possible. Suggested his brother and [id number] take him and be with him during the hearing. I also asked him about any money he might have. He stated "I have NO money at all, I do get food stamps and I buy a few things. I go over to [employer] for dinner and I eat a sandwich at home for lunch. I haven't drank for over 3 weeks and a friend brought over some beer and I had a couple." We discusssed the fact that if he doesn't take care for himself he might not be so tequila next time if he falls and family doesn't find him in time. [facility] will call Saima on Friday and see what suggestions she might have about helping Boy do his BS and making sure he had enough insulin. 06/19 He was at his brother's home at this time. His BS was high when he took it this am he used insulin and is going to have some lunch at brothes's home . His duaghter is not home now but he will talk to her about being at the Court hearing with him in 06/26 He hasn't done anything with his court hearing.He states he has been doing his BS and they have been in 200. Went to [facility] on Fri.-no changes. I called Aruna and talked with her. Boy has been coming to their home for dinner and then staying through the night and then going home through the day. I asked her if she knows about the Court hearing the end of Jun. 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 I encouraged her to have him bring the papers to his home and then she and his brother can help him work through this. She is concerned that his thought process is declining. I told her hat is why he needs to follow thru with this hearing or he might lose his chance of getting help. Copies to: ; [place] Jun 26, 2018 15:04
--- NOTE | 2018-07-07 10:51 | Transitional Care Management ---
Assessment Visit Type: Telephone Visit Spoke with: Bharat Cardiac: WNL Respiratory: WNL GI: Nutrition: WNL Except GI Comment: 06/19 BS at 1000 was 349 Used Insulin. Ate dinner at [employer] yesterday and is over at their house now, plans on eating lunch. I encouraged him to take BS befor dinner this evening befor dinner. 07/07 Checking his BS BID, 160-200. He is low on insulin and plans to go to [place] tomorrow. Constipation?: No Musculoskeletal, Exercise: WNL Musculoskeletal, Excercise Com: 06/19 "a little weak but feeling stronger than yesterday" 06/26 Getting around more-going to [facility] at night. Feeling of Well Being: WNL Scheduled Follow-Up with Avinashi: Yes (07/06 Going to [facility] tomorrow.) Following Discharge Instructio: Yes TCM Discharge Criteria Transitional Care Comment: 06/13 Will visit with his daughter, Saima and PAPI to see if he can get his papers filled out for [facility]. He has a care plan for his insulin.He is to go to watch his insulin amt and go to [facility] to get more. If happens to run out before going to [facility] he is to check with his pharmacy and the go to ER and get an injection and leave with the remaining bottle or pen. 06/17 I Called PAPI to see where Boy is with disablity. She stated that he has been denied several times. He does have a court hearing for Social Security disablity Jul 27 2018 at 1300 in [place]. I talked with Boy about this and he said that he had gotten a call and they told him he could do that over the phone. I encouraged him to go over to [place] if at all possible. Suggested his brother and [id number] take him and be with him during the hearing. I also asked him about any money he might have. He stated "I have NO money at all, I do get food stamps and I buy a few things. I go over to [employer] for dinner and I eat a sandwich at home for lunch. I haven't drank for over 3 weeks and a friend brought over some beer and I had a couple." We discusssed the fact that if he doesn't take care for himself he might not be so tequila next time if he falls and family doesn't find him in time. [employer] will call Saima on Friday and see what suggestions she might have about helping Boy do his BS and making sure he had enough insulin. 06/19 He was at his brother's home at this time. His BS was high when he took it this am he used insulin and is going to have some lunch at brothes's home . His duaghter is not home now but he will talk to her about being at the Court hearing with him in 06/26 He hasn't done anything with his court hearing.He states he has been doing his BS and they have been in 200. Went to [facility] on Fri.-no changes. I called Aruna and talked with her. Boy has been coming to their home for dinner and then staying through the night and then going home through the day. I asked her if she knows about the Court hearing the end of Jun. She stated she does and has been trying him to get the ctrs that he has been working with in [place] to see where they are with this and that they need to be available for this hearing on Jul 27. I encouraged her to have him bring the papers to his home and then she and his brother can help him work through this. She is concerned that his thought process is declining. I told her hat is why he needs to follow thru with this hearing or he might lose his chance of getting help. 07/07 Blood sugars stable. I asked him if he had everything ready for the hearing on jul 27. He asked me what I was talking about. He became upset and wanted to know if the hospital was sueing him. I explained that this would be a Social Security Disability matter, and he remembered and apolygized. DANIEL NARANJO Jul 07, 2018 10:50
--- NOTE | 2018-07-15 11:02 | Transitional Care Management ---
Assessment Visit Type: Telephone Visit Spoke with: Bharat Cardiac: WNL Respiratory: WNL GI: Nutrition: WNL Except GI Comment: 06/19 BS at 1000 was 349 Used Insulin. Ate dinner at [employer] yesterday and is over at their house now, plans on eating lunch. I encouraged him to take BS befor dinner this evening befor dinner. 07/07 Checking his BS BID, 160-200. He is low on insulin and plans to go to [facility] tomorrow. 07/15 BS was 189 this am and he took 10 Unit of Lantus but nothing else (like his SSI). States he takes 10 units at also (had only 8 units RX at [facility] from hospital) States insulin is getting low and will call [facility] for refill. Reminded him it is ready at [facility] and he can come to ER if he is out instead of not taking any. No breakfast today but is planning a lunch meal now. Constipation?: No Musculoskeletal, Exercise: WNL Musculoskeletal, Excercise Com: 06/19 "a little weak but feeling stronger than yesterday" 06/26 Getting around more-going to [employer] at night. Feeling of Well Being: WN Feeling of Well Being Comment: 07/15 Plans to go to [facility] hearing in 11 days. Asked me what he sould bring. Told him PAPI has helped him and his spooling operator and s-i-l is supposed to be there also. Important to bring self for analytical lab analyst to see Scheduled Follow-Up with Provi: Yes (07/06 Going to [facility] tomorrow.) Following Discharge Instructio: Yes TCM Discharge Criteria Medication Knowledge: 07/15 reports change in insulin but unable to verify with [facility]TC. Transitional Care Comment: 06/13 Will visit with his daughter, Saima and PAPI to see if he can get his papers filled out for [employer]ica[employer]. He has a care plan for his insulin.He is to go to watch his insulin amt and go to [facility] to get more. If happens to run out before going to [facility] he is to check with his pharmacy and the go to ER and get an injection and leave with the remaining bottle or pen. 06/17 I Called [facility] to see where Boy is with disablity. She stated that he has been denied several times. He does have a court hearing for Social Security disablity Jul 27 2018 at 1300 in [place]. I talked with Boy about this and he said that he had gotten a call and they told him he could do that over the phone. I encouraged him to go over to [place] if at all possible. Suggested his brother and lgcdbn-lm-bwa take him and be with him during the hearing. I also asked him about any money he might have. He stated "I have NO money at all, I do get food stamps and I buy a few things. I go over to [employer] for dinner and I eat a sandwich at home for lunch. I haven't drank for over 3 weeks and a friend brought over some beer and I had a couple." We discusssed the fact that if he doesn't take care for himself he might not be so tequila next time if he falls and family doesn't find him in time. PAPI will call Saima on Friday and see what suggestions she might have about helping Boy do his BS and making sure he had enough insulin. 06/19 He was at his brother's home at this time. His BS was high when he took it this am he used insulin and is going to have some lunch at brothes's home . His duaghter is not home now but he will talk to her about being at the Court hearing with him in 06/26 He hasn't done anything with his court hearing.He states he has been doing his BS and they have been in 200. Went to [facility] on Fri.-no changes. I called Aruna and talked with her. Boy has been coming to their home for dinner and then staying through the night and then going home through the day. I asked her if she knows about the Court hearing the end of Jun. She stated she does and has been trying him to get the lodge attendant that he has been working with in [place] to see where they are with this and that they need to be available for this hearing on Jul 27. I encouraged her to have him bring the papers to his home and then she and his brother can help him work through this. She is concerned that his thought process is declining. I told her hat is why he needs to follow thru with this hearing or he might lose his chance of getting help. 07/07 Blood sugars stable. I asked him if he had everything ready for the hearing on jul 27. He asked me what I was talking about. He became upset and wanted to know if the hospital was sueing him. I explained that this would be a Social Security Disability matter, and he remembered and apolygized. 07/15 Alert and talkative. Reports doing BS and insulin routinely. Eatingmeals with family Plans on going to hearing on 07/27. LISA RATLIFF Jul 15, 2018 11:02
--- NOTE | 2018-07-23 14:26 | Transitional Care Management ---
Assessment Visit Type: Telephone Visit Spoke with: GEOVANY Cardiac: WNL Respiratory: WNL GI: Nutrition: WNL Except GI Comment: 06/19 BS at 1000 was 349 Used Insulin. Ate dinner at [employer] yesterday and is over at their house now, plans on eating lunch. I encouraged him to take BS befor dinner this evening befor dinner. 07/07 Checking his BS BID, 160-200. He is low on insulin and plans to go to [facility] tomorrow. 07/15 BS was 189 this am and he took 10 Unit of Lantus but nothing else (like his SSI). States he takes 10 units at also (had only 8 units RX at dc from hospital) States insulin is getting low and will call [facility] for refill. Reminded him it is ready at [facility] and he can come to ER if he is out instead of not taking any. No breakfast today but is planning a lunch meal now. 07/23 I asked if he was able to get the insulin from DTC (As discussed on 07/15). He said that he has not needed to get more insulin and has "a lot". He states that he doesn't do SSI, just 10 units of Lantus BID. Blood sugar was 168 this AM. Constipation?: No Musculoskeletal, Exercise: WNL Musculoskeletal, Excercise Com: 06/19 "a little weak but feeling stronger than yesterday" 06/26 Getting around more-going to brothers house at night. Feeling of Well Being: WN Feeling of Well Being Comment: 07/15 Plans to go to [facility] hearing in 11 days. Asked me what he sould bring. Told him PAPI has helped him and his log cutter and s-i-l is supposed to be there also. Important to bring self for oncology nurse navigator to see Following Discharge Instructio: Yes TCM Discharge Criteria Medication Knowledge: 07/15 reports change in insulin but unable to verify with [facility]. Transitional Care Comment: 06/13 Will visit with his daughter, Saima and PAPI to see if he can get his papers filled out for [facility]. He has a care plan for his insulin.He is to go to watch his insulin amt and go to [facility] to get more. If happens to run out before going to [facility]TC he is to check with his pharmacy and the go to ER and get an injection and leave with the remaining bottle or pen. 06/17 I Called [facility] to see where Boy is with disablity. She stated that he has been denied several times. He does have a court hearing for Social Security disablity Jul 27 2018 at 1300 in [place]. I talked with Boy about this and he said that he had gotten a call and they told him he could do that over the phone. I encouraged him to go over to [place] if at all possible. Suggested his brother and pjhinj-pz-mqv take him and be with him during the hearing. I also asked him about any money he might have. He stated "I have NO money at all, I do get food stamps and I buy a few things. I go over to [employer] for dinner and I eat a sandwich at home for lunch. I haven't drank for over 3 weeks and a friend brought over some beer and I had a couple." We discusssed the fact that if he doesn't take care for himself he might not be so teqiula next time if he falls and family doesn't find him in time. [facility] will call Saima on Friday and see what suggestions she might have about helping Boy do his BS and making sure he had enough insulin. 06/19 He was at his brother's home at this time. His BS was high when he took it this am he used insulin and is going to have some lunch at brothes's home . His duaghter is not home now but he will talk to her about being at the Court hearing with him in 06/26 He hasn't done anything with his court hearing.He states he has been doing his BS and they have been in 200. Went to [facility] on Fri.-no changes. I called Aruna and talked with her. Boy has been coming to their home for dinner and then staying through the night and then going home through the day. I asked her if she knows about the Court hearing the end of Jun. She stated she does and has been trying him to get the die developer that he has been working with in [place] to see where they are with this and that they need to be available for this hearing on Jul 27. I encouraged her to have him bring the papers to his home and then she and his brother can help him work through this. She is concerned that his thought process is declining. I told her hat is why he needs to follow thru with this hearing or he might lose his chance of getting help. 07/07 Blood sugars stable. I asked him if he had everything ready for the hearing on jul 27. He asked me what I was talking about. He became upset and wanted to know if the hospital was sueing him. I explained that this would be a Social Security Disability matter, and he remembered and apolygized. 07/15 Alert and talkative. Reports doing BS and insulin routinely. Eatingmeals with family Plans on going to hearing on 07/27. 07/23 He had questions about the hearing on 07/27, stating, "I dont have anything ready, and don't know what I'm supposed to bring!" I reminded him that PAPI, his Watyakbx-qj-Wqf, and his log cutter have been working on this with him. "No. I have not heard from PAPI in months, and I dont know log cutter you are talking about. My Umgtxepq-gb-Cog is taking me, but thats all I know." DANIEL NARANJO Jul 23, 2018 14:26
--- NOTE | 2018-08-01 13:21 | Transitional Care Management ---
Assessment Visit Type: Telephone Visit Spoke with: Bridget Cardiac: WNL Respiratory: WNL GI: Nutrition: WNL Except GI Comment: 06/19 BS at 1000 was 349 Used Insulin. Ate dinner at [employer] yesterday and is over at their house now, plans on eating lunch. I encouraged him to take BS befor dinner this evening befor dinner. 07/07 Checking his BS BID, 160-200. He is low on insulin and plans to go to [facility] tomorrow. 07/15 BS was 189 this am and he took 10 Unit of Lantus but nothing else (like his SSI). States he takes 10 units at also (had only 8 units RX at dc from hospital) States insulin is getting low and will call [facility] for refill. Reminded him it is ready at [facility] and he can come to ER if he is out instead of not taking any. No breakfast today but is planning a lunch meal now. 07/23 I asked if he was able to get the insulin from DTC (As discussed on 07/15). He said that he has not needed to get more insulin and has "a lot". He states that he doesn't do SSI, just 10 units of Lantus BID. Blood sugar was 168 this AM. 08/01 Bridget states he only takes BS BID and does SSI only if meter reads "hi" which is over 600. States she is going to next appt at [facility] and enc her to take meter so they know what his BS are, when he does them and will make tx decisions based on what he is doing vs. what he says he is doing. Constipation?: No Musculoskeletal, Exercise: WNL Musculoskeletal, Excercise Com: 06/19 "a little weak but feeling stronger than yesterday" 06/26 Getting around more-going to brothers house at night. 08/01 still stays at [facility] at and goes home during the day Feeling of Well Being: WNTahmina Feeling of Well Being Comment: 07/15 Plans to go to [facility] hearing in 11 days. Asked me what he sould bring. Told him PAPI has helped him and his gravity meter observer and s-i-l is supposed to be there also. Important to bring self for painter hand to see 08/01 Bridget states gravity meter observer is confident in his success at his disability hearing they attended in [place] this week. Scheduled Follow-Up with Anushka: Yes [facility]: 08/01 Bridget states he missed last appt at [facility] but, says he has appt coming up. She states she will find out what day and go with him to the appt with glucometer. She says he has a new glucometer and insulin Following Discharge Instructio: Yes TCM Discharge Criteria Medication Knowledge: 07/15 reports change in insulin but unable to verify with [facility]TC. 08/01 Bridget knows he needs SSI but that he refuses unless he is "Hi". Enc her to take meter to next appt to eval need to just increase lantus. Transitional Care Comment: 06/13 Will visit with his daughter, Saima and PAPI to see if he can get his papers filled out for [facility]. He has a care plan for his insulin.He is to go to watch his insulin amt and go to [facility] to get more. If happens to run out before going to [facility] he is to check with his pharmacy and the go to ER and get an injection and leave with the remaining bottle or pen. 06/17 I Called [facility] to see where Boy is with disablity. She stated that he has been denied several times. He does have a court hearing for Social Security disablity Jul 27 2018 at 1300 in [place]. I talked with Boy about this and he said that he had gotten a call and they told him he could do that over the phone. I encouraged him to go over to [place] if at all possible. Suggested his brother and ehwsgw-no-tvk take him and be with him during the hearing. I also asked him about any money he might have. He stated "I have NO money at all, I do get food stamps and I buy a few things. I go over to [employer] for dinner and I eat a sandwich at home for lunch. I haven't drank for over 3 weeks and a friend brought over some beer and I had a couple." We discusssed the fact that if he doesn't take care for himself he might not be so tequila next time if he falls and family doesn't find him in time. [facility] will call Saima on Friday and see what suggestions she might have about helping Boy do his BS and making sure he had enough insulin. 06/19 He was at his brother's home at this time. His BS was high when he took it this am he used insulin and is going to have some lunch at brothes's home . His duaghter is not home now but he will talk to her about being at the Court hearing with him in Jun, 06/26 He hasn't done anything with his court hearing.He states he has been doing his BS and they have been in 200. Went to [facility] on Fri.-no changes. I called Aruna and talked with her. Boy has been coming to their home for dinner and then staying through the night and then going home through the day. I asked her if she knows about the Court hearing the end of Jun. She stated she does and has been trying him to get the clinic office manager that he has been working with in [place] to see where they are with this and that they need to be available for this hearing on Jul 27. I encouraged her to have him bring the papers to his home and then she and his brother can help him work through this. She is concerned that his thought process is declining. I told her hat is why he needs to follow thru with this hearing or he might lose his chance of getting help. 07/07 Blood sugars stable. I asked him if he had everything ready for the hearing on jul 27. He asked me what I was talking about. He became upset and wanted to know if the hospital was sueing him. I explained that this would be a Social Security Disability matter, and he remembered and apolygized. 07/15 Alert and talkative. Reports doing BS and insulin routinely. Eatingmeals with family Plans on going to hearing on 07/27. 07/23 He had questions about the hearing on 07/27, stating, "I dont have anything ready, and don't know what I'm supposed to bring!" I reminded him that PAPI, his Yhjdmndb-qe-Qlf, and his gravity meter observer have been working on this with him. "No. I have not heard from PAPI in months, and I dont know gravity meter observer you are talking about. My Vqkuiize-ok-Otu is taking me, but thats all I know." 08/01 Pee number has been disconnected. Called [facility]idget [facility] and left message 08/01 Bridget states they went to turn his phone back on. LISA RATLIFF Aug 01, 2018 13:21
--- NOTE | 2018-08-10 14:24 | Transitional Care Management ---
Assessment Visit Type: Telephone Visit (08/10 Boy) Cardiac: WNL Respiratory: WNL GI: Nutrition: WNL Except GI Comment: 06/19 BS at 1000 was 349 Used Insulin. Ate dinner at [employer] yesterday and is over at their house now, plans on eating lunch. I encouraged him to take BS befor dinner this evening befor dinner. 07/07 Checking his BS BID, 160-200. He is low on insulin and plans to go to [facility] tomorrow. 07/15 BS was 189 this am and he took 10 Unit of Lantus but nothing else (like his SSI). States he takes 10 units at also (had only 8 units RX at dc from hospital) States insulin is getting low and will call [facility] for refill. Reminded him it is ready at [facility] and he can come to ER if he is out instead of not taking any. No breakfast today but is planning a lunch meal now. 07/23 I asked if he was able to get the insulin from [facility] (As discussed on 07/15). He said that he has not needed to get more insulin and has "a lot". He states that he doesn't do SSI, just 10 units of Lantus BID. Blood sugar was 168 this AM. 08/01 Bridget states he only takes BS BID and does SSI only if meter reads "hi" which is over 600. States she is going to next appt at [facility] and enc her to take meter so they know what his BS are, when he does them and will make tx decisions based on what he is doing vs. what he says he is doing. 08/10 States he is "doing his BS 3 times a day and they run Hi in the AM but come down once he takes his insulin" States he "is to go to the [facility] on " got defensive when I asked him if that was Wed. States he "has insulin at this time" Constipation?: No Musculoskeletal, Exercise: WNL Musculoskeletal, Excercise Com: 06/19 "a little weak but feeling stronger than yesterday" 06/26 Getting around more-going to [facility] at night. 08/01 still stays at [facility] at and goes home during the day 08/10 living arrangements stay the same -stays at [facility] at and goes home in the morning. Feeling of Well Being: WNL Feeling of Well Being Comment: 07/15 Plans to go to SSI hearing in 11 days. Asked me what he sould bring. Told him PAPI has helped him and his bush and vine fruit crop farmer and s-i-l is supposed to be there also. Important to bring self for admissions director to see 08/01 Bridget states bush and vine fruit crop farmer is confident in his success at his disability hearing they attended in [place] this week. Scheduled Follow-Up with Provi: Yes [facility]: 08/01 Bridget states he missed last appt at [facility] but, says he has appt coming up. She states she will find out what day and go with him to the appt with glucometer. She says he has a new glucometer and insulin Following Discharge Instructio: Yes TCM Discharge Criteria Medication Knowledge: 07/15 reports change in insulin but unable to verify with [facility]. 08/01 Bridget knows he needs SSI but that he refuses unless he is "Hi". Enc her to take meter to next appt to eval need to just increase lantus. Transitional Care Comment: 06/13 Will visit with his daughter, Saima and PAPI to see if he can get his papers filled out for [employer]. He has a care plan for his insulin.He is to go to watch his insulin amt and go to [facility] to get more. If happens to run out before going to [facility] he is to check with his pharmacy and the go to ER and get an injection and leave with the remaining bottle or pen. 06/17 I Called [facility] to see where Boy is with disablity. She stated that he has been denied several times. He does have a court hearing for Social Security disablity Jul 27 2018 at 1300 in [place]. I talked with Boy about this and he said that he had gotten a call and they told him he could do that over the phone. I encouraged him to go over to [place] if at all possible. Suggested his brother and vjbpuw-tg-hkx take him and be with him during the hearing. I also asked him about any money he might have. He stated "I have NO money at all, I do get food stamps and I buy a few things. I go over to [employer] for dinner and I eat a sandwich at home for lunch. I haven't drank for over 3 weeks and a friend brought over some beer and I had a couple." We discusssed the fact that if he doesn't take care for himself he might not be so tequila next time if he falls and family doesn't find him in time. PAPI will call Saima on Friday and see what suggestions she might have about helping Boy do his BS and making sure he had enough insulin. 06/19 He was at his brother's home at this time. His BS was high when he took it this am he used insulin and is going to have some lunch at brothes's home . His duaghter is not home now but he will talk to her about being at the Court hearing with him in Jun, 06/26 He hasn't done anything with his court hearing.He states he has been doing his BS and they have been in 200. Went to [facility] on Fri.-no changes. I called Aruna and talked with her. Boy has been coming to their home for dinner and then staying through the night and then going home through the day. I asked her if she knows about the Court hearing the end of Jun. She stated she does and has been trying him to get the boat loader that he has been working with in [place] to see where they are with this and that they need to be available for this hearing on Jul 27. I encouraged her to have him bring the papers to his home and then she and his brother can help him work through this. She is concerned that his thought process is declining. I told her hat is why he needs to follow thru with this hearing or he might lose his chance of getting help. 07/07 Blood sugars stable. I asked him if he had everything ready for the hearing on jul 27. He asked me what I was talking about. He became upset and wanted to know if the hospital was sueing him. I explained that this would be a Social Security Disability matter, and he remembered and apolygized. 07/15 Alert and talkative. Reports doing BS and insulin routinely. Eatingmeals with family Plans on going to hearing on 07/27. 07/23 He had questions about the hearing on 07/27, stating, "I dont have anything ready, and don't know what I'm supposed to bring!" I reminded him that PAPI, his Iwielwlw-yq-Iid, and his bush and vine fruit crop farmer have been working on this with him. "No. I have not heard from [facility] in months, and I dont know bush and vine fruit crop farmer you are talking about. My Bzlyqfjm-is-Usm is taking me, but thats all I know." 08/01 Pee number has been disconnected. Called [facility]idget [facility] and left message 08/01 Bridget states they went to turn his phone back on. 08/10 Boy seems to be very forgetful. Has no idea of any chronological happenings.He thinks he should be hearing from the "person in [place] soon to see if he will get any assistance. States hasn't been drinking for a long time. [place] Aug 10, 2018 14:24
--- NOTE | 2018-08-17 15:44 | Transitional Care Management ---
Assessment Visit Type: Telephone Visit Cardiac: WNL Respiratory: WNL GI: Nutrition: WNL Except GI Comment: 06/19 BS at 1000 was 349 Used Insulin. Ate dinner at [employer]'s yesterday and is over at their house now, plans on eating lunch. I encouraged him to take BS befor dinner this evening befor dinner. 07/07 Checking his BS BID, 160-200. He is low on insulin and plans to go to [facility] tomorrow. 07/15 BS was 189 this am and he took 10 Unit of Lantus but nothing else (like his SSI). States he takes 10 units at also (had only 8 units RX at dc from hospital) States insulin is getting low and will call [facility] for refill. Reminded him it is ready at [facility] and he can come to ER if he is out instead of not taking any. No breakfast today but is planning a lunch meal now. 07/23 I asked if he was able to get the insulin from [facility] (As discussed on 07/15). He said that he has not needed to get more insulin and has "a lot". He states that he doesn't do SSI, just 10 units of Lantus BID. Blood sugar was 168 this AM. 08/01 Bridget states he only takes BS BID and does SSI only if meter reads "hi" which is over 600. States she is going to next appt at [facility] and enc her to take meter so they know what his BS are, when he does them and will make tx decisions based on what he is doing vs. what he says he is doing. 08/10 States he is "doing his BS 3 times a day and they run Hi in the AM but come down once he takes his insulin" States he "is to go to the [facility] on " got defensive when I asked him if that was Wed. States he "has insulin at this time" Constipation?: No Musculoskeletal, Exercise: WNL Musculoskeletal, Excercise Com: 06/19 "a little weak but feeling stronger than yesterday" 06/26 Getting around more-going to [facility] at night. 08/01 still stays at [facility] at and goes home during the day 08/10 living arrangements stay the same -stays at [facility] at and goes home in the morning. Feeling of Well Being: WNL Feeling of Well Being Comment: 07/15 Plans to go to SSI hearing in 11 days. Asked me what he sould bring. Told him PAPI has helped him and his lead programmer analyst and s-i-l is supposed to be there also. Important to bring self for technical marketing consultant to see 08/01 Bridget states lead programmer analyst is confident in his success at his disability hearing they attended in [place] this week. Scheduled Follow-Up with Avinashi: Yes Community Resources/C: 08/01 Bridget states he missed last appt at [facility] but, says he has appt coming up. She states she will find out what day and go with him to the appt with glucometer. She says he has a new glucometer and insulin Following Discharge Instructio: Yes TCM Discharge Criteria Medication Knowledge: 07/15 reports change in insulin but unable to verify with [facility]. 08/01 Bridget knows he needs SSI but that he refuses unless he is "Hi". Enc her to take meter to next appt to eval need to just increase lantus. Transitional Care Comment: 06/13 Will visit with his daughter, Saima and PAPI to see if he can get his papers filled out for [employer]. He has a care plan for his insulin.He is to go to watch his insulin amt and go to [facility] to get more. If happens to run out before going to [facility] he is to check with his pharmacy and the go to ER and get an injection and leave with the remaining bottle or pen. 06/17 I Called PAPI to see where Boy is with disablity. She stated that he has been denied several times. He does have a court hearing for Social Security disablity Jul 27 2018 at 1300 in [place]. I talked with Boy about this and he said that he had gotten a call and they told him he could do that over the phone. I encouraged him to go over to [place] if at all possible. Suggested his brother and qdbqrd-iw-vvx take him and be with him during the hearing. I also asked him about any money he might have. He stated "I have NO money at all, I do get food stamps and I buy a few things. I go over to [employer] for dinner and I eat a sandwich at home for lunch. I haven't drank for over 3 weeks and a friend brought over some beer and I had a couple." We discusssed the fact that if he doesn't take care for himself he might not be so tequila next time if he falls and family doesn't find him in time. PAPI will call Saima on Friday and see what suggestions she might have about helping Boy do his BS and making sure he had enough insulin. 06/19 He was at his brother's home at this time. His BS was high when he took it this am he used insulin and is going to have some lunch at brothes's home . His duaghter is not home now but he will talk to her about being at the Court hearing with him in Jun, 06/26 He hasn't done anything with his court hearing.He states he has been doing his BS and they have been in 200. Went to [facility] on Fri.-no changes. I called Aruna and talked with her. Boy has been coming to their home for dinner and then staying through the night and then going home through the day. I asked her if she knows about the Court hearing the end of Jun. She stated she does and has been trying him to get the car dropper that he has been working with in [place] to see where they are with this and that they need to be available for this hearing on Jul 27. I encouraged her to have him bring the papers to his home and then she and his brother can help him work through this. She is concerned that his thought process is declining. I told her hat is why he needs to follow thru with this hearing or he might lose his chance of getting help. 07/07 Blood sugars stable. I asked him if he had everything ready for the hearing on jul 27. He asked me what I was talking about. He became upset and wanted to know if the hospital was sueing him. I explained that this would be a Social Security Disability matter, and he remembered and apolygized. 07/15 Alert and talkative. Reports doing BS and insulin routinely. Eatingmeals with family Plans on going to hearing on 07/27. 07/23 He had questions about the hearing on 07/27, stating, "I dont have anything ready, and don't know what I'm supposed to bring!" I reminded him that PAPI, his Vylbqekb-ur-Dub, and his lead programmer analyst have been working on this with him. "No. I have not heard from PAPI in months, and I dont know lead programmer analyst you are talking about. My Vgtrlhri-oj-Tku is taking me, but thats all I know." 08/01 Pee number has been disconnected. Called Bridget DAWN and left message 08/01 Bridget states they went to turn his phone back on. 08/10 Boy seems to be very forgetful. Has no idea of any chronological happenings.He thinks he should be hearing from the "person in [place] soon to see if he will get any assistance. States hasn't been drinking for a long time. 08/17 pt reports taking BS BID and they have been in the 160's in the morning and 140's in the evening. He reports taking all of his medications as prescribed and has no problems to report. When asked about the hearing he had recently, he states he is "supposed to be getting a letter about it soon". SEPTEMBERPATRICIA Aug 17, 2018 15:44
--- NOTE | 2018-08-29 09:12 | Transitional Care Management ---
Assessment Cardiac: WNL Respiratory: WNL GI: Nutrition: WNL Except GI Comment: 06/19 BS at 1000 was 349 Used Insulin. Ate dinner at [employer]'s yesterday and is over at their house now, plans on eating lunch. I encouraged him to take BS befor dinner this evening befor dinner. 07/07 Checking his BS BID, 160-200. He is low on insulin and plans to go to [facility] tomorrow. 07/15 BS was 189 this am and he took 10 Unit of Lantus but nothing else (like his SSI). States he takes 10 units at also (had only 8 units RX at dc from hospital) States insulin is getting low and will call [facility] for refill. Reminded him it is ready at [facility] and he can come to ER if he is out instead of not taking any. No breakfast today but is planning a lunch meal now. 07/23 I asked if he was able to get the insulin from [facility] (As discussed on 07/15). He said that he has not needed to get more insulin and has "a lot". He states that he doesn't do SSI, just 10 units of Lantus BID. Blood sugar was 168 this AM. 08/01 Bridget states he only takes BS BID and does SSI only if meter reads "hi" which is over 600. States she is going to next appt at [facility] and enc her to take meter so they know what his BS are, when he does them and will make tx decisions based on what he is doing vs. what he says he is doing. 08/10 States he is "doing his BS 3 times a day and they run Hi in the AM but come down once he takes his insulin" States he "is to go to the [facility] on " got defensive when I asked him if that was Wed. States he "has insulin at this time" Constipation?: No Musculoskeletal, Exercise: WNL Musculoskeletal, Excercise Com: 06/19 "a little weak but feeling stronger than yesterday" 06/26 Getting around more-going to brothers house at night. 08/01 still stays at [facility] at and goes home during the day 08/10 living arrangements stay the same -[facility] and goes home in the morning. Feeling of Well Being: WNL Feeling of Well Being Comment: 07/15 Plans to go to SSI hearing in 11 days. Asked me what he sould bring. Told him PAPI has helped him and his heat seal operator and s-i-l is supposed to be there also. Important to bring self for neurology tech to see 08/01 Bridget states heat seal operator is confident in his success at his disability hearing they attended in [place] this week. Scheduled Follow-Up with Avinashi: Yes Community Resources/C: 08/01 Bridget states he missed last appt at [facility] but, says he has appt coming up. She states she will find out what day and go with him to the appt with glucometer. She says he has a new glucometer and insulin Following Discharge Instructio: Yes TCM Discharge Criteria Medication Knowledge: 07/15 reports change in insulin but unable to verify with [facility]. 08/01 Bridget knows he needs SSI but that he refuses unless he is "Hi". Enc her to take meter to next appt to eval need to just increase lantus. Transitional Care Comment: 06/13 Will visit with his daughter, Saima and PAPI to see if he can get his papers filled out for [employer]. He has a care plan for his insulin.He is to go to watch his insulin amt and go to [facility] to get more. If happens to run out before going to [facility] he is to check with his pharmacy and the go to ER and get an injection and leave with the remaining bottle or pen. 06/17 I Called PAPI to see where Boy is with disablity. She stated that he has been denied several times. He does have a court hearing for Social Security disablity Jul 27 2018 at 1300 in [place]. I talked with Boy about this and he said that he had gotten a call and they told him he could do that over the phone. I encouraged him to go over to [place] if at all possible. Suggested his brother and nuiybt-va-crn take him and be with him during the hearing. I also asked him about any money he might have. He stated "I have NO money at all, I do get food stamps and I buy a few things. I go over to [employer] for dinner and I eat a sandwich at home for lunch. I haven't drank for over 3 weeks and a friend brought over some beer and I had a couple." We discusssed the fact that if he doesn't take care for himself he might not be so tequila next time if he falls and family doesn't find him in time. PAPI will call Saima on Friday and see what suggestions she might have about helping Boy do his BS and making sure he had enough insulin. 06/19 He was at his brother's home at this time. His BS was high when he took it this am he used insulin and is going to have some lunch at [facility] home . His duaghter is not home now but he will talk to her about being at the Court hearing with him in Jun, 06/26 He hasn't done anything with his court hearing.He states he has been doing his BS and they have been in 200. Went to [facility] on Fri.-no changes. I called Aruna and talked with her. Boy has been coming to their home for dinner and then staying through the night and then going home through the day. I asked her if she knows about the Court hearing the end of Jun. She stated she does and has been trying him to get the oil refinery operator that he has been working with in [place] to see where they are with this and that they need to be available for this hearing on Jul 27. I encouraged her to have him bring the papers to his home and then she and his brother can help him work through this. She is concerned that his thought process is declining. I told her hat is why he needs to follow thru with this hearing or he might lose his chance of getting help. 07/07 Blood sugars stable. I asked him if he had everything ready for the hearing on jul 27. He asked me what I was talking about. He became upset and wanted to know if the hospital was sueing him. I explained that this would be a Social Security Disability matter, and he remembered and apolygized. 07/15 Alert and talkative. Reports doing BS and insulin routinely. Eatingmeals with family Plans on going to hearing on 07/27. 07/23 He had questions about the hearing on 07/27, stating, "I dont have anything ready, and don't know what I'm supposed to bring!" I reminded him that PAPI, his Scquyass-yv-Hpd, and his heat seal operator have been working on this with him. "No. I have not heard from [facility] in months, and I dont know heat seal operator you are talking about. My Sxesqfwc-wv-Rku is taking me, but thats all I know." 08/01 Pee number has been disconnected. Called Bridget DAWN and left message 08/01 Bridget states they went to turn his phone back on. 08/10 Boy seems to be very forgetful. Has no idea of any chronological happenings.He thinks he should be hearing from the "person in [place] soon to see if he will get any assistance. States hasn't been drinking for a long time. 08/17 pt reports taking BS BID and they have been in the 160's in the morning and 140's in the evening. He reports taking all of his medications as prescribed and has no problems to report. When asked about the hearing he had recently, he states he is "supposed to be getting a letter about it soon". 08/29 no answer PATRICIA DOOLEY Aug 29, 2018 09:12
--- NOTE | 2018-09-04 11:15 | Transitional Care Management ---
Assessment Cardiac: WNL Respiratory: WNL GI: Nutrition: WNL Except GI Comment: 06/19 BS at 1000 was 349 Used Insulin. Ate dinner at [employer]'s yesterday and is over at their house now, plans on eating lunch. I encouraged him to take BS befor dinner this evening befor dinner. 07/07 Checking his BS BID, 160-200. He is low on insulin and plans to go to [facility] tomorrow. 07/15 BS was 189 this am and he took 10 Unit of Lantus but nothing else (like his SSI). States he takes 10 units at also (had only 8 units RX at dc from hospital) States insulin is getting low and will call [facility] for refill. Reminded him it is ready at [facility] and he can come to ER if he is out instead of not taking any. No breakfast today but is planning a lunch meal now. 07/23 I asked if he was able to get the insulin from [facility] (As discussed on 07/15). He said that he has not needed to get more insulin and has "a lot". He states that he doesn't do SSI, just 10 units of Lantus BID. Blood sugar was 168 this AM. 08/01 Bridget states he only takes BS BID and does SSI only if meter reads "hi" which is over 600. States she is going to next appt at [facility] and enc her to take meter so they know what his BS are, when he does them and will make tx decisions based on what he is doing vs. what he says he is doing. 08/10 States he is "doing his BS 3 times a day and they run Hi in the AM but come down once he takes his insulin" States he "is to go to the [facility] on " got defensive when I asked him if that was Wed. States he "has insulin at this time" Constipation?: No Musculoskeletal, Exercise: WNL Musculoskeletal, Excercise Com: 06/19 "a little weak but feeling stronger than yesterday" 06/26 Getting around more-going to brothers house at night. 08/01 still stays at [facility] at and goes home during the day 08/10 living arrangements stay the same -[facility] at and goes home in the morning. Feeling of Well Being: WNL Feeling of Well Being Comment: 07/15 Plans to go to SSI hearing in 11 days. Asked me what he sould bring. Told him PAPI has helped him and his artificial breast fabricator and s-i-l is supposed to be there also. Important to bring self for roofing plant supervisor to see 08/01 Bridget states artificial breast fabricator is confident in his success at his disability hearing they attended in [place] this week. Scheduled Follow-Up with Avinashi: Yes Community Resources/C: 08/01 Bridget states he missed last appt at [facility] but, says he has appt coming up. She states she will find out what day and go with him to the appt with glucometer. She says he has a new glucometer and insulin Following Discharge Instructio: Yes TCM Discharge Criteria Medication Knowledge: 07/15 reports change in insulin but unable to verify with [facility]. 08/01 Bridget knows he needs SSI but that he refuses unless he is "Hi". Enc her to take meter to next appt to eval need to just increase lantus. Transitional Care Comment: 06/13 Will visit with his daughter, Saima and PAPI to see if he can get his papers filled out for [employer]. He has a care plan for his insulin.He is to go to watch his insulin amt and go to [facility] to get more. If happens to run out before going to [facility] he is to check with his pharmacy and the go to ER and get an injection and leave with the remaining bottle or pen. 06/17 I Called PAPI to see where Boy is with disablity. She stated that he has been denied several times. He does have a court hearing for Social Security disablity Jul 27 2018 at 1300 in [place]. I talked with Boy about this and he said that he had gotten a call and they told him he could do that over the phone. I encouraged him to go over to [place] if at all possible. Suggested his brother and wpowtt-mu-had take him and be with him during the hearing. I also asked him about any money he might have. He stated "I have NO money at all, I do get food stamps and I buy a few things. I go over to [employer] for dinner and I eat a sandwich at home for lunch. I haven't drank for over 3 weeks and a friend brought over some beer and I had a couple." We discusssed the fact that if he doesn't take care for himself he might not be so tequila next time if he falls and family doesn't find him in time. PAPI will call Saima on Friday and see what suggestions she might have about helping Boy do his BS and making sure he had enough insulin. 06/19 He was at his brother's home at this time. His BS was high when he took it this am he used insulin and is going to have some lunch at bro[facility]s's home . His duaghter is not home now but he will talk to her about being at the Court hearing with him in Jun, 06/26 He hasn't done anything with his court hearing.He states he has been doing his BS and they have been in 200. Went to [facility] on Fri.-no changes. I called Aruna and talked with her. Boy has been coming to their home for dinner and then staying through the night and then going home through the day. I asked her if she knows about the Court hearing the end of Jun. She stated she does and has been trying him to get the loan interviewer that he has been working with in [place] to see where they are with this and that they need to be available for this hearing on Jul 27. I encouraged her to have him bring the papers to his home and then she and his brother can help him work through this. She is concerned that his thought process is declining. I told her hat is why he needs to follow thru with this hearing or he might lose his chance of getting help. 07/07 Blood sugars stable. I asked him if he had everything ready for the hearing on jul 27. He asked me what I was talking about. He became upset and wanted to know if the hospital was sueing him. I explained that this would be a Social Security Disability matter, and he remembered and apolygized. 07/15 Alert and talkative. Reports doing BS and insulin routinely. Eatingmeals with family Plans on going to hearing on 07/27. 07/23 He had questions about the hearing on 07/27, stating, "I dont have anything ready, and don't know what I'm supposed to bring!" I reminded him that PAPI, his Ulbmwuhs-fu-Oky, and his artificial breast fabricator have been working on this with him. "No. I have not heard from [facility] in months, and I dont know artificial breast fabricator you are talking about. My Geweutyq-zr-Dwn is taking me, but thats all I know." 08/01 Pee number has been disconnected. Called Bridget DAWN and left message 08/01 Bridget states they went to turn his phone back on. 08/10 Boy seems to be very forgetful. Has no idea of any chronological happenings.He thinks he should be hearing from the "person in [place] soon to see if he will get any assistance. States hasn't been drinking for a long time. 08/17 pt reports taking BS BID and they have been in the 160's in the morning and 140's in the evening. He reports taking all of his medications as prescribed and has no problems to report. When asked about the hearing he had recently, he states he is "supposed to be getting a letter about it soon". 08/29 no answer 09/04 Boy's phone has been disconnected. I left a message on Bridget's phone to have him call us and give us his new phone number. [place] Sep 04, 2018 11:15
--- NOTE | 2018-09-12 12:49 | Transitional Care Management ---
Assessment Cardiac: WNL Respiratory: WNL GI: Nutrition: WNL Except GI Comment: 06/19 BS at 1000 was 349 Used Insulin. Ate dinner at [employer] yesterday and is over at their house now, plans on eating lunch. I encouraged him to take BS befor dinner this evening befor dinner. 07/07 Checking his BS BID, 160-200. He is low on insulin and plans to go to [facility] tomorrow. 07/15 BS was 189 this am and he took 10 Unit of Lantus but nothing else (like his SSI). States he takes 10 units at also (had only 8 units RX at dc from hospital) States insulin is getting low and will call [facility] for refill. Reminded him it is ready at [facility] and he can come to ER if he is out instead of not taking any. No breakfast today but is planning a lunch meal now. 07/23 I asked if he was able to get the insulin from [facility] (As discussed on 07/15). He said that he has not needed to get more insulin and has "a lot". He states that he doesn't do SSI, just 10 units of Lantus BID. Blood sugar was 168 this AM. 08/01 Bridget states he only takes BS BID and does SSI only if meter reads "hi" which is over 600. States she is going to next appt at [facility] and enc her to take meter so they know what his BS are, when he does them and will make tx decisions based on what he is doing vs. what he says he is doing. 08/10 States he is "doing his BS 3 times a day and they run Hi in the AM but come down once he takes his insulin" States he "is to go to the [facility] on " got defensive when I asked him if that was Wed. States he "has insulin at this time" Constipation?: No Musculoskeletal, Exercise: WNL Musculoskeletal, Excercise Com: 06/19 "a little weak but feeling stronger than yesterday" 06/26 Getting around more-going to brothers house at night. 08/01 still stays at [facility] at and goes home during the day 08/10 living arrangements stay the same -stays at [facility] at and goes home in the morning. Feeling of Well Being: WNL Feeling of Well Being Comment: 07/15 Plans to go to SSI hearing in 11 days. Asked me what he sould bring. Told him [employer] has helped him and his avionics electronics technician and s-i-l is supposed to be there also. Important to bring self for director process to see 08/01 Bridget states avionics electronics technician is confident in his success at his disability hearing they attended in [place] this week. Scheduled Follow-Up with Avinashi: Yes Community Resources/C: 08/01 Bridget states he missed last appt at [facility] but, says he has appt coming up. She states she will find out what day and go with him to the appt with glucometer. She says he has a new glucometer and insulin Following Discharge Instructio: Yes TCM Discharge Criteria Medication Knowledge: 07/15 reports change in insulin but unable to verify with [facility]. 08/01 Bridget knows he needs SSI but that he refuses unless he is "Hi". Enc her to take meter to next appt to eval need to just increase lantus. Transitional Care Comment: 06/13 Will visit with his daughter, Saima and [employer]API to see if he can get his papers filled out for [employer]. He has a care plan for his insulin.He is to go to watch his insulin amt and go to [facility] to get more. If happens to run out before going to [facility] he is to check with his pharmacy and the go to ER and get an injection and leave with the remaining bottle or pen. 06/17 I Called PAPI to see where Boy is with disablity. She stated that he has been denied several times. He does have a court hearing for Social Security disablity Jul 27 2018 at 1300 in [place]. I talked with Boy about this and he said that he had gotten a call and they told him he could do that over the phone. I encouraged him to go over to [place] if at all possible. Suggested his brother and glrmpo-fm-ztx take him and be with him during the hearing. I also asked him about any money he might have. He stated "I have NO money at all, I do get food stamps and I buy a few things. I go over to [place] for dinner and I eat a sandwich at home for lunch. I haven't drank for over 3 weeks and a friend brought over some beer and I had a couple." We discusssed the fact that if he doesn't take care for himself he might not be so tequila next time if he falls and family doesn't find him in time. PAPI will call Saima on Friday and see what suggestions she might have about helping Boy do his BS and making sure he had enough insulin. 06/19 He was at his brother's home at this time. His BS was high when he took it this am he used insulin and is going to have some lunch at brothes's home . His duaghter is not home now but he will talk to her about being at the Court hearing with him in Jun, 06/26 He hasn't done anything with his court hearing.He states he has been doing his BS and they have been in 200. Went to [facility] on Fri.-no changes. I called Aruna and talked with her. Boy has been coming to their home for dinner and then staying through the night and then going home through the day. I asked her if she knows about the Court hearing the end of Jun. She stated she does and has been trying him to get the hog confinement system manager that he has been working with in [place] to see where they are with this and that they need to be available for this hearing on Jul 27. I encouraged her to have him bring the papers to his home and then she and his brother can help him work through this. She is concerned that his thought process is declining. I told her hat is why he needs to follow thru with this hearing or he might lose his chance of getting help. 07/07 Blood sugars stable. I asked him if he had everything ready for the hearing on jul 27. He asked me what I was talking about. He became upset and wanted to know if the hospital was sueing him. I explained that this would be a Social Security Disability matter, and he remembered and apolygized. 07/15 Alert and talkative. Reports doing BS and insulin routinely. Eatingmeals with family Plans on going to hearing on 07/27. 07/23 He had questions about the hearing on 07/27, stating, "I dont have anything ready, and don't know what I'm supposed to bring!" I reminded him that PAPI, his Hkkbltwf-rp-Ryp, and his avionics electronics technician have been working on this with him. "No. I have not heard from PAPI in months, and I dont know avionics electronics technician you are talking about. My De[employer]im[employer]el[employer]Ahi is taking me, but thats all I know." 08/01 Pee number has been disconnected. Called Bridget DAWN and left message 08/01 Bridget states they went to turn his phone back on. 08/10 Boy seems to be very forgetful. Has no idea of any chronological happenings.He thinks he should be hearing from the "person in [place] soon to see if he will get any assistance. States hasn't been drinking for a long time. 08/17 pt reports taking BS BID and they have been in the 160's in the morning and 140's in the evening. He reports taking all of his medications as prescribed and has no problems to report. When asked about the hearing he had recently, he states he is "supposed to be getting a letter about it soon". 08/29 no answer 09/04 Boy's phone has been disconnected. I left a message on Bridget's phone to have him call us and give us his new phone number. 09/12 called Boy's phone which worked this time, he did not answer, left message SEPTEMBERPATRICIA Sep 12, 2018 12:49
[2018-09-18] MEDS ORDERED: INSU100V24 SUBQ (09:48)
--- NOTE | 2018-09-21 15:47 | Transitional Care Management ---
Assessment Cardiac: WNL Respiratory: WNL GI: Nutrition: WNL Except GI Comment: 06/19 BS at 1000 was 349 Used Insulin. Ate dinner at [employer] yesterday and is over at their house now, plans on eating lunch. I encouraged him to take BS befor dinner this evening befor dinner. 07/07 Checking his BS BID, 160-200. He is low on insulin and plans to go to [facility] tomorrow. 07/15 BS was 189 this am and he took 10 Unit of Lantus but nothing else (like his SSI). States he takes 10 units at also (had only 8 units RX at dc from hospital) States insulin is getting low and will call [facility] for refill. Reminded him it is ready at [facility] and he can come to ER if he is out instead of not taking any. No breakfast today but is planning a lunch meal now. 07/23 I asked if he was able to get the insulin from [facility] (As discussed on 07/15). He said that he has not needed to get more insulin and has "a lot". He states that he doesn't do SSI, just 10 units of Lantus BID. Blood sugar was 168 this AM. 08/01 Bridget states he only takes BS BID and does SSI only if meter reads "hi" which is over 600. States she is going to next appt at [facility] and enc her to take meter so they know what his BS are, when he does them and will make tx decisions based on what he is doing vs. what he says he is doing. 08/10 States he is "doing his BS 3 times a day and they run Hi in the AM but come down once he takes his insulin" States he "is to go to the [facility] on " got defensive when I asked him if that was Wed. States he "has insulin at this time" Constipation?: No Musculoskeletal, Exercise: WNL Musculoskeletal, Excercise Com: 06/19 "a little weak but feeling stronger than yesterday" 06/26 Getting around more-going to brothers house at night. 08/01 still stays at [facility] at and goes home during the day 08/10 living arrangements stay the same -[facility] at and goes home in the morning. Feeling of Well Being: WNL Feeling of Well Being Comment: 07/15 Plans to go to SSI hearing in 11 days. Asked me what he sould bring. Told him [employer] has helped him and his staff development educator and s-i-l is supposed to be there also. 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 Scheduled Follow-Up with Avinashi: Yes Community Resources/C: 08/01 Bridget states he missed last appt at [facility] but, says he has appt coming up. She states she will find out what day and go with him to the appt with glucometer. She says he has a new glucometer and insulin Following Discharge Instructio: Yes TCM Discharge Criteria Medication Knowledge: 07/15 reports change in insulin but unable to verify with [facility]. 08/01 Bridget knows he needs SSI but that he refuses unless he is "Hi". Enc her to take meter to next appt to eval need to just increase lantus. Transitional Care Comment: 06/13 Will visit with his daughter, Saima and [employer] to see if he can get his papers filled out for [employer]. He has a care plan for his insulin.He is to go to watch his insulin amt and go to [facility] to get more. If happens to run out before going to [facility] he is to check with his pharmacy and the go to ER and get an injection and leave with the remaining bottle or pen. 06/17 I Called [employer] to see where Boy is with disablity. She stated that he has been denied several times. He does have a court hearing for Social Security disablity Jul 27 2018 at 1300 in [place]. I talked with Boy about this and he said that he had gotten a call and they told him he could do that over the phone. I encouraged him to go over to [place] if at all possible. Suggested his brother and gvggyf-aj-kqc take him and be with him during the hearing. I also asked him about any money he might have. He stated "I have NO money at all, I do get food stamps and I buy a few things. I go over to [employer] for dinner and I eat a sandwich at home for lunch. I haven't drank for over 3 weeks and a friend brought over some beer and I had a couple." We discusssed the fact that if he doesn't take care for himself he might not be so tequila next time if he falls and family doesn't find him in time. PAPI will call Saima on Friday and see what suggestions she might have about helping Boy do his BS and making sure he had enough insulin. 06/19 He was at his brother's home at this time. His BS was high when he took it this am he used insulin and is going to have some lunch at brothes's home . His duaghter is not home now but he will talk to her about being at the Court hearing with him in Jun, 06/26 He hasn't done anything with his court hearing.He states he has been doing his BS and they have been in 200. Went to [facility] on Fri.-no changes. I called Aruna and talked with her. Boy has been coming to their home for dinner and then staying through the night and then going home through the day. I asked her if she knows about the Court hearing the end of Jun. 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 I encouraged her to have him bring the papers to his home and then she and his brother can help him work through this. She is concerned that his thought process is declining. I told her hat is why he needs to follow thru with this hearing or he might lose his chance of getting help. 07/07 Blood sugars stable. I asked him if he had everything ready for the hearing on jul 27. He asked me what I was talking about. He became upset and wanted to know if the hospital was sueing him. I explained that this would be a Social Security Disability matter, and he remembered and apolygized. 07/15 Alert and talkative. Reports doing BS and insulin routinely. Eatingmeals with family Plans on going to hearing on 07/27. 07/23 He had questions about the hearing on 07/27, stating, "I dont have anything ready, and don't know what I'm supposed to bring!" I reminded him that PAPI, his Mmqnxwqw-oq-Psg, and his staff development educator have been working on this with him. "No. I have not heard from [facility] in months, and I dont know staff development educator you are talking about. My Jhokzhbj-mv-Crp is taking me, but thats all I know." 08/01 Pee number has been disconnected. Called Bridget DAWN and left message 08/01 Bridget states they went to turn his phone back on. 08/10 Boy seems to be very forgetful. Has no idea of any chronological happenings.He thinks he should be hearing from the "person in [place] soon to see if he will get any assistance. States hasn't been drinking for a long time. 08/17 pt reports taking BS BID and they have been in the 160's in the morning and 140's in the evening. He reports taking all of his medications as prescribed and has no problems to report. When asked about the hearing he had recently, he states he is "supposed to be getting a letter about it soon". 08/29 no answer 09/04 Boy's phone has been disconnected. I left a message on Bridget's phone to have him call us and give us his new phone number. 09/12 called Boy's phone which worked this time, he did not answer, left message 09/21 Boy was set up with [facility] at his last discharge from the hospital. Will DC from [facility] now that he has those services PATRICIA DOOLEY Sep 21, 2018 15:47
== END 2018-09-21 16:08 | disposition home or self-care (01) ==
LOC: TCM 16:02
PROVIDERS: ATTEND Nurse Practitioner
DX: Z02.9 Encounter for administrative examinations, unspecified (principal)

== ENCOUNTER 2018-09-14 11:50 | Inpatient (IN) | payer SELFPAY ==
[~2018-09-14] VITALS: Ht 175.3 cm; Wt 63.5 kg
[2018-09-14] VITALS (34 sets, daily range): BP systolic 80–119; BP diastolic 37–102
[2018-09-14] MEDS ORDERED: NS 0.9% IV ONE (12:05)
[2018-09-14 12:32] LABS: PLATELET COUNT, AUTOMATED 368 K/uL (150-450)
[2018-09-14] MEDS ORDERED: SODIUM BICAR(* 8.4% 50 ML SYR 50 ML SYR IVP ONE (13:05)
--- NOTE | 2018-09-14 13:06 | EKG ---
FACILITY: [facility] PATIENT NAME: ALLY NOONAN : [id number] MR: [id number] V: [id number] EXAM DATE: ORDERING PHYSICIAN: LIZABETH LAGUNAS TECHNOLOGIST: Test Reason : Blood Pressure : / mmHG Vent. Rate : 100 BPM Atrial Rate : 100 BPM P-R Int : 200 ms QRS Dur : 100 ms QT Int : 388 ms P-R-T Axes : 070 063 054 degrees QTc Int : 500 ms Normal sinus rhythm Prolonged QT Abnormal ECG When compared with ECG of 12-JUN-2018 14:15, No significant change was found Confirmed by Jose Hallman ([id number] on 09/14/2018 10:43:23 PM Referred By: Confirmed By:Jose Grier
[2018-09-14] MEDS ORDERED: INS HUM REG* 100 U/ML(ER ONLY) 100 UNIT in NS(*) 0.9% 100 ML BAG 99 ML IV SCH (13:20)
--- NOTE | 2018-09-14 13:33 | RADIOLOGY IMAGING REPORT ---
FACILITY: [facility] PATIENT NAME: Boy Carter : 1960 MR: [id number] V: [id number] EXAM DATE: ORDERING PHYSICIAN: LIZABETH LAGUNAS TECHNOLOGIST: [place] [facility] [place]: Boy Carter : 1960 Visit/Account:[id number] Date of Sevice: 09/14/2018 CHEST SINGLE AP Indication: dyspnea Comparison: Chest x-ray 06/13/2018 Findings: Lungs: Clear. Mediastinum/pulmonary vasculature: Heart size and pulmonary vasculature are normal. Bones/soft tissues: Normal. IMPRESSION: Clear lungs. Report Dictated By: Mina Krishnamurthy at 09/14/2018 1:28 PM Report E-Signed By: Mina Krishnamurthy at 09/14/2018 1:29 PM WSN:AMICIVLiliana
--- NOTE | 2018-09-14 14:12 | EKG ---
FACILITY: [facility] [place] PATIENT NAME: ALLY NOONAN : [id number] MR: [id number] V: [id number] EXAM DATE: ORDERING PHYSICIAN: LIZABETH LAGUNAS TECHNOLOGIST: ELIGIO Yung Reason : HYPERKALEMIA Blood Pressure : / mmHG Vent. Rate : 096 BPM Atrial Rate : 096 BPM P-R Int : 150 ms QRS Dur : 094 ms QT Int : 404 ms P-R-T Axes : 046 042 064 degrees QTc Int : 510 ms Normal sinus rhythm Nonspecific ST abnormality Prolonged QT Abnormal ECG When compared with ECG of 14-SEP-2018 12:51, No significant change was found Confirmed by Jose Hallman ([id number] on 09/14/2018 10:45:00 PM Referred By: JANNETH Confirmed By:Jose Grier
--- NOTE | 2018-09-14 14:34 | ER Report ---
History and Physical Time Seen By MD: 12:20 Hx. of Stated Complaint: DKA HPI/ROS CHIEF COMPLAINT: Difficulty breathing, not feeling well HISTORY OF PRESENT ILLNESS: History is per patient's sister and daughter. His sister checked on him this morning and noticed he was not doing well. He was reportedly doing fine yesterday. She noticed that he was breathing very fast and less responsive so called EMS to have him brought to the hospital. Due to altered mental status, patient is not able to provide history. Per his sister, there is been no known vomiting, he has not complained of chest pain, shortness breath, fevers, abdominal pain. REVIEW OF SYSTEMS: Unable to obtain further due to mental status Remainder of the 14 system rev: No (altered mental status) Allergies: Coded Allergies: No Known Drug Allergies (Verified , 01/19/18) Home Meds Active Scripts Insulin Glargine 100 Un/Ml Pen (LANTUS SOLOSTAR PEN) 100 Unit/1 Ml Insuln.pen, 0 SQ BID for 30 Days, #1 VIAL 6 Refills 10 units SQ qAM and 8 units SQ qPM. Prov:ANA MARIA PALACIOS MD 06/18/18 Insulin Lispro 100 Un/Ml Vial (HUMALOG 100 U/ML VIAL) 100 Unit/1 Ml Vial, 2-10 UNIT SUBQ SS PRN for SLIDING SCALE INSULIN, #1 VIAL Prov:ANA MARIA PALACIOS MD 01/20/18 Discontinued Reported Medications Multivitamin With Folic Acid (ONE DAILY MULTIVITAMIN TABLET) 400 Mcg Tablet, 400 MCG PO QDAY 10/01/17 Discontinued Scripts Vitamin B Complex (B COMPLEX) 1 Each Tablet, 1 EACH PO DAILY, #30 TAB Prov:ANA MARIA PALACIOS MD 09/19/17 Reviewed Nurses Notes: Yes Old Medical Records Reviewed: Yes Hx Smoking: Yes (chewing tobacco) Smoking Status: Light Tobacco Smoker Hx Substance Use Disorder: No (Pt denies. ) Hx Alcohol Use: Yes (COUPLE BEERS NIGHTLY WHEN HE FEELS GOOD) Constitutional Vital Sign - Last 24 Hours 09/14/18 09/14/18 09/14/18 09/14/18 12:01 12:05 12:20 12:21 Pulse 101 100 Resp 21 20 B/P (MAP) 120/75 (90) 120/65 (83) Pulse Ox 99 09/14/18 09/14/18 09/14/1819 12:26 12:35 12:50 12:57 Temp 96.4 Pulse 101 97 102 Resp 28 23 22 B/P (MAP) 120/65 Pulse Ox 100 93 O2 Delivery Room Air 09/14/18 09/14/18 09/14/18 09/14/18 13:05 13:13 13:18 13:24 Pulse 98 97 Resp 23 23 B/P (MAP) 120/111 (114) 122/51 (74) Pulse Ox 78 09/14/18 09/14/18 09/14/18 09/14/18 13:30 13:33 13:40 13:48 Pulse 96 97 Resp 29 23 B/P (MAP) 101/57 (72) 92/74 (80) Pulse Ox 84 09/14/18 14:00 B/P (MAP) 90/58 (69) Physical Exam General Appearance: Patient is awake, very tachypneic, with clear fruity odor of breath. Eyes: Pupils equal and round, 3mm, minimally reactive ENT, Mouth: mucous membranes dry Respiratory: pt is significantly tachypneic. Lungs CTAB Cardiovascular: borderline tachycardia, no m/r/g Gastrointestinal: Abdomen is soft and non tender, no masses, bowel sounds normal. Neurological: Pt follow simple commands, no focal deficits. Does not answer questions Skin: cool, mottled at extremities Musculoskeletal: Extremities are nontender, nonswollen and have full range of motion. DIFFERENTIAL DIAGNOSIS: After history and physical exam differential diagnosis was considered for DKA with multiple potential underlying causes, severe electrolyte abnormality, acute kidney failure or other emergent cause a result of symptoms. Medical Decision Making Data Points Result Diagram: 09/14/18 1220 09/14/18 1436 Laboratory Hematology Test 09/14/18 12:20 09/14/18 12:40 09/14/18 12:55 Red Blood Count 4.46 M/uL (4.00-5.60) Mean Corpuscular Volume 105.9 fL (80.0-96.0) Mean Corpuscular Hemoglobin 30.9 pg (26.0-33.0) Mean Corpuscular Hemoglobin Concent 29.2 g/dL (32.0-36.0) Red Cell Distribution Width 15.4 % (11.5-14.5) Mean Platelet Volume 8.2 fL (7.2-11.1) Neutrophils (%) (Auto) 89.2 % (39.4-72.5) Lymphocytes (%) (Auto) 7.4 % (17.6-49.6) Monocytes (%) (Auto) 3.2 % (4.1-12.4) Eosinophils (%) (Auto) 0.0 % (0.4-6.7) Basophils (%) (Auto) 0.2 % (0.3-1.4) Nucleated RBC Relative Count (auto) 0.0 /100WBC Neutrophils # (Auto) 18.6 K/uL (2.0-7.4) Lymphocytes # (Auto) 1.6 K/uL (1.3-3.6) Monocytes # (Auto) 0.7 K/uL (0.3-1.0) Eosinophils # (Auto) 0.0 K/uL (0.0-0.5) Basophils # (Auto) 0.0 K/uL (0.0-0.1) Nucleated RBC Absolute Count (auto) 0.00 K/uL Peripheral Blood Smear No Y/N Lactate 3.8 mmol/L (0.7-2.1) Magnesium Level 2.8 mg/dl (1.7-2.2) Total Bilirubin 0.4 mg/dl (0.2-1.3) Aspartate Amino Transf (AST/SGOT) 19 U/L (0-35) Alanine Aminotransferase (ALT/SGPT) 38 U/L (0-56) Alkaline Phosphatase 133 U/L (0-126) Total Protein 6.9 g/dl (6.3-8.2) Albumin 4.9 g/dl (3.5-5.0) Lipase 80 U/L (23-300) Serum Alcohol < 10 mg/dl Blood Gas Patient Temperature 96.4 DEGREES Venous Blood pH 6.92 (7.31-7.41) Venous Blood Partial Pressure CO2 < 25 mmHg Venous Blood Partial Pressure O2 < 35 mmHg Venous Blood HCO3 4 mmol/L Venous Blood Oxygen Saturation 39 % Venous Blood Base Excess -29 mmol/L Oxygen Liters/Minute Room air Urine Color Straw Urine Clarity Clear Urine pH 5.0 pH (4.8-9.5) Urine Specific [place] 1.018 Urine Protein 30 mg/dL (NEGATIVE) Urine Glucose (UA) 500 mg/dL (NEGATIVE) Urine Ketones 80 mg/dL (NEGATIVE) Urine Blood Small (NEGATIVE) Urine Nitrite Negative (NEGATIVE) Urine Bilirubin Negative (NEGATIVE) Urine Urobilinogen Negative mg/dL (0.2-1.9) Urine Leukocyte Esterase Negative (NEGATIVE) Urine RBC <1 /HPF (0-2/HPF) Urine WBC 1 /HPF (0-5/HPF) Urine Squamous Epithelial Cells Few /LPF (</=FEW) Urine Bacteria Negative /HPF (NONE-FEW) Urine Hyaline Casts Few /LPF (NONE-FEW) Urine Mucus None /HPF (NONE-FEW) Urine Opiates Screen Negative Urine Barbiturates Screen Negative Ur Tricyclic Antidepressants Screen Negative Urine Phencyclidine Screen Negative Urine Amphetamines Screen Negative Urine Benzodiazepines Screen Negative Urine Cocaine Screen Negative Urine Cannabinoids Screen Negative Chemistry Test 09/14/18 12:20 09/14/18 12:40 09/14/18 12:55 White Blood Count 20.9 k/uL (4.5-11.0) Red Blood Count 4.46 M/uL (4.00-5.60) Hemoglobin 13.8 g/dL (14.0-18.0) Hematocrit 47.2 % (42.0-52.0) Mean Corpuscular Volume 105.9 fL (80.0-96.0) Mean Corpuscular Hemoglobin 30.9 pg (26.0-33.0) Mean Corpuscular Hemoglobin Concent 29.2 g/dL (32.0-36.0) Red Cell Distribution Width 15.4 % (11.5-14.5) Platelet Count 368 K/uL (150-450) Mean Platelet Volume 8.2 fL (7.2-11.1) Neutrophils (%) (Auto) 89.2 % (39.4-72.5) Lymphocytes (%) (Auto) 7.4 % (17.6-49.6) Monocytes (%) (Auto) 3.2 % (4.1-12.4) Eosinophils (%) (Auto) 0.0 % (0.4-6.7) Basophils (%) (Auto) 0.2 % (0.3-1.4) Nucleated RBC Relative Count (auto) 0.0 /100WBC Neutrophils # (Auto) 18.6 K/uL (2.0-7.4) Lymphocytes # (Auto) 1.6 K/uL (1.3-3.6) Monocytes # (Auto) 0.7 K/uL (0.3-1.0) Eosinophils # (Auto) 0.0 K/uL (0.0-0.5) Basophils # (Auto) 0.0 K/uL (0.0-0.1) Nucleated RBC Absolute Count (auto) 0.00 K/uL Peripheral Blood Smear No Y/N Lactate 3.8 mmol/L (0.7-2.1) Magnesium Level 2.8 mg/dl (1.7-2.2) Total Bilirubin 0.4 mg/dl (0.2-1.3) Aspartate Amino Transf (AST/SGOT) 19 U/L (0-35) Alanine Aminotransferase (ALT/SGPT) 38 U/L (0-56) Alkaline Phosphatase 133 U/L (0-126) Total Protein 6.9 g/dl (6.3-8.2) Albumin 4.9 g/dl (3.5-5.0) Lipase 80 U/L (23-300) Serum Alcohol < 10 mg/dl Blood Gas Patient Temperature 96.4 DEGREES Venous Blood pH 6.92 (7.31-7.41) Venous Blood Partial Pressure CO2 < 25 mmHg Venous Blood Partial Pressure O2 < 35 mmHg Venous Blood HCO3 4 mmol/L Venous Blood Oxygen Saturation 39 % Venous Blood Base Excess -29 mmol/L Oxygen Liters/Minute Room air Urine Color Straw Urine Clarity Clear Urine pH 5.0 pH (4.8-9.5) Urine Specific [place] 1.018 Urine Protein 30 mg/dL (NEGATIVE) Urine Glucose (UA) 500 mg/dL (NEGATIVE) Urine Ketones 80 mg/dL (NEGATIVE) Urine Blood Small (NEGATIVE) Urine Nitrite Negative (NEGATIVE) Urine Bilirubin Negative (NEGATIVE) Urine Urobilinogen Negative mg/dL (0.2-1.9) Urine Leukocyte Esterase Negative (NEGATIVE) Urine RBC <1 /HPF (0-2/HPF) Urine WBC 1 /HPF (0-5/HPF) Urine Squamous Epithelial Cells Few /LPF (</=FEW) Urine Bacteria Negative /HPF (NONE-FEW) Urine Hyaline Casts Few /LPF (NONE-FEW) Urine Mucus None /HPF (NONE-FEW) Urine Opiates Screen Negative Urine Barbiturates Screen Negative Ur Tricyclic Antidepressants Screen Negative Urine Phencyclidine Screen Negative Urine Amphetamines Screen Negative Urine Benzodiazepines Screen Negative Urine Cocaine Screen Negative Urine Cannabinoids Screen Negative Toxicology Test 09/14/18 12:20 09/14/18 12:55 Serum Alcohol < 10 mg/dl Urine Opiates Screen Negative Urine Barbiturates Screen Negative Ur Tricyclic Antidepressants Screen Negative Urine Phencyclidine Screen Negative Urine Amphetamines Screen Negative Urine Benzodiazepines Screen Negative Urine Cocaine Screen Negative Urine Cannabinoids Screen Negative Urinalysis Test 09/14/18 12:55 Urine Color Straw Urine Clarity Clear Urine pH 5.0 pH (4.8-9.5) Urine Specific [place] 1.018 Urine Protein 30 mg/dL (NEGATIVE) Urine Glucose (UA) 500 mg/dL (NEGATIVE) Urine Ketones 80 mg/dL (NEGATIVE) Urine Blood Small (NEGATIVE) Urine Nitrite Negative (NEGATIVE) Urine Bilirubin Negative (NEGATIVE) Urine Urobilinogen Negative mg/dL (0.2-1.9) Urine Leukocyte Esterase Negative (NEGATIVE) Urine RBC <1 /HPF (0-2/HPF) Urine WBC 1 /HPF (0-5/HPF) Urine Squamous Epithelial Cells Few /LPF (</=FEW) Urine Bacteria Negative /HPF (NONE-FEW) Urine Hyaline Casts Few /LPF (NONE-FEW) Urine Mucus None /HPF (NONE-FEW) EKG/Imaging EKG Interpretation 12 lead EKG: Rhythm: sinus tachycardia [place]: normal QRS: widened to 100ms ST segments: Peaked T waves Prolonged QT Sinus tachycardia with sgs of hyperkalemia, electrolyte disorder Monitor Interpretation: Sinus Tachycardia ED Course/Re-evaluation ED Course 57-year-old male presents with findings consistent with DKA. He has evidence on his initial EKG of hyperkalemia. Therefore, I gave one amp of bicarbonate. Repeat EKG was slightly improved T waves. His initial findings are consistent with severe DKA. He has hyperkalemia to 7.1. He has pH of less than 7. I resuscitated aggressively. I placed a right ultrasound-guided 18-gauge 3 inch needle. We administered normal saline boluses. When patient urinated I initiated insulin. We titrated the insulin up as repeat glucose was high. At 1400, patient is slightly more alert, and now tolerates by mouth. Will admit to ICU for further critical care management. Decision to Disposition Date: Sep 14, 2018 Decision to Disposition Time: 14:00 Critical Care Time I spent a total of 95 minutes of critical care time in obtaining history, performing a physical exam, bedside monitoring of interventions, collecting and interpreting tests and discussion with consultants but not including time spent performing procedures. Depart Departure Latest Vital Signs Vital Signs Date Time Temp Pulse Resp B/P (MAP) Pulse Ox O2 Delivery O2 Flow Rate FiO2 09/14/18 14:00 90/58 (69) 09/14/18 13:48 97 23 84 09/14/18 12:57 96.4 09/14/18 12:26 Room Air Core Temperature (Celsius): 35.5 Impression: Primary Impression: DKA (diabetic ketoacidoses) Additional Impression: Hyperkalemia Condition: Critical Disposition: Admitted from ER Referrals: EDDIE MATHEWS MD (PCP) Problem Qualifiers Primary Impression: DKA (diabetic ketoacidoses) Diabetes mellitus type: type 1 Diabetes mellitus complication detail: with coma Qualified Codes: E10.11 - Type 1 diabetes mellitus with ketoacidosis with coma LIZABETH LAGUNAS MD Sep 14, 2018 14:34
[2018-09-14] MEDS ORDERED: NS(*) 0.9% 1000 ML BAG 1,000 ML IV PRN ×2 (16:13→18:03)
[2018-09-14] MEDS ORDERED: ACETAMINOPHEN 325 MG TAB PO PRN (16:15)
[2018-09-14] MEDS ORDERED: ONDANSETRON 4 MG/2 ML VIAL IVP PRN (16:15)
[2018-09-14] MEDS ORDERED: KCL/D1/2NS 20 MEQ 1000 ML 1,000 ML IV PRN (16:15)
[2018-09-14] MEDS ORDERED: FLUSH 10 ML SYR IVP PRN (16:15)
[2018-09-14] MEDS: PANTOPRAZOLE SOD 40 MG IV VIAL IVP SCH (17:01)
--- NOTE | 2018-09-14 19:46 | History & Physical ---
History of Present Illness Chief Complaint DKA History of Present Illness 57M found by family after they could not get in touch with him. PMHx significant for prior alcohol dependence, DM with frequent bouts DKA. Brought to [facility] ER and found to be in DKA. Hyperkalemic and significantly acidotic. Patient is unable to provide any information on cause of DKA. Troponin negative, CXR negative, UA negative, has leukocytosis but appears to be reactive to DKA. History Unable To Obtain Past Medical: Unable to Obtain/Update Problems: (1) Type 1 diabetes mellitus Status: Chronic Home Meds Active Scripts Insulin Glargine 100 Un/Ml Pen (LANTUS SOLOSTAR PEN) 100 Unit/1 Ml Insuln.pen, 0 SQ BID for 30 Days, #1 VIAL 6 Refills 10 units SQ qAM and 8 units SQ qPM. Prov:ANA MARIA PALACIOS MD 06/18/18 Insulin Lispro 100 Un/Ml Vial (HUMALOG 100 U/ML VIAL) 100 Unit/1 Ml Vial, 2-10 UNIT SUBQ SS PRN for SLIDING SCALE INSULIN, #1 VIAL Prov:ANA MARIA PALACIOS MD 01/20/18 Discontinued Reported Medications Multivitamin With Folic Acid (ONE DAILY MULTIVITAMIN TABLET) 400 Mcg Tablet, 400 MCG PO QDAY 10/01/17 Discontinued Scripts Vitamin B Complex (B COMPLEX) 1 Each Tablet, 1 EACH PO DAILY, #30 TAB Prov:ANA MARIA PALACIOS MD 09/19/17 Allergies: Coded Allergies: No Known Drug Allergies (Verified , 01/19/18) Patient History: Blood clots MOTHER Cardiac pacemaker MOTHER FH: gastric ulcer MOTHER FH: heart attack FATHER MOTHER FH: hypertension FATHER FH: stroke MOTHER Hx Smoking: Yes (chewing tobacco) Smoking Status: Light Tobacco Smoker Caffeine Intake: Coffee Caffeine/Cups Per Day: 5 Hx Alcohol Use: Yes (COUPLE BEERS NIGHTLY WHEN HE FEELS GOOD) When Quit Alcohol?: per family pt has not been drinking for several months Hx Substance Use Disorder: No (Pt denies. ) Social Drugs: Marijuana Review of Systems Other unable to obtain 2/2 mental status Exam Vital Signs Vital Signs Date Time Temp Pulse Resp B/P (MAP) Pulse Ox O2 Delivery O2 Flow Rate FiO2 09/14/18 19:00 97.6 99 19 98/66 (77) 98 Room Air General Appearance: Afebrile Neuro: No Gross deficits ENT: Other (dry mucous membranes, some dried blood on lips) Cardiovascular: Other (tachycardic) Respiratory: Other ([place]ul breathing) GI: Abd Soft and Non-Tender : Normal (+ Hill) Extremities: Soft and Non Tender, Warm, Pulses, Perfused; No Edema Integumentary: Skin Intact without Lesion / Mass Medical Decision Making Data Points Result Diagram: 09/14/18 1220 09/14/18 1643 Assessment and Plan Problems: (1) DKA (diabetic ketoacidoses) Status: Acute Assessment & Plan: IV NS and inulin started in ER. Admitted to ICU for close monitoring and treatment of DKA, NPO close monitoring and observation. Associ ated electrolyte abnormalities treated PRN. (2) Hyperkalemia Status: Acute Assessment & Plan: 7.1 on admission, decreased significantly with IV insulin treatment and improvement in acidosis. (3) Type 1 diabetes mellitus Status: Chronic Assessment & Plan: Poorly controlled with frequent bouts DKA. (4) Acute kidney failure Status: Resolved Venous Thromboembolism Antithrombotics Is Pt On Any Antithrombotics?: No Exam Sepsis Risk: Severe Sepsis Risk Problem Qualifiers (1) DKA (diabetic ketoacidoses): Diabetes mellitus type: type 1 WES JOHNSON DO Sep 14, 2018 19:46
[2018-09-14] MEDS: KCL/D1/2NS 20 MEQ 1000 ML 1,000 ML IV PRN (21:01)
[2018-09-15] VITALS (45 sets, daily range): BP systolic 73–118; BP diastolic 48–80; Ht 175.3 cm; Wt 63.5 kg
[2018-09-15] MEDS: KCL/D1/2NS 20 MEQ 1000 ML 1,000 ML IV PRN ×5 (02:05→22:44)
[2018-09-15 05:03] LABS: PLATELET COUNT, AUTOMATED 233 K/uL (150-450)
[2018-09-15] MEDS ORDERED: INSULIN HUM REG 100 UN/ML 3 ML 100 UNIT in NS(*) 0.9% 100 ML BAG 99 ML IV SCH (05:30)
[2018-09-15] MEDS: ENOXAPARIN 40 MG/0.4ML SYR SC SCH (09:15)
[2018-09-15] MEDS: PANTOPRAZOLE SOD 40 MG IV VIAL IVP SCH (09:15)
--- NOTE | 2018-09-15 09:59 | Hospitalist Progress Note ---
Subjective Progress Notes Subjective This patient was admitted for diabetic ketoacidosis. He had no acute events overnight. Patient Complains of: Cardiovascular: No: Chest Pain Respiratory: No: Shortness of Breath Physical Exam Vital Signs Date Time Temp Pulse Resp B/P (MAP) Pulse Ox O2 Delivery O2 Flow Rate FiO2 09/15/18 04:30 88 24 97/48 (64) 93 Nasal Cannula 1.0 09/15/18 04:00 99.5 Intake and Output 09/15/18 07:00 Intake Total 8839 ml Output Total 2820 ml Balance 6019 ml Intake Oral 1450 ml IV Total 7389 ml Output Urine Total 2820 ml Respiratory: Clear to Auscultation Result Diagram: 09/15/1844509/15/18445 Monitor Interpretation: Sinus Tachycardia Assessment and Plan Problems: (1) DKA (diabetic ketoacidoses) Status: Acute Assessment & Plan: He did present with hyperglycemia and an elevated anion gap. He was started on IV insulin and fluid replacement. He remains on an insulin infusion this morning. We will plan to start SQ insulin when he is alert enough to start eating. (2) Hyperkalemia Status: Acute Assessment & Plan: Improved on IV insulin. (3) Type 1 diabetes mellitus Status: Chronic Assessment & Plan: He is on chronic treatment with Lantus and Humalog, but is often not compliant with treatment. (4) Acute kidney failure Status: Resolved Assessment & Plan: Resolved on IV fluids. Exam Sepsis Risk: No Definite Risk Problem Qualifiers (1) DKA (diabetic ketoacidoses): Diabetes mellitus type: type 1 ELIZABETH GTZ DO Sep 15, 2018 09:59
--- NOTE | 2018-09-15 12:08 | Medical Nutrition Therapy ---
Nutrition Anthropometrics Height (Inches): 69.00 Height (Calculated Centimeters: 175.100428 Weight (Pounds): 140 Weight (Calculated Kilograms): 63.588 Stanton Nutrition Score: Probably Inadequate Stanton Nutrition Risk Score: 16 Dietary Referral Nutrition Risk Factors: Special Diet Nutrition Risk Comment: PT IS DIABETIC Physical Findings Physical Appearance: Skin Appearance Skin Appearance: Edema Edema Location Modifier: Edema Location: Type of Edema: Degree of Edema: Gastrointestinal Symptoms GI Symtoms: Tube Present: Bowel Sounds: Recent Bowel Pattern: Stool Characteristics: Nutritional Diagnosis Nutritional Risk Acuity 2: DKA Nutritional Risk Acuity 3: Alcohol abuse Nutritional Risk Acuity 4: Modified Diet Past Medical History: HX of Alcohol abuse (4-5 beers/day), T1DM, Depression, chew Tobacco, dysphagia, ARF, dehydration, UTI, DKA Nutritional Acuity: 2-Moderate Nutrition Diagnosis: Inconsistent Carb. Intake Nutrition Etiology: Inability Manage SelfCare, Alcohol Addiction Nutrition Problem/Etiology/Sym: Inconsistent carb intake as related to inability to manage self care and alcohol addiction evidenced by elevated WBG (230-257) and RBG (254), ketones present in urine, and 13 hospital admissions for DKA in the past 12 years. Energy Requirement: 2211 (MSJ, 1.1 TEF, 1.4 AF) Protein Requirement: 64 (1g/kg of BW) Fluid Requirement: 2211 (1mL/kcal) Diet Type: NPO (Nothing by Mouth) Nutrition Intervention: Incr diet as tolerated, Check glucose Nutrition Monitoring & Eval RD Patient Assessment Time: [address] Assessment Type: RD Assessment Patient Nutrition Acuity: 2-Moderate Follow Up Date: Sep 17, 2018 Nutritional Comment: 09/14: Pt admitted for DKA. Pt arrived confused and altered mental status. Pt has a hx of alcohol abuse, DMT2 w/ DKA, and is an everyday smoker. Pt has been admitted 13 times in the past 12 years for DKA. Pt is currently taking enoxaparin (anti-coagulant). Pt has elevated RBG levels of 254, elevated WBG levels of 230-257, decreased protein values, and ketones present in urine. -ANJANA FARRELL Sep 15, 2018 12:00
[2018-09-16] VITALS (23 sets, daily range): BP systolic 101–141; BP diastolic 59–88
[2018-09-16] MEDS: KCL/D1/2NS 20 MEQ 1000 ML 1,000 ML IV PRN (03:53)
[2018-09-16 05:16] LABS: PLATELET COUNT, AUTOMATED 188 K/uL (150-450)
--- NOTE | 2018-09-16 09:09 | Hospitalist Progress Note ---
Subjective Progress Notes Subjective He denies any pain. He would like to eat some breakfast. Slept all night. Physical Exam Vital Signs Date Time Temp Pulse Resp B/P (MAP) Pulse Ox O2 Delivery O2 Flow Rate FiO2 09/16/18 06:30 77 09/16/18 05:00 114/76 (89) Nasal Cannula 1.0 09/16/18 04:30 10 94 09/16/18 04:00 99.4 Intake and Output 09/16/18 07:00 Intake Total 4864 ml Output Total 1600 ml Balance 3264 ml Intake Oral 200 ml IV Total 4664 ml Output Urine Total 1600 ml General Appearance: Alert, Awake, No Acute Distress Neuro: No Gross deficits (Knows where he is and why he is the hospital. ) Cardiovascular: Regular Rate and Rhythm Respiratory: Clear to Auscultation GI: Soft and Non-Tender Extremities: No Edema Result Diagram: 09/16/1850909/16/18509 Monitor Interpretation: Sinus Tachycardia Assessment and Plan Problems: (1) DKA (diabetic ketoacidoses) Status: Acute Assessment & Plan: He was found by his sister tachypneic and confused the morning of admission. He had been doing well the night before. He had hyperglycemia and an elevated anion gap. He was started on IV insulin and fluid replacement. He remains on an insulin infusion this morning because he has been so somnolent. Now he is alert, awake and near his baseline mental status. He will be switched to his Lantus 10 units bid with SSI level 2. Will watch glucose q1-2 hours during the initial transition, but if he does well then he can go to the medical floor. (2) Hyperkalemia Status: Acute Assessment & Plan: Improved on IV insulin. (3) Type 1 diabetes mellitus Status: Chronic Assessment & Plan: He is on chronic treatment with Lantus and Humalog, but is often not compliant with treatment especially when not supervised by family. (4) Acute kidney failure Status: Resolved Assessment & Plan: Resolved on IV fluids. Exam Sepsis Risk: No Definite Risk Problem Qualifiers (1) DKA (diabetic ketoacidoses): Diabetes mellitus type: type 1 RACHEL HERRERA MD Sep 16, 2018 09:09
[2018-09-16] MEDS: ENOXAPARIN 40 MG/0.4ML SYR SC SCH (09:12)
[2018-09-16] MEDS: PANTOPRAZOLE SOD 40 MG TABEC PO SCH (09:12)
[2018-09-16] MEDS: INSULIN HUM LISPRO 100 UN/ML 3 ML VIAL SUBQ PRN ×4 (09:13→20:44)
[2018-09-16] MEDS: INSULIN GLARGINE 100 U/ML 3 ML PEN SUBQ SCH ×2 (09:13→20:43)
[2018-09-17 01:30] VITALS: BP 121/83
[2018-09-17 05:58] VITALS: BP 143/93
[2018-09-17 06:23] LABS: PLATELET COUNT, AUTOMATED 201 K/uL (150-450)
[2018-09-17] MEDS ORDERED: INSULIN HUM LISPRO 100 UN/ML 3 ML VIAL SUBQ PRN (06:40)
[2018-09-17] MEDS ORDERED: INFLUENZA VIRUS VAC 0.5ML SYR IM ONLY ONE (09:00)
[2018-09-17] MEDS: PANTOPRAZOLE SOD 40 MG TABEC PO SCH (10:06)
[2018-09-17] MEDS: INSULIN HUM LISPRO 100 UN/ML 3 ML VIAL SUBQ PRN ×2 (10:06→21:30)
[2018-09-17] MEDS: ENOXAPARIN 40 MG/0.4ML SYR SC SCH (10:07)
[2018-09-17] MEDS: INSULIN GLARGINE 100 U/ML 3 ML PEN SUBQ SCH ×2 (10:07→21:27)
[2018-09-17 11:11] VITALS: BP 135/88
--- NOTE | 2018-09-17 11:42 | Hospitalist Progress Note ---
Subjective Progress Notes Subjective He reports feeling well. He is eating and drinking without problems. Physical Exam Vital Signs Date Time Temp Pulse Resp B/P (MAP) Pulse Ox O2 Delivery O2 Flow Rate FiO2 09/17/18 11:11 98.7 77 14 135/88 (104) 95 Room Air 09/16/18 08:00 1.0 Intake and Output 09/17/18 07:00 Intake Total 2119.5 ml Output Total 545 ml Balance 1574.5 ml Intake Oral 1624 ml IV Total 495.5 ml Output Urine Total 545 ml # Voids 3 # Bowel Movements 1 General Appearance: Alert, Awake Cardiovascular: Regular Rate and Rhythm Respiratory: Clear to Auscultation GI: Soft and Non-Tender Extremities: Warm, Perfused Psych: Other (He is oriented to person and place, but only partially to time) Result Diagram: 09/17/1851709/17/1818 Item Value Date Time Whole Blood Glucose 141 mg/DL H 09/17/18 0733 Whole Blood Glucose 281 mg/DL H 09/16/18 2042 Whole Blood Glucose 171 mg/DL H 09/16/18 1652 Whole Blood Glucose 166 mg/DL H 09/16/18 1349 Monitor Interpretation: Sinus Tachycardia Assessment and Plan Problems: (1) DKA (diabetic ketoacidoses) Status: Acute Assessment & Plan: He was found by his sister tachypneic and confused the morning of admission. He had been doing well the night before. He had significant hyperglycemia and an elevated anion gap. He was started on IV ins ulin and IV fluid replacement. He improved over the first 24-36 hours and returned to his baseline mental status. He was transitioned to his usual Lantus 10 units BID with SSI level 2. Will discuss strategies with patient, family, Transitional Care Nursing, and Home Health care to see if we can devise a program to help Boy manage his diabetes at home. (2) Hyperkalemia Status: Acute Assessment & Plan: Resolved with treatment of his ketoacidosis. (3) Type 1 diabetes mellitus Status: Chronic Assessment & Plan: He is on chronic treatment with Lantus and Humalog, but is often not compliant with treatment especially when not supervised by family. (4) Acute kidney failure Status: Resolved Assessment & Plan: Resolved on IV fluids. Exam Sepsis Risk: No Definite Risk Problem Qualifiers (1) DKA (diabetic ketoacidoses): Diabetes mellitus type: type 1 ANA MARIA PALACIOS MD Sep 17, 2018 11:42
--- NOTE | 2018-09-17 15:14 | Medical Nutrition Therapy ---
Nutrition Anthropometrics Height (Inches): 69.00 Height (Calculated Centimeters: 175.186440 Weight (Pounds): 140 Weight (Calculated Kilograms): 63.588 Stanton Nutrition Score: Adequate Stanton Nutrition Risk Score: 20 Dietary Referral Nutrition Risk Factors: Special Diet Nutrition Risk Comment: PT IS DIABETIC Physical Findings Physical Appearance: Skin Appearance Skin Appearance: Edema Edema Location Modifier: Edema Location: Type of Edema: Degree of Edema: Gastrointestinal Symptoms GI Symtoms: Appetite Changes Tube Present: Bowel Sounds: Recent Bowel Pattern: Stool Characteristics: Nutritional Diagnosis Nutritional Risk Acuity 2: DKA Nutritional Risk Acuity 3: Alcohol abuse Past Medical History: HX of Alcohol abuse (4-5 beers/day), T1DM, Depression, chew Tobacco, dysphagia, ARF, dehydration, UTI, DKA Nutritional Acuity: 2-Moderate Nutrition Diagnosis: Inconsistent Carb. Intake Nutrition Etiology: Inability Manage SelfCare, Alcohol Addiction Nutrition Problem/Etiology/Sym: Inconsistent carb intake as related to inability to manage self care and alcohol addiction evidenced by elevated WBG (230-257) and RBG (254), ketones present in urine, and 13 hospital admissions for DKA in the past 12 years. Energy Requirement: 2211 (MSJ, 1.1 TEF, 1.4 AF) Protein Requirement: 64 (1g/kg of BW) Fluid Requirement: 2211 (1mL/kcal) Diet Type: Diet as Tolerated AIDAN/REG Nutrition Intervention: Change diet, Check glucose Nutritional Needs Comment: 09/17: Recommend diabetic diet. -JJ Nutrition Monitoring & Eval Nutrition Goals: Eat 50-100% Meal Nutrition Follow-Up: Fair Intake Nutrition Monitorin-100% intake of meals. RD Patient Assessment Time: [address] Assessment Type: RD Re-Assessment Patient Nutrition Acuity: 2-Moderate Follow Up Date: Sep 22, 2018 Nutritional Comment: 09/14: Pt admitted for DKA. Pt arrived confused and altered mental status. Pt has a hx of alcohol abuse, DMT2 w/ DKA, and is an everyday smoker. Pt has been admitted 13 times in the past 12 years for DKA. Pt is currently taking enoxaparin (anti-coagulant). Pt has elevated RBG levels of 254, elevated WBG levels of 230-257, decreased protein values, and ketones present in urine. -JJ 09/17: Pt has elevated WBG levels (141-281). Pt has been consuming 50-100% of AIDAN. Recommend diabetic diet. -JJ MDS Due Date: Sep 21, 2018 ANJANA PARKS Sep 17, 2018 14:32
[2018-09-17 15:21] VITALS: BP 127/83
[2018-09-17 19:45] VITALS: BP 145/91
[2018-09-18 04:30] VITALS: BP 124/81
[2018-09-18 06:58] VITALS: BP 130/84
[2018-09-18] MEDS: ENOXAPARIN 40 MG/0.4ML SYR SC SCH (09:00)
[2018-09-18] MEDS ORDERED: INSU100V24 SUBQ (09:48)
--- NOTE | 2018-09-18 09:54 | Hospitalist Depart ---
Discharge Summary Reason for Hosp/Final Diag: (1) DKA (diabetic ketoacidoses) Status: Acute Hospital Course & Plan: He was found by his sister tachypneic and confused the morning of admission. He had been doing well the night before. He had significant hyperglycemia and an elevated anion gap. He was started on IV in sulin and IV fluid replacement. He improved over the first 24-36 hours and returned to his baseline mental status. He was transitioned to his usual Lantus 10 units BID with sliding scale #2, but was found to have lower sugars 09/17 in the morning. Recommend he use Lantus 10units in the morning, and 8units at night. Will recommend sliding scale #1. We discussed strategies with patient, family, Transitional Care Nursing, and Home Health care to see if we can devise a program to help Boy manage his diabetes at home. He reports he has all insulin and supplies at home and does not need refills of insulin. He will follow up next week at the [facility]. (2) Hyperkalemia Status: Acute Hospital Course & Plan: Resolved with treatment of his ketoacidosis. (3) Type 1 diabetes mellitus Status: Chronic Hospital Course & Plan: He is on chronic treatment with Lantus and Humalog, but is often not compliant with treatment especially when not supervised by family. (4) Acute kidney failure Status: Resolved Hospital Course & Plan: Resolved on IV fluids. Departure Latest Vital Signs Vital Signs 09/18/18 09/18/18 06:58 08:15 Temp 97.5 Pulse 71 Resp 16 B/P (MAP) 130/84 (99) Pulse Ox 95 O2 Delivery Room Air Weight (Pounds): 140 Weight (Ounces): 3.0 Result Diagram: 09/17/1851709/17/18517 Condition: Improved Discharge: Home, Home Health PT/OT Follow Up For: Other Home Health RN Follow Up For: Medication Management, Nursing Assessment, Other Discharge Instructions Home Meds Active Scripts Insulin Lispro 100 Un/Ml Vial (HUMALOG 100 U/ML VIAL) 100 Unit/1 Ml Vial, 1-5 UNIT SUBQ SS PRN for SLIDING SCALE INSULIN, #1 VIAL Prov:NORMA GOETZ FISH BUTCHER 09/18/18 Insulin Glargine 100 Un/Ml Pen (LANTUS SOLOSTAR PEN) 100 Unit/1 Ml Insuln.pen, 0 SQ BID for 30 Days, #1 VIAL 6 Refills 10 units SQ qAM and 8 units SQ qPM. Prov:ANA MARIA PALACIOS MD 06/18/18 Discontinued Reported Medications Multivitamin With Folic Acid (ONE DAILY MULTIVITAMIN TABLET) 400 Mcg Tablet, 400 MCG PO QDAY 10/01/17 Discontinued Scripts Insulin Lispro 100 Un/Ml Vial (HUMALOG 100 U/ML VIAL) 100 Unit/1 Ml Vial, 2-10 UNIT SUBQ SS PRN for SLIDING SCALE INSULIN, #1 VIAL Prov:ANA MARIA PALACIOS MD 01/20/18 Vitamin B Complex (B COMPLEX) 1 Each Tablet, 1 EACH PO DAILY, #30 TAB Prov:ANA MARIA PALACIOS MD 09/19/17 Diet: Diabetic Activity: As Tolerated Special Instructions: Use Lantus 10 units every morning, 8units at night. Use sliding scale insulin if glucose range permits. Follow up with [facility] next week. Copies to: ; [facility] Venous Thromboembolism Antithrombotics Is Pt On Any Antithrombotics?: No Nynm-mc-Ebwm Certification Face to Face Home Health Certification Patient's Primary Care Provider: Saima Rico MD Institutional Provider conducted the [id number] encounter. Electronic Undersigning Physician Certifies Home Health. I certify that the patient has been under my care and that I had a hgya-ss-hcgy encounter that meets the physician hzvj-lh-nxuk encounter requirements with this patient. This patient is home-bound due to safety issues and continues to require assistance with ADL's. I certify that based on my findings, that Nursing, Aides and the following Home Health services are medically necessary. Medical Necessity: Nursing, Rehab Date Face to Face Conducted: Sep 18, 2018 Problem Qualifiers (1) DKA (diabetic ketoacidoses): Diabetes mellitus type: type 1 NORMA GOETZ FISH BUTCHER Sep 18, 2018 09:54
[2018-09-18] MEDS: INSULIN GLARGINE 100 U/ML 3 ML PEN SUBQ SCH (10:25)
[2018-09-18] MEDS: PANTOPRAZOLE SOD 40 MG TABEC PO SCH (10:25)
== END 2018-09-18 11:25 | disposition home or self-care (01) | DRG 638 ==
LOC: ER 12:47 → ICU 14:02 → MED 09-16 16:50
PROVIDERS: ADMIT Internal Medicine; ATTEND Internal Medicine
DX: E10.10 Type 1 diabetes mellitus with ketoacidosis without coma (principal); N17.9 Acute kidney failure, unspecified; F17.220 Nicotine dependence, chewing tobacco, uncomplicated; E87.5 Hyperkalemia; Z91.19 Patient's noncompliance with other medical treatment and regimen; Z79.4 Long term (current) use of insulin
CPT/HCPCS: 36415; 36416; 36600; 71045; 80305; 80320; 81001; 82040; 82247; 82310; 82374; 82435; 82565; 82803; 82947; 82948; 83605; 83690; 83735; 84075; 84132; 84155; 84295; 84450; 84460; 84520; 85025; 87502; 93005; 96361; 96365; 96375; 99291; 99292; C1758; C9113; J1650; J1815; J3480; J7030; J7050

== ENCOUNTER 2019-01-15 19:02 | Inpatient (IN) | payer MEDICARE ==
[~2019-01-15] VITALS: Ht 161.5 cm; Wt 63.6 kg
--- NOTE | 2019-01-15 19:09 | ER Report ---
History and Physical Time Seen By MD: 19:08 HPI/ROS CHIEF COMPLAINT: Possible DKA HISTORY OF PRESENT ILLNESS: This is a 58-year-old male presents to the emergency department with his and daughter for possible DKA. Patient is a type I diabetic, has had multiple episodes of DKA. Patient states today that he has not been feeling well, family at bedside her saying that he did have several episodes of black vomit. He also chews and swallows tobacco, they also checked his blood sugar and was noted to be around 600, patient is ill-appearing, he denies fevers or chills. Mild shortness of breath, his breathing is very rapid, denies chest pain. The patient's states that he has been tired the last few days, but has been doing okay just became ill today. He did take 20 units of humulog prior to arrival. REVIEW OF SYSTEMS: Constitutional: No fever, no chills. Eyes: No discharge. ENT: No sore throat. Cardiovascular: No chest pain, no palpitations. Respiratory: As above. Gastrointestinal: As above. Genitourinary: No hematuria. Musculoskeletal: No back pain. Skin: No rashes. Neurological: No headache. Allergies: Coded Allergies: No Known Drug Allergies (Verified , 01/15/19) Home Meds Active Scripts Insulin Lispro 100 Un/Ml Vial (HUMALOG 100 U/ML VIAL) 100 Unit/1 Ml Vial, 1-5 U NIT SUBQ SS PRN for SLIDING SCALE INSULIN, #1 VIAL Prov:NORMA GOETZP 09/18/18 Insulin Glargine 100 Un/Ml Pen (LANTUS SOLOSTAR PEN) 100 Unit/1 Ml Insuln.pen, 0 SQ BID for 30 Days, #1 VIAL 6 Refills 10 units SQ qAM and 8 units SQ qPM. Prov:ANA MARIA PALACIOS MD 06/18/18 Past Medical/Surgical History The patient has a past medical and surgical history of headaches, inguinal hernia repair, left shoulder fracture, wears glasses, type I diabetes, several episodes of diabetic ketoacidosis, regular consumption of beer. Reviewed Nurses Notes: Yes Hx Smoking: Yes (chewing tobacco) Smoking Status: Light Tobacco Smoker Hx Substance Use Disorder: No (Pt denies. ) Hx Alcohol Use: Yes (COUPLE BEERS NIGHTLY WHEN HE FEELS GOOD) Constitutional Vital Sign - Last 24 Hours 01/15/19 01/15/19 01/15/19 01/15/19 19:02 19:07 19:09 19:12 Temp 97.5 Pulse ??? 110 Resp 18 B/P (MAP) 82/72 82/72 (75) 105/79 (88) O2 Delivery Room Air 01/15/19 01/15/19 01/15/19 01/15/19 19:17 19:32 19:47 20:00 Pulse 109 108 106 Resp 21 18 16 B/P (MAP) ???/??? (1665) 01/15/19 01/15/19 01/15/19 01/15/19 20:02 20:17 20:30 20:32 Pulse 106 105 106 Resp 12 16 34 B/P (MAP) 131/81 (98) Pulse Ox 98 01/15/19 01/15/19 01/15/19 01/15/19 20:37 20:52 21:00 21:07 Pulse 106 105 102 Resp 20 18 15 B/P (MAP) 141/74 (96) 01/15/19 01/15/19 01/15/19 21:22 21:30 21:37 Pulse 104 105 Resp 17 17 B/P (MAP) 120/82 (95) Intake and Output 01/15/19 01/15/19 01/16/19 15:01 23:01 07:01 Intake Total 1000 ml Balance 1000 ml Physical Exam General Appearance: The patient is alert, has no immediate need for airway protection and no signs of toxicity. Appears fatigued but then becomes agitated. Eyes: Pupils equal and round no pallor or injection. ENT, Mouth: Mucous membranes are dry. Respiratory: There are no retractions, lungs are clear to auscultation. Cardiovascular: Regular rate and rhythm. No murmurs, clicks or rubs. Gastrointestinal: Abdomen is soft and non tender, no masses, hypoactive bowel sounds. No abdominal bruits. Neurological: Alert and oriented 4. Moving all extremities. Following all commands. No focal neuro deficits. GCS 14. Skin: Warm and dry, no rashes. Musculoskeletal: Neck is supple non tender. Extremities are nontender, nonswollen and have full range of motion. DIFFERENTIAL DIAGNOSIS: After history and physical exam differential diagnosis was considered for upper GI bleed, pneumonia, diabetic ketoacidosis, bowel obstruction, Lemus's esophagus. Medical Decision Making Data Points Result Diagram: 01/16/19 0447 01/16/197 Laboratory Hematology Test 01/15/19 20:24 Prothrombin Time 11.9 seconds (12.0-14.4) Prothromb Time International Ratio 0.88 Activated Partial Thromboplast Time 25 seconds (23-35) Blood Gas Patient Temperature 97.5 DEGREES Venous Blood pH 7.27 (7.31-7.41) Venous Blood Partial Pressure CO2 < 25 mmHg Venous Blood Partial Pressure O2 55 mmHg Venous Blood HCO3 8 mmol/L Venous Blood Oxygen Saturation 86 % Venous Blood Base Excess -19 mmol/L Oxygen Liters/Minute 93 Osmolality 342 mOSM/K (275-295) Lactate 1.9 mmol/L (0.7-2.1) Total Bilirubin 0.7 mg/dl (0.2-1.3) Aspartate Amino Transf (AST/SGOT) 15 U/L (0-35) Alanine Aminotransferase (ALT/SGPT) 45 U/L (0-56) Alkaline Phosphatase 120 U/L (0-126) Total Protein 6.7 g/dl (6.3-8.2) Albumin 4.5 g/dl (3.5-5.0) Acetone, Qualitative Small Chemistry Test 01/15/19 20:24 Prothrombin Time 11.9 seconds (12.0-14.4) Prothromb Time International Ratio 0.88 Activated Partial Thromboplast Time 25 seconds (23-35) Blood Gas Patient Temperature 97.5 DEGREES Venous Blood pH 7.27 (7.31-7.41) Venous Blood Partial Pressure CO2 < 25 mmHg Venous Blood Partial Pressure O2 55 mmHg Venous Blood HCO3 8 mmol/L Venous Blood Oxygen Saturation 86 % Venous Blood Base Excess -19 mmol/L Oxygen Liters/Minute 93 Osmolality 342 mOSM/K (275-295) Lactate 1.9 mmol/L (0.7-2.1) Total Bilirubin 0.7 mg/dl (0.2-1.3) Aspartate Amino Transf (AST/SGOT) 15 U/L (0-35) Alanine Aminotransferase (ALT/SGPT) 45 U/L (0-56) Alkaline Phosphatase 120 U/L (0-126) Total Protein 6.7 g/dl (6.3-8.2) Albumin 4.5 g/dl (3.5-5.0) Acetone, Qualitative Small Coagulation Test 01/15/19 20:24 Prothrombin Time 11.9 seconds Prothromb Time International Ratio 0.88 Activated Partial Thromboplast Time 25 seconds Toxicology Test 01/15/19 20:24 Acetone, Qualitative Small Microbiology Microbiology Date/Time Source Procedure Growth Status 01/15/19 20:24 Blood Peripheral Draw Blood Culture - Preliminary NO GROWTH AFTER 1 DAY, REINCUBATED Resulted EKG/Imaging EKG Interpretation 12 lead EKG: Time of EKG 1931. Rhythm: Sinus tachycardia, ventricular rate 107 BPM. Virgil: normal QRS: normal ST segments: No ST depression or elevation identified, no peaked T waves. the 09/14/2018 EKG showing peaked T waves otherwise no significant shepard es. Imaging PATIENT NAME: Boy Carter : 1960 MR: [id number] V: [id number] EXAM DATE: ORDERING PHYSICIAN: PRASANNA ERICKSON TECHNOLOGIST: Location: [facility] Patient: Boy Carter : 1960 Visit/Account:[id number] Date of Sevice: 01/15/2019 Technique: CHEST SINGLE AP HISTORY: black vomit, short of breath Comparison studies: 09/13/2018 FINDINGS: No acute airspace consolidation. No pleural effusion. The cardiac silhouette is unchanged. IMPRESSION: 1. No acute cardiopulmonary process. Report Dictated By: Brandt Bettencourt DO at 01/15/2019 8:04 PM Report E-Signed By: Brandt Bettencourt DO at 01/15/2019 8:06 PM WSN:[id number] ED Course/Re-evaluation Clinical Indication for ER IV: Hydration, IV Access ED Course The patient was admitted to room. A history and physical obtained. Differential diagnoses were considered. Initially was difficult to gain access however a peripheral IV was started. A CBC, CMP were obtained. 1 L normal saline bolus was given. EKG showing sinus tachycardia with a ventricular rate of 106 bpm. CBC showing white count 14.7, could be secondary to demargination. VBG showing pH of 7.27, PCO2 25, PO2 55, HCO3 8, sodium 142, potassium 4.7, CO2 7, BUN 33, creatinine 1.5, glucose roughly 1 hour later for 91, lactate normal. Repeat blood sugar 411. Patient is markedly improved after 2 L of normal saline, I did review the studies with the patient, and his family. I did speak with Dr. Dong, the hospitalist on-call as noted below, the patient is admitted to the ICU for diabetic ketoacidosis. Patient family are agreeable. Patient started on a regular insulin drip at 2 units an hour, and normal saline 200 mL an hour. No vomiting, patient still has his chewing tobacco in his mouth and continues to swallow the chew. 01/15/2019 8:27:52 pm had difficulties obtaining laboratory studies, I was able to start a left EJ, true laboratory studies venous blood gas and one set of blood cultures. Patient's respirations have decreased, he is more alert and interactive and acting more appropriate. Although he is chewing tobacco, the family states that when he does go into diabetic ketoacidosis he does typically vomits "black stuff". 01/15/2019 9:32:37 pm I did discuss the case with Dr. Dong, the hospitalist on-call, he is accepting the patient in the ICU for diabetic ketoacidosis. Decision to Disposition Date: Jan 15, 2019 Decision to Disposition Time: 21:32 Depart Departure Latest Vital Signs Vital Signs Date Time Temp Pulse Resp B/P (MAP) Pulse Ox O2 Delivery O2 Flow Rate FiO2 01/15/19 21:37 105 17 01/15/19 21:30 120/82 (95) 01/15/19 20:32 98 01/15/19 19:07 97.5 Room Air Core Temperature (Celsius): 35.5 Impression: Primary Impression: DKA (diabetic ketoacidoses) Condition: Improved Disposition: Admitted from ER Referrals: EDDIE MATHEWS MD (PCP) Problem Qualifiers Primary Impression: DKA (diabetic ketoacidoses) Diabetes mellitus type: type 1 Diabetes mellitus complication detail: without coma Qualified Codes: E10.10 - Type 1 diabetes mellitus with ketoacidosis without coma PRASANNA ERICKSON BREAKFAST SERVER-BC Jan 15, 2019 19:09
[2019-01-15] MEDS ORDERED: NS(*) 0.9% 1000 ML BAG 1,000 ML IV ONE ×3 (19:13→21:31)
--- NOTE | 2019-01-15 19:49 | EKG ---
FACILITY: [facility] [place] PATIENT NAME: ALLY NOONAN : [id number] MR: [id number] V: [id number] EXAM DATE: ORDERING PHYSICIAN: PRASANNA ERICKSON TECHNOLOGIST: Test Reason : Blood Pressure : / mmHG Vent. Rate : 107 BPM Atrial Rate : 107 BPM P-R Int : 152 ms QRS Dur : 080 ms QT Int : 382 ms P-R-T Axes : 061 058 064 degrees QTc Int : 509 ms Sinus tachycardia Otherwise normal ECG When compared with ECG of 14-SEP-2018 14:00, No significant change was found Confirmed by ELIZABETH GTZ ([id number]) on 01/16/2019 6:27:48 AM Referred By: Confirmed By:ELIZABETH GTZ
[2019-01-15] MEDS ORDERED: ONDANSETRON 4 MG/2 ML VIAL IVP ONE (19:55)
--- NOTE | 2019-01-15 20:11 | RADIOLOGY IMAGING REPORT ---
FACILITY: [facility] - [place] PATIENT NAME: Boy Carter : 1960 MR: [id number] V: [id number] EXAM DATE: ORDERING PHYSICIAN: PRASANNA ERICKSON TECHNOLOGIST: Location: [facility] Patient: Boy Carter : 1960 Visit/Account:[id number] Date of Sevice: 01/15/2019 Technique: CHEST SINGLE AP HISTORY: black vomit, short of breath Comparison studies: 09/13/2018 FINDINGS: No acute airspace consolidation. No pleural effusion. The cardiac silhouette is unchanged. IMPRESSION: 1. No acute cardiopulmonary process. Report Dictated By: Brandt Bettencourt DO at 01/15/2019 8:04 PM Report E-Signed By: Brandt Bettencourt DO at 01/15/2019 8:06 PM [id number]
[2019-01-15 20:33] LABS: PLATELET COUNT, AUTOMATED 316 K/uL (150-450)
[2019-01-15 21:24] LABS: INR 0.88
[2019-01-15] MEDS ORDERED: INS HUM REG* 100 U/ML(ER ONLY) 100 UNIT in NS(*) 0.9% 100 ML BAG 99 ML IVPB ONE (21:35)
[2019-01-15] MEDS: INS HUM REG* 100 U/ML(ER ONLY) 100 UNIT in NS(*) 0.9% 100 ML BAG 99 ML IV SCH (23:15)
[2019-01-15] MEDS ORDERED: INFLUENZA VIRUS VAC 0.5ML SYR IM ONLY ONE (23:15)
[2019-01-15] MEDS ORDERED: KCL 2 MEQ/ML 20 MEQ/10 ML VIAL 20 MEQ in D5 1/2 NS(*) 1000 ML BAG 1,000 ML IV PRN (23:15)
[2019-01-15] MEDS ORDERED: KCL 2 MEQ/ML 20 MEQ/10 ML VIAL 20 MEQ in NS(*) 0.9% 1000 ML BAG 1,000 ML IV PRN (23:15)
--- NOTE | 2019-01-15 23:25 | History & Physical ---
History of Present Illness Chief Complaint High glucose History of Present Illness This patient was brought to the emergency room by family when they discovered that his blood sugar was greater than 600. He reports that he was feeling well prior to today. History Problems: (1) History of depression Status: Chronic (2) History of closed head injury Status: Resolved (3) Alcohol use Status: Chronic (4) Type 1 diabetes mellitus Status: Chronic (5) History of vasectomy Status: Resolved (6) Hx of hernia repair Status: Resolved Home Meds Active Scripts Insulin Lispro 100 Un/Ml Vial (HUMALOG 100 U/ML VIAL) 100 Unit/1 Ml Vial, 1-5 UNIT SUBQ SS PRN for SLIDING SCALE INSULIN, #1 VIAL Prov:NORMA GOETZ 09/18/18 Insulin Glargine 100 Un/Ml Pen (LANTUS SOLOSTAR PEN) 100 Unit/1 Ml Insuln.pen, 0 SQ BID for 30 Days, #1 VIAL 6 Refills 10 units SQ qAM and 8 units SQ qPM. Prov:ANA MARIA PALACIOS MD 06/18/18 Allergies: Coded Allergies: No Known Drug Allergies (Verified , 01/15/19) Patient History: Blood clots MOTHER Cardiac pacemaker MOTHER FH: gastric ulcer MOTHER FH: heart attack FATHER MOTHER FH: hypertension FATHER FH: stroke MOTHER Hx Smoking: Yes (chewing tobacco) Smoking Status: Light Tobacco Smoker Caffeine Intake: Coffee Caffeine/Cups Per Day: 5 Hx Alcohol Use: Yes (COUPLE BEERS NIGHTLY WHEN HE FEELS GOOD) Hx Substance Use Disorder: No (Pt denies. ) Social Drugs: Marijuana Review of Systems All Systems Reviewed/Normal: Yes Exam Vital Signs Vital Signs Date Time Temp Pulse Resp B/P (MAP) Pulse Ox O2 Delivery O2 Flow Rate FiO2 01/15/19 22:30 101/68 (79) 01/15/19 22:22 101 16 01/15/19 20:32 98 01/15/19 19:07 97.5 Room Air Neuro: No Gross deficits Eyes: PERRLA Cardiovascular: Regular Rate and Rhythm Respiratory: Clear to Auscultation GI: Abd Soft and Non-Tender Extremities: No Edema Integumentary: No Cyanosis Medical Decision Making Data Points Result Diagram: 01/15/19202301/15/192023 Assessment and Plan Problems: (1) DKA (diabetic ketoacidoses) Status: Acute Assessment & Plan: He did present with an elevated blood sugar and acidosis. He has been started on IV fluid resuscitation with saline. He has also been started on an insulin infusion. A repeat chemistry is pending and hourly glucoses are ordered. We will add potassium to his IV fluids and switch to D5 1/2NS once his blood sugars are less than 250. Copies to: EDDIE MATHEWS MD ; Venous Thromboembolism Antithrombotics Is Pt On Any Antithrombotics?: No Exam Sepsis Risk: No Definite Risk Problem Qualifiers (1) DKA (diabetic ketoacidoses): Diabetes mellitus type: type 1 Diabetes mellitus complication detail: without coma Qualified Codes: E10.10 - Type 1 diabetes mellitus with ketoacidosis without coma ELIZABETH GTZ DO Jan 15, 2019 23:25
[2019-01-15 23:30] VITALS: BP 115/73
[2019-01-16] VITALS (22 sets, daily range): BP systolic 92–127; BP diastolic 49–75; Ht 161.5 cm; Wt 63.6 kg
[2019-01-16] MEDS ORDERED: KCL/D1/2NS 20 MEQ 1000 ML 1,000 ML IV ONE (02:49)
[2019-01-16 04:54] LABS: PLATELET COUNT, AUTOMATED 267 K/uL (150-450)
[2019-01-16] MEDS ORDERED: KCL/NS* 20 MEQ/1000 ML PREMIX 1,000 ML IV PRN (08:10)
[2019-01-16] MEDS: INSULIN GLARGINE 100 U/ML 3 ML PEN SQ SCH ×2 (09:34→19:53)
[2019-01-16] MEDS: KCL/D1/2NS 20 MEQ 1000 ML 1,000 ML IV PRN ×3 (12:56→21:09)
--- NOTE | 2019-01-16 12:58 | Hospitalist Progress Note ---
Subjective Progress Notes Subjective ROBERTA overnight, glucose stable., Taking minimal PO, if begins to improve consider discharge today. Patient Complains of: Gastrointestinal: No Nausea, No Vomiting Physical Exam Vital Signs Date Time Temp Pulse Resp B/P (MAP) Pulse Ox O2 Delivery O2 Flow Rate FiO2 01/16/19 12:00 80 01/16/19 09:00 18 111/68 (82) Room Air 01/16/19 08:00 94 01/16/19 03:00 98.1 Intake and Output 01/16/19 07:01 Intake Total 2642.5 ml Balance 2642.5 ml IV Total 2642.5 ml # Voids 1 General Appearance: Alert, Awake, No Acute Distress, Afebrile Eyes: PERRLA Cardiovascular: Normal Rhythm & Peripheral Pulses Respiratory: No Respiratory Distress GI: Soft and Non-Tender Musculoskeletal: No Weakness/Pain Extremities: Soft and Non Tender, Warm, Pulses, Perfused Result Diagram: 01/16/19 0447 01/16/19446 Assessment and Plan Problems: (1) DKA (diabetic ketoacidoses) Status: Acute Assessment & Plan: He did present with an elevated blood sugar and acidosis. Received IV fluids and insulin infusion. His gap closed and he was started on Lantus but taking minimal P, remains on inulin gtt. Exam Sepsis Risk: No Definite Risk Problem Qualifiers (1) DKA (diabetic ketoacidoses): Diabetes mellitus type: type 1 Diabetes mellitus complication detail: without coma Qualified Codes: E10.10 - Type 1 diabetes mellitus with ketoacidosis without coma WES JOHNSON DO Jan 16, 2019 12:58
--- NOTE | 2019-01-16 19:55 | NUR ---
Lantus insulin held, the Patient has yet to eat anything, though he has been encouraged.
[2019-01-16] MEDS: INS HUM REG* 100 U/ML(ER ONLY) 100 UNIT in NS(*) 0.9% 100 ML BAG 99 ML IV SCH (23:45)
[2019-01-17] VITALS (10 sets, daily range): BP systolic 101–129; BP diastolic 56–87
[2019-01-17] MEDS: KCL/D1/2NS 20 MEQ 1000 ML 1,000 ML IV PRN ×2 (01:14→05:27)
[2019-01-17] MEDS ORDERED: KCL/D1/2NS 20 MEQ 1000 ML 1,000 ML IV PRN (06:05)
[2019-01-17] MEDS: NS(*) 0.9% 1000 ML BAG 1,000 ML IV PRN ×2 (08:28→23:22)
[2019-01-17] MEDS: INSULIN GLARGINE 100 U/ML 3 ML PEN SQ SCH ×2 (08:28→20:55)
[2019-01-17] MEDS: INSULIN HUM LISPRO 100 UN/ML 3 ML VIAL SUBQ PRN ×4 (08:51→20:56)
--- NOTE | 2019-01-17 11:27 | Medical Nutrition Therapy ---
Nutrition Anthropometrics Height (Inches): 63.59 Height (Calculated Centimeters: 161.913671 Weight (Pounds): 140 Weight (Calculated Kilograms): 63.588 Stanton Nutrition Score: Adequate Stanton Nutrition Risk Score: 20 Dietary Referral Nutrition Risk Factors: Special Diet Nutrition Risk Comment: PT IS DIABETIC Physical Findings Physical Appearance: Skin Appearance Skin Appearance: Edema Edema Location Modifier: Edema Location: Type of Edema: Degree of Edema: Gastrointestinal Symptoms GI Symtoms: Appetite Changes Tube Present: Bowel Sounds: Recent Bowel Pattern: Stool Characteristics: Nutritional Diagnosis Nutritional Risk Acuity 2: DKA Nutritional Risk Acuity 3: Alcohol abuse Nutritional Risk Acuity 4: Modified Diet Past Medical History: HX of Alcohol abuse (4-5 beers/day), T1DM, Depression, chew Tobacco, dysphagia, ARF, dehydration, UTI, DKA, closed head injury, vasectomy, hernia repair Nutritional Acuity: 1-High Nutrition Diagnosis: Inappropriate Carb Intake Nutrition Etiology: Inability Manage SelfCare Nutrition Problem/Etiology/Sym: Inappropriate carb intake as related to inability to manage selfcare as evidenced by DKA and blood glucose over 600. Energy Requirement: [address] (M [address] Jeor X 1.1 X 1.2) Protein Requirement: 51 (0.8 g protein/kg) Fluid Requirement: 1600 (25mL/kg) Nutrition Intervention: Change diet, Incr diet as tolerated, Check glucose Nutrition Monitoring & Eval Nutrition Goals: Eat 50-100% Meal Nutritional Goals Comment: Consumed 100% of ADA meal offered. Nutrition Follow-Up: Good Intake RD Patient Assessment Time: [address] Assessment Type: RD Assessment Patient Nutrition Acuity: 1-High Follow Up Date: Jan 19, 2019 Nutritional Comment: Pt admitted with high glucose, family reports >600. Dx with DKA. Pt has extensive history including T1DM, DKA, and alcohol abuse. Random glucose range of 233-286. VBG pH of 7.27 is slightly acidic. Cl is elevated at 112, while Na and K remain WNL, slightly narrowing the anion gap. BUN of 31 is elevated. Medications include insulin and IV KCl, NaCl, and dextrose. Monitor blood glucose levels, and progression of diet. -AKG 01/17 note states that glucose is now stable and pt is taking minimal PO. Pt on ADA diet with 100% intake of first meal offered. Currently recieving insulin and IV NaCl. Whole blood glucose has decreased to 198 from 351. BUN of 6 and creatinine of 0.50 are decreased. Monitor for continued good intake and blood glucose levels. -CLAUDIA DELANEY Jan 17, 2019 11:27
--- NOTE | 2019-01-17 15:28 | Hospitalist Progress Note ---
Subjective Progress Notes Subjective The patient denies new complaints. States he will try to eat better today. Physical Exam Vital Signs Date Time Temp Pulse Resp B/P (MAP) Pulse Ox O2 Delivery O2 Flow Rate FiO2 01/17/19 13:54 73 01/17/19 12:00 98.6 20 115/68 (84) 93 Room Air Intake and Output 01/17/19 07:01 Intake Total 5922 ml Balance 5922 ml Intake Oral 1140 ml IV Total 4782 ml # Voids 2 General Appearance: Alert, Awake, No Acute Distress Cardiovascular: Regular Rate and Rhythm Respiratory: Clear to Auscultation GI: Soft and Non-Tender Extremities: Warm, Perfused Psych: Appropriate Mood & Affect Result Diagram: 01/16/19 0447 01/17/19 0619 Assessment and Plan Problems: (1) DKA (diabetic ketoacidoses) Status: Acute Assessment & Plan: He did present with an elevated blood sugar and acidosis. Received IV fluids and insulin infusion. His gap closed and he was started on Lantus but had minimal oral intake on 01/16. Better oral intake 01/17. Will keep in ICU as medical overflow and continue Lantus plus SSI. Insulin gtt and D5 stopped. If he continues to do well overnight, may be able to DC in am. Will have SW see to set up with Home Health in am. Time Spent on Plan of Care: < 30 min Exam Sepsis Risk: No Definite Risk Problem Qualifiers (1) DKA (diabetic ketoacidoses): Diabetes mellitus type: type 1 Diabetes mellitus complication detail: without coma Qualified Codes: E10.10 - Type 1 diabetes mellitus with ketoacidosis without coma HENRY PALACIOS MD Jan 17, 2019 15:28
[2019-01-18 05:01] VITALS: BP 133/79
[2019-01-18 05:08] LABS: PLATELET COUNT, AUTOMATED 189 K/uL (150-450)
[2019-01-18 07:28] VITALS: BP 127/84
[2019-01-18] MEDS: INSULIN GLARGINE 100 U/ML 3 ML PEN SQ SCH (08:07)
--- NOTE | 2019-01-18 08:38 | Hospitalist Depart ---
Discharge Summary Reason for Hosp/Final Diag: (1) DKA (diabetic ketoacidoses) Status: Acute Hospital Course & Plan: He did present with an elevated blood sugar and acidosis. He received IV fluids and insulin infusion. His gap closed and he was started back on his typical schedule with Lantus and sliding scale insulin. He will discharge under the care of home health to assist him with his insulin dosing. Departure Latest Vital Signs Vital Signs 01/18/19 07:28 Temp 98.3 Pulse 70 Resp 13 B/P (MAP) 127/84 (98) Pulse Ox 93 O2 Delivery Room Air Weight (Pounds): 140 Weight (Ounces): 3.0 Result Diagram: 01/18/1945401/18/19454 Condition: Improved Discharge: Home, Home Health Discharge Instructions Home Meds Active Scripts Insulin Lispro 100 Un/Ml Vial (HUMALOG 100 U/ML VIAL) 100 Unit/1 Ml Vial, 1-5 UNIT SUBQ SS PRN for SLIDING SCALE INSULIN, #1 VIAL Prov:NORMA GOETZ PASTRY DECORATOR 09/18/18 Insulin Glargine 100 Un/Ml Pen (LANTUS SOLOSTAR PEN) 100 Unit/1 Ml Insuln.pen, 0 SQ BID for 30 Days, #1 VIAL 6 Refills 10 units SQ qAM and 8 units SQ qPM. Prov:ANA MARIA PALACIOS MD 06/18/18 Diet: Diabetic Activity: As Tolerated Copies to: EDDIE MATHEWS MD ; Venous Thromboembolism Antithrombotics Is Pt On Any Antithrombotics?: No Problem Qualifiers (1) DKA (diabetic ketoacidoses): Diabetes mellitus type: type 1 Diabetes mellitus complication detail: without coma Qualified Codes: E10.10 - Type 1 diabetes mellitus with ketoacidosis without coma ELIZABETH GTZ DO Jan 18, 2019 08:38
== END 2019-01-18 10:05 | disposition home or self-care (01) | DRG 639 ==
LOC: ER 19:11 → ICU 21:48
PROVIDERS: ADMIT Family Medicine; ATTEND Family Medicine
DX: E10.10 Type 1 diabetes mellitus with ketoacidosis without coma (principal); F32.9 Major depressive disorder, single episode, unspecified; F17.210 Nicotine dependence, cigarettes, uncomplicated; Z72.89 Other problems related to lifestyle; Z79.4 Long term (current) use of insulin
CPT/HCPCS: 36415; 36416; 71045; 82009; 82040; 82247; 82310; 82374; 82435; 82565; 82803; 82947; 82948; 83036; 83605; 83930; 84075; 84132; 84155; 84295; 84450; 84460; 84520; 85025; 85610; 85730; 87040; 93005; 96361; 96365; 96375; 99284; J1815; J2405; J3480; J7030; J7050

== ENCOUNTER 2019-01-20 09:43 | Inpatient (IN) | payer MEDICARE ==
[2019-01-16 09:39] VITALS: Ht 182.9 cm; Wt 63.5 kg
[2019-01-20] VITALS (13 sets, daily range): BP systolic 108–139; BP diastolic 64–89
[~2019-01-20] VITALS: Ht 182.9 cm; Wt 63.5 kg
--- NOTE | 2019-01-20 09:45 | ER Report ---
History and Physical Time Seen By MD: 09:43 HPI/ROS CHIEF COMPLAINT: Chest pain, hyperglycemia HISTORY OF PRESENT ILLNESS: Patient is a 58-year-old male with a history of type I diabetes here with complaints of chest pressure, midsternal chest pain, shortness of breath which all started this morning. Patient did find that his blood glucose levels were elevated in the mid to high 400s at which point the patient took an insulin bolus and came in for evaluation. Patient is afebrile, hemodynamically stable at time of evaluation, mildly tachycardic. Patient does report having intermittent cough REVIEW OF SYSTEMS: Constitutional: No fever, no chills. Eyes: No discharge. ENT: No sore throat. Cardiovascular: + mid sternal chest pain/pressure, no palpitations. Respiratory: + cough, + shortness of breath. Gastrointestinal: No abdominal pain, no vomiting, + nausea Genitourinary: No hematuria. Musculoskeletal: No back pain. Skin: No rashes. Neurological: No headache. Allergies: Coded Allergies: No Known Drug Allergies (Verified , 01/15/19) Home Meds Active Scripts Insulin Lispro 100 Un/Ml Vial (HUMALOG 100 U/ML VIAL) 100 Unit/1 Ml Vial, 1-5 UNIT SUBQ SS PRN for SLIDING SCALE INSULIN, #1 VIAL Prov:NORMA GOETZ 09/18/18 Insulin Glargine 100 Un/Ml Pen (LANTUS SOLOSTAR PEN) 100 Unit/1 Ml Insuln.pen, 0 SQ BID for 30 Days, #1 VIAL 6 Refills 10 units SQ qAM and 8 units SQ qPM. Prov:ANA MARIA PALACIOS MD 06/18/18 Hx Smoking: Yes (chewing tobacco) Smoking Status: Light Tobacco Smoker Hx Substance Use Disorder: No (Pt denies. ) Hx Alcohol Use: Yes (COUPLE BEERS NIGHTLY WHEN HE FEELS GOOD) Constitutional Vital Sign - Last 24 Hours 01/20/19 01/20/19 01/20/19 01/20/19 09:46 10:06 10:06 10:12 Temp 97.9 Pulse 105 98 101 Resp 18 B/P (MAP) 116/92 Pulse Ox 99 100 O2 Delivery Room Air Room Air Physical Exam General Appearance: The patient is alert, has no immediate need for airway protection and no signs of toxicity. Uncomfortable appearing Eyes: Pupils equal and round no pallor or injection. ENT, Mouth: Mucous membranes are moist. Respiratory: There are no retractions, lungs are clear to auscultation. Cardiovascular: Sinus tachycardia Gastrointestinal: Abdomen is soft and non tender, no masses, bowel sounds normal. Neurological: No focal neurological deficits on examination Skin: Warm and dry, no rashes. Musculoskeletal: Neck is supple non tender. Extremities are nontender, nonswollen and have full range of motion. DIFFERENTIAL DIAGNOSIS: After history and physical exam differential diagnosis was considered for chest pain including but not limited to myocardial ischemia, pericarditis pulmonary embolus, chest wall pain, pleural inflammation and p ulmonary infectious causes., Diabetic ketoacidosis, hyperosmolar nonketotic Medical Decision Making Data Points Result Diagram: 01/20/1948 01/20/19 0948 Laboratory Hematology Test 01/20/19 00:00 01/20/19 09:48 01/20/19 09:58 Serum Alcohol < 10 mg/dl Red Blood Count 4.60 M/uL (4.00-5.60) Mean Corpuscular Volume 93.7 fL (80.0-96.0) Mean Corpuscular Hemoglobin 31.1 pg (26.0-33.0) Mean Corpuscular Hemoglobin Concent 33.2 g/dL (32.0-36.0) Red Cell Distribution Width 13.4 % (11.5-14.5) Mean Platelet Volume 7.8 fL (7.2-11.1) Neutrophils (%) (Auto) 83.5 % (39.4-72.5) Lymphocytes (%) (Auto) 11.7 % (17.6-49.6) Monocytes (%) (Auto) 4.0 % (4.1-12.4) Eosinophils (%) (Auto) 0.1 % (0.4-6.7) Basophils (%) (Auto) 0.7 % (0.3-1.4) Nucleated RBC Relative Count (auto) 0.0 /100WBC Neutrophils # (Auto) 8.3 K/uL (2.0-7.4) Lymphocytes # (Auto) 1.2 K/uL (1.3-3.6) Monocytes # (Auto) 0.4 K/uL (0.3-1.0) Eosinophils # (Auto) 0.0 K/uL (0.0-0.5) Basophils # (Auto) 0.1 K/uL (0.0-0.1) Nucleated RBC Absolute Count (auto) 0.00 K/uL Prothrombin Time 12.1 seconds (12.0-14.4) Prothromb Time International Ratio 0.90 Activated Partial Thromboplast Time 26 seconds (23-35) Sodium Level 137 mmol/L (137-145) Potassium Level 4.3 mmol/L (3.5-5.0) Chloride Level 99 mmol/L (98-107) Carbon Dioxide Level 7 mmol/L (22-30) Blood Urea Nitrogen 18 mg/dl (9-21) Creatinine 1.00 mg/dl (0.66-1.25) Glomerular Filtration Rate Calc > 60.0 Random Glucose 308 mg/dl (75-110) Lactate 1.7 mmol/L (0.7-2.1) Calcium Level 9.6 mg/dl (8.4-10.2) Total Bilirubin 0.5 mg/dl (0.2-1.3) Aspartate Amino Transf (AST/SGOT) 16 U/L (0-35) Alanine Aminotransferase (ALT/SGPT) 38 U/L (0-56) Alkaline Phosphatase 100 U/L (0-126) Troponin I < 0.012 ng/ml B-Type Natriuretic Peptide 79 pg/ml (0-100) Total Protein 6.8 g/dl (6.3-8.2) Albumin 4.5 g/dl (3.5-5.0) Acetone, Qualitative Moderate Blood Gas Patient Temperature 97.9 DEGREES Venous Blood pH 7.15 (7.31-7.41) Venous Blood Partial Pressure CO2 < 25 mmHg Venous Blood Partial Pressure O2 37 mmHg Venous Blood HCO3 7 mmol/L Venous Blood Oxygen Saturation 57 % Venous Blood Base Excess -22 mmol/L Oxygen Liters/Minute 0 Chemistry Test 01/20/19 00:00 01/20/19 09:48 01/20/19 09:58 Serum Alcohol < 10 mg/dl White Blood Count 9.9 k/uL (4.5-11.0) Red Blood Count 4.60 M/uL (4.00-5.60) Hemoglobin 14.3 g/dL (14.0-18.0) Hematocrit 43.1 % (42.0-52.0) Mean Corpuscular Volume 93.7 fL (80.0-96.0) Mean Corpuscular Hemoglobin 31.1 pg (26.0-33.0) Mean Corpuscular Hemoglobin Concent 33.2 g/dL (32.0-36.0) Red Cell Distribution Width 13.4 % (11.5-14.5) Platelet Count 311 K/uL (150-450) Mean Platelet Volume 7.8 fL (7.2-11.1) Neutrophils (%) (Auto) 83.5 % (39.4-72.5) Lymphocytes (%) (Auto) 11.7 % (17.6-49.6) Monocytes (%) (Auto) 4.0 % (4.1-12.4) Eosinophils (%) (Auto) 0.1 % (0.4-6.7) Basophils (%) (Auto) 0.7 % (0.3-1.4) Nucleated RBC Relative Count (auto) 0.0 /100WBC Neutrophils # (Auto) 8.3 K/uL (2.0-7.4) Lymphocytes # (Auto) 1.2 K/uL (1.3-3.6) Monocytes # (Auto) 0.4 K/uL (0.3-1.0) Eosinophils # (Auto) 0.0 K/uL (0.0-0.5) Basophils # (Auto) 0.1 K/uL (0.0-0.1) Nucleated RBC Absolute Count (auto) 0.00 K/uL Prothrombin Time 12.1 seconds (12.0-14.4) Prothromb Time International Ratio 0.90 Activated Partial Thromboplast Time 26 seconds (23-35) Glomerular Filtration Rate Calc > 60.0 Lactate 1.7 mmol/L (0.7-2.1) Calcium Level 9.6 mg/dl (8.4-10.2) Total Bilirubin 0.5 mg/dl (0.2-1.3) Aspartate Amino Transf (AST/SGOT) 16 U/L (0-35) Alanine Aminotransferase (ALT/SGPT) 38 U/L (0-56) Alkaline Phosphatase 100 U/L (0-126) Troponin I < 0.012 ng/ml B-Type Natriuretic Peptide 79 pg/ml (0-100) Total Protein 6.8 g/dl (6.3-8.2) Albumin 4.5 g/dl (3.5-5.0) Acetone, Qualitative Moderate Blood Gas Patient Temperature 97.9 DEGREES Venous Blood pH 7.15 (7.31-7.41) Venous Blood Partial Pressure CO2 < 25 mmHg Venous Blood Partial Pressure O2 37 mmHg Venous Blood HCO3 7 mmol/L Venous Blood Oxygen Saturation 57 % Venous Blood Base Excess -22 mmol/L Oxygen Liters/Minute 0 Coagulation Test 01/20/19 09:48 Prothrombin Time 12.1 seconds Prothromb Time International Ratio 0.90 Activated Partial Thromboplast Time 26 seconds Toxicology Test 01/20/19 00:00 01/20/19 09:48 Serum Alcohol < 10 mg/dl Acetone, Qualitative Moderate EKG/Imaging EKG Interpretation PATIENT NAME: ALLY NOONAN : [id number] MR: [id number] V: [id number] EXAM DATE: [id number] ORDERING PHYSICIAN: SAYRA GUADARRAMA TECHNOLOGIST: Test Reason : SOB Blood Pressure : / mmHG Vent. Rate : 097 BPM Atrial Rate : 097 BPM P-R Int : 152 ms QRS Dur : 084 ms QT Int : 374 ms P-R-T Axes : 055 059 045 degrees QTc Int : 474 ms Normal sinus rhythm Normal ECG When compared with ECG of 15-JAN-2019 19:32, No significant change was found Referred By: JANNETH Confirmed By: Imaging PATIENT NAME: Ally Noonan : 1960 MR: [id number] V: [id number] EXAM DATE: [id number] ORDERING PHYSICIAN: SAYRA GUADARRAMA TECHNOLOGIST: Location: [facility] Patient: Ally Noonan : 1960 Visit/Account:[id number] Date of Sevice: 01/20/2019 Technique: CHEST PA LAT HISTORY: Chest pain Comparison studies: January 15, 2019 FINDINGS: No acute airspace consolidation. No pleural effusion. The cardiomediastinal silhouette is unchanged. IMPRESSION: 1. No acute cardiopulmonary process. Report Dictated By: Brandt Bettencourt DO at 01/20/2019 10:36 AM ED Course/Re-evaluation ED Course Patient is a 58-year-old male here with complaints of chest pressure, shortness breath, cough, hyperglycemia which started this morning. Patient found that his glucose levels were in the high 400s prompting an insulin bolus. Patient was found to have moderate acetone, by the time he arrived he had a glucose of 308. Chest x-ray showed no acute findings. Troponin was negative. EKG showed no ischemic findings. CO2 was 7. Patient was given initially 2 L of fluid, insulin infusion was started. I discussed the patient with Dr. Dong who admitted the patient to the hospitalist service for further treatment and care. Patient was hemodynamically stable throughout course. Decision to Disposition Date: Jan 20, 2019 Decision to Disposition Time: 10:54 Depart Departure Latest Vital Signs Vital Signs Date Time Temp Pulse Resp B/P (MAP) Pulse Ox O2 Delivery O2 Flow Rate FiO2 01/20/19 10:12 101 18 01/20/19 10:06 100 Room Air 01/20/19 09:46 97.9 116/92 Core Temperature (Celsius): 35.5 Impression: Primary Impression: DKA (diabetic ketoacidoses) Condition: Improved Disposition: Admitted from ER Referrals: EDDIE MATHEWS MD (PCP) SAYRA GUADARRAMA DO Jan 20, 2019 09:45
[2019-01-20] MEDS ORDERED: NS(*) 0.9% 1000 ML BAG 1,000 ML IV ONE ×2 (09:54→10:55)
[2019-01-20] MEDS ORDERED: ASPIRIN 81 MG CHEW PO ONE (09:55)
[2019-01-20] MEDS ORDERED: ALBUTEROL/IPRATROPIUM 3 ML NEB NEB ONE (09:55)
[2019-01-20 10:05] LABS: PLATELET COUNT, AUTOMATED 311 K/uL (150-450)
[2019-01-20 10:12] LABS: INR 0.9
--- NOTE | 2019-01-20 10:18 | EKG ---
FACILITY: [facility] PATIENT NAME: ALLY NOONAN : [id number] MR: [id number] V: [id number] EXAM DATE: ORDERING PHYSICIAN: SAYRA GUADARRAMA TECHNOLOGIST: DAVID Test Reason : SOB Blood Pressure : / mmHG Vent. Rate : 097 BPM Atrial Rate : 097 BPM P-R Int : 152 ms QRS Dur : 084 ms QT Int : 374 ms P-R-T Axes : 055 059 045 degrees QTc Int : 474 ms Normal sinus rhythm Normal ECG When compared with ECG of 15-JAN-2019 19:32, No significant change was found Confirmed by ELIZABETH GTZ ([id number]) on 01/21/2019 6:04:21 AM Referred By: JANNETH Confirmed By:ELIZABETH GTZ
[2019-01-20] MEDS ORDERED: INS HUM REG* 100 U/ML(ER ONLY) 100 UNIT in NS(*) 0.9% 100 ML BAG 99 ML IVPB ONE (10:30)
[2019-01-20] MEDS ORDERED: INS HUM LISPRO 100U/ML (ER ONLY) 10 ML VIAL SC ONE (10:30)
--- NOTE | 2019-01-20 10:43 | RADIOLOGY IMAGING REPORT ---
[place] [facility] [place] NAME: Boy Carter : 1960 MR: [id number] V: [id number] EXAM DATE: ORDERING PHYSICIAN: SAYRA GUADARRAMA TECHNOLOGIST: Location: [facility] Patient: Boy Carter : 1960 Visit/Account:[id number] Date of Sevice: 01/20/2019 Technique: CHEST PA LAT HISTORY: Chest pain Comparison studies: January 15, 2019 FINDINGS: No acute airspace consolidation. No pleural effusion. The cardiomediastinal silhouette is u nchanged. IMPRESSION: 1. No acute cardiopulmonary process. Report Dictated By: Brandt Bettencourt DO at 01/20/2019 10:36 AM Report E-Signed By: Brandt Bettencourt DO at 01/20/2019 10:37 AM [id number]
[2019-01-20] MEDS ORDERED: INFLUENZA VIRUS VAC 0.5ML SYR IM ONLY ONE (14:45)
[2019-01-20] MEDS ORDERED: INS HUM REG* 100 U/ML(ER ONLY) 100 UNIT in NS(*) 0.9% 100 ML BAG 99 ML IV SCH (15:00)
--- NOTE | 2019-01-20 15:06 | History & Physical ---
History of Present Illness Chief Complaint high glucose History of Present Illness He presented to the emergency department with elevated glucoses. He is a known Type 1 Diabetic. He reported his blood glucose levels were elevated in the mid to high 400s at which point the patient took an insulin bolus and came in for evaluation. He denies any chest pressure at this time. He was recommended for admission for DKA. History Problems: (1) Type 1 diabetes mellitus Status: Chronic Home Meds Active Scripts Insulin Lispro 100 Un/Ml Vial (HUMALOG 100 U/ML VIAL) 100 Unit/1 Ml Vial, 1-5 UNIT SUBQ SS PRN for SLIDING SCALE INSULIN, #1 VIAL Prov:NORMA GOETZ [employer]MOVING [employer]ANT OPERATOR 09/18/18 Insulin Glargine 100 Un/Ml Pen (LANTUS SOLOSTAR PEN) 100 Unit/1 Ml Insuln.pen, 0 SQ BID for 30 Days, #1 VIAL 6 Refills 10 units SQ qAM and 8 units SQ qPM. Prov:ANA MARIA PALACIOS MD 06/18/18 Allergies: Coded Allergies: No Known Drug Allergies (Verified , 01/15/19) Patient History: Blood clots MOTHER Cardiac pacemaker MOTHER FH: gastric ulcer MOTHER FH: heart attack FATHER MOTHER FH: hypertension FATHER FH: stroke MOTHER Hx Smoking: No Smoking Status: Light Tobacco Smoker Caffeine Intake: Coffee Caffeine/Cups Per Day: 5 Hx Alcohol Use: No Hx Substance Use Disorder: No Social Drugs: Marijuana Review of Systems All Systems Reviewed/Normal: Yes, Except as Noted Gastrointestinal: Nausea Exam Vital Signs Vital Signs Date Time Temp Pulse Resp B/P (MAP) Pulse Ox O2 Delivery O2 Flow Rate FiO2 01/20/19 14:00 97.8 01/20/19 13:00 133/79 (97) 01/20/19 12:55 88 15 100 01/20/19 12:14 2.0 01/20/19 10:06 Room Air General Appearance: Alert, Awake, No Acute Distress, Afebrile Neuro: No Gross deficits Cardiovascular: Regular Rate and Rhythm Respiratory: No Respiratory Distress, Clear to Auscultation GI: Abd Soft and Non-Tender Psych: Alert & Oriented X3, Appropriate Mood & Affect Medical Decision Making Data Points Result Diagram: 01/20/19 0948 01/20/19 1417 EKG / Imaging Monitor Interpretation: Normal Sinus Rhythm Imaging PATIENT NAME: Boy Carter : 1960 MR: [id number] V: [id number] EXAM DATE: [id number] ORDERING PHYSICIAN: SAYRA GUADARRAMA TECHNOLOGIST: [place] [facility] [place] : 1960 Visit/Account:[id number] Date of Sevice: 01/20/2019 Technique: CHEST PA LAT HISTORY: Chest pain Comparison studies: January 15, 2019 FINDINGS: No acute airspace consolidation. No pleural effusion. The c ardiomediastinal silhouette is unchanged. IMPRESSION: 1. No acute cardiopulmonary process. Report Dictated By: Brandt Bettencourt DO at 01/20/2019 10:36 AM Report E-Signed By: Brandt Bettencourt DO at 01/20/2019 10:37 AM Assessment and Plan Problems: (1) DKA (diabetic ketoacidoses) Status: Acute Assessment & Plan: He did present with an elevated blood sugar and acidosis. He has been started on an insulin infusion and IV fluids with D5 1/2NS. We have added potassium to his IV fluids. A repeat chemistry is ordered and hourly glucoses are ordered. Venous Thromboembolism Antithrombotics Is Pt On Any Antithrombotics?: No Exam Sepsis Risk: No Definite Risk Problem Qualifiers (1) DKA (diabetic ketoacidoses): Diabetes mellitus type: type 1 Diabetes mellitus complication detail: without coma Qualified Codes: E10.10 - Type 1 diabetes mellitus with ketoacidosis without coma NORMA GOETZ EAR[employer]MOVING PLANT OPERATOR Jan 20, 2019 15:06
[2019-01-20] MEDS: KCL/D1/2NS 20 MEQ 1000 ML 1,000 ML IV SCH ×2 (16:23→20:26)
--- NOTE | 2019-01-20 17:07 | General Surgery Consultation ---
History of Present Illness Reason for Consult cvl placement Chief Complaint dka History of Present Illness 58 yo m presented to er with dka. he is now in icu. he is a very difficult venous access and i was requested to place a cvl. nausea. History Home Meds Active Scripts Insulin Lispro 100 Un/Ml Vial (HUMALOG 100 U/ML VIAL) 100 Unit/1 Ml Vial, 1-5 UNIT SUBQ SS PRN for SLIDING SCALE INSULIN, #1 VIAL Prov:NORMA GOETZ Jeancarlos SHOP ASSISTANT 09/18/18 Insulin Glargine 100 Un/Ml Pen (LANTUS SOLOSTAR PEN) 100 Unit/1 Ml Insuln.pen, 0 SQ BID for 30 Days, #1 VIAL 6 Refills 10 units SQ qAM and 8 units SQ qPM. Prov:ANA MARIA PALACIOS MD 06/18/18 Allergies: Coded Allergies: No Known Drug Allergies (Verified , 01/15/19) Family History: Blood clots MOTHER Cardiac pacemaker MOTHER FH: gastric ulcer MOTHER FH: heart attack FATHER MOTHER FH: hypertension FATHER FH: stroke MOTHER Review of Systems Constitutional: Other (per hpi) Exam Vital Signs Vital Signs Date Time Temp Pulse Resp B/P (MAP) Pulse Ox O2 Delivery O2 Flow Rate FiO2 01/20/19 14:00 97.8 01/20/19 13:00 133/79 (97) 01/20/19 12:55 88 15 100 01/20/19 12:14 2.0 01/20/19 10:06 Room Air General Appearance: Alert, Awake Eyes: Other (per, eomi) Cardiovascular: Other (reg rate) Respiratory: No Respiratory Distress GI: Other (abd soft) Medical Decision Making Data Points Result Diagram: 01/20/19 0948 01/20/19 1417 Assessment and Plan Problems: (1) Diabetic ketoacidosis Status: Acute Assessment & Plan: difficult iv access will place cvl Venous Thromboembolism Antithrombotics Is Pt On Any Antithrombotics?: YUNIEL De Santiago Jan 20, 2019 17:07
--- NOTE | 2019-01-20 17:29 | RADIOLOGY IMAGING REPORT ---
FACILITY: [facility] [place] PATIENT NAME: Boy Carter : 1960 MR: [id number] V: [id number] EXAM DATE: ORDERING PHYSICIAN: NORMA GOETZ TECHNOLOGIST: [place] [facility] [place] Boy Carter : 1960 Visit/Account:[id number] Date of Sevice: 01/20/2019 INDICATION: CHECK CENTRAL LINE PLACEMENT. DATE: 01/20/2019 5:22 PM. TECHNIQUE: CHEST SINGLE AP COMPARISON: Chest radiograph January 20, 2019 FINDINGS: The new right IJ central line has tip likely terminating in the SVC just above the cavoatri al junction. There is a kink in the tubing near the hub which may be related to suture position. No pneumothorax. IMPRESSION: Right IJ central line likely terminates in the SVC near the cavoatrial junction. Report Dictated By: Veronica Perez MD at 01/20/2019 5:22 PM Report E-Signed By: Veronica Perez MD at 01/20/2019 5:23 PM WSN:[id number]
[2019-01-21] VITALS (14 sets, daily range): BP systolic 92–134; BP diastolic 52–80
[2019-01-21] MEDS: KCL/D1/2NS 20 MEQ 1000 ML 1,000 ML IV SCH ×2 (00:33→04:40)
[2019-01-21 05:44] LABS: PLATELET COUNT, AUTOMATED 230 K/uL (150-450)
[2019-01-21] MEDS: INSULIN GLARGINE 100 U/ML 3 ML PEN SUBQ SCH (08:15)
--- NOTE | 2019-01-21 08:23 | Hospitalist Progress Note ---
Subjective Progress Notes Subjective He states he is feeling "OK". He denies missing any doses of his insulin. Physical Exam Vital Signs Date Time Temp Pulse Resp B/P (MAP) Pulse Ox O2 Delivery O2 Flow Rate FiO2 01/21/19 07:44 73 01/21/19 07:25 93 Room Air 01/21/19 07:00 98.4 12 110/65 (80) 01/20/19 12:14 2.0 Intake and Output 01/21/19 07:01 Intake Total 1000 ml Balance 1000 ml Intake IV Total 1000 ml # Voids 3 General Appearance: Alert, Awake Cardiovascular: Regular Rate and Rhythm Respiratory: Clear to Auscultation GI: Soft and Non-Tender Extremities: Warm, Perfused Result Diagram: 01/21/19 0501/21/19512 Item Value Date Time Whole Blood Glucose 154 mg/DL H 01/21/19 0721 Whole Blood Glucose 157 mg/DL H 01/21/19 0616 Whole Blood Glucose 168 mg/DL H 01/21/19 0513 Whole Blood Glucose 175 mg/DL H 01/21/19 0401 Whole Blood Glucose 183 mg/DL H 01/21/19 0302 Whole Blood Glucose 185 mg/DL H 01/21/19 0203 Whole Blood Glucose 252 mg/DL H 01/21/19 0058 Whole Blood Glucose 220 mg/DL H 01/20/19 2350 Whole Blood Glucose 197 mg/DL H 01/20/19 2304 Whole Blood Glucose 207 mg/DL H 01/20/19 2156 Whole Blood Glucose 220 mg/DL H 01/20/19 2056 Whole Blood Glucose 219 mg/DL H 01/20/192004 Monitor Interpretation: Normal Sinus Rhythm Assessment and Plan Problems: (1) DKA (diabetic ketoacidoses) Status: Acute Assessment & Plan: He did present with an elevated blood glucose, increased AG, and acidosis. He was started on an insulin infusion and IV fluids. His acidosis and hyperglycemia corrected very easily. We will now transition back to a subcutaneous regimen. The bigger problem appears to be his compliance with the regimen. Will see if Social Work/Transitional Care Nursing can help with his situation and help him manage his insulin dependent DM. Exam Sepsis Risk: No Definite Risk Problem Qualifiers (1) DKA (diabetic ketoacidoses): Diabetes mellitus type: type 1 Diabetes mellitus complication detail: without coma Qualified Codes: E10.10 - Type 1 diabetes mellitus with ketoacidosis without coma ANA MARIA PALACIOS MD Jan 21, 2019 08:23
[2019-01-21] MEDS: INSULIN HUM LISPRO 100 UN/ML 3 ML VIAL SUBQ PRN ×3 (12:10→21:11)
--- NOTE | 2019-01-21 14:39 | Medical Nutrition Therapy ---
Nutrition Anthropometrics Height (Inches): 72.00 Height (Calculated Centimeters: 182.882965 Weight (Pounds): 140 Weight (Calculated Kilograms): 63.503 BMI: 19 Stanton Nutrition Score: Adequate Stanton Nutrition Risk Score: 18 Dietary Referral Nutrition Risk Factors: Special Diet Nutrition Risk Comment: PT IS DIABETIC Physical Findings Physical Appearance: Low End of Normal BMI Range Skin Appearance Skin Appearance: Edema Edema Location Modifier: Edema Location: Type of Edema: Degree of Edema: Gastrointestinal Symptoms GI Symtoms: Tube Present: Bowel Sounds: Recent Bowel Pattern: Stool Characteristics: Nutrition/Food History Fair Dinner: Steak or Hamburger, [place] Nutritional Diagnosis Nutritional Risk Acuity 2: DKA Nutritional Risk Acuity 3: Alcohol abuse Nutritional Risk Acuity 4: Modified Diet Past Medical History: HX of Alcohol abuse (4-5 beers/day), T1DM, Depression, chew Tobacco, dysphagia, ARF, dehydration, UTI, DKA, closed head injury, vasectomy, hernia repair Nutritional Acuity: 2-Moderate Nutrition Diagnosis: Inconsistent Carb. Intake Nutrition Etiology: Inappropriate Food Choice Nutrition Problem/Etiology/Sym: DKA Energy Requirement: 1888 (HBE) Protein Requirement: 64 (1g/kg) Fluid Requirement: 1888 (1mL/kcal) Diet Type: Diabetic Nutrition Intervention: Teaching Nutrition Monitoring & Eval Nutrition Goals: Eat 75-100% Meal Nutrition Follow-Up: Fair Intake Nutrition Monitoring: Provide additional diabetic diet education. RD Patient Assessment Time: [address] Assessment Type: RD Assessment Patient Nutrition Acuity: 2-Moderate Follow Up Date: Jan 26, 2019 Nutritional Comment: 01/21/19-Spoke with pt this afternoon. Pt reports good appetite at home. Typically eats 2 meals per day and 2-3 snacks. Pt has multiple past admits for DKA. Recommend consistent CHO intake 3 meals per day with snacks. Would aim for 180-225g of CHO per day (45-60g per meal) and 3 snacks (15g each). Pt stated he didn't feel like talking. Left pt with handout on CHO counting and plate model. Will monitor BG and will attempt diabetic education again.CARMELITA BEE Jan 21, 2019 14:39
[2019-01-21] MEDS ORDERED: INSULIN GLARGINE 100 U/ML 3 ML PEN SUBQ SCH (21:00)
[2019-01-22 03:19] VITALS: BP 145/99
[2019-01-22 06:19] LABS: PLATELET COUNT, AUTOMATED 235 K/uL (150-450)
[2019-01-22 07:10] VITALS: BP 151/96
--- NOTE | 2019-01-22 07:39 | OPERATIVE REPORT 1 ---
EVENT DATE: January 20, 2019 SURGEON: Negrito Washburn MD ANESTHESIOLOGIST: [*] ANESTHESIA: Local. SWITCHBOARD INSTALLER: Alpine Guide. PREOPERATIVE DIAGNOSIS Diabetic ketoacidosis and very difficult IV access. POSTOPERATIVE DIAGNOSIS Diabetic ketoacidosis and very difficult IV access. PROCEDURE PERFORMED Placement of right internal jugular central venous line with ultrasound guidance. ESTIMATED BLOOD LOSS Minimal. SPECIMENS None. COMPLICATIONS None. INDICATIONS This is a 58-year old male with diabetic ketoacidosis. He has a very difficult IV access. Therefore, I was requested to place a central venous line for administration of fluids and medications. Risks and benefits of the procedure were explained and consent was signed. DESCRIPTION OF PROCEDURE Procedure was performed in the patients room in the ICU. He was placed in a Trendelenburg position. Patients right neck was prepped and draped. Local analgesia was injected into the dermis and a Cook needle was easily advanced into the right internal jugular vein under ultrasound guidance. Dark red nonpulsatile blood was returned. The guidewire was easily advanced. The Cook needle was removed. A small incision was made at the entry site of the guidewire and the dilator was advanced over the guidewire. The dilator was removed. After being flushed, the triple lumen 20 cm central venous line was advanced over the guidewire and the guidewire was removed. The lumen was aspirated and flushed easily. Catheter was secured in place with silk stitches. Appropriate dressings were applied. The patient tolerated the procedure well and there were no complications. MTDD
[2019-01-22] MEDS: INSULIN HUM LISPRO 100 UN/ML 3 ML VIAL SUBQ PRN (08:03)
[2019-01-22] MEDS: INSULIN GLARGINE 100 U/ML 3 ML PEN SUBQ SCH (09:36)
--- NOTE | 2019-01-22 10:26 | Hospitalist Depart ---
Discharge Summary Reason for Hosp/Final Diag: (1) DKA (diabetic ketoacidoses) Status: Acute Hospital Course & Plan: He did present with an elevated blood glucose, increased AG, and acidosis. He was started on an insulin infusion and IV fluids. His acidosis and hyperglycemia corrected very easily. He was transitioned back to a subcutaneous regimen. The bigger problem appears to be his compliance with the regimen. He will be sent home with home health to help with his situation and help him manage his insulin dependent DM. Departure Latest Vital Signs Vital Signs 01/20/19 01/22/19 01/22/19 12:14 07:10 08:05 Temp 98.2 Pulse 71 Resp 12 B/P (MAP) 151/96 (114) Pulse Ox 99 O2 Delivery Room Air O2 Flow Rate 2.0 Weight (Pounds): 140 Weight (Ounces): 3.0 Result Diagram: 01/22/19 0600 01/22/19 06 Condition: Improved Discharge: Home, Home Health Home Health RN Follow Up For: Medication Management, Nursing Assessment, Other Discharge Instructions Home Meds Active Scripts Insulin Lispro 100 Un/Ml Vial (HUMALOG 100 U/ML VIAL) 100 Unit/1 Ml Vial, 1-5 UNIT SUBQ SS PRN for SLIDING SCALE INSULIN, #1 VIAL Prov:NORMA GOETZ [employer]PERVIS[employer]ING 09/18/18 Insulin Glargine 100 Un/Ml Pen (LANTUS SOLOSTAR PEN) 100 Unit/1 Ml Insuln.pen, 0 SQ BID for 30 Days, #1 VIAL 6 Refills 10 units SQ qAM and 8 units SQ qPM. Prov:ANA MARIA PALACIOS MD 06/18/18 Diet: Diabetic Activity: As Tolerated Special Instructions: Take medication as prescribed. Copies to: EDDIE RICO MD ; Venous Thromboembolism Antithrombotics Is Pt On Any Antithrombotics?: No Nqyv-uv-Hble Certification Face to Face Home Health Certification Patient's Primary Care Provider: Eddie Rico MD Institutional Provider conducted the sffd-de-zkje encounter. Electronic Undersigning Physician Certifies Home Health. I certify that the patient has been under my care and that I had a xodt-lw-okdv encounter that meets the physician imqx-fo-xksd encounter requirements with this patient. This patient is home-bound due to safety issues and continues to require assistance with ADL's. I certify that based on my findings, that Nursing, Aides and the following Home Health services are medically necessary: Medical Necessity: Nursing Date Face to Face Conducted: Jan 22, 2019 Problem Qualifiers (1) DKA (diabetic ketoacidoses): Diabetes mellitus type: type 1 Diabetes mellitus complication detail: without coma Qualified Codes: E10.10 - Type 1 diabetes mellitus with ketoacidosis without coma NORMA GOETZ [facility] Jan 22, 2019 10:26
== END 2019-01-22 11:20 | disposition home health service (06) | DRG 639 ==
LOC: ER 09:45 → ICU 12:46 → MED 01-21 16:05
PROVIDERS: ADMIT Family Medicine; ATTEND Family Medicine
PROC: 02HV33Z Insertion of Infusion Device into Superior Vena Cava, Percutaneous Approach (ICD-10-PCS; principal; 2019-01-20)
DX: E10.10 Type 1 diabetes mellitus with ketoacidosis without coma (principal); F17.210 Nicotine dependence, cigarettes, uncomplicated; Z79.4 Long term (current) use of insulin
CPT/HCPCS: 36416; 71045; 71046; 80320; 82009; 82040; 82247; 82310; 82374; 82435; 82565; 82803; 82947; 82948; 83605; 83880; 83930; 84075; 84132; 84155; 84295; 84450; 84460; 84484; 84520; 85025; 85610; 85730; 93005; 94640; 96361; 96365; 96366; 99284; J1815; J3480; J7030; J7050

== ENCOUNTER 2019-03-08 12:19 | Inpatient (IN) | payer MEDICARE ==
[2019-01-16 09:39] VITALS: Ht 177.8 cm; Wt 64.0 kg
[~2019-03-08] VITALS: Ht 177.8 cm; Wt 64.0 kg
[2019-03-08] VITALS (12 sets, daily range): BP systolic 92–121; BP diastolic 59–79
[2019-03-08] MEDS ORDERED: LR(*) 1000 ML BAG 1,000 ML IV PRN ×2 (12:55→13:20)
--- NOTE | 2019-03-08 13:01 | ER Report ---
History and Physical Time Seen By MD: 12:35 Hx. of Stated Complaint: patient was sent by his primary care for elevated blood glucose HPI/ROS 58-year-old female with history of diabetes on insulin who presents with hyperglycemia. History is mostly obtained from urvbll-uj-vji at bedside as patient is a fairly difficult historian. Per her report, over the last 2 days he has had elevated blood sugars in the 500s and did so some episodes of nausea and nonbloody nonbilious vomiting earlier today. They called her primary physician who instructed him to present to the emergency department for evaluation. The patient denies any recent illness including fevers or chills, cough. He denies any abdominal pain or current nausea. Patient states that he has been compliant on his insulin regimen. A complete review of systems was performed and is otherwise negative except as noted in the history of present illness Remainder of the 14 system rev: Yes Allergies: Coded Allergies: No Known Drug Allergies (Verified , 01/15/19) Home Meds Active Scripts Insulin Lispro 100 Un/Ml Vial (HUMALOG 100 U/ML VIAL) 100 Unit/1 Ml Vial, 1-5 UNIT SUBQ SS PRN for SLIDING SCALE INSULIN, #1 VIAL Prov:NORMA GOETZ 09/18/18 Insulin Glargine 100 Un/Ml Pen (LANTUS SOLOSTAR PEN) 100 Unit/1 Ml Insuln.pen, 0 SQ BID for 30 Days, #1 VIAL 6 Refills 10 units SQ qAM and 8 units SQ qPM. Prov:ANA MARIA PALACIOS MD 06/18/18 Reviewed Nurses Notes: Yes Old Medical Records Reviewed: Yes Hx Smoking: No Smoking Status: Light Tobacco Smoker Hx Substance Use Disorder: No (Pt denies. ) Hx Alcohol Use: No Constitutional Vital Sign - Last 24 Hours 03/08/19 12:30 Temp 98.1 Pulse 100 Resp 28 B/P (MAP) 98/79 Pulse Ox 95 O2 Delivery Room Air Physical Exam General Appearance: Alert, in no acute distress[ ] Eyes: Pupils equal and round no pallor or injection. ENT, Mouth: Mucous membranes are moist. Respiratory: There are no retractions, lungs are clear to auscultation. Cardiovascular: Regular rate and rhythm. Gastrointestinal: Abdomen is soft and non tender, no masses, bowel sounds normal. No rebound or guarding Neurological: No focal deficits appreciated Skin: Warm and dry, no rashes. Musculoskeletal: Neck is supple non tender. Extremities are nontender, nonswollen and have full range of motion. Medical Decision Making Data Points Result Diagram: 03/08/19 1254 03/08/19 1254 Laboratory Hematology Test 03/08/19 12:54 White Blood Count 11.9 k/uL (4.5-11.0) H Red Blood Count 5.00 M/uL (4.00-5.60) Hemoglobin 15.4 g/dL (14.0-18.0) Hematocrit 48.0 % (42.0-52.0) Mean Corpuscular Volume 96.0 fL (80.0-96.0) Mean Corpuscular Hemoglobin 30.8 pg (26.0-33.0) Mean Corpuscular Hemoglobin Concent 32.1 g/dL (32.0-36.0) Red Cell Distribution Width 14.9 % (11.5-14.5) H Platelet Count 423 K/uL (150-450) Mean Platelet Volume 7.7 fL (7.2-11.1) Neutrophils (%) (Auto) 90.6 % (39.4-72.5) H Lymphocytes (%) (Auto) 5.6 % (17.6-49.6) L Monocytes (%) (Auto) 2.8 % (4.1-12.4) L Eosinophils (%) (Auto) 0.2 % (0.4-6.7) L Basophils (%) (Auto) 0.8 % (0.3-1.4) Nucleated RBC Relative Count (auto) 0.0 /100WBC Neutrophils # (Auto) 10.8 K/uL (2.0-7.4) H Lymphocytes # (Auto) 0.7 K/uL (1.3-3.6) L Monocytes # (Auto) 0.3 K/uL (0.3-1.0) Eosinophils # (Auto) 0.0 K/uL (0.0-0.5) Basophils # (Auto) 0.1 K/uL (0.0-0.1) Nucleated RBC Absolute Count (auto) 0.00 K/uL Chemistry Test 03/08/19 12:54 Sodium Level 135 mmol/L (137-145) Potassium Level 4.9 mmol/L (3.5-5.0) Chloride Level 92 mmol/L (98-107) Carbon Dioxide Level 12 mmol/L (22-30) Blood Urea Nitrogen 21 mg/dl (9-21) Creatinine 1.20 mg/dl (0.66-1.25) Glomerular Filtration Rate Calc > 60.0 Random Glucose 561 mg/dl (75-110) Lactate 3.8 mmol/L (0.7-2.1) Calcium Level 9.8 mg/dl (8.4-10.2) Total Bilirubin 0.7 mg/dl (0.2-1.3) Aspartate Amino Transf (AST/SGOT) 22 U/L (0-35) Alanine Aminotransferase (ALT/SGPT) 22 U/L (0-56) Alkaline Phosphatase 190 U/L (0-126) Total Protein 8.4 g/dl (6.3-8.2) Albumin 5.2 g/dl (3.5-5.0) Lipase 78 U/L (23-300) Urinalysis Test 03/08/19 12:22 Urine Color Straw Urine Clarity Clear Urine pH 5.0 pH (4.8-9.5) Urine Specific [place] 1.023 Urine Protein Negative mg/dL (NEGATIVE) Urine Glucose (UA) 500 mg/dL (NEGATIVE) Urine Ketones 80 mg/dL (NEGATIVE) Urine Blood Negative (NEGATIVE) Urine Nitrite Negative (NEGATIVE) Urine Bilirubin Negative (NEGATIVE) Urine Urobilinogen Negative mg/dL (0.2-1.9) Urine Leukocyte Esterase Negative (NEGATIVE) Urine RBC <1 /HPF (0-2/HPF) Urine WBC 4 /HPF (0-5/HPF) Urine Squamous Epithelial Cells None /LPF (</=FEW) Urine Bacteria Negative /HPF (NONE-FEW) Urine Mucus None /HPF (NONE-FEW) EKG/Imaging Monitor Interpretation: Normal Sinus Rhythm ED Course/Re-evaluation ED Course 58-year-old male with history of diabetes who presents with hyperglycemia as well as associated nausea and vomiting. Patient is mechanically stable, afebrile. Physical exam is largely unremarkable. Differential includes but is not limited to hyperglycemia, electrolyte abnormalities, DKA, HHS. Labs are notable for hyperglycemia with glucose in the 500s. VBG pH is 7.15, bicarbonate 12 with an anion gap of 21. Potassium is appropriate at 4.9. Patient was ordered for 2 L of crystalloid. Urinalysis does demonstrate ketones. Overall, patient's clinical picture is consistent with moderate DKA. I do not have an inciting event for his DKA presentation; no obvious sources of infection based on history or exam. I discussed with the admitting physician Dr. Carl Grier has agreed to accept the patient to the ICU for further management. I have ordered an insulin drip to be initiated in the emergency department. I discussed with the patient and his cdnjux-cw-cfa who were in agreement with admission. Decision to Disposition Date: Mar 08, 2019 Decision to Disposition Time: 13:31 Critical Care Time I spent an aggravated 35 minutes of critical care time on this patient that is exclusive of any procedures. Patient's DKA for presents a life-threatening process; failure to initiate frequent blood sugar monitoring, initiation of fluid resuscitation, initiation and titration of insulin drip, discussion with consultants, and frequent reassessments may result in significant morbidity or mortality. Depart Departure Latest Vital Signs Vital Signs Date Time Temp Pulse Resp B/P (MAP) Pulse Ox O2 Delivery O2 Flow Rate FiO2 03/08/19 12:30 98.1 100 28 98/79 95 Room Air Core Temperature (Celsius): 35.5 Impression: Primary Impression: DKA (diabetic ketoacidoses) Condition: Stable Disposition: Admitted from ER KAYLYN CUTLER MD Mar 08, 2019 13:01
[2019-03-08 13:11] LABS: PLATELET COUNT, AUTOMATED 423 K/uL (150-450)
[2019-03-08] MEDS ORDERED: INS HUM REG* 100 U/ML(ER ONLY) 100 UNIT in NS(*) 0.9% 100 ML BAG 99 ML IVPB ONE (13:30)
[2019-03-08] MEDS ORDERED: NS(*) 0.9% 100 ML BAG 0 ML ONE (13:31)
[2019-03-08] MEDS ORDERED: ONDANSETRON 4 MG/2 ML VIAL IVP ONE (13:50)
--- NOTE | 2019-03-08 13:51 | RADIOLOGY IMAGING REPORT ---
FACILITY: [facility] - [place] PATIENT NAME: Boy Carter : 1960 MR: [id number] V: [id number] EXAM DATE: ORDERING PHYSICIAN: KAYLYN CUTLER TECHNOLOGIST: [place] [facility] [place] : 1960 Visit/Account:[id number] Date of Sevice: 03/08/2019 Exam type: CHEST SINGLE AP History: DKA Comparison: January 20, 2019. Findings: The lungs are free of acute effusions, infiltrates or edema. The cardiac silhouette is normal in siz e. The trachea is in midline. IMPRESSION: 1. No acute cardiopulmonary process seen Report Dictated By: Ora Gray MD at 03/08/2019 1:41 PM Report E-Signed By: Ora Gray MD at 03/08/2019 1:42 PM WSN:[id number]
--- NOTE | 2019-03-08 14:33 | EKG ---
FACILITY: [facility] PATIENT NAME: ALLY NOONAN : [id number] MR: [id number] V: [id number] EXAM DATE: ORDERING PHYSICIAN: KAYLYN CUTLER TECHNOLOGIST: DAVID Test Reason : HYPERGLYCEMIC Blood Pressure : / mmHG Vent. Rate : 097 BPM Atrial Rate : 097 BPM P-R Int : 152 ms QRS Dur : 082 ms QT Int : 364 ms P-R-T Axes : 067 076 071 degrees QTc Int : 462 ms Normal sinus rhythm Normal ECG When compared with ECG of 20-JAN-2019 10:00, No significant change was found Confirmed by Jose Hallman ([id number]) on 03/08/2019 7:30:49 PM Referred By: OMAYRA Confirmed By:Jose Grier
[2019-03-08] MEDS ORDERED: FLUSH 10 ML SYR IVP PRN (16:20)
[2019-03-08] MEDS ORDERED: ACETAMINOPHEN 500 MG TAB PO PRN (16:20)
[2019-03-08] MEDS ORDERED: INSULIN HUM REG 100 UN/ML 3 ML 100 UNIT in NS(*) 0.9% 100 ML BAG 99 ML IV PRN (16:20)
[2019-03-08] MEDS ORDERED: ONDANSETRON 4 MG/2 ML VIAL IVP PRN (16:20)
[2019-03-08] MEDS: KCL/D1/2NS 20 MEQ 1000 ML 1,000 ML IV PRN ×2 (16:41→23:58)
--- NOTE | 2019-03-08 17:14 | History & Physical ---
History of Present Illness Chief Complaint nausea and vomiting History of Present Illness 58M presented with n/v. PMHx significant for poorly controlled DM. Reports nausea and vomiting over last 1-2 days. Continued to have symptoms so presented to ER for evaluation. Found to be in DKA with gap 31. Started on IV hydration and insulin gtt. Denies any inciting illness, no issues getting insulin. He is awake and alert. He has been living with family and has not been drinking per their knowledge. Admitted to ICU. History Problems: (1) Type 1 diabetes mellitus Status: Chronic (2) Alcohol use Status: Chronic Home Meds Active Scripts Insulin Lispro 100 Un/Ml Vial (HUMALOG 100 U/ML VIAL) 100 Unit/1 Ml Vial, 1-5 UNIT SUBQ SS PRN for SLIDING SCALE INSULIN, #1 VIAL Prov:NORMA GOETZ [employer] SUPERVISOR 09/18/18 Insulin Glargine 100 Un/Ml Pen (LANTUS SOLOSTAR PEN) 100 Unit/1 Ml Insuln.pen, 0 SQ BID for 30 Days, #1 VIAL 6 Refills 10 units SQ qAM and 8 units SQ qPM. Prov:ANA MARIA PALACIOS MD 06/18/18 Allergies: Coded Allergies: No Known Drug Allergies (Verified , 01/15/19) Patient History: Blood clots MOTHER Cardiac pacemaker MOTHER FH: gastric ulcer MOTHER FH: heart attack FATHER MOTHER FH: hypertension FATHER FH: stroke MOTHER Hx Smoking: No Smoking Status: Light Tobacco Smoker Caffeine Intake: Coffee Caffeine/Cups Per Day: 5 Hx Alcohol Use: No Hx Substance Use Disorder: No (Pt denies. ) Social Drugs: Marijuana Exam Vital Signs Vital Signs Date Time Temp Pulse Resp B/P (MAP) Pulse Ox O2 Delivery O2 Flow Rate FiO2 03/08/19 16:00 91 12 104/65 (78) 92 Room Air 03/08/19 15:00 97.7 General Appearance: Alert, Awake, No Acute Distress, Afebrile Neuro: No Gross deficits Cardiovascular: Normal Rhythm & Peripheral Pulses Respiratory: No Respiratory Distress GI: Abd Soft and Non-Tender Extremities: Soft and Non Tender, Warm, Pulses, Perfused Medical Decision Making Data Points Result Diagram: 03/08/19 1254 03/08/19 8377 Assessment and Plan Problems: (1) DKA (diabetic ketoacidoses) Status: Acute Assessment & Plan: Given 1L LR in ER started on insulin gtt. Will transition to D5W with 1/2 NS and 20KCl at 150cc/hr. Will hold glucose 200-250 until gap closes then resume SQ insulin and diet if tolerating PO. No evidence infection or EtOH use, will work with nursing to reinforce teaching when off drip and on SQ insulin. (2) Type 1 diabetes mellitus Status: Chronic Assessment & Plan: Previously poorly controlled, will resume regimen when gap closes and taking PO. (3) Alcohol use Status: Chronic Assessment & Plan: In remission, living with family who report no EtOH use. Venous Thromboembolism Antithrombotics Is Pt On Any Antithrombotics?: Yes Exam Sepsis Risk: No Definite Risk WES JOHNSON DO Mar 08, 2019 17:14
[2019-03-09] VITALS (21 sets, daily range): BP systolic 90–128; BP diastolic 51–88
[2019-03-09 05:00] LABS: PLATELET COUNT, AUTOMATED 315 K/uL (150-450)
[2019-03-09] MEDS: KCL/D1/2NS 20 MEQ 1000 ML 1,000 ML IV PRN (06:40)
--- NOTE | 2019-03-09 08:49 | Hospitalist Progress Note ---
Subjective Progress Notes Subjective He denies nausea. He feels much better. He wants to go home. On 1 unit/hr of insulin. Physical Exam Vital Signs Date Time Temp Pulse Resp B/P (MAP) Pulse Ox O2 Delivery O2 Flow Rate FiO2 03/09/19 06:00 70 12 99/68 (78) 89 Nasal Cannula 1.0 03/09/19 04:00 98.2 Intake and Output 03/09/19 07:03 Intake Total 3625.1 ml Balance 3625.1 ml Intake Oral 400 ml IV Total 3225.1 ml # Voids 1 General Appearance: Alert, Awake, No Acute Distress Cardiovascular: Regular Rate and Rhythm Respiratory: Clear to Auscultation Extremities: No Edema Result Diagram: 03/09/1944403/09/19444 Monitor Interpretation: Normal Sinus Rhythm Assessment and Plan Problems: (1) DKA (diabetic ketoacidoses) Status: Acute Assessment & Plan: He presented with 2 days of blood sugars in the 500'sand some episodes of nausea and vomiting the day of admission. His glucose was 561, bicarbonate 12, and AG was 21. He was given IVF and started on an insulin drip. This morning his glucose is 155, bicarbonate is 24 and AG is 7. His regular Lantus is to be started and D5NS/insulin drip to be stopped. He is living with his brother and lnddhc-sh-sni, so is taking his insulin and not drinking alcohol. He reports using the same site for all his insulin injections, so that likely could be the source of the hyperglycemia. Will follow closely and give instruction about rotating sites. (2) Type 1 diabetes mellitus Status: Chronic Assessment & Plan: Chronically on Lantus 10 units bid. See above. (3) Alcohol use Status: Chronic Assessment & Plan: In remission, living with family who report no EtOH use. Exam Sepsis Risk: No Definite Risk RACHEL HERRERA MD Mar 09, 2019 08:49
[2019-03-09] MEDS ORDERED: INSULIN GLARGINE 100 U/ML 3 ML PEN SUBQ SCH ×2 (09:00→21:00)
[2019-03-09] MEDS: ENOXAPARIN 40 MG/0.4ML SYR SC SCH (09:38)
[2019-03-09] MEDS ORDERED: INSU100I28 SUBQ (10:59)
[2019-03-09] MEDS ORDERED: INSU100I30 SQ (10:59)
[2019-03-09] MEDS ORDERED: INSULIN GLARGINE 100 U/ML 3 ML PEN SUBQ ONE (11:55)
--- NOTE | 2019-03-09 14:50 | Medical Nutrition Therapy ---
Nutrition Anthropometrics Height (Inches): 70.00 Height (Calculated Centimeters: 177.078657 Weight (Pounds): 141 Weight (Calculated Kilograms): 63.985 BMI: 20.2 Hx Weight Gain: Yes Stanton Nutrition Score: Probably Inadequate Stanton Nutrition Risk Score: 17 Dietary Referral Nutrition Risk Factors: Special Diet Nutrition Risk Comment: PT IS DIABETIC Physical Findings Physical Appearance: BMI 20.2 Skin Appearance Skin Appearance: Edema Edema Location Modifier: Edema Location: Type of Edema: Degree of Edema: Gastrointestinal Symptoms GI Symtoms: Tube Present: Bowel Sounds: Recent Bowel Pattern: Stool Characteristics: Nutritional Diagnosis Nutritional Risk Acuity 2: DKA Nutritional Risk Acuity 3: Alcohol abuse Nutritional Risk Acuity 4: Modified Diet Past Medical History: HX of Alcohol abuse (4-5 beers/day), T1DM, Depression, chew Tobacco, dysphagia, ARF, dehydration, UTI, DKA, closed head injury, vasectomy, hernia repair Nutritional Acuity: 2-Moderate Nutrition Diagnosis: Inappropriate Carb Intake Nutrition Etiology: Inability Manage SelfCare, Unwilling to Apply NutrEd Nutrition Problem/Etiology/Sym: Inappropriate carb intake R/T inabaility to manage self-care and unwilling to apply nutrition education given to him during previous visits AEB DKA and elevated BG levels of 561 upon admission. Energy Requirement: 1901 (MSJ) Protein Requirement: 64 (1g/kg/dy) Fluid Requirement: 1600 (25ml/kg/day') Diet Type: Diabetic Nutrition Intervention: Teaching, Check glucose Nutrition Monitoring & Eval Nutrition Goals: Eat 75-100% Meal RD Patient Assessment Time: [address] Assessment Type: RD Assessment Patient Nutrition Acuity: 2-Moderate Follow Up Date: Mar 12, 2019 Nutritional Comment: 03/09/2019: Pt admitted for DKA with a glucose level of 561 upon admission, and had N&V. Pt has previously been admitted to the facility for DKA. Pt has a history of alcohol abuse, but states that he is in remission and is no longer drinking. Pt has a history of poorly controlled type 1 DM. Lab values indicate increased RBC of 3.91, low H&H of 12 and 35.6, low sodium of 131, low creatinine of .6, and high BG of 196. Will offer education to pt on proper CHO intake and ways to manage Type 1 DM. Will continue to monitor pt weight, intake, and lab values. YORDAN SKINNER Mar 09, 2019 13:14
[2019-03-09] MEDS: INSULIN HUM LISPRO 100 UN/ML 3 ML VIAL SUBQ SCH (17:05)
[2019-03-09] MEDS: INSULIN HUM LISPRO 100 UN/ML 3 ML VIAL SUBQ PRN ×2 (17:06→21:33)
[2019-03-10 03:06] VITALS: BP 119/76
[2019-03-10 06:52] VITALS: BP 96/68
[2019-03-10] MEDS: INSULIN HUM LISPRO 100 UN/ML 3 ML VIAL SUBQ PRN ×2 (07:40→11:36)
[2019-03-10] MEDS: INSULIN HUM LISPRO 100 UN/ML 3 ML VIAL SUBQ SCH ×2 (07:40→11:36)
[2019-03-10 07:43] VITALS: BP 89/58
[2019-03-10] MEDS ORDERED: INSULIN GLARGINE 100 U/ML 3 ML PEN SUBQ SCH (09:00)
[2019-03-10] MEDS: ENOXAPARIN 40 MG/0.4ML SYR SC SCH (09:51)
[2019-03-10 11:30] VITALS: BP 119/74
--- NOTE | 2019-03-10 11:45 | Hospitalist Depart ---
Discharge Summary Reason for Hosp/Final Diag: (1) DKA (diabetic ketoacidoses) Status: Acute Hospital Course & Plan: He presented with 2 days of blood sugars in the 500'sand some episodes of nausea and vomiting the day of admission. His glucose was 561, bicarbonate 12, and AG was 21. He was given IVF and started on an insulin drip. He was restarted on his usual home regiment and continued to improve. He is living with his brother and ohlzsy-bp-fcf, so is taking his insulin and not drinking alcohol. He reports using the same site for all his insulin injections, so that likely could be the source of the hyperglycemia. He was given instruction about rotating sites. He will continue his usual Lantus regimen at home. (2) Type 1 diabetes mellitus Status: Chronic Hospital Course & Plan: Chronically on Lantus 18 units in the morning and 16 units at night. (3) Alcohol use Status: Chronic Hospital Course & Plan: In remission, living with family who report no EtOH use. Departure Latest Vital Signs Vital Signs 03/09/19 03/10/19 06:00 11:30 Temp 97.6 Pulse 95 Resp 17 B/P (MAP) 119/74 (89) Pulse Ox 91 O2 Delivery Room Air O2 Flow Rate 1.0 Weight (Pounds): 141 Weight (Ounces): 1.0 Result Diagram: 03/09/1944403/09/19444 Condition: Improved Discharge: Home, Home Health Home Health RN Follow Up For: Medication Management, Nursing Assessment Discharge Instructions Home Meds Reported Medications Insulin Glargine 100 Un/Ml Pen (LANTUS SOLOSTAR PEN) 100 Unit/1 Ml Insuln.pen, 24 UNIT SQ DIRECTED, PEN 18 u AM + 16 units PM family states 18 u AM + 16 units PM 03/09/19 Insulin Lispro 100 Un/Ml Pen (HUMALOG 3 ML PEN) 100 Unit/1 Ml Insuln.pen, 5-10 UNITS SUBQ before meals 03/09/19 Discontinued Scripts Insulin Lispro 100 Un/Ml Vial (HUMALOG 100 U/ML VIAL) 100 Unit/1 Ml Vial, 1-5 UNIT SUBQ SS PRN for SLIDING SCALE INSULIN, #1 VIAL Prov:NORMA GOETZ [employer] 09/18/18 Insulin Glargine 100 Un/Ml Pen (LANTUS SOLOSTAR PEN) 100 Unit/1 Ml Insuln.pen, 0 SQ BID for 30 Days, #1 VIAL 6 Refills 10 units SQ qAM and 8 units SQ qPM. Prov:ANA MARIA PALACIOS MD 06/18/18 Diet: Diabetic Activity: As Tolerated Special Instructions: Continue to rotate sites for insulin injections. Continue current regimen of Lantus 18 units in the morning and 16 units at night. Follow up with your primary care provider in 1-2 weeks. Copies to: ; [facility] Venous Thromboembolism Antithrombotics Is Pt On Any Antithrombotics?: Yes Dynm-ez-Eekt Certification Face to Face Home Health Certification Patient's Primary Care Provider: Institutional Provider conducted the yzdv-fr-owhc encounter. Electronic Undersigning Physician Certifies Home Health. I certify that the patient has been under my care and that I had a rush-zr-najg encounter that meets the physician ausd-ia-pkee encounter requirements with this patient. This patient is home-bound due to safety issues and continues to require assista nce with ADL's. I certify that based on my findings, that Nursing, Aides and the following Home Health services are medically necessary: Medical Necessity: Nursing Date Face to Face Conducted: Mar 10, 2019 NORMA GOETZ Mar 10, 2019 11:45
== END 2019-03-10 12:49 | disposition home health service (06) | DRG 639 ==
LOC: ER 12:31 → ICU 14:17 → MED 03-09 20:00
PROVIDERS: ADMIT Internal Medicine; ATTEND Internal Medicine
DX: E11.10 Type 2 diabetes mellitus with ketoacidosis without coma (principal); Z79.4 Long term (current) use of insulin; F10.11 Alcohol abuse, in remission
CPT/HCPCS: 36415; 36416; 71045; 81001; 82040; 82247; 82310; 82374; 82435; 82565; 82803; 82947; 82948; 83605; 83690; 84075; 84132; 84155; 84295; 84450; 84460; 84520; 85025; 93005; 96365; 96375; 99291; J1650; J1815; J2405; J3480; J7050; J7120